=== PATIENT | female | born 1950 | race Caucasian/White ===

== ENCOUNTER 2017-09-01 17:23 | Inpatient (IN) | payer MEDICARE, MEDICAID ==
[~2017-09-01] VITALS: Ht 160 cm; Wt 50.0 kg
--- NOTE | 2017-09-01 17:31 | ERD ---
ER Documentation Chief Complaint Chief Complaint HPI Patient is a 66-year-old female with history of metastatic breast cancer who presents to the ER with sudden onset, constant, moderate shortness of breathin the setting of going to the restroom in her [facility] and calling for help to get up due to generalized weakness, and becoming angry at not having someone respond to her calls for help. She denies chest pain, fever, productive cough. She reports left flank pain that is chronic due to metastasis. She denies hemoptysis. She reports that she did not sleep well last night due to her roommate being loud, and that she is felt more fatigued today. She is currently taking chemotherapy. She is not on blood thinners. She has not had a history of DVT or PE.She was found to have a heart rate in the 120s-130s on scene and a oxygen saturation in the 80s on room air. ROS All systems reviewed and are negative except as per history of present illness. Medications Home Meds Reported Medications Zinc Sulfate* (Zinc Sulfate*) 220 Mg Tablet, 220 MG PO DAILY, TAB 09/01/17 Acetaminophen* (Tylenol*) 500 Mg Tab, 500 MG PO DAILY Y for WOUND HEALING, TAB 09/01/17 Acetaminophen* (Tylenol*) 325 Mg Tablet, 650 MG PO Q4H Y for MILD PAIN LEVEL 1-3 , TAB AND FOR FEVER TEMP>101 09/01/17 Sennosides* (Senna Lax*) 8.6 Mg Tablet, 2 TAB PO BID, TAB 09/01/17 Multivitamin with Minerals (Multivitamins with Minerals) 1 Each Tablet, 1 EACH PO DAILY, TAB 09/01/17 Magnesium Hydroxide* (Milk Of Magnesia*) 400 Mg/5 Ml Oral.susp, 30 ML PO QHS, ML 09/01/17 Methadone Hcl* (Methadone*) 10 Mg Tab, 10 MG PO Q8H, TAB 09/01/17 Levothyroxine Sodium* (Levothyroxine Sodium*) 100 Mcg Tablet, 100 MCG PO BEFORE BREAKFAST, #30 TAB 09/01/17 Letrozole* (Letrozole*) 2.5 Mg Tablet, 2.5 MG PO DAILY, TAB 09/01/17 Cyclobenzaprine Hcl* (Cyclobenzaprine Hcl*) 5 Mg Tablet, 5 MG PO NEEDED Y for MUSCLE SPASM, #60 TAB 09/01/17 Na Phos,M-B/Na Phos,Di-Ba (Fleet Enema Extra) 230 Ml Enema, 1 UNIT RC Q2D Y for NEEDED, ENEMA 09/01/17 Hydromorphone Hcl* (Dilaudid*) 4 Mg Tablet, 4 MG PO as needed Y for MODERATE PAIN LEVEL 4-6, TAB 09/01/17 Dexamethasone* (Dexamethasone*) 4 Mg Tablet, 4 MG PO DAILY, TAB 09/01/17 Docusate Sodium* (Colace*) 100 Mg Capsule, 100 MG PO BID, #60 CAP 09/01/17 Clonidine Hcl* (Clonidine Hcl*) 0.1 Mg Tab, 0.1 MG PO Q6 Y for NEEDED, TAB FOR SBP>160 09/01/17 Calcium Carbonate-Vitamin D3 (Calcium 500 + Vit D 200 Caplet) 1 Each Tablet, 1 TAB PO WITH MEALS, TAB TID 09/01/17 Amlodipine Besylate* (Amlodipine Besylate*) 10 Mg Tablet, 10 MG PO DAILY, #30 TAB HOLD FOR SBP<110HR<60 09/01/17 Alprazolam* (Alprazolam*) 0.25 Mg Tablet, 0.25 MG PO Q8, TAB 09/01/17 Discontinued Reported Medications Hydromorphone Hcl* (Dilaudid*) 4 Mg Tablet, 8 MG PO Q4H Y for SEVERE PAIN LEVEL 7-10, TAB 09/01/17 Allergies Allergies: Coded Allergies: No Known Allergy (Unverified , 09/01/17) PMhx/Soc Past medical history: Metastatic breast cancer Past surgical history: Thyroidectomy Social history: Denies current or former tobacco or alcohol. FmHx Noncontributory Physical Exam Vitals Vital Signs Date Time Temp Pulse Resp B/P Pulse Ox O2 Delivery O2 Flow Rate FiO2 09/01/17 23:30 94 16 107/79 91 09/01/17 21:30 111 20 99/52 86 09/01/17 19:30 93 21 111/64 93 09/01/17 17:50 118/79 09/01/17 17:50 107 21 93 Non Rebreather 10.0 09/01/17 17:50 99.4 114 17 119/76 86 09/01/17 17:45 Non Rebreather 10 Physical Exam Const: Alert, no acute distress Head: Atraumatic Eyes: Normal Conjunctiva, No pallor, no icterus ENT: Normal External Ears, Nose and Mouth. Mucous membranes moist Neck: Full range of motion. No JVD Resp: Clear to auscultation bilaterally, No wheezes, no rales Cardio: Tachycardia, regular rhythm, no murmurs Abd: Soft, non tender, non distended. Skin: No petechiae or rashes Back: No midline tenderness, left flank tenderness Ext: No cyanosis, or edema, No calf tenderness. Neur: Awake and alert, Cranial nerves II through XII intact bilaterally, strength and sensation grossly intact in 4 extremities. Psych: Normal Mood and Affect Result Diagram: 09/01/17180909/01/171809 Results 24 hrs Laboratory Tests Test 09/01/17 18:10 09/01/17 21:34 09/01/17 22:25 White Blood Count 1.710^3/ul Red Blood Count 3.4910^6/ul Hemoglobin 11.2g/dl Hematocrit 32.6% Mean Corpuscular Volume 93.4fl Mean Corpuscular Hemoglobin 32.1pg Mean Corpuscular Hemoglobin Concent 34.4g/dl Red Cell Distribution Width 21.5% Platelet Count 17589^3/UL Mean Platelet Volume 11.0fl Neutrophils % % Segmented Neutrophils % (Manual) 82% Band Neutrophils % (Manual) 5% Lymphocytes % (Manual) 10% Reactive Lymphocytes % (Manual) 2% Monocytes % (Manual) 1% Eosinophils % % Nucleated Red Blood Cells % 5% Neutrophils # 10^3/ul Neutrophils # (Manual) 1.410^3/ul Band Neutrophils # 0.010^3/ul Absolute Lymphocytes (Manual) 0.110^3/ul Reactive Lymphocytes # 0.010^3/ul Absolute Monocytes (Manual) 0.010^3/ul Eosinophils # 10^3/ul Giant Platelets 1% Platelet Morphology Comment @See below Polychromasia 3+ Poikilocytosis 2+ Anisocytosis 1+ Microcytosis 1+ Macrocytosis 1+ Spherocytes 1+ Target Cells 1+ Ovalocytes 1+ Echinocytes 1+ Elliptocytes 1+ Acanthocytes 1+ Schistocytes 1+ Prothrombin Time 15.4Sec Prothrombin Time Ratio 1.2 INR International Normalized Ratio 1.20 Sodium Level 132mmol/L Potassium Level 4.3mmol/L Chloride Level 100mmol/L Carbon Dioxide Level 26mmol/L Anion Gap 10 Blood Urea Nitrogen 18mg/dl Creatinine 0.67mg/dl Glucose Level 115mg/dl Lactic Acid Level 1.5mmol/L 1.3mmol/L Calcium Level 7.2mg/dl Total Bilirubin 0.4mg/dl Direct Bilirubin 0.00mg/dl Indirect Bilirubin 0.4mg/dl Aspartate Amino Transf (AST/SGOT) 52IU/L Alanine Aminotransferase (ALT/SGPT) 68IU/L Alkaline Phosphatase 364IU/L Troponin I 0.015ng/ml B-Type Natriuretic Peptide 283PG/ML Total Protein 5.7g/dl Albumin 2.9g/dl Globulin 2.80g/dl Albumin/Globulin Ratio 1.03 Urine Color YELLOW Urine Clarity CLEAR Urine pH 8.0 Urine Specific [place] 1.042 Urine Ketones NEGATIVEmg/dL Urine Nitrite NEGATIVEmg/dL Urine Bilirubin NEGATIVEmg/dL Urine Urobilinogen 2+mg/dL Urine Leukocyte Esterase TRACELeu/ul Urine Microscopic RBC 2/HPF Urine Microscopic WBC 5/HPF Urine Hemoglobin NEGATIVEmg/dL Urine Glucose NEGATIVEmg/dL Urine Total Protein NEGATIVEmg/dl Current Medications Medications (Trade) Dose Ordered Sig/Mo Route PRN Reason Start Time Stop Time Status Last Admin Dose Admin IV Flush 10 ml 10 ml STK-MED ONCE .ROUTE 09/01/17 19:02 09/01/17 19:03 DC 09/01/17 19:14 Sodium Chloride 100 ml @ ud STK-MED ONCE .ROUTE 09/01/17 19:02 09/01/17 19:03 DC 09/01/17 19:14 Iohexol 100 ml @ ud STK-MED ONCE .ROUTE 09/01/17 19:02 09/01/17 19:03 PR 09/01/17 19:14 Cefepime HCl 50 ml @ 100 mls/hr ONCE ONCE IVPB 09/01/17 20:30 09/01/17 20:59 DC 09/01/17 21:13 Vancomycin HCl/ Sodium Chloride (Vancocin/NS) 250 ml @ 125 mls/hr ONCE ONCE IVPB 09/01/17 20:30 09/01/17 22:29 DC 09/01/17 21:49 Enoxaparin Sodium (Lovenox) 50 mg ONCE ONCE SC 09/01/17 20:30 09/01/17 20:31 DC 09/01/17 21:14 Ondansetron HCl (Zofran Inj) 4 mg ER BRIDGE PRN IV NAUSEA AND/OR VOMITING 09/01/17 20:30 09/01/17 22:39 DC Acetaminophen (Tylenol Tab) 650 mg ER BRIDGE PRN PO MILD PAIN/FEVER 09/01/17 20:30 09/01/17 22:39 DC Methadone HCl 10 mg 10 mg ONCE ONCE PO 09/01/17 20:30 09/01/17 20:31 DC 09/01/17 21:50 Sodium Chloride (NS) 1,000 ml @ 75 mls/hr [id number] IV 09/01/17 21:41 09/02/17 22:00 IV Flush (NS 3 ml) 3 ml PER PROTOCOL IV 09/01/17 22:00 Ondansetron HCl (Zofran Inj) 4 mg Q6H PRN IV NAUSEA AND/OR VOMITING 09/01/17 22:00 Nitroglycerin (Nitroglycerin (Sl Tab) 0.4 Mg) 1 tab Q5M PRN SL CHEST PAIN 09/01/17 22:00 Acetaminophen (Tylenol Tab) 650 mg Q6H PRN PO PAIN LEVEL 1-3 OR FEVER 09/01/17 22:00 Morphine Sulfate (morphine) 2 mg Q4H PRN IV PAIN LEVEL 7-10 09/01/17 22:00 Magnesium Hydroxide (Milk Of Mag) 30 ml DAILY PRN PO CONSTIPATION 09/01/17 22:00 Pantoprazole (Protonix Tab) 40 mg DAILY@06 PO 09/02/17 06:00 Albuterol/ Ipratropium (Duoneb) 3 ml Q2H RESP THERAPY PRN HHN SHORTNESS OF BREATH 09/01/17 22:00 Alprazolam (Xanax) 0.25 mg Q8 PO 09/01/17 22:00 Amlodipine Besylate (Norvasc) 10 mg DAILY PO 09/02/17 09:00 Calcium/Vitamin D (Oyster Shell/ Vit-D (500/200)) 1 tab WITH MEALS PO 09/02/17 08:00 Cyclobenzaprine HCl (Flexeril) 5 mg BID PRN PO MUSCLE SPASM 09/01/17 22:00 Docusate Sodium (Colace) 100 mg BID PO 09/02/17 09:00 Hydromorphone HCl (Dilaudid) 4 mg Q4H PRN PO pain 09/01/17 22:00 Letrozole (Femara) 2.5 mg DAILY PO 09/02/17 09:00 Levothyroxine Sodium (Synthroid) 100 mcg BEFORE BREAKFAST PO 09/02/17 07:00 Magnesium Hydroxide (Milk Of Mag) 30 ml QHS PO 09/02/17 21:00 Methadone HCl (Methadone) 10 mg Q8H PO 09/02/17 06:00 Senna (Senokot) 2 tab BID PO 09/01/17 22:00 Zinc Sulfate (Zinc Sulfate) 220 mg DAILY PO 09/02/17 09:00 Apixaban 10 mg 10 mg BID PO 09/02/17 09:00 09/09/17 22:00 Cefepime HCl (Maxipime 1gm/50 ml (Pmx)) 50 ml @ 100 mls/hr Q24H IVPB 09/02/17 20:00 Vancomycin HCl VANCOMYCIN PER PHARMACY PER PROTOCOL XX 09/01/17 22:00 Vancomycin HCl (Vancocin) 100 ml @ 100 mls/hr Q12H IVPB 09/02/17 09:00 Procedures/MDM EKG read by me: Time 1726, rate 118 Rhythm: Sinus tachycardia [place]: Normal Intervals: Normal ST-T waves: T-wave flattening, no ST elevation or depression Ectopy: No Q-waves: No Q waves, poor R-wave progression Impression: Tachycardia without signs of ischemia MDM: Patient is a 66-year-old female with metastatic breast cancer presents to the ER with acute dyspnea. Given her high risk for pulmonary embolism a CTPA was performed and does demonstrate a pulmonary embolism, as well as showing evidence of possible pneumonia. The patient has leukopenia and is on chemotherapy, therefore she is at increased risk for pneumonia. She did not have fever. Blood and urine cultures were sent, as well as respiratory culture. The patient was administered IV fluids and broad-spectrum antibiotics. She was given Lovenox for anticoagulation, and will be admitted for further workup and treatment. There is no evidence of right heart strain clinically or based on serum biomarkers, and the patient did not have hypotension. Her hypoxemia improved with facemask oxygen. She did not have respiratory distress. Departure Diagnosis: Primary Impression: Pulmonary embolism Pulmonary embolism type: other Chronicity: acute Acute cor pulmonale presence: without acute cor pulmonale Qualified Code: I26.99 - Other acute pulmonary embolism without acute cor pulmonale Additional Impressions: Hypoxemia Pneumonia Pneumonia type: due to unspecified organism Laterality: unspecified laterality Lung location: unspecified part of lung Qualified Code: J18.9 - Pneumonia due to infectious organism, unspecified laterality, unspecified part of lung Metastatic breast cancer Condition: FRANK Frank MD Sep 01, 2017 17:31
[2017-09-01] MEDS ORDERED: ALPR0.254 PO (17:51)
[2017-09-01] MEDS ORDERED: AMLO-147 PO (17:52)
[2017-09-01] MEDS ORDERED: CALC-72 PO (17:54)
[2017-09-01] MEDS ORDERED: CLON-379 PO (17:55)
[2017-09-01] MEDS ORDERED: DOCU-144 PO (17:56)
[2017-09-01] MEDS ORDERED: DEXA4TAB PO (17:56)
[2017-09-01] MEDS ORDERED: HYDR4TAB51 PO ×2 (17:58)
[2017-09-01] MEDS ORDERED: NA P230E RC (18:02)
[2017-09-01] MEDS ORDERED: CYCL5TAB PO (18:03)
--- NOTE | 2017-09-01 18:03 | RADRPT ---
PROCEDURE: Chest x-ray CLINICAL INDICATION: Shortness of breath TECHNIQUE: Chest single view COMPARISON: None FINDINGS: There is mild cardiomegaly and atherosclerotic aortic calcification. Ectasia and tortuosity noted of the aorta. There is a nodular left upper lung infiltrate. This may be infectious or neoplastic in e tiology given the nodular appearance. There is questionable mild infiltrate in the right upper lung as well. Consider further evaluation with chest CT. Costophrenic angles sharp. Bones are osteopenic. There are multiple bilateral rib fractures. IMPRESSION: 1. Mild cardiomegaly and atherosclerotic aortic calcification. 2. Ectasia and tortuosity of the thoracic aorta. 3. Nodular are left upper lung infiltrate. This may be infectious or neoplastic in etiology. Recomm end chest CT for further evaluation 4. Osteopenia with multiple bilateral rib fractures. 5. Loss of height of several thoracic vertebral bodies. 6. Previous thyroid surgery RPTAT: .Cecil Rouse MD, MD Date Time Electronically viewed and signed by .Cecil Rouse MD, on 09/01/2017 18:03 .W/
[2017-09-01] MEDS ORDERED: LETR2.5T PO (18:04)
[2017-09-01] MEDS ORDERED: LEVO100T87 PO (18:05)
[2017-09-01] MEDS ORDERED: MAGN400O4 PO (18:06)
[2017-09-01] MEDS ORDERED: METH10TA2 PO (18:06)
[2017-09-01] MEDS ORDERED: MULT-105 PO (18:07)
[2017-09-01] MEDS ORDERED: SENN-53 PO (18:08)
[2017-09-01] MEDS ORDERED: ZINC220T PO (18:10)
[2017-09-01] MEDS ORDERED: TYL500 PO (18:10)
[2017-09-01] MEDS ORDERED: ACET325T33 PO (18:10)
[2017-09-01 18:24] LABS: ABNORMAL IP MESSAGE 1; HEMATOCRIT 32.6 % (37.0-47.0); HEMOGLOBIN 11.2 g/dl (12.0-16.0); MEAN CORPUSCULAR HEMOGLOBIN 32.1 pg (29.0-33.0); MEAN CORPUSCULAR HGB CONC 34.4 g/dl (32.0-37.0); MEAN CORPUSCULAR VOLUME 93.4 fl (82.0-101.0); NUCLEATED RED BLOOD CELLS% 3.5 /100WBC (0.0-0.0); PLATELET COUNT 100 10^3/UL (140-415); RED BLOOD COUNT 3.49 10^6/ul (4.20-5.40); RED CELL DISTRIBUTION WIDTH 21.5 % (11.5-14.5); WHITE BLOOD COUNT 1.7 10^3/ul (4.8-10.8)
[2017-09-01 18:30] LABS: POSITIVE DIFF @See below
[2017-09-01 18:38] LABS: INR 1.2; PROTIME 15.4 Sec (11.9-14.9); PT RATIO 1.2
[2017-09-01 18:44] LABS: ALBUMIN 2.9 g/dl (3.3-4.9); ALBUMIN/GLOBULIN RATIO 1.03; BILIRUBIN,INDIRECT 0.4 mg/dl (0-1.1); BILIRUBIN,TOTAL 0.4 mg/dl (0.2-1.3); CALCIUM 7.2 mg/dl (8.4-10.2); CREATININE 0.67 mg/dl (0.44-1.00); POTASSIUM 4.3 mmol/L (3.5-5.1); TOTAL PROTEIN 5.7 g/dl (6.1-8.1)
[2017-09-01 18:56] LABS: TROPONIN-I 0.015 ng/ml (0.00-0.12)
[2017-09-01] MEDS ORDERED: SOD CHLORIDE 0.9% 100 ML ONE (19:02)
[2017-09-01] MEDS ORDERED: IOHEXOL 100 ML ONE (19:02)
[2017-09-01 19:37] LABS: ACANTHOCYTES 1+ (0-0); ANISOCYTOSIS 1+ (0-0); ERYTHROBLAST% (NRBC) (M) 5 % (0-0); GIANT THROMBO% (M) 1 % (0-0); MICROCYTOSIS 1+ (0-0); MONOCYTES % (M) 1 % (0-11); OVALOCYTES 1+ (0-0); POIKILOCYTOSIS 2+ (0-0); POLYCHROMASIA 3+ (0-0); REACTIVE LYMPHOCYTES% (M) 2 % (0-0); SCHISTOCYTES 1+ (0-0); SPHEROCYTES 1+ (0-0); TARGET CELLS 1+ (0-0)
--- NOTE | 2017-09-01 19:50 | RADRPT ---
PROCEDURE: CT Chest Angiogram with contrast. CLINICAL INDICATION: Shortness of breath TECHNIQUE: CT scan of the chest with contrast was performed on a multidetector high-resolution CT scanner. The patient was scanned following the uncomplicated intravenous administration of 100 cc o f Isovue 300 contrast. Coronal and sagittal reformatted images were obtained from the axial source images. Additional 3D volumetric renderings were created. Images were reviewed on a [employer] PACS workstation. The total exam CTDI equals 49/10mGy and the total exam DLP equals 343mGy-cm. One or more of the following dose reduction techniques were used: Automated exposure control, Adjustmen t of the mA and/or kV according to patient size, and/or use of iterative reconstruction technique. D ICOM images are available. COMPARISON: Correlation chest x-ray today FINDINGS: Technically adequate exam for the evaluation of the pulmonary arteries to the segmental level. Intra luminal filling defects are seen most notably within segmental branches of the right lower lobe. Patchy bilateral upper lobe consolidations. There is also mass-like consolidation in the superior se gment right lower lobe. Cardiomegaly. Peripherally hypervascular right hepatic lesion measures up to 2.9cm. No significant pleural or pericardial effusion. Diffuse osseous metastatic lesions throughout the sternum, ribs and spine. Multiple pathologic rib t horacic vertebral compression fractures are seen. IMPRESSION: Right lower lobe segmental pulmonary emboli. Patchy bilateral upper lobe consolidations may be due to multifocal infection and/or edema. There is also mass-like consolidation in the superior segment right lower lobe. Recommend attention on close follow-up. Cardiomegaly. Peripherally hypervascular right hepatic lesion measures up to 2.9cm. Correlation to prior imaging w ould be helpful. Alternatively, follow up multiphase contrast enhanced abdominal CT or MRI can be ob tained. Diffuse osseous metastasis. Multiple pathologic rib and thoracic vertebral compression fractures are seen. A call report was made to Dr. Gonzales at 09/01/2017 7:50:15 PM. RPTAT: AA .Kwadwo James MD, Date Time Electronically viewed and signed by .Kwadwo James MD, on 09/01/2017 19:50 .T/
[2017-09-01] MEDS ORDERED: CEFEPIME 1GM/50 ML (PMX) 50 ML IVPB ONE (20:30)
[2017-09-01] MEDS ORDERED: VANCOMYCIN 0.75 GM in SOD CHLORIDE 0.9% 250 ML IVPB ONE (20:30)
[2017-09-01] MEDS ORDERED: ACETAMINOPHEN 325 MG TAB PO PRN ×2 (20:30→22:00)
[2017-09-01] MEDS ORDERED: ENOXAPARIN 60 MG/0.6 ML SYG SC ONE (20:30)
[2017-09-01] MEDS ORDERED: METHADONE 10 MG TAB PO ONE (20:30)
[2017-09-01] MEDS ORDERED: ONDANSETRON 4 MG INJ IV PRN ×2 (20:30→22:00)
[2017-09-01] MEDS: SOD CHLORIDE 0.9% 1,000 ML IV SCH (21:41)
[2017-09-01] MEDS ORDERED: VANCOMYCIN IV PER PHARMACY XX SCH (22:00)
[2017-09-01] MEDS ORDERED: MAGNESIUM HYDROXIDE 30ML CUP PO PRN (22:00)
[2017-09-01] MEDS ORDERED: HYDROmorphONE 4 MG TAB PO PRN (22:00)
[2017-09-01] MEDS ORDERED: NACL 0.9% 3 ML SYG IV SCH (22:00)
[2017-09-01] MEDS ORDERED: CYCLOBENZAPRINE 10 MG TAB PO PRN (22:00)
[2017-09-01] MEDS ORDERED: ALBUTEROL/IPRATROPIUM (NEB) 3 ML AMP HHN PRN (22:00)
[2017-09-01] MEDS ORDERED: NITROGLYCERIN (SL) 0.4 MG TAB SL PRN (22:00)
[2017-09-01] MEDS ORDERED: morphine 2 MG INJ IV PRN (22:00)
[2017-09-01 23:12] LABS: ADD UMIC YES; UR ASCORBIC ACID 20 mg/dL (NEGATIVE); UR BILIRUBIN (Dip) NEGATIVE (NEGATIVE); UR BLOOD (Dip) NEGATIVE (NEGATIVE); UR CLARITY CLEAR (CLEAR); UR COLOR YELLOW (YELLOW); UR GLUCOSE (Dip) NEGATIVE (NEGATIVE); UR KETONES (Dip) NEGATIVE (NEGATIVE); UR LEUKOCYTE ESTERASE (Dip) TRACE Leu/ul (NEGATIVE); UR NITRITE (Dip) NEGATIVE (NEGATIVE); UR RBC 2 /HPF (0-5); UR SPECIFIC GRAVITY (Dip) 1.042 (1.003-1.030); UR TOTAL PROTEIN (Dip) NEGATIVE (NEGATIVE); UR UROBILINOGEN (Dip) 2+ mg/dL (NEGATIVE)
[2017-09-02] VITALS (12 sets, daily range): BP systolic 93–170; BP diastolic 59–73; PULSE 81–103; RESP 18–20; Ht 160 cm; Wt 50.0 kg
[2017-09-02] MEDS: ALPRAZOLAM 0.25 MG TAB PO SCH ×5 (03:04→21:38)
[2017-09-02] MEDS: SENNA TAB PO SCH ×3 (03:04→20:31)
[2017-09-02 05:48] LABS: WHITE BLOOD COUNT 2.2 10^3/ul (4.8-10.8)
[2017-09-02 05:49] LABS: ABNORMAL IP MESSAGE 1; HEMATOCRIT 28.2 % (37.0-47.0); HEMOGLOBIN 9.7 g/dl (12.0-16.0); MEAN CORPUSCULAR HEMOGLOBIN 32.3 pg (29.0-33.0); MEAN CORPUSCULAR HGB CONC 34.4 g/dl (32.0-37.0); MEAN PLATELET VOLUME 11.3 fl (7.4-10.4); NUCLEATED RED BLOOD CELLS% 0.9 /100WBC (0.0-0.0); PLATELET COUNT 91 10^3/UL (140-415); RED CELL DISTRIBUTION WIDTH 21.4 % (11.5-14.5)
[2017-09-02 06:09] LABS: ALBUMIN 2.5 g/dl (3.3-4.9); ALBUMIN/GLOBULIN RATIO 0.96; BILIRUBIN,INDIRECT 0.2 mg/dl (0-1.1); BILIRUBIN,TOTAL 0.2 mg/dl (0.2-1.3); CALCIUM 6.7 mg/dl (8.4-10.2); CREATININE 0.59 mg/dl (0.44-1.00); POTASSIUM 3.9 mmol/L (3.5-5.1); TOTAL PROTEIN 5.1 g/dl (6.1-8.1)
[2017-09-02 06:16] LABS: POSITIVE DIFF @See below
[2017-09-02] MEDS: LEVOTHYROXINE 100 MCG TAB PO SCH (06:46)
[2017-09-02] MEDS: PANTOPRAZOLE (EC) 40 MG TAB PO SCH (06:46)
--- NOTE | 2017-09-02 08:49 | HP ---
Date/Time of Note Date/Time of Note DATE: 09/02/17 TIME: 08:41 Assessment/Plan VTE Prophylaxis VTE Prophylaxis Intervention: LMWH Lines/Catheters IV Catheter Type (from Nrs): Peripheral IV Assessment/Plan Assessment/Plan 1. Newly diagnosed PE -will started xeralto -obtain 2D-echo to eval for right heart strain -trend trop -pulmonary consult 2. Multifocal PNA -IV abx 3. Metastatic breast ca: on chemo -f/u with oncologist as outpt for chemo 4. Pancytopenia: 2/2 malignancy -Neutropenic precaution -consider Neupogen -consider in-patient oncology consult HPI/ROS Admit Date/Time Admit Date/Time Sep 01, 2017 at 20:22 Hx of Present Illness This is a 66-year-old female with history of metastatic breast cancer on chemo, back pain 2/2 met presents to ER from SNF for SOB and chest pain. Symptoms started while pt was using the rest room. Her call for help was not responded to right away. patient called 911 and was brought to ER. Her symptom was of sudden onset. In ER, she was hypoxic. Chest revealed PE, multifocal PNA, lung and liver met. She was given treatment dose Levonox for PE. No hypotension to consider tpa. PMH/Family/Social Social History Smoking Status: Never smoker Exam/Review of Systems Vital Signs Vitals Vital Signs Date Time Temp Pulse Resp B/P Pulse Ox O2 Delivery O2 Flow Rate FiO2 09/02/17 08:29 81 09/02/17 07:34 97.8 20 103/64 95 09/02/17 06:38 10.0 09/01/17 17:50 Non Rebreather Intake and Output 09/01/17 09/01/17 09/02/17 15:00 23:00 07:00 Intake Total 200 ml Balance 200 ml Exam Constitutional: distress Head: atraumatic, normocephalic Eyes: PERRL Respiratory: diminished breath sounds Cardiovascular: nl pulses, regular rate and rhythm Gastrointestinal: soft Extremities: normal pulses Labs Result Diagram: 09/02/1742209/02/17422 Medications Medications Current Medications Sodium Chloride (NS) 1,000 ml @ 75 mls/hr [id number] IV Last administered on 09/01t 21:41; Admin Dose 75 MLS/HR; Start 09/01/17 at 21:41; Stop 09/02/17 at 22: 00 Ondansetron HCl (Zofran Inj) 4 mg Q6H PRN IV NAUSEA AND/OR VOMITING; Start 09/01/17 at 22:00 Nitroglycerin (Nitroglycerin (Sl Tab) 0.4 Mg) 1 tab Q5M PRN SL CHEST PAIN; Start 09/01/17 at 22:00 Acetaminophen (Tylenol Tab) 650 mg Q6H PRN PO PAIN LEVEL 1-3 OR FEVER; Start 09/01/17 at 22:00 Morphine Sulfate (morphine) 2 mg Q4H PRN IV PAIN LEVEL 7-10; Start 09/01/17 at 22:00 Magnesium Hydroxide (Milk Of Mag) 30 ml DAILY PRN PO CONSTIPATION; Start at 22:00 Pantoprazole (Protonix Tab) 40 mg DAILY@06 PO Last administered on 09/02/17 06 :46; Admin Dose 40 MG; Start 09/02/17 at 06:00 Alprazolam (Xanax) 0.25 mg Q8 PO Last administered on 09/02/17 06:47; Admin Dose 0.25 MG; Start 09/01/17 at 22:00 Amlodipine Besylate (Norvasc) 10 mg DAILY PO ; Start 09/02/17 at 09:00 Cyclobenzaprine HCl (Flexeril) 5 mg BID PRN PO MUSCLE SPASM; Start 09/01/17 at 22:00 Docusate Sodium (Colace) 100 mg BID PO ; Start 09/02/17 at 09:00 Hydromorphone HCl (Dilaudid) 4 mg Q4H PRN PO pain; Start 09/01/17 at 22:00 Letrozole (Femara) 2.5 mg DAILY PO ; Start 09/02/17 at 09:00 Magnesium Hydroxide (Milk Of Mag) 30 ml QHS PO ; Start 09/02/17 at 21:00 Methadone HCl (Methadone) 10 mg Q8H PO ; Start 09/02/17 at 06:00 Senna (Senokot) 2 tab BID PO Last administered on 09/02/17 03:04; Admin Dose 2 TAB; Start 09/01/17 at 22:00 Zinc Sulfate (Zinc Sulfate) 220 mg DAILY PO ; Start 09/02/17 at 09:00 Apixaban 10 mg 10 mg BID PO ; Start 09/02/17 at 09:00; Stop 09/09/17 at 22:00 Cefepime HCl 50 ml @ 100 mls/hr Q24H IVPB ; Start 09/02/17 at 20:00 Vancomycin HCl (Vancocin) 100 ml @ 100 mls/hr Q12H IVPB ; Start 09/02/17 at 09: 00 GUSTAVO SEWELL MD Sep 02, 2017 08:49
[2017-09-02] MEDS: ZINC SULFATE 220 MG CAP PO SCH (08:57)
[2017-09-02] MEDS: METHADONE 10 MG TAB PO SCH ×3 (08:57→21:39)
[2017-09-02] MEDS: CALCIUM/VITAMIN D (500/200) TAB PO SCH ×3 (08:57→17:53)
[2017-09-02] MEDS: AMLODIPINE 10 MG TAB PO SCH (08:58)
[2017-09-02] MEDS: DOCUSATE SODIUM 100 MG CAP PO SCH ×2 (08:58→20:31)
[2017-09-02] MEDS: LETROZOLE 2.5 MG TAB PO SCH ×2 (08:58→12:22)
[2017-09-02] MEDS: VANCOMYCIN 500MG/NS (PMX) 100 ML IVPB SCH ×3 (09:00→20:30)
[2017-09-02] MEDS ORDERED: APIXABAN 5 MG TABLET PO SCH (09:00)
[2017-09-02 10:55] LABS: ANISOCYTOSIS 1+ (0-0); ERYTHROBLAST% (NRBC) (M) 1 % (0-0); MICROCYTOSIS 1+ (0-0); MONOCYTES % (M) 2 % (0-11); PLATELET ESTIMATE DECREASED; POIKILOCYTOSIS 2+ (0-0); POLYCHROMASIA 3+ (0-0)
[2017-09-02] MEDS: SOD CHLORIDE 0.9% 1,000 ML IV SCH ×2 (11:01→17:56)
--- NOTE | 2017-09-02 11:52 | RADRPT ---
Echocardiogram Report Patient Name: JANET CASTANEDA Gender: Female Date: 1950 Study Date: 02-Sep-2017 Business Process Associate: VICKY Location: E Ref. Physician: GUSTAVO SEWELL Quality: Technically Difficult Study Procedures: Transthoracic echocardiogram with 2D, M-Mode, and Doppler examination. Indications: Pulmonary embolism. 2D/M Mode Doppler Measurement Value Normal Ranges Measurement Value Normal Ranges AoR Diam MM 3.4 cm AV Peak [place] 1.0 m/sec ACS MM 2.0 cm AV Peak PG 4.3 mmHg LVIDd 2D 4.4 3.5 - 5.6 cm LVOT Peak [place] 0.7 m/sec LVIDs 2D 2.9 2.1 - 4.1 cm LVOT Peak PG 1.8 mmHg LVPWd 2D 1.2 0.6 - 1.1 cm MV E Peak Sidney 0.5 m/sec IVSd 2D 1.2 0.6 - 1.1 cm MV A Peak [place] 0.8 m/sec EDV 2D 87.1 cm3 MV E/A 0.6 ESV 2D 25.3 cm3 MV Decel Time 226 msec LA Dimen 2D 3.6 2.3 - 4.0 cm MV Decel [place] 2 MV E/A 0.6 TR Peak [place] 2.3 m/sec TR Peak PG 21.2 mmHg PV Peak [place] 0.8 m/sec PV Peak PG 3.0 mmHg RVSP 24.2 mmHg Findings Left Ventricle: Overall, normal left ventricular systolic function. Not all segments visualized difficult apicals. Normal left ventricular cavity size. Mild concentric left ventricular hypertrophy. Ejection fraction is visually estimated at 60 %. Tissue Doppler/Mitral Doppler indices are consistent with impaired relaxation (Stage I diastolic dysfunction). E/E`=7. These segments of the LV are hypokinetic inferior mid segment and inferoseptum mid segment. Right Ventricle: Normal right ventricular size. Normal right ventricular systolic function. Left Atrium: The left atrium is normal in size. Right Atrium: Not well visualized. Atrial Septum: Not well visualized. Mitral Valve: Mild mitral leaflet calcification. Mild mitral valve regurgitation. Aortic Valve: No hemodynamically significant aortic stenosis by doppler. Aortic sclerosis without significant stenosis. Trileaflet aortic valve. Mild aortic valve regurgitation. Tricuspid Valve: Normal appearance of the tricuspid valve. Estimated peak PA systolic pressure 24 mmHg. There is mild tricuspid regurgitation. Pulmonic Valve: Normal pulmonic valve appearance. There is trace pulmonic regurgitation. Pericardium: Normal pericardium with no significant pericardial effusion. Aorta: Normal aortic root. IVC: Normal size and normal respiratory collapse consistent with normal right atrial pressure. Pulmonary Artery: Not well visualized. Conclusions 1.Technically difficult study. 2.Overall, normal left ventricular systolic function. Estimated LVEF 60%. In the short-axis views there appears to be inferior and inferoseptal hypokinesis. 3.Mild concentric left ventricular hypertrophy with stage I diastolic dysfunction. 4.Mild mitral valve regurgitation. 5.Mild aortic valve regurgitation. 6.Normal estimated RVSP. Electronically Signed By: Marshall Rod 02-Sep-2017 11:51:49 -0800 Patient Name: JANET CASTANEDA Study Date: 02-Sep-2017 [id number]
--- NOTE | 2017-09-02 15:03 | PN ---
Date/Time of Note Date/Time of Note DATE: 09/02/17 TIME: 14:59 Assessment/Plan VTE Prophylaxis VTE Prophylaxis Intervention: SCD's Lines/Catheters IV Catheter Type (from Nrs): Peripheral IV Assessment/Plan Chief Complaint/Hosp Course Assessment and plan 1. Newly diagnosed embolism. Continue on Eliquis for now. Sheet Metal Insulator to follow. Of note troponin trend is negative. Hot End Operator to follow. 2. History of metastatic breast cancer. Patient is currently on chemotherapy. To be continued. Patient for outpatient follow-up with oncologist. 3. Pneumonia. Continue antibiotics. Sheet Metal Insulator follow. 4. Dyspnea secondary to #1 #3. Continue antibiotics. Sheet Metal Insulator follow. 5. Hypothyroidism. Continue Synthroid 6. Essential hypertension. Continue antihypertensives and adjust as needed. 7. Multiple pathologic rib and thoracic vertebral compression fractures. Likely pathologic. Continue with analgesics. 8. Masslike consolidation superior segment of right lower lung lobe. Follow- up with automatic packer operator or conditions. Disposition and plan: Continue with Eliquis. Continue on O2 supplement. Neurologist to follow. Continue in-house monitoring for now. Monitor for improvement. Discussed plan of care with Dr. Trevino Problems: Subjective 24 Hr Interval Summary Free Text/Dictation Still reports having some shortness of breath. Denies any chest pain. Reports breathing is better with Ventimask in place Exam/Review of Systems Vital Signs Vitals Vital Signs Date Time Temp Pulse Resp B/P Pulse Ox O2 Delivery O2 Flow Rate FiO2 09/02/17 12:20 91 09/02/17 11:38 98.1 18 109/59 96 09/02/17 06:38 10.0 09/01/17 17:50 Non Rebreather Intake and Output 09/01/17 09/01/17 09/02/17 15:00 23:00 07:00 Intake Total 200 ml Balance 200 ml Exam Constitutional: alert, oriented Head: normocephalic Neck: non-tender, supple Respiratory: other (No obvious wheezing or rhonchi) Cardiovascular: regular rate and rhythm Gastrointestinal: non-tender, soft Musculoskeletal: No swelling 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: 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-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 intact, nl mental status, nl speech Skin: nl turgor Results Result Diagram: 09/02/17 0423 09/02/173 Results 24 hrs Laboratory Tests Test 09/01/17 18:10 09/01/17 21:34 09/01/17 22:25 09/02/17 04:23 White Blood Count 1.7 L 2.2 #L Red Blood Count 3.49 L 3.00 L Hemoglobin 11.2 L 9.7 L Hematocrit 32.6 L 28.2 L Mean Corpuscular Volume 93.4 94.0 Mean Corpuscular Hemoglobin 32.1 32.3 Mean Corpuscular Hemoglobin Concent 34.4 34.4 Red Cell Distribution Width 21.5 H 21.4 H Platelet Count 100 L 91 L Mean Platelet Volume 11.0 H 11.3 H Neutrophils % Segmented Neutrophils % (Manual) 82 H 75 Band Neutrophils % (Manual) 5 H 14 H Lymphocytes % (Manual) 10 L 9 L Reactive Lymphocytes % (Manual) 2 H Monocytes % (Manual) 1 2 Eosinophils % Nucleated Red Blood Cells % 5 H 1 H Neutrophils # Neutrophils # (Manual) 1.4 L 1.7 Band Neutrophils # 0.0 0.3 Absolute Lymphocytes (Manual) 0.1 L 0.1 L Reactive Lymphocytes # 0.0 Absolute Monocytes (Manual) 0.0 L 0.0 L Eosinophils # Giant Platelets 1 H Platelet Morphology Comment @See below Polychromasia 3+ 3+ Poikilocytosis 2+ 2+ Anisocytosis 1+ 1+ Microcytosis 1+ 1+ Macrocytosis 1+ Spherocytes 1+ Target Cells 1+ Ovalocytes 1+ Echinocytes 1+ Elliptocytes 1+ Acanthocytes 1+ Schistocytes 1+ Prothrombin Time 15.4 H Prothrombin Time Ratio 1.2 INR International Normalized Ratio 1.20 Sodium Level 132 L 138 Potassium Level 4.3 3.9 Chloride Level 100 105 Carbon Dioxide Level 26 26 Anion Gap 10 11 Blood Urea Nitrogen 18 18 Creatinine 0.67 0.59 Glucose Level 115 186 Lactic Acid Level 1.5 1.3 Calcium Level 7.2 L 6.7 L Total Bilirubin 0.4 0.2 Direct Bilirubin 0.00 0.00 Indirect Bilirubin 0.4 0.2 Aspartate Amino Transf (AST/SGOT) 52 H 37 Alanine Aminotransferase (ALT/SGPT) 68 65 Alkaline Phosphatase 364 H 310 H Troponin I 0.015 < 0.012 < 0.012 B-Type Natriuretic Peptide 283 H Total Protein 5.7 L 5.1 L Albumin 2.9 L 2.5 L Globulin 2.80 2.60 Albumin/Globulin Ratio 1.03 0.96 Urine Color YELLOW Urine Clarity CLEAR Urine pH 8.0 Urine Specific [place] 1.042 H Urine Ketones NEGATIVE Urine Nitrite NEGATIVE Urine Bilirubin NEGATIVE Urine Urobilinogen 2+ H Urine Leukocyte Esterase TRACE A Urine Microscopic RBC 2 Urine Microscopic WBC 5 Urine Hemoglobin NEGATIVE Urine Glucose NEGATIVE Urine Total Protein NEGATIVE Lymphocytes % Monocytes % Basophils % Lymphocytes # Monocytes # Basophils # Nucleated Red Blood Cells # Platelet Estimate DECREASED Magnesium Level 2.0 Medications Medications Current Medications Sodium Chloride (NS) 1,000 ml @ 75 mls/hr [id number] IV Last administered on 09/01 21:41; Admin Dose 75 MLS/HR; Start 09/01/17 at 21:41; Stop 09/02/17 at 22: 00 Ondansetron HCl (Zofran Inj) 4 mg Q6H PRN IV NAUSEA AND/OR VOMITING; Start 09/01/17 at 22:00 Nitroglycerin (Nitroglycerin (Sl Tab) 0.4 Mg) 1 tab Q5M PRN SL CHEST PAIN; Start 09/01/17 at 22:00 Acetaminophen (Tylenol Tab) 650 mg Q6H PRN PO PAIN LEVEL 1-3 OR FEVER; Start 09/01/17 at 22:00 Morphine Sulfate (morphine) 2 mg Q4H PRN IV PAIN LEVEL 7-10; Start 09/01/17 at 22:00 Magnesium Hydroxide (Milk Of Mag) 30 ml DAILY PRN PO CONSTIPATION; Start at 22:00 Pantoprazole (Protonix Tab) 40 mg DAILY@06 PO Last administered on 09/02/17 06 :46; Admin Dose 40 MG; Start 09/02/17 at 06:00 Alprazolam (Xanax) 0.25 mg Q8 PO Last administered on 09/02/17 13:54; Admin Dose 0.25 MG; Start 09/01/17 at 22:00 Amlodipine Besylate (Norvasc) 10 mg DAILY PO Last administered on 09/02/17 08: 58; Admin Dose 10 MG; Start 09/02/17 at 09:00 Cyclobenzaprine HCl (Flexeril) 5 mg BID PRN PO MUSCLE SPASM; Start 09/01/17 at 22:00 Docusate Sodium (Colace) 100 mg BID PO ; Start 09/02/17 at 09:00 Hydromorphone HCl (Dilaudid) 4 mg Q4H PRN PO pain; Start 09/01/17 at 22:00 Letrozole (Femara) 2.5 mg DAILY PO Last administered on 09/02/17 12:22; Admin Dose 2.5 MG; Start 09/02/17 at 09:00 Magnesium Hydroxide (Milk Of Mag) 30 ml QHS PO ; Start 09/02/17 at 21:00 Methadone HCl (Methadone) 10 mg Q8H PO Last administered on 09/02/17 13:55; Admin Dose 10 MG; Start 09/02/17 at 06:00 Senna (Senokot) 2 tab BID PO Last administered on 09/02/17 08:58; Admin Dose 2 TAB; Start 09/01/17 at 22:00 Zinc Sulfate (Zinc Sulfate) 220 mg DAILY PO Last administered on 09/02/17 08: 57; Admin Dose 220 MG; Start 09/02/17 at 09:00 Apixaban 10 mg 10 mg BID PO Last administered on 09/02/17 08:58; Admin Dose 10 MG; Start 09/02/17 at 09:00; Stop 09/09/17 at 22:00 Cefepime HCl 50 ml @ 100 mls/hr Q24H IVPB ; Start 09/02/17 at 20:00 Vancomycin HCl (Vancocin) 100 ml @ 100 mls/hr Q12H IVPB Last administered on 09/02/17 10:30; Admin Dose 100 MLS/HR; Start 09/02/17 at 09:00 Miscellaneous Information (*Rx Drug Level Order Reminder*) VANCOMYCIN TROUGH ON @ .. ONCE ONCE XX ; Start 09/03/17 at 08:00; Stop 09/03/17 at 08:01 DONOVAN BOLAÑOS Sep 02, 2017 15:03
--- NOTE | 2017-09-02 15:43 | CONS ---
Date/Time of Note Date/Time of Note DATE: 09/02/17 TIME: 15:42 Assessment/Plan Assessment/Plan Chief Complaint/Hosp Course Metastatic Breast Ca ON TREATMENT CHEMO ON HOLD INCOMPLETE RECORD WILL OBTAIN AND REVIEW RECORD HYPERCOAGULABLE STATE WITH subsegmental PE Anticoagulation with lovenox 1 mg/kg BID Pancytopenia POST CHEMO SL IMPROVED MONITOR CLOSELY TRANSFUSE IF NEEDED Hypoxemic Respiratory Failure: due to a multifocal pneumonia, more consistent with viral. PER PULM- In view of the morphological appearance on thoracic CT, must also consider non-infectious etiologies such as an organizing pneumonia (BOOP) secondary to her chemo (need records to know what she has been on) and/or XRT. RECORD- P Problems: Consultation Date/Type/Reason Admit Date/Time Sep 01, 2017 at 20:22 Date of Consultation: Sep 02, 2017 Type of Consultation: HEMEONC Reason for Consultation PE Referring Provider: DONOVAN BOLAÑOS Hx of Present Illness this is a 66-year-old female with history of metastatic breast cancer on chemo , s/p XRT, back pain 2/2 mets, resident of a SNF, who presents with acute onset of dyspnea, found to have a RLL subsegment PE and multifocal airspace opacities on CT chest. I WAS ASKED TO PROVIDE HEMEONC CONSULT Constitutional: chills Eyes: no complaints ENT: no complaints Respiratory: shortness of breath Cardiovascular: no complaints Gastrointestinal: no complaints Genitourinary: no complaints Musculoskeletal: no complaints Skin: no complaints Neurologic: no complaints Endocrine: no complaints Lymphatic: no complaints Psychological: no complaints Immunologic: no complaints Past Medical History Medical History: cancer Past Surgical History Past Surgical Hx: no surgical history Family History Significant Family History: no pertinent family hx Social History Alcohol Use: none Smoking Status: Never smoker Drug Use: none Social History Smoking Status: Never smoker Exam/Review of Systems Vital Signs Vitals Vital Signs Date Time Temp Pulse Resp B/P Pulse Ox O2 Delivery O2 Flow Rate FiO2 09/02/17 12:20 91 09/02/17 11:38 98.1 18 109/59 96 09/02/17 06:38 10.0 09/01/17 17:50 Non Rebreather Intake and Output 09/01/17 09/01/17 09/02/17 15:00 23:00 07:00 Intake Total 200 ml Balance 200 ml Exam Constitutional: alert, frail, oriented Psych: nl mood/affect, no complaints Head: atraumatic, normocephalic Eyes: EOMI, nl conjunctiva, nl lids, nl sclera ENMT: mucosa pink and moist, nl external ears & nose, nl lips & teeth, nl nasal mucosa & septum Neck: jvd, non-tender, supple Respiratory: crackles/rales, labored breathing Cardiovascular: nl pulses, regular rate and rhythm Gastrointestinal: nl liver, spleen, non-tender, soft Musculoskeletal: nl extremities to inspection, nl gait and stance Extremities: normal pulses 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: 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 intact, nl mental status, nl speech, nl strength Results Result Diagram: 09/02/1742209/02/17422 Results 24 hrs Laboratory Tests Test 09/01/17 18:10 09/01/17 21:34 09/01/17 22:25 09/02/17 04:23 White Blood Count 1.7 L 2.2 #L Red Blood Count 3.49 L 3.00 L Hemoglobin 11.2 L 9.7 L Hematocrit 32.6 L 28.2 L Mean Corpuscular Volume 93.4 94.0 Mean Corpuscular Hemoglobin 32.1 32.3 Mean Corpuscular Hemoglobin Concent 34.4 34.4 Red Cell Distribution Width 21.5 H 21.4 H Platelet Count 100 L 91 L Mean Platelet Volume 11.0 H 11.3 H Neutrophils % Segmented Neutrophils % (Manual) 82 H 75 Band Neutrophils % (Manual) 5 H 14 H Lymphocytes % (Manual) 10 L 9 L Reactive Lymphocytes % (Manual) 2 H Monocytes % (Manual) 1 2 Eosinophils % Nucleated Red Blood Cells % 5 H 1 H Neutrophils # Neutrophils # (Manual) 1.4 L 1.7 Band Neutrophils # 0.0 0.3 Absolute Lymphocytes (Manual) 0.1 L 0.1 L Reactive Lymphocytes # 0.0 Absolute Monocytes (Manual) 0.0 L 0.0 L Eosinophils # Giant Platelets 1 H Platelet Morphology Comment @See below Polychromasia 3+ 3+ Poikilocytosis 2+ 2+ Anisocytosis 1+ 1+ Microcytosis 1+ 1+ Macrocytosis 1+ Spherocytes 1+ Target Cells 1+ Ovalocytes 1+ Echinocytes 1+ Elliptocytes 1+ Acanthocytes 1+ Schistocytes 1+ Prothrombin Time 15.4 H Prothrombin Time Ratio 1.2 INR International Normalized Ratio 1.20 Sodium Level 132 L 138 Potassium Level 4.3 3.9 Chloride Level 100 105 Carbon Dioxide Level 26 26 Anion Gap 10 11 Blood Urea Nitrogen 18 18 Creatinine 0.67 0.59 Glucose Level 115 186 Lactic Acid Level 1.5 1.3 Calcium Level 7.2 L 6.7 L Total Bilirubin 0.4 0.2 Direct Bilirubin 0.00 0.00 Indirect Bilirubin 0.4 0.2 Aspartate Amino Transf (AST/SGOT) 52 H 37 Alanine Aminotransferase (ALT/SGPT) 68 65 Alkaline Phosphatase 364 H 310 H Troponin I 0.015 < 0.012 < 0.012 B-Type Natriuretic Peptide 283 H Total Protein 5.7 L 5.1 L Albumin 2.9 L 2.5 L Globulin 2.80 2.60 Albumin/Globulin Ratio 1.03 0.96 Urine Color YELLOW Urine Clarity CLEAR Urine pH 8.0 Urine Specific [place] 1.042 H Urine Ketones NEGATIVE Urine Nitrite NEGATIVE Urine Bilirubin NEGATIVE Urine Urobilinogen 2+ H Urine Leukocyte Esterase TRACE A Urine Microscopic RBC 2 Urine Microscopic WBC 5 Urine Hemoglobin NEGATIVE Urine Glucose NEGATIVE Urine Total Protein NEGATIVE Lymphocytes % Monocytes % Basophils % Lymphocytes # Monocytes # Basophils # Nucleated Red Blood Cells # Platelet Estimate DECREASED Magnesium Level 2.0 Medications Medications Current Medications Sodium Chloride (NS) 1,000 ml @ 75 mls/hr [id number] IV Last administered on 09/01t 21:41; Admin Dose 75 MLS/HR; Start 09/01/17 at 21:41; Stop 09/02/17 at 22: 00 Ondansetron HCl (Zofran Inj) 4 mg Q6H PRN IV NAUSEA AND/OR VOMITING; Start 09/01/17 at 22:00 Nitroglycerin (Nitroglycerin (Sl Tab) 0.4 Mg) 1 tab Q5M PRN SL CHEST PAIN; Start 09/01/17 at 22:00 Acetaminophen (Tylenol Tab) 650 mg Q6H PRN PO PAIN LEVEL 1-3 OR FEVER; Start 09/01/17 at 22:00 Morphine Sulfate (morphine) 2 mg Q4H PRN IV PAIN LEVEL 7-10; Start 09/01/17 at 22:00 Magnesium Hydroxide (Milk Of Mag) 30 ml DAILY PRN PO CONSTIPATION; Start at 22:00 Pantoprazole (Protonix Tab) 40 mg DAILY@06 PO Last administered on 09/02/17 06 :46; Admin Dose 40 MG; Start 09/02/17 at 06:00 Alprazolam (Xanax) 0.25 mg Q8 PO Last administered on 09/02/17 13:54; Admin Dose 0.25 MG; Start 09/01/17 at 22:00 Amlodipine Besylate (Norvasc) 10 mg DAILY PO Last administered on 09/02/17 08: 58; Admin Dose 10 MG; Start 09/02/17 at 09:00 Cyclobenzaprine HCl (Flexeril) 5 mg BID PRN PO MUSCLE SPASM; Start 09/01/17 at 22:00 Docusate Sodium (Colace) 100 mg BID PO ; Start 09/02/17 at 09:00 Hydromorphone HCl (Dilaudid) 4 mg Q4H PRN PO pain; Start 09/01/17 at 22:00 Letrozole (Femara) 2.5 mg DAILY PO Last administered on 09/02/17 12:22; Admin Dose 2.5 MG; Start 09/02/17 at 09:00 Magnesium Hydroxide (Milk Of Mag) 30 ml QHS PO ; Start 09/02/17 at 21:00 Methadone HCl (Methadone) 10 mg Q8H PO Last administered on 09/02/17 13:55; Admin Dose 10 MG; Start 09/02/17 at 06:00 Senna (Senokot) 2 tab BID PO Last administered on 09/02/17 08:58; Admin Dose 2 TAB; Start 09/01/17 at 22:00 Zinc Sulfate (Zinc Sulfate) 220 mg DAILY PO Last administered on 09/02/17 08: 57; Admin Dose 220 MG; Start 09/02/17 at 09:00 Apixaban 10 mg 10 mg BID PO Last administered on 09/02/17 08:58; Admin Dose 10 MG; Start 09/02/17 at 09:00; Stop 09/09/17 at 22:00 Cefepime HCl 50 ml @ 100 mls/hr Q24H IVPB ; Start 09/02/17 at 20:00 Vancomycin HCl (Vancocin) 100 ml @ 100 mls/hr Q12H IVPB Last administered on 09/02/17 10:30; Admin Dose 100 MLS/HR; Start 09/02/17 at 09:00 Miscellaneous Information (*Rx Drug Level Order Reminder*) VANCOMYCIN TROUGH ON @ .. ONCE ONCE XX ; Start 09/03/17 at 08:00; Stop 09/03/17 at 08:01 Procedures Procedures [place] [address] Radiology Main Line: [phone] DIAGNOSTIC IMAGING REPORT Patient: JANET CASTANEDA : 1950 Age: 66 Sex: F [id number] DOS: 09/01/17 1728 Ordering MD: FRANK MIKE MD Location: E/R Room/Bed: PROCEDURE: CT Chest Angiogram with contrast. CLINICAL INDICATION: Shortness of breath TECHNIQUE: CT scan of the chest with contrast was performed on a multidetector high-resolution CT scanner. The patient was scanned following the uncomplicated intravenous administration of 100 cc of Isovue 300 contrast. Coronal and sagittal reformatted images were obtained from the axial source images. Additional 3D volumetric renderings were created. Images were reviewed on a high-resolution PACS workstation. The total exam CTDI equals 49/ 10mGy and the total exam DLP equals 343mGy-cm. One or more of the following dose reduction techniques were used: Automated exposure control, Adjustment of the mA and/or kV according to patient size, and/or use of iterative reconstruction technique. DICOM images are available. COMPARISON: Correlation chest x-ray today FINDINGS: Technically adequate exam for the evaluation of the pulmonary arteries to the segmental level. Intraluminal filling defects are seen most notably within segmental branches of the right lower lobe. Patchy bilateral upper lobe consolidations. There is also mass-like consolidation in the superior segment right lower lobe. Cardiomegaly. Peripherally hypervascular right hepatic lesion measures up to 2.9cm. No significant pleural or pericardial effusion. Diffuse osseous metastatic lesions throughout the sternum, ribs and spine. Multiple pathologic rib thoracic vertebral compression fractures are seen. IMPRESSION: Right lower lobe segmental pulmonary emboli. Patchy bilateral upper lobe consolidations may be due to multifocal infection and/or edema. There is also mass-like consolidation in the superior segment right lower lobe. Recommend attention on close follow-up. Cardiomegaly. Peripherally hypervascular right hepatic lesion measures up to 2.9cm. Correlation to prior imaging would be helpful. Alternatively, follow up multiphase contrast enhanced abdominal CT or MRI can be obtained. Diffuse osseous metastasis. Multiple pathologic rib and thoracic vertebral compression fractures are seen. A call report was made to Dr. Mike at 09/01/2017 7:50:15 PM. RPTAT: AA .Kwadwo James MD, MD Date Time Electronically viewed and signed by .Kwadwo James MD, MD on 09/01/2017 19:50 .T/ CC: FRANK MIKE MD, VERA M MD Sep 02, 2017 15:43
--- NOTE | 2017-09-02 20:06 | CONS ---
Date/Time of Note Date/Time of Note DATE: 09/02/17 TIME: 19:59 Assessment/Plan Assessment/Plan Additional Assessment/Plan IMP: 1. Hypoxemic Respiratory Insufficiency: due to a multifocal pneumonia. In view of the morphological appearance on thoracic CT, must also consider non- infectious etiologies such as an organizing pneumonia (BOOP) secondary to her chemo (need records to know what she has been on) and/or XRT. Clearly her subsegmental PE does not help, however, doubt that it is significantly contributing. 2. Metastatic Breast Ca 3. Pancytopenia RECS: 1. Agree with broad-spectrum abx for the time being 2. Anticoagulation with lovenox 1 mg/kg BID 3. Follow clinical response; if no improvement (or worsening) would consider empiric steroids (as she is high risk for bronc with biopsy) Consultation Date/Type/Reason Admit Date/Time Sep 01, 2017 at 20:22 Type of Consultation: Pulm Hx of Present Illness Briefly, this is a 66-year-old female with history of metastatic breast cancer on chemo, s/p XRT, back pain 2/2 mets, resident of a SNF, who presents with acute onset of dyspnea, found to have a RLL subsegment PE and multifocal airspace opacities on CT chest. Constitutional: chills Eyes: no complaints ENT: no complaints Respiratory: shortness of breath Cardiovascular: no complaints Gastrointestinal: no complaints Genitourinary: no complaints Musculoskeletal: no complaints Skin: no complaints Neurologic: no complaints Endocrine: no complaints Lymphatic: no complaints Psychological: no complaints Immunologic: no complaints Past Medical History Medical History: cancer Past Surgical History Past Surgical Hx: no surgical history Family History Significant Family History: no pertinent family hx Social History Alcohol Use: none Smoking Status: Never smoker Drug Use: none Exam/Review of Systems Vital Signs Vitals Vital Signs Date Time Temp Pulse Resp B/P Pulse Ox O2 Delivery O2 Flow Rate FiO2 09/02/17 16:16 96 09/02/17 15:43 98.2 20 170/73 94 09/02/17 15:29 Simple Mask 15.0 Intake and Output 09/01/17 09/01/17 09/02/17 15:00 23:00 07:00 Intake Total 200 ml Balance 200 ml Exam Constitutional: alert, frail, oriented Psych: nl mood/affect, no complaints Head: atraumatic, normocephalic Eyes: EOMI, nl conjunctiva, nl lids, nl sclera ENMT: mucosa pink and moist, nl external ears & nose, nl lips & teeth, nl nasal mucosa & septum Neck: jvd, non-tender, supple Respiratory: crackles/rales, labored breathing Cardiovascular: nl pulses, regular rate and rhythm Gastrointestinal: nl liver, spleen, non-tender, soft Musculoskeletal: nl extremities to inspection, nl gait and stance Extremities: normal pulses 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, nl mental status, nl speech, nl strength Results Result Diagram: 09/02/1742209/02/17422 Results 24 hrs Laboratory Tests Test 09/01/17 21:34 09/01/17 22:25 09/02/17 04:23 Lactic Acid Level 1.3 Troponin I < 0.012 < 0.012 Urine Color YELLOW Urine Clarity CLEAR Urine pH 8.0 Urine Specific [place] 1.042 H Urine Ketones NEGATIVE Urine Nitrite NEGATIVE Urine Bilirubin NEGATIVE Urine Urobilinogen 2+ H Urine Leukocyte Esterase TRACE A Urine Microscopic RBC 2 Urine Microscopic WBC 5 Urine Hemoglobin NEGATIVE Urine Glucose NEGATIVE Urine Total Protein NEGATIVE White Blood Count 2.2 #L Red Blood Count 3.00 L Hemoglobin 9.7 L Hematocrit 28.2 L Mean Corpuscular Volume 94.0 Mean Corpuscular Hemoglobin 32.3 Mean Corpuscular Hemoglobin Concent 34.4 Red Cell Distribution Width 21.4 H Platelet Count 91 L Mean Platelet Volume 11.3 H Neutrophils % Segmented Neutrophils % (Manual) 75 Band Neutrophils % (Manual) 14 H Lymphocytes % Lymphocytes % (Manual) 9 L Monocytes % Monocytes % (Manual) 2 Eosinophils % Basophils % Nucleated Red Blood Cells % 1 H Neutrophils # Neutrophils # (Manual) 1.7 Band Neutrophils # 0.3 Absolute Lymphocytes (Manual) 0.1 L Lymphocytes # Monocytes # Absolute Monocytes (Manual) 0.0 L Eosinophils # Basophils # Nucleated Red Blood Cells # Platelet Estimate DECREASED Polychromasia 3+ Poikilocytosis 2+ Anisocytosis 1+ Microcytosis 1+ Sodium Level 138 Potassium Level 3.9 Chloride Level 105 Carbon Dioxide Level 26 Anion Gap 11 Blood Urea Nitrogen 18 Creatinine 0.59 Glucose Level 186 Calcium Level 6.7 L Magnesium Level 2.0 Total Bilirubin 0.2 Direct Bilirubin 0.00 Indirect Bilirubin 0.2 Aspartate Amino Transf (AST/SGOT) 37 Alanine Aminotransferase (ALT/SGPT) 65 Alkaline Phosphatase 310 H Total Protein 5.1 L Albumin 2.5 L Globulin 2.60 Albumin/Globulin Ratio 0.96 Medications Medications Current Medications Sodium Chloride (NS) 1,000 ml @ 75 mls/hr [id number] IV Last administered on 09/02 17:56; Admin Dose 75 MLS/HR; Start 09/01/17 at 21:41; Stop 09/02/17 at 22: 00 Ondansetron HCl (Zofran Inj) 4 mg Q6H PRN IV NAUSEA AND/OR VOMITING; Start 09/01/17 at 22:00 Nitroglycerin (Nitroglycerin (Sl Tab) 0.4 Mg) 1 tab Q5M PRN SL CHEST PAIN; Start 09/01/17 at 22:00 Acetaminophen (Tylenol Tab) 650 mg Q6H PRN PO PAIN LEVEL 1-3 OR FEVER; Start 09/01/17 at 22:00 Morphine Sulfate (morphine) 2 mg Q4H PRN IV PAIN LEVEL 7-10; Start 09/01/17 at 22:00 Magnesium Hydroxide (Milk Of Mag) 30 ml DAILY PRN PO CONSTIPATION; Start at 22:00 Pantoprazole (Protonix Tab) 40 mg DAILY@06 PO Last administered on 09/02/17 06 :46; Admin Dose 40 MG; Start 09/02/17 at 06:00 Alprazolam (Xanax) 0.25 mg Q8 PO Last administered on 09/02/17 13:54; Admin Dose 0.25 MG; Start 09/01/17 at 22:00 Amlodipine Besylate (Norvasc) 10 mg DAILY PO Last administered on 09/02/17 08: 58; Admin Dose 10 MG; Start 09/02/17 at 09:00 Cyclobenzaprine HCl (Flexeril) 5 mg BID PRN PO MUSCLE SPASM; Start 09/01/17 at 22:00 Docusate Sodium (Colace) 100 mg BID PO ; Start 09/02/17 at 09:00 Hydromorphone HCl (Dilaudid) 4 mg Q4H PRN PO pain; Start 09/01/17 at 22:00 Letrozole (Femara) 2.5 mg DAILY PO Last administered on 09/02/17 12:22; Admin Dose 2.5 MG; Start 09/02/17 at 09:00 Magnesium Hydroxide (Milk Of Mag) 30 ml QHS PO ; Start 09/02/17 at 21:00 Methadone HCl (Methadone) 10 mg Q8H PO Last administered on 09/02/17 13:55; Admin Dose 10 MG; Start 09/02/17 at 06:00 Senna (Senokot) 2 tab BID PO Last administered on 09/02/17 08:58; Admin Dose 2 TAB; Start 09/01/17 at 22:00 Zinc Sulfate (Zinc Sulfate) 220 mg DAILY PO Last administered on 09/02/17 08: 57; Admin Dose 220 MG; Start 09/02/17 at 09:00 Apixaban 10 mg 10 mg BID PO Last administered on 09/02/17 08:58; Admin Dose 10 MG; Start 09/02/17 at 09:00; Stop 09/09/17 at 22:00 Cefepime HCl 50 ml @ 100 mls/hr Q24H IVPB ; Start 09/02/17 at 20:00 Vancomycin HCl (Vancocin) 100 ml @ 100 mls/hr Q12H IVPB Last administered on 09/02/17 10:30; Admin Dose 100 MLS/HR; Start 09/02/17 at 09:00 Miscellaneous Information (*Rx Drug Level Order Reminder*) VANCOMYCIN TROUGH ON @ .. ONCE ONCE XX ; Start 09/03/17 at 08:00; Stop 09/03/17 at 08:01 RODNEY GUILLORY MD Sep 02, 2017 20:06
[2017-09-02] MEDS: CEFEPIME 1GM/50 ML (PMX) 50 ML IVPB SCH (20:30)
[2017-09-02] MEDS: MAGNESIUM HYDROXIDE 30ML CUP PO SCH (20:31)
[2017-09-02] MEDS: ENOXAPARIN 100 MG/ML SYG SC SCH (20:55)
[2017-09-03] VITALS (18 sets, daily range): BP systolic 84–132; BP diastolic 60–74; PULSE 75–117; RESP 16–24
[2017-09-03] MEDS ORDERED: IPRATROPIUM (NEB) 0.5 MG/2.5 ML AMP HHN PRN (04:30)
[2017-09-03] MEDS ORDERED: LEVALBUTEROL (NEB) 1.25 MG/0.5 ML AMP HHN PRN (04:30)
--- NOTE | 2017-09-03 04:39 | RADRPT ---
PROCEDURE: Chest. CLINICAL INDICATION: Shortness of breath. TECHNIQUE: Single frontal view of the chest was obtained. COMPARISON: 09/01/2017. FINDINGS: The cardiac silhouette is enlarged. The aortic arch is unremarkable. There are hazy and patchy opa cities bilaterally. There is no pleural effusion. There is no pneumothorax. IMPRESSION: Bilateral hazy and patchy opacities could represent pulmonary edema and/or multifocal pneumonia, unc hanged. Cardiomegaly. .Ventura Trejo MD, MD Date Time Electronically viewed and signed by .Ventura Trejo MD, MD on 09/03/2017 04:39 .T/
[2017-09-03 05:20] LABS: AADO2 Arterial 619.7 mmHg (7.0-24.0); Allen Test ACCEPTAB; Arterial COHb 0 % (0.0-3.0); Arterial Fraction of Oxyhgb 94.4 % (93.0-99.0); Arterial HCO3 23.2 mmol/L (22.0-26.0); Arterial MetHb 0.2 % (0.0-1.5); Arterial Total Hemglobin 11.1 g/dl (12.0-18.0); MODE NON-REBREATHING MASK
[2017-09-03] MEDS: PANTOPRAZOLE (EC) 40 MG TAB PO SCH (05:57)
[2017-09-03] MEDS: LEVOTHYROXINE 100 MCG TAB PO SCH (05:58)
[2017-09-03] MEDS: METHADONE 10 MG TAB PO SCH ×3 (05:58→21:45)
[2017-09-03] MEDS: ZINC SULFATE 220 MG CAP PO SCH (08:56)
[2017-09-03] MEDS: SENNA TAB PO SCH ×2 (08:56→21:38)
[2017-09-03] MEDS: AMLODIPINE 10 MG TAB PO SCH (08:56)
[2017-09-03] MEDS: CALCIUM/VITAMIN D (500/200) TAB PO SCH ×3 (08:56→17:18)
[2017-09-03] MEDS: LETROZOLE 2.5 MG TAB PO SCH ×2 (08:57→13:23)
[2017-09-03] MEDS: DOCUSATE SODIUM 100 MG CAP PO SCH ×2 (08:57→21:38)
[2017-09-03] MEDS: ENOXAPARIN 100 MG/ML SYG SC SCH (09:18)
[2017-09-03] MEDS: VANCOMYCIN 500MG/NS (PMX) 100 ML IVPB SCH ×2 (09:19→17:19)
--- NOTE | 2017-09-03 12:05 | PN ---
Date/Time of Note Date/Time of Note DATE: 09/03/17 TIME: 11:58 Assessment/Plan VTE Prophylaxis VTE Prophylaxis Intervention: LMWH Lines/Catheters IV Catheter Type (from Nrs): Peripheral IV Assessment/Plan Chief Complaint/Hosp Course Assessment and plan 1. Newly diagnosed embolism. Continue on Eliquis for now. Photographic Spotter to follow. Of note troponin trend is negative. continue with hematology recs 2. History of metastatic breast cancer. Patient is currently on chemotherapy. To be continued. Patient for outpatient follow-up with oncologist. 3. Pneumonia. Continue antibiotics. 4. Dyspnea secondary to #1 #3. Continue antibiotics. place on breathing tx around the clock. start on steroids 5. Hypothyroidism. Continue Synthroid 6. Essential hypertension. Continue antihypertensives and adjust as needed. 7. Multiple pathologic rib and thoracic vertebral compression fractures. Likely pathologic. Continue with analgesics. 8. Masslike consolidation superior segment of right lower lung lobe. Follow- up with rn ambulatory recs Disposition and plan: Continue with Eliquis. Continue on O2 supplement. import/export clerk following. Started on breathing treatments around the clock as well as steroid treatment. Will follow up and monitor for improvement Discussed plan of care with Dr. Trevino Problems: Subjective 24 Hr Interval Summary Free Text/Dictation So shortness of breath. Not much improved. Exam/Review of Systems Vital Signs Vitals Vital Signs Date Time Temp Pulse Resp B/P Pulse Ox O2 Delivery O2 Flow Rate FiO2 09/03/17 11:29 Non Rebreather 15.0 09/03/17 08:27 97 09/03/17 08:16 97.0 20 110/62 92 Intake and Output 09/02/17 09/02/17 09/03/17 15:00 23:00 07:00 Intake Total 100 ml 1675 ml 600 ml Output Total 300 ml Balance 100 ml 1375 ml 600 ml Exam Constitutional: alert, oriented Head: normocephalic Neck: non-tender, supple Respiratory: other (No obvious wheezing or rhonchi) Cardiovascular: regular rate and rhythm Gastrointestinal: non-tender, soft Musculoskeletal: No swelling 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: MACHINE SHORTHAND TEACHER II-XII intact, nl mental status, nl speech Skin: nl turgor Results Result Diagram: 09/02/17 0423 09/02/17422 Results 24 hrs Laboratory Tests Test 09/03/17 04:06 09/03/17 07:57 Blood Gas Specimen Source Blood arterial Arterial Blood Date Drawn 09/03/2017 4:58:51 AM Arterial Blood pH (Temp corrected) 7.517 H Arterial Blood pCO2 (Temp correct) 29.3 L Arterial Blood pO2 (Temp corrected) 64.0 L Arterial Blood HCO3 23.2 Arterial Blood Base Excess 1.0 Arterial Blood Oxygen Saturation 94.6 L Dariel Test ACCEPTAB Arterial Blood Gas Puncture Site Right Radial Arterial Blood Carboxyhemoglobin 0 Arterial Blood Methemoglobin 0.2 Blood Gas A-a O2 Differential 619.7 H Oxyhemoglobin Percent 94.4 Total Hemoglobin 11.1 L Blood Gas Temperature 37.0 Blood Gas Modality NON-REBREATHING MASK FiO2 100.0 Blood Gas Notified Whom RTR Blood Gas Notified Time 09/03/2017 5:20:33 AM Vancomycin Level Trough 6.1 L Medications Medications Current Medications Ondansetron HCl (Zofran Inj) 4 mg Q6H PRN IV NAUSEA AND/OR VOMITING; Start 09/01/17 at 22:00 Nitroglycerin (Nitroglycerin (Sl Tab) 0.4 Mg) 1 tab Q5M PRN SL CHEST PAIN; Start 09/01/17 at 22:00 Acetaminophen (Tylenol Tab) 650 mg Q6H PRN PO PAIN LEVEL 1-3 OR FEVER; Start 09/01/17 at 22:00 Morphine Sulfate (morphine) 2 mg Q4H PRN IV PAIN LEVEL 7-10; Start 09/01/17 at 22:00 Magnesium Hydroxide (Milk Of Mag) 30 ml DAILY PRN PO CONSTIPATION; Start at 22:00 Pantoprazole (Protonix Tab) 40 mg DAILY@06 PO Last administered on 09/03/17 05:57; Admin Dose 40 MG; Start 09/02/17 at 06:00 Alprazolam (Xanax) 0.25 mg Q8 PO Last administered on 09/02/17 21:38; Admin Dose 0.25 MG; Start 09/01/17 at 22:00 Amlodipine Besylate (Norvasc) 10 mg DAILY PO Last administered on 09/03/17 08 :56; Admin Dose 10 MG; Start 09/02/17 at 09:00 Cyclobenzaprine HCl (Flexeril) 5 mg BID PRN PO MUSCLE SPASM; Start 09/01/17 at 22:00 Docusate Sodium (Colace) 100 mg BID PO Last administered on 09/02/17 20:31; Admin Dose 100 MG; Start 09/02/17 at 09:00 Hydromorphone HCl (Dilaudid) 4 mg Q4H PRN PO pain; Start 09/01/17 at 22:00 Letrozole (Femara) 2.5 mg DAILY PO Last administered on 09/02/17 12:22; Admin Dose 2.5 MG; Start 09/02/17 at 09:00 Magnesium Hydroxide (Milk Of Mag) 30 ml QHS PO Last administered on 09/02/17 20:31; Admin Dose 30 ML; Start 09/02/17 at 21:00 Methadone HCl (Methadone) 10 mg Q8H PO Last administered on 09/03/17 05:58; Admin Dose 10 MG; Start 09/02/17 at 06:00 Senna (Senokot) 2 tab BID PO Last administered on 09/03/17 08:56; Admin Dose 2 TAB; Start 09/01/17 at 22:00 Zinc Sulfate 220 mg 220 mg DAILY PO Last administered on 09/03/17 08:56; Admin Dose 220 MG; Start 09/02/17 at 09:00 Cefepime HCl (Maxipime 1gm/50 ml (Pmx)) 50 ml @ 100 mls/hr Q24H IVPB Last administered on 09/02/17 20:30; Admin Dose 100 MLS/HR; Start 09/02/17 at 20:00 Enoxaparin Sodium 50 mg 50 mg Q12 SC Last administered on 09/03/17 09:18; Admin Dose 50 MG; Start 09/02/17 at 21:00 Vancomycin HCl (Vancocin) 100 ml @ 100 mls/hr Q8H IVPB ; Start 09/03/17 at 17: 00 Methylprednisolone Sodium Succinate (Solu-Medrol) 60 mg Q8 IV ; Start 09/03/17 at 14:00 DONOVAN BOLAÑOS Sep 03, 2017 12:05
[2017-09-03 12:36] LABS: AADO2 Arterial 633.9 mmHg (7.0-24.0); Allen Test ACCEPTAB; Arterial Base Excess 1.1 mmol/L (-3.0-3); Arterial COHb 0.2 % (0.0-3.0); Arterial Fraction of Oxyhgb 87.8 % (93.0-99.0); Arterial HCO3 23.5 mmol/L (22.0-26.0); Arterial MetHb 0.1 % (0.0-1.5); Arterial Total Hemglobin 11.1 g/dl (12.0-18.0); MODE MASK - NRB
[2017-09-03] MEDS: ALPRAZOLAM 0.25 MG TAB PO SCH ×2 (13:16→21:45)
[2017-09-03] MEDS ORDERED: METHYLPREDNISOLONE 125 MG INJ IV SCH (14:00)
[2017-09-03] MEDS: ALBUTEROL/IPRATROPIUM (NEB) 3 ML AMP HHN SCH ×2 (14:06→20:27)
--- NOTE | 2017-09-03 17:55 | CONS ---
Date/Time of Note Date/Time of Note DATE: 09/03/17 TIME: 17:50 Consult Date/Type/Reason Admit Date/Time Sep 01, 2017 at 20:22 Initial Consult Date 09/02/17 Type of Consultation: Pulm Ordering Provider: DONOVAN BOLAÑOS Subjective Now on 100% NRM with SpO2 89-91%. She appears to be comfortable though but is a bit tired. Objective Vital Signs Date Time Temp Pulse Resp B/P Pulse Ox O2 Delivery O2 Flow Rate FiO2 09/03/17 16:38 97.7 09/03/17 15:36 106 20 102/60 92 09/03/17 14:07 Non Rebreather Mask 15.0 100 Intake and Output 09/02/17 09/02/17 09/03/17 14:59 22:59 06:59 Intake Total 100 ml 1675 ml 600 ml Output Total 300 ml Balance 100 ml 1375 ml 600 ml Exam HEENT: Neck supple; no JVD; no LAD CVS: RRR, S1 and S2 CHEST: Bilateral rales ABD: Soft, NT, + BS EXT: No c/c/e Results/Medications Result Diagram: 09/02/17 0423 09/02/17 0423 Results 24 hrs Laboratory Tests Test 09/03/17 04:06 09/03/17 07:00 09/03/17 07:57 Blood Gas Specimen Source Blood arterial Blood arterial Arterial Blood Date Drawn 09/03/2017 4:58:51 AM 09/03/2017 12:24:01 PM Arterial Blood pH (Temp corrected) 7.517 H 7.511 H Arterial Blood pCO2 (Temp correct) 29.3 L 30.0 L Arterial Blood pO2 (Temp corrected) 64.0 L 49.1 *L Arterial Blood HCO3 23.2 23.5 Arterial Blood Base Excess 1.0 1.1 Arterial Blood Oxygen Saturation 94.6 L 88.1 L Dariel Test ACCEPTAB ACCEPTAB Arterial Blood Gas Puncture Site Right Radial Right Radial Arterial Blood Carboxyhemoglobin 0 0.2 Arterial Blood Methemoglobin 0.2 0.1 Blood Gas A-a O2 Differential 619.7 H 633.9 H Oxyhemoglobin Percent 94.4 87.8 L Total Hemoglobin 11.1 L 11.1 L Blood Gas Temperature 37.0 37.0 Blood Gas Modality NON-REBREATHING MASK MASK - NRB FiO2 100.0 100.0 Blood Gas Notified Whom RTR Fawn Darlyn Blood Gas Notified Time 09/03/2017 5:20:33 AM 09/03/2017 12:33:26 PM Blood Gas Critical Value Read Back Jorge Curry r.n. Vancomycin Level Trough 6.1 L Medications Current Medications Ondansetron HCl (Zofran Inj) 4 mg Q6H PRN IV NAUSEA AND/OR VOMITING; Start 09/01/17 at 22:00 Nitroglycerin (Nitroglycerin (Sl Tab) 0.4 Mg) 1 tab Q5M PRN SL CHEST PAIN; Start 09/01/17 at 22:00 Acetaminophen (Tylenol Tab) 650 mg Q6H PRN PO PAIN LEVEL 1-3 OR FEVER Last administered on 09/03/17 16:00; Admin Dose 650 MG; Start 09/01/17 at 22:00 Morphine Sulfate (morphine) 2 mg Q4H PRN IV PAIN LEVEL 7-10; Start 09/01/17 at 22:00 Magnesium Hydroxide (Milk Of Mag) 30 ml DAILY PRN PO CONSTIPATION; Start at 22:00 Pantoprazole (Protonix Tab) 40 mg DAILY@06 PO Last administered on 09/03/17 05:57; Admin Dose 40 MG; Start 09/02/17 at 06:00 Alprazolam (Xanax) 0.25 mg Q8 PO Last administered on 09/03/17 13:16; Admin Dose 0.25 MG; Start 09/01/17 at 22:00 Amlodipine Besylate (Norvasc) 10 mg DAILY PO Last administered on 09/03/17 08 :56; Admin Dose 10 MG; Start 09/02/17 at 09:00 Cyclobenzaprine HCl (Flexeril) 5 mg BID PRN PO MUSCLE SPASM; Start 09/01/17 at 22:00 Docusate Sodium (Colace) 100 mg BID PO Last administered on 09/02/17 20:31; Admin Dose 100 MG; Start 09/02/17 at 09:00 Hydromorphone HCl (Dilaudid) 4 mg Q4H PRN PO pain; Start 09/01/17 at 22:00 Letrozole (Femara) 2.5 mg DAILY PO Last administered on 09/03/17 13:23; Admin Dose 2.5 MG; Start 09/02/17 at 09:00 Magnesium Hydroxide (Milk Of Mag) 30 ml QHS PO Last administered on 09/02/17 20:31; Admin Dose 30 ML; Start 09/02/17 at 21:00 Methadone HCl (Methadone) 10 mg Q8H PO Last administered on 09/03/17 13:16; Admin Dose 10 MG; Start 09/02/17 at 06:00 Senna (Senokot) 2 tab BID PO Last administered on 09/03/17 08:56; Admin Dose 2 TAB; Start 09/01/17 at 22:00 Zinc Sulfate 220 mg 220 mg DAILY PO Last administered on 09/03/17 08:56; Admin Dose 220 MG; Start 09/02/17 at 09:00 Cefepime HCl 50 ml @ 100 mls/hr Q24H IVPB Last administered on 09/02/17 20:30 ; Admin Dose 100 MLS/HR; Start 09/02/17 at 20:00 Vancomycin HCl (Vancocin) 100 ml @ 100 mls/hr Q8H IVPB Last administered on 17:19; Admin Dose 100 MLS/HR; Start 09/03/17 at 17:00 Methylprednisolone Sodium Succinate (Solu-Medrol) 60 mg Q8 IV Last administered on 09/03/17 13:16; Admin Dose 60 MG; Start 09/03/17 at 14:00 Enoxaparin Sodium (Lovenox) 50 mg Q12 SC ; Start 09/03/17 at 21:00 Miscellaneous Information (*Rx Drug Level Order Reminder*) VANCO TROUGH @ 1, 600 ON ... ONCE ONCE XX ; Start 09/04/17 at 16:00; Stop 09/04/17 at 16:01 Assessment/Plan Chief Complaint/Hosp Course Briefly, this is a 66-year-old female with history of metastatic breast cancer on chemo, s/p XRT, back pain 2/2 mets, resident of a SNF, who presents with acute onset of dyspnea, found to have a RLL subsegment PE and multifocal airspace opacities on CT chest. Problems: Additional Assessment/Plan IMP: 1. Hypoxemic Respiratory Failure: due to a multifocal pneumonia, more consistent with viral. In view of the morphological appearance on thoracic CT, must also consider non-infectious etiologies such as an organizing pneumonia ( BOOP) secondary to her chemo (need records to know what she has been on) and/or XRT. Clearly her subsegmental PE does not help, however, doubt that it is significantly contributing. 2. Metastatic Breast Ca 3. Pancytopenia RECS: 1. Broad-spectrum abx 2. Anticoagulation with lovenox 1 mg/kg BID 3. Start empiric CS for possible BOOP 4. Obtain Influenza JONO 5. Transfer to ICU now for closer monitoring and possible intubation, if needed 6. Case d/w patient and friend. She is willing to be intubated for a reversible process (ie. pneumonia) but would not want to be kept on the vent for a prolonged period. Case also d/w RN, ICU, and Hospitalist team 35 min cc time spent at bedside RODNEY GUILLORY MD Sep 03, 2017 17:55
[2017-09-03] MEDS: CEFEPIME 1GM/50 ML (PMX) 50 ML IVPB SCH (20:00)
[2017-09-03] MEDS: MAGNESIUM HYDROXIDE 30ML CUP PO SCH (21:38)
[2017-09-03] MEDS: ENOXAPARIN 60 MG/0.6 ML SYG SC SCH (21:40)
--- NOTE | 2017-09-03 21:51 | CONS ---
Date/Time of Note Date/Time of Note DATE: 09/03/17 TIME: 21:50 Assessment/Plan Assessment/Plan Chief Complaint/Hosp Course Metastatic Breast Ca ON TREATMENT CHEMO ON HOLD INCOMPLETE RECORD WILL OBTAIN AND REVIEW RECORD Pancytopenia POST CHEMO SL IMPROVED MONITOR CLOSELY TRANSFUSE IF NEEDED Hypoxemic Respiratory Failure: due to a multifocal pneumonia, more consistent with viral. PER PULM- In view of the morphological appearance on thoracic CT, must also consider non-infectious etiologies such as an organizing pneumonia (BOOP) secondary to her chemo (need records to know what she has been on) and/or XRT. RECORD- P HYPERCOAGULABLE STATE WITH subsegmental PE Anticoagulation with lovenox 1 mg/kg BID Problems: Consultation Date/Type/Reason Admit Date/Time Sep 01, 2017 at 20:22 Initial Consult Date 09/02/17 Type of Consultation: HEMEON Referring Provider: DONOVAN BOLAÑOS 24 HR Interval Summary Free Text/Dictation ALL NOTED IN ICU ON BIPAP Exam/Review of Systems Vital Signs Vitals Vital Signs Date Time Temp Pulse Resp B/P Pulse Ox O2 Delivery O2 Flow Rate FiO2 09/03/17 21:10 75 99 100 09/03/17 20:30 15 09/03/17 19:15 103/71 Non Rebreather 09/03/17 16:38 97.7 09/03/17 14:07 15.0 Intake and Output 09/02/17 09/02/17 09/03/17 15:00 23:00 07:00 Intake Total 100 ml 1675 ml 600 ml Output Total 300 ml Balance 100 ml 1375 ml 600 ml Exam Constitutional: alert, oriented Head: normocephalic Neck: non-tender, supple Respiratory: other (No obvious wheezing or rhonchi) Cardiovascular: regular rate and rhythm Gastrointestinal: non-tender, soft Musculoskeletal: No swelling 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: PRODUCT DEVELOPMENT [employer]UARY II-XII intact, nl mental status, nl speech Skin: nl turgor Results Result Diagram: 09/02/17 0423 09/02/17422 Results 24 hrs Laboratory Tests Test 09/03/17 04:06 09/03/17 07:00 09/03/17 07:57 Blood Gas Specimen Source Blood arterial Blood arterial Arterial Blood Date Drawn 09/03/2017 4:58:51 AM 09/03/2017 12:24:01 PM Arterial Blood pH (Temp corrected) 7.517 H 7.511 H Arterial Blood pCO2 (Temp correct) 29.3 L 30.0 L Arterial Blood pO2 (Temp corrected) 64.0 L 49.1 *L Arterial Blood HCO3 23.2 23.5 Arterial Blood Base Excess 1.0 1.1 Arterial Blood Oxygen Saturation 94.6 L 88.1 L Dariel Test ACCEPTAB ACCEPTAB Arterial Blood Gas Puncture Site Right Radial Right Radial Arterial Blood Carboxyhemoglobin 0 0.2 Arterial Blood Methemoglobin 0.2 0.1 Blood Gas A-a O2 Differential 619.7 H 633.9 H Oxyhemoglobin Percent 94.4 87.8 L Total Hemoglobin 11.1 L 11.1 L Blood Gas Temperature 37.0 37.0 Blood Gas Modality NON-REBREATHING MASK MASK - NRB FiO2 100.0 100.0 Blood Gas Notified Whom RTR A Darlyn Blood Gas Notified Time 09/03/2017 5:20:33 AM 09/03/2017 12:33:26 PM Blood Gas Critical Value Read Back Jorge Curry r.n. Vancomycin Level Trough 6.1 L Medications Medications Current Medications Ondansetron HCl (Zofran Inj) 4 mg Q6H PRN IV NAUSEA AND/OR VOMITING; Start 09/01/17 at 22:00 Nitroglycerin (Nitroglycerin (Sl Tab) 0.4 Mg) 1 tab Q5M PRN SL CHEST PAIN; Start 09/01/17 at 22:00 Acetaminophen (Tylenol Tab) 650 mg Q6H PRN PO PAIN LEVEL 1-3 OR FEVER Last administered on 09/03/17 16:00; Admin Dose 650 MG; Start 09/01/17 at 22:00 Morphine Sulfate (morphine) 2 mg Q4H PRN IV PAIN LEVEL 7-10; Start 09/01/17 at 22:00 Magnesium Hydroxide (Milk Of Mag) 30 ml DAILY PRN PO CONSTIPATION; Start at 22:00 Pantoprazole (Protonix Tab) 40 mg DAILY@06 PO Last administered on 09/03/17 05:57; Admin Dose 40 MG; Start 09/02/17 at 06:00 Alprazolam (Xanax) 0.25 mg Q8 PO Last administered on 09/03/17 13:16; Admin Dose 0.25 MG; Start 09/01/17 at 22:00 Amlodipine Besylate (Norvasc) 10 mg DAILY PO Last administered on 09/03/17 08 :56; Admin Dose 10 MG; Start 09/02/17 at 09:00 Cyclobenzaprine HCl (Flexeril) 5 mg BID PRN PO MUSCLE SPASM; Start 09/01/17 at 22:00 Docusate Sodium (Colace) 100 mg BID PO Last administered on 09/03/17 21:38; Admin Dose 100 MG; Start 09/02/17 at 09:00 Hydromorphone HCl (Dilaudid) 4 mg Q4H PRN PO pain; Start 09/01/17 at 22:00 Letrozole (Femara) 2.5 mg DAILY PO Last administered on 09/03/17 13:23; Admin Dose 2.5 MG; Start 09/02/17 at 09:00 Magnesium Hydroxide (Milk Of Mag) 30 ml QHS PO Last administered on 09/03/17 21:38; Admin Dose 30 ML; Start 09/02/17 at 21:00 Methadone HCl (Methadone) 10 mg Q8H PO Last administered on 09/03/17 13:16; Admin Dose 10 MG; Start 09/02/17 at 06:00 Senna (Senokot) 2 tab BID PO Last administered on 09/03/17 21:38; Admin Dose 2 TAB; Start 09/01/17 at 22:00 Zinc Sulfate 220 mg 220 mg DAILY PO Last administered on 09/03/17 08:56; Admin Dose 220 MG; Start 09/02/17 at 09:00 Cefepime HCl 50 ml @ 100 mls/hr Q24H IVPB Last administered on 09/03/17 20: 00; Admin Dose 100 MLS/HR; Start 09/02/17 at 20:00 Vancomycin HCl (Vancocin) 100 ml @ 100 mls/hr Q8H IVPB Last administered on 17:19; Admin Dose 100 MLS/HR; Start 09/03/17 at 17:00 Enoxaparin Sodium (Lovenox) 50 mg Q12 SC Last administered on 09/03/17 21:40 ; Admin Dose 50 MG; Start 09/03/17 at 21:00 Miscellaneous Information (*Rx Drug Level Order Reminder*) VANCO TROUGH @ 1, 600 ON ... ONCE ONCE XX ; Start 09/04/17 at 16:00; Stop 09/04/17 at 16:01 Methylprednisolone Sodium Succinate (Solu-Medrol) 60 mg DAILY IV ; Start at 09:00 JOSEPH EDOUARD MD Sep 03, 2017 21:51
[2017-09-03 22:54] LABS: AADO2 Arterial 584.1 mmHg (7.0-24.0); Allen Test ACCEPTAB; Arterial Base Excess -0.2 mmol/L (-3.0-3); Arterial COHb 0.3 % (0.0-3.0); Arterial Fraction of Oxyhgb 96.9 % (93.0-99.0); Arterial HCO3 23.2 mmol/L (22.0-26.0); Arterial MetHb 0.2 % (0.0-1.5); Arterial Total Hemglobin 11.3 g/dl (12.0-18.0); Blood Gas IEPAP 16/8; Blood Gas PS 8; MODE MASK - BIPAP
[2017-09-04] VITALS (34 sets, daily range): BP systolic 96–114; BP diastolic 67–85; PULSE 74–99; RESP 14–33
[2017-09-04] MEDS: VANCOMYCIN 500MG/NS (PMX) 100 ML IVPB SCH ×4 (01:00→20:49)
[2017-09-04] MEDS: ALBUTEROL/IPRATROPIUM (NEB) 3 ML AMP HHN SCH ×6 (01:03→20:50)
[2017-09-04 05:16] LABS: AADO2 Arterial 538.6 mmHg (7.0-24.0); Allen Test ACCEPTAB; Arterial Base Excess -0.4 mmol/L (-3.0-3); Arterial COHb 0.3 % (0.0-3.0); Arterial Fraction of Oxyhgb 98.3 % (93.0-99.0); Arterial MetHb 0.2 % (0.0-1.5); Arterial Total Hemglobin 9.3 g/dl (12.0-18.0); Blood Gas IEPAP 16/8; Blood Gas PS 8; MODE BIPAP - S/T
[2017-09-04] MEDS: METHADONE 10 MG TAB PO SCH ×3 (05:38→22:48)
[2017-09-04] MEDS: PANTOPRAZOLE (EC) 40 MG TAB PO SCH (05:39)
[2017-09-04] MEDS: ALPRAZOLAM 0.25 MG TAB PO SCH ×3 (05:39→22:48)
[2017-09-04 06:16] LABS: ABNORMAL IP MESSAGE 1; HEMATOCRIT 27.6 % (37.0-47.0); HEMOGLOBIN 9.6 g/dl (12.0-16.0); MEAN CORPUSCULAR HEMOGLOBIN 31.7 pg (29.0-33.0); MEAN CORPUSCULAR HGB CONC 34.8 g/dl (32.0-37.0); MEAN CORPUSCULAR VOLUME 91.1 fl (82.0-101.0); MEAN PLATELET VOLUME 11.2 fl (7.4-10.4); PLATELET COUNT 147 10^3/UL (140-415); RED BLOOD COUNT 3.03 10^6/ul (4.20-5.40); RED CELL DISTRIBUTION WIDTH 20.2 % (11.5-14.5); WHITE BLOOD COUNT 2.9 10^3/ul (4.8-10.8)
[2017-09-04 06:24] LABS: POSITIVE DIFF @See below
[2017-09-04] MEDS: LEVOTHYROXINE 100 MCG TAB PO SCH (06:28)
[2017-09-04 06:38] LABS: CALCIUM 6.4 mg/dl (8.4-10.2); CREATININE 0.54 mg/dl (0.44-1.00); POTASSIUM 3.7 mmol/L (3.5-5.1)
--- NOTE | 2017-09-04 07:44 | RADRPT ---
PROCEDURE: XR Chest. CLINICAL INDICATION: Pneumonia. TECHNIQUE: Single frontal view of the chest was obtained. COMPARISON: 09/03/2017 and 09/01/2017. FINDINGS: The cardiomediastinal silhouette is normal in size. There are aortic calcifications. Redemonstration of bilateral upper lobe predominant airspace opacities, mildly improved in the upper lobes. No pleural effusion is seen. No definite pneumothorax. Diffuse osseous demineralization with rib fractures. Surgical clips about the neck. IMPRESSION: 1. Redemonstration of bilateral upper lobe predominant airspace opacities, mildly improved in the up per lobes. RPTAT: AAEE Tiago Lama Physician Date Time Electronically viewed and signed by Tiago Lama Physician on 09/04/2017 07:44 PH/
[2017-09-04 09:24] LABS: ANISOCYTOSIS 1+ (0-0); GIANT THROMBO% (M) 1 % (0-0); MONOCYTES % (M) 2 % (0-11); PLATELET ESTIMATE NORMAL; POIKILOCYTOSIS 2+ (0-0); POLYCHROMASIA 3+ (0-0); REACTIVE LYMPHOCYTES% (M) 1 % (0-0)
[2017-09-04] MEDS: METHYLPREDNISOLONE 125 MG INJ IV SCH (09:55)
[2017-09-04] MEDS: CALCIUM/VITAMIN D (500/200) TAB PO SCH ×3 (09:55→17:29)
[2017-09-04] MEDS: DOCUSATE SODIUM 100 MG CAP PO SCH ×2 (09:55→20:49)
[2017-09-04] MEDS: ZINC SULFATE 220 MG CAP PO SCH (09:56)
[2017-09-04] MEDS: SENNA TAB PO SCH ×2 (09:56→20:49)
[2017-09-04] MEDS: AMLODIPINE 10 MG TAB PO SCH (09:56)
[2017-09-04] MEDS: ENOXAPARIN 60 MG/0.6 ML SYG SC SCH ×2 (09:57→20:50)
--- NOTE | 2017-09-04 10:23 | CONS ---
Date/Time of Note Date/Time of Note DATE: 09/04/17 TIME: 10:20 Assessment/Plan Assessment/Plan Additional Assessment/Plan Chest x-ray was reviewed which is again showing patchy upper lobe infiltrates. Patient is currently on BiPAP at 16/6, 90% FiO2. Assessment and recommendations; 1. Patient admitted with bilateral pneumonia with with possibility of chemotherapy-induced BOOP as well as pulmonary embolism currently on appropriate broad-spectrum antibiotic coverage with full dose Lovenox. 2. Metastatic breast cancer. 3. Mild pancytopenia. Continue current supportive care. Consultation Date/Type/Reason Admit Date/Time Sep 01, 2017 at 20:22 Initial Consult Date 09/02/17 Type of Consultation: Pulmonary/critical care Referring Provider: DONOVAN BOLAÑOS 24 HR Interval Summary Free Text/Dictation Patient's condition is stable clinically. Patient denies any significant shortness of breath. Any chest pain, wheezing, hemoptysis. General exam; elderly woman, awake and alert. Currently in no distress. On BiPAP. Exam/Review of Systems Vital Signs Vitals Vital Signs Date Time Temp Pulse Resp B/P Pulse Ox O2 Delivery O2 Flow Rate FiO2 09/04/17 09:08 88 99 90 09/04/17 05:00 20 98/71 BIPAP 09/04/17 04:00 96.2 09/03/17 14:07 15.0 Intake and Output 09/03/17 09/03/17 09/04/17 14:59 22:59 06:59 Intake Total 100 ml 620 ml 390 ml Output Total 785 ml 330 ml Balance 100 ml -165 ml 60 ml Exam HEENT exam; soft C-spine collar in place. Suppleness of the neck could not be evaluated. Patient has multiple carious teeth. No neck masses. No thyromegaly. Chest exam; diminished breath sounds bilaterally. S1-S2 audible, no murmurs. Regular rhythm. Abdomen exam; soft, scaphoid. Nontender. No organomegaly. Bowel sounds audible. Next Extremity exam; no edema. No clubbing. OUTPATIENT PHYSICAL THERAPIST exam; no focal deficit. Results Result Diagram: 09/04/17 0547 09/04/17 0547 Results 24 hrs Laboratory Tests Test 09/03/17 20:20 09/04/17 05:00 09/04/17 05:47 Blood Gas Specimen Source Blood arterial Blood arterial Arterial Blood Date Drawn 09/03/2017 10:40:50 PM 09/04/2017 4:29:08 AM Arterial Blood pH (Temp corrected) 7.458 H 7.511 H Arterial Blood pCO2 (Temp correct) 33.5 L 28.1 L Arterial Blood pO2 (Temp corrected) 95.4 146.3 H Arterial Blood HCO3 23.2 22.0 Arterial Blood Base Excess -0.2 -0.4 Arterial Blood Oxygen Saturation 97.4 98.8 H Dariel Test ACCEPTAB ACCEPTAB Arterial Blood Gas Puncture Site Right Radial Right Radial Arterial Blood Carboxyhemoglobin 0.3 0.3 Arterial Blood Methemoglobin 0.2 0.2 Blood Gas A-a O2 Differential 584.1 H 538.6 H Oxyhemoglobin Percent 96.9 98.3 Total Hemoglobin 11.3 L 9.3 L Blood Gas Temperature 37.0 37.0 Blood Gas Respiration Rate 20.0 20.0 Blood Gas Actual Respiration Rate 21 24 Blood Gas Modality MASK - BIPAP BIPAP - S/T FiO2 100.0 100.0 Blood Gas Pressure Support 8 8 Blood Gas IPAP/EPAP Ratio 10/05 16 Blood Gas Notified Whom KM RTR Blood Gas Notified Time 09/03/2017 10:54:06 PM 09/04/2017 5:16:17 AM White Blood Count 2.9 #L Red Blood Count 3.03 L Hemoglobin 9.6 L Hematocrit 27.6 L Mean Corpuscular Volume 91.1 Mean Corpuscular Hemoglobin 31.7 Mean Corpuscular Hemoglobin Concent 34.8 Red Cell Distribution Width 20.2 H Platelet Count 147 # Mean Platelet Volume 11.2 H Neutrophils % Segmented Neutrophils % (Manual) 73 Band Neutrophils % (Manual) 17 H Lymphocytes % Lymphocytes % (Manual) 7 L Reactive Lymphocytes % (Manual) 1 H Monocytes % Monocytes % (Manual) 2 Eosinophils % Basophils % Nucleated Red Blood Cells % 0.0 Neutrophils # Neutrophils # (Manual) 2.1 Band Neutrophils # 0.4 Absolute Lymphocytes (Manual) 0.2 L Lymphocytes # Reactive Lymphocytes # 0.0 Monocytes # Absolute Monocytes (Manual) 0.0 L Eosinophils # Basophils # Nucleated Red Blood Cells # Platelet Estimate NORMAL Giant Platelets 1 H Polychromasia 3+ Poikilocytosis 2+ Anisocytosis 1+ Sodium Level 135 Potassium Level 3.7 Chloride Level 104 Carbon Dioxide Level 25 Anion Gap 10 Blood Urea Nitrogen 21 H Creatinine 0.54 Glucose Level 174 Lactic Acid Level 1.4 Calcium Level 6.4 L Medications Medications Current Medications Ondansetron HCl (Zofran Inj) 4 mg Q6H PRN IV NAUSEA AND/OR VOMITING; Start 09/01/17 at 22:00 Nitroglycerin (Nitroglycerin (Sl Tab) 0.4 Mg) 1 tab Q5M PRN SL CHEST PAIN; Start 09/01/17 at 22:00 Acetaminophen (Tylenol Tab) 650 mg Q6H PRN PO PAIN LEVEL 1-3 OR FEVER Last administered on 09/03/17 16:00; Admin Dose 650 MG; Start 09/01/17 at 22:00 Morphine Sulfate (morphine) 2 mg Q4H PRN IV PAIN LEVEL 7-10; Start 09/01/17 at 22:00 Magnesium Hydroxide (Milk Of Mag) 30 ml DAILY PRN PO CONSTIPATION; Start at 22:00 Pantoprazole (Protonix Tab) 40 mg DAILY@06 PO Last administered on 09/04/17 05:39; Admin Dose 40 MG; Start 09/02/17 at 06:00 Alprazolam (Xanax) 0.25 mg Q8 PO Last administered on 09/04/17 05:39; Admin Dose 0.25 MG; Start 09/01/17 at 22:00 Amlodipine Besylate (Norvasc) 10 mg DAILY PO Last administered on 09/04/17 09 :56; Admin Dose 10 MG; Start 09/02/17 at 09:00 Cyclobenzaprine HCl (Flexeril) 5 mg BID PRN PO MUSCLE SPASM; Start 09/01/17 at 22:00 Docusate Sodium (Colace) 100 mg BID PO Last administered on 09/04/17 09:55; Admin Dose 100 MG; Start 09/02/17 at 09:00 Hydromorphone HCl (Dilaudid) 4 mg Q4H PRN PO pain; Start 09/01/17 at 22:00 Letrozole (Femara) 2.5 mg DAILY PO Last administered on 09/03/17 13:23; Admin Dose 2.5 MG; Start 09/02/17 at 09:00 Magnesium Hydroxide (Milk Of Mag) 30 ml QHS PO Last administered on 09/03/17 21:38; Admin Dose 30 ML; Start 09/02/17 at 21:00 Methadone HCl (Methadone) 10 mg Q8H PO Last administered on 09/04/17 05:38; Admin Dose 10 MG; Start 09/02/17 at 06:00 Senna (Senokot) 2 tab BID PO Last administered on 09/04/17 09:56; Admin Dose 2 TAB; Start 09/01/17 at 22:00 Zinc Sulfate 220 mg 220 mg DAILY PO Last administered on 09/04/17 09:56; Admin Dose 220 MG; Start 09/02/17 at 09:00 Cefepime HCl 50 ml @ 100 mls/hr Q24H IVPB Last administered on 09/03/17 20: 00; Admin Dose 100 MLS/HR; Start 09/02/17 at 20:00 Vancomycin HCl (Vancocin) 100 ml @ 100 mls/hr Q8H IVPB Last administered on 09:58; Admin Dose 100 MLS/HR; Start 09/03/17 at 17:00 Enoxaparin Sodium (Lovenox) 50 mg Q12 SC Last administered on 09/04/17 09:57 ; Admin Dose 50 MG; Start 09/03/17 at 21:00 Miscellaneous Information (*Rx Drug Level Order Reminder*) VANCO TROUGH @ 1, 600 ON ... ONCE ONCE XX ; Start 09/04/17 at 16:00; Stop 09/04/17 at 16:01 Methylprednisolone Sodium Succinate (Solu-Medrol) 60 mg DAILY IV Last administered on 09/04/17 09:55; Admin Dose 60 MG; Start 09/04/17 at 09:00 MAGGI NEVES Sep 04, 2017 10:22
[2017-09-04] MEDS ORDERED: GLUCAGON 1 MG INJ IM PRN (11:00)
[2017-09-04] MEDS ORDERED: GLUCOSE GEL 15 GRAM TUBE BUCCAL PRN (11:00)
[2017-09-04] MEDS ORDERED: GLUCOSE GEL 15 GRAM TUBE PO PRN ×2 (11:00)
[2017-09-04] MEDS ORDERED: DEXTROSE 50% 50 ML SYRINGE IV PRN ×2 (11:00)
[2017-09-04] MEDS: LETROZOLE 2.5 MG TAB PO SCH (11:08)
[2017-09-04] MEDS: INSULIN ASPART [NOVOLOG] 3 ML PEN SC SCH ×3 (12:31→20:56)
--- NOTE | 2017-09-04 13:34 | PN ---
Date/Time of Note Date/Time of Note DATE: 09/04/17 TIME: 13:31 Assessment/Plan VTE Prophylaxis VTE Prophylaxis Intervention: LMWH Lines/Catheters IV Catheter Type (from Nrs): Peripheral IV Urinary Cath still in place: Yes Reason Cath still needed: other (indicate) (monitor I&O) Assessment/Plan Chief Complaint/Hosp Course Assessment and plan 1. Newly diagnosed embolism. Continue on therapeutic lovenox for now. [employer] Compliance Manager to follow. Of note troponin trend is negative. continue with hematology recs 2. History of metastatic breast cancer. Patient is currently on chemotherapy. To be continued. Patient for outpatient follow-up with oncologist. 3. Pneumonia. Continue antibiotics. 4. Dyspnea secondary to #1 #3. Continue antibiotics. place on breathing tx around the clock. start on steroids 5. Hypothyroidism. Continue Synthroid 6. Essential hypertension. Continue antihypertensives and adjust as needed. 7. Multiple pathologic rib and thoracic vertebral compression fractures. Likely pathologic. Continue with analgesics. 8. Masslike consolidation superior segment of right lower lung lobe. Follow- up with plasticator recs Disposition and plan: continue with lovenox. with worse breathing. continue breathing tx and steroid. bipap prn. continue icu monitoring Discussed plan of care with Dr. Silva CRITICAL CARE TIME: 30 minutes Problems: Subjective 24 Hr Interval Summary Free Text/Dictation seen with bipap. reports still having dyspnea Exam/Review of Systems Vital Signs Vitals Vital Signs Date Time Temp Pulse Resp B/P Pulse Ox O2 Delivery O2 Flow Rate FiO2 09/04/17 13:14 88 99 90 09/04/17 12:22 24 09/04/17 11:00 114/82 BIPAP 09/04/17 08:00 97.4 09/03/17 14:07 15.0 Intake and Output 09/03/17 09/03/17 09/04/17 15:00 23:00 07:00 Intake Total 100 ml 620 ml 390 ml Output Total 820 ml 325 ml Balance 100 ml -200 ml 65 ml Exam Constitutional: alert, oriented, little anxious Head: normocephalic Neck: non-tender, supple Respiratory: other (No obvious wheezing or rhonchi) minimally diminished Cardiovascular: regular rate and rhythm Gastrointestinal: non-tender, soft Musculoskeletal: No swelling 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: CORPORATE PLANNING MANAGER II-XII intact, nl mental status, nl speech Skin: nl turgor Results Result Diagram: 09/04/17 0547 09/04/17 0547 Results 24 hrs Laboratory Tests Test 09/03/17 20:20 09/04/17 05:00 09/04/17 05:47 09/04/17 12:14 Blood Gas Specimen Source Blood arterial Blood arterial Arterial Blood Date Drawn 09/03/2017 10:40:50 PM 09/04/2017 4:29:08 AM Arterial Blood pH (Temp corrected) 7.458 H 7.511 H Arterial Blood pCO2 (Temp correct) 33.5 L 28.1 L Arterial Blood pO2 (Temp corrected) 95.4 146.3 H Arterial Blood HCO3 23.2 22.0 Arterial Blood Base Excess -0.2 -0.4 Arterial Blood Oxygen Saturation 97.4 98.8 H Dariel Test ACCEPTAB ACCEPTAB Arterial Blood Gas Puncture Site Right Radial Right Radial Arterial Blood Carboxyhemoglobin 0.3 0.3 Arterial Blood Methemoglobin 0.2 0.2 Blood Gas A-a O2 Differential 584.1 H 538.6 H Oxyhemoglobin Percent 96.9 98.3 Total Hemoglobin 11.3 L 9.3 L Blood Gas Temperature 37.0 37.0 Blood Gas Respiration Rate 20.0 20.0 Blood Gas Actual Respiration Rate 21 24 Blood Gas Modality MASK - BIPAP BIPAP - S/T FiO2 100.0 100.0 Blood Gas Pressure Support 8 8 Blood Gas IPAP/EPAP Ratio 10/05 10/05 Blood Gas Notified Whom KM RTR Blood Gas Notified Time 09/03/2017 10:54:06 PM 09/04/2017 5:16:17 AM White Blood Count 2.9 #L Red Blood Count 3.03 L Hemoglobin 9.6 L Hematocrit 27.6 L Mean Corpuscular Volume 91.1 Mean Corpuscular Hemoglobin 31.7 Mean Corpuscular Hemoglobin Concent 34.8 Red Cell Distribution Width 20.2 H Platelet Count 147 # Mean Platelet Volume 11.2 H Neutrophils % Segmented Neutrophils % (Manual) 73 Band Neutrophils % (Manual) 17 H Lymphocytes % Lymphocytes % (Manual) 7 L Reactive Lymphocytes % (Manual) 1 H Monocytes % Monocytes % (Manual) 2 Eosinophils % Basophils % Nucleated Red Blood Cells % 0.0 Neutrophils # Neutrophils # (Manual) 2.1 Band Neutrophils # 0.4 Absolute Lymphocytes (Manual) 0.2 L Lymphocytes # Reactive Lymphocytes # 0.0 Monocytes # Absolute Monocytes (Manual) 0.0 L Eosinophils # Basophils # Nucleated Red Blood Cells # Platelet Estimate NORMAL Giant Platelets 1 H Polychromasia 3+ Poikilocytosis 2+ Anisocytosis 1+ Sodium Level 135 Potassium Level 3.7 Chloride Level 104 Carbon Dioxide Level 25 Anion Gap 10 Blood Urea Nitrogen 21 H Creatinine 0.54 Glucose Level 174 Hemoglobin A1c 6.2 H Lactic Acid Level 1.4 Calcium Level 6.4 L Bedside Glucose 153 Medications Medications Current Medications Ondansetron HCl (Zofran Inj) 4 mg Q6H PRN IV NAUSEA AND/OR VOMITING; Start 09/01/17 at 22:00 Nitroglycerin (Nitroglycerin (Sl Tab) 0.4 Mg) 1 tab Q5M PRN SL CHEST PAIN; Start 09/01/17 at 22:00 Acetaminophen (Tylenol Tab) 650 mg Q6H PRN PO PAIN LEVEL 1-3 OR FEVER Last administered on 09/03/17 16:00; Admin Dose 650 MG; Start 09/01/17 at 22:00 Morphine Sulfate (morphine) 2 mg Q4H PRN IV PAIN LEVEL 7-10; Start 09/01/17 at 22:00 Magnesium Hydroxide (Milk Of Mag) 30 ml DAILY PRN PO CONSTIPATION; Start at 22:00 Pantoprazole (Protonix Tab) 40 mg DAILY@06 PO Last administered on 09/04/17 05:39; Admin Dose 40 MG; Start 09/02/17 at 06:00 Alprazolam (Xanax) 0.25 mg Q8 PO Last administered on 09/04/17 05:39; Admin Dose 0.25 MG; Start 09/01/17 at 22:00 Amlodipine Besylate (Norvasc) 10 mg DAILY PO Last administered on 09/04/17 09 :56; Admin Dose 10 MG; Start 09/02/17 at 09:00 Cyclobenzaprine HCl (Flexeril) 5 mg BID PRN PO MUSCLE SPASM; Start 09/01/17 at 22:00 Docusate Sodium (Colace) 100 mg BID PO Last administered on 09/04/17 09:55; Admin Dose 100 MG; Start 09/02/17 at 09:00 Hydromorphone HCl (Dilaudid) 4 mg Q4H PRN PO pain; Start 09/01/17 at 22:00 Letrozole (Femara) 2.5 mg DAILY PO Last administered on 09/04/17 11:08; Admin Dose 2.5 MG; Start 09/02/17 at 09:00 Magnesium Hydroxide (Milk Of Mag) 30 ml QHS PO Last administered on 09/03/17 21:38; Admin Dose 30 ML; Start 09/02/17 at 21:00 Methadone HCl (Methadone) 10 mg Q8H PO Last administered on 09/04/17 05:38; Admin Dose 10 MG; Start 09/02/17 at 06:00 Senna (Senokot) 2 tab BID PO Last administered on 09/04/17 09:56; Admin Dose 2 TAB; Start 09/01/17 at 22:00 Zinc Sulfate 220 mg 220 mg DAILY PO Last administered on 09/04/17 09:56; Admin Dose 220 MG; Start 09/02/17 at 09:00 Cefepime HCl 50 ml @ 100 mls/hr Q24H IVPB Last administered on 09/03/17 20: 00; Admin Dose 100 MLS/HR; Start 09/02/17 at 20:00 Vancomycin HCl (Vancocin) 100 ml @ 100 mls/hr Q8H IVPB Last administered on 09:58; Admin Dose 100 MLS/HR; Start 09/03/17 at 17:00 Enoxaparin Sodium (Lovenox) 50 mg Q12 SC Last administered on 09/04/17 09:57 ; Admin Dose 50 MG; Start 09/03/17 at 21:00 Miscellaneous Information (*Rx Drug Level Order Reminder*) VANCO TROUGH @ 1, 600 ON ... ONCE ONCE XX ; Start 09/04/17 at 16:00; Stop 09/04/17 at 16:01 Methylprednisolone Sodium Succinate (Solu-Medrol) 60 mg DAILY IV Last administered on 09/04/17 09:55; Admin Dose 60 MG; Start 09/04/17 at 09:00 Diagnostic Test (Pha) (Accu-Chek) 1 ea 02 XX ; Start 09/05/17 at 02:00 Miscellaneous Information 1 ea NOTE XX ; Start 09/04/17 at 11:00 Glucose (Glutose) 15 gm Q15M PRN PO DECREASED GLUCOSE; Start 09/04/17 at 11:00 Glucose (Glutose) 22.5 gm Q15M PRN PO DECREASED GLUCOSE; Start 09/04/17 at 11: 00 Dextrose (D50w Syringe) 25 ml Q15M PRN IV DECREASED GLUCOSE; Start 09/04/17 at 11:00 Dextrose (D50w Syringe) 50 ml Q15M PRN IV DECREASED GLUCOSE; Start 09/04/17 at 11:00 Glucagon (Glucagen) 1 mg Q15M PRN IM DECREASED GLUCOSE; Start 09/04/17 at 11: 00 Glucose (Glutose) 15 gm Q15M PRN BUCCAL DECREASED GLUCOSE; Start 09/04/17 at 11:00 DONOVAN BOLAÑOS Sep 04, 2017 13:34
--- NOTE | 2017-09-04 13:45 | CONS ---
Date/Time of Note Date/Time of Note DATE: 09/04/17 TIME: 13:45 Assessment/Plan Assessment/Plan Chief Complaint/Hosp Course Metastatic Breast Ca ON TREATMENT CHEMO ON HOLD INCOMPLETE RECORD WILL OBTAIN AND REVIEW RECORD Pancytopenia POST CHEMO SL IMPROVED MONITOR CLOSELY TRANSFUSE IF NEEDED Hypoxemic Respiratory Failure: due to a multifocal pneumonia, more consistent with viral. PER PULM- In view of the morphological appearance on thoracic CT, must also consider non-infectious etiologies such as an organizing pneumonia (BOOP) secondary to her chemo (need records to know what she has been on) and/or XRT. RECORD- P HYPERCOAGULABLE STATE WITH subsegmental PE Anticoagulation with lovenox 1 mg/kg BID Problems: Consultation Date/Type/Reason Admit Date/Time Sep 01, 2017 at 20:22 Initial Consult Date 09/02/17 [facility]ation[facility] Referring Provider: DONOVAN BOLAÑOS 24 HR Interval Summary Free Text/Dictation all noted Exam/Review of Systems Vital Signs Vitals Vital Signs Date Time Temp Pulse Resp B/P Pulse Ox O2 Delivery O2 Flow Rate FiO2 09/04/17 13:14 88 99 90 09/04/17 13:00 33 104/69 High Flow 09/04/17 12:00 97.4 09/03/17 14:07 15.0 Intake and Output 09/03/17 09/03/17 09/04/17 14:59 22:59 06:59 Intake Total 100 ml 620 ml 390 ml Output Total 785 ml 330 ml Balance 100 ml -165 ml 60 ml Exam GENERAL: elderly lady comfortable on vent VITAL SIGNS: per chart NECK: Supple. No JVD or lymphadenopathy. CARDIAC EXAM: S1, S2. No added sounds or murmurs. CHEST: Diminished air entry bilaterally R> L ABDOMEN: Soft, nontender. No guarding or rebound. EXTREMITIES: No cyanosis, clubbing or edema. NEUROLOGIC: Generalized weakness. No focal deficits. Results Result Diagram: 09/04/17 0547 09/04/17 0547 Results 24 hrs Laboratory Tests Test 09/03/17 20:20 09/04/17 05:00 09/04/17 05:47 09/04/17 12:14 Blood Gas Specimen Source Blood arterial Blood arterial Arterial Blood Date Drawn 09/03/2017 10:40:50 PM 09/04/2017 4:29:08 AM Arterial Blood pH (Temp corrected) 7.458 H 7.511 H Arterial Blood pCO2 (Temp correct) 33.5 L 28.1 L Arterial Blood pO2 (Temp corrected) 95.4 146.3 H Arterial Blood HCO3 23.2 22.0 Arterial Blood Base Excess -0.2 -0.4 Arterial Blood Oxygen Saturation 97.4 98.8 H Dariel Test ACCEPTAB ACCEPTAB Arterial Blood Gas Puncture Site Right Radial Right Radial Arterial Blood Carboxyhemoglobin 0.3 0.3 Arterial Blood Methemoglobin 0.2 0.2 Blood Gas A-a O2 Differential 584.1 H 538.6 H Oxyhemoglobin Percent 96.9 98.3 Total Hemoglobin 11.3 L 9.3 L Blood Gas Temperature 37.0 37.0 Blood Gas Respiration Rate 20.0 20.0 Blood Gas Actual Respiration Rate 21 24 Blood Gas Modality MASK - BIPAP BIPAP - S/T FiO2 100.0 100.0 Blood Gas Pressure Support 8 8 Blood Gas IPAP/EPAP Ratio 1610/05 Blood Gas Notified Whom KM RTR Blood Gas Notified Time 09/03/2017 10:54:06 PM 09/04/2017 5:16:17 AM White Blood Count 2.9 #L Red Blood Count 3.03 L Hemoglobin 9.6 L Hematocrit 27.6 L Mean Corpuscular Volume 91.1 Mean Corpuscular Hemoglobin 31.7 Mean Corpuscular Hemoglobin Concent 34.8 Red Cell Distribution Width 20.2 H Platelet Count 147 # Mean Platelet Volume 11.2 H Neutrophils % Segmented Neutrophils % (Manual) 73 Band Neutrophils % (Manual) 17 H Lymphocytes % Lymphocytes % (Manual) 7 L Reactive Lymphocytes % (Manual) 1 H Monocytes % Monocytes % (Manual) 2 Eosinophils % Basophils % Nucleated Red Blood Cells % 0.0 Neutrophils # Neutrophils # (Manual) 2.1 Band Neutrophils # 0.4 Absolute Lymphocytes (Manual) 0.2 L Lymphocytes # Reactive Lymphocytes # 0.0 Monocytes # Absolute Monocytes (Manual) 0.0 L Eosinophils # Basophils # Nucleated Red Blood Cells # Platelet Estimate NORMAL Giant Platelets 1 H Polychromasia 3+ Poikilocytosis 2+ Anisocytosis 1+ Sodium Level 135 Potassium Level 3.7 Chloride Level 104 Carbon Dioxide Level 25 Anion Gap 10 Blood Urea Nitrogen 21 H Creatinine 0.54 Glucose Level 174 Hemoglobin A1c 6.2 H Lactic Acid Level 1.4 Calcium Level 6.4 L Bedside Glucose 153 Medications Medications Current Medications Ondansetron HCl (Zofran Inj) 4 mg Q6H PRN IV NAUSEA AND/OR VOMITING; Start 09/01/17 at 22:00 Nitroglycerin (Nitroglycerin (Sl Tab) 0.4 Mg) 1 tab Q5M PRN SL CHEST PAIN; Start 09/01/17 at 22:00 Acetaminophen (Tylenol Tab) 650 mg Q6H PRN PO PAIN LEVEL 1-3 OR FEVER Last administered on 09/03/17 16:00; Admin Dose 650 MG; Start 09/01/17 at 22:00 Morphine Sulfate (morphine) 2 mg Q4H PRN IV PAIN LEVEL 7-10; Start 09/01/17 at 22:00 Magnesium Hydroxide (Milk Of Mag) 30 ml DAILY PRN PO CONSTIPATION; Start at 22:00 Pantoprazole (Protonix Tab) 40 mg DAILY@06 PO Last administered on 09/04/17 05:39; Admin Dose 40 MG; Start 09/02/17 at 06:00 Alprazolam (Xanax) 0.25 mg Q8 PO Last administered on 09/04/17 05:39; Admin Dose 0.25 MG; Start 09/01/17 at 22:00 Amlodipine Besylate (Norvasc) 10 mg DAILY PO Last administered on 09/04/17 09 :56; Admin Dose 10 MG; Start 09/02/17 at 09:00 Cyclobenzaprine HCl (Flexeril) 5 mg BID PRN PO MUSCLE SPASM; Start 09/01/17 at 22:00 Docusate Sodium (Colace) 100 mg BID PO Last administered on 09/04/17 09:55; Admin Dose 100 MG; Start 09/02/17 at 09:00 Hydromorphone HCl (Dilaudid) 4 mg Q4H PRN PO pain; Start 09/01/17 at 22:00 Letrozole (Femara) 2.5 mg DAILY PO Last administered on 09/04/17 11:08; Admin Dose 2.5 MG; Start 09/02/17 at 09:00 Magnesium Hydroxide (Milk Of Mag) 30 ml QHS PO Last administered on 09/03/17 21:38; Admin Dose 30 ML; Start 09/02/17 at 21:00 Methadone HCl (Methadone) 10 mg Q8H PO Last administered on 09/04/17 05:38; Admin Dose 10 MG; Start 09/02/17 at 06:00 Senna (Senokot) 2 tab BID PO Last administered on 09/04/17 09:56; Admin Dose 2 TAB; Start 09/01/17 at 22:00 Zinc Sulfate 220 mg 220 mg DAILY PO Last administered on 09/04/17 09:56; Admin Dose 220 MG; Start 09/02/17 at 09:00 Cefepime HCl 50 ml @ 100 mls/hr Q24H IVPB Last administered on 09/03/17 20: 00; Admin Dose 100 MLS/HR; Start 09/02/17 at 20:00 Vancomycin HCl (Vancocin) 100 ml @ 100 mls/hr Q8H IVPB Last administered on 09:58; Admin Dose 100 MLS/HR; Start 09/03/17 at 17:00 Enoxaparin Sodium (Lovenox) 50 mg Q12 SC Last administered on 09/04/17 09:57 ; Admin Dose 50 MG; Start 09/03/17 at 21:00 Miscellaneous Information (*Rx Drug Level Order Reminder*) VANCO TROUGH @ 1, 600 ON ... ONCE ONCE XX ; Start 09/04/17 at 16:00; Stop 09/04/17 at 16:01 Methylprednisolone Sodium Succinate (Solu-Medrol) 60 mg DAILY IV Last administered on 09/04/17 09:55; Admin Dose 60 MG; Start 09/04/17 at 09:00 Diagnostic Test (Pha) (Accu-Chek) 1 ea 02 XX ; Start 09/05/17 at 02:00 Miscellaneous Information 1 ea NOTE XX ; Start 09/04/17 at 11:00 Glucose (Glutose) 15 gm Q15M PRN PO DECREASED GLUCOSE; Start 09/04/17 at 11:00 Glucose (Glutose) 22.5 gm Q15M PRN PO DECREASED GLUCOSE; Start 09/04/17 at 11: 00 Dextrose (D50w Syringe) 25 ml Q15M PRN IV DECREASED GLUCOSE; Start 09/04/17 at 11:00 Dextrose (D50w Syringe) 50 ml Q15M PRN IV DECREASED GLUCOSE; Start 09/04/17 at 11:00 Glucagon (Glucagen) 1 mg Q15M PRN IM DECREASED GLUCOSE; Start 09/04/17 at 11: 00 Glucose (Glutose) 15 gm Q15M PRN BUCCAL DECREASED GLUCOSE; Start 09/04/17 at 11:00 JOSEPH EDOUARD MD Sep 04, 2017 13:45
[2017-09-04] MEDS: MAGNESIUM HYDROXIDE 30ML CUP PO SCH (20:48)
[2017-09-04] MEDS: CEFEPIME 1GM/50 ML (PMX) 50 ML IVPB SCH (20:52)
[2017-09-05] VITALS (31 sets, daily range): BP systolic 97–115; BP diastolic 64–81; PULSE 75–102; RESP 15–26
[2017-09-05] MEDS: ALBUTEROL/IPRATROPIUM (NEB) 3 ML AMP HHN SCH ×6 (00:55→21:40)
[2017-09-05] MEDS: ACCU-CHEK XX SCH (02:00)
[2017-09-05] MEDS: PANTOPRAZOLE (EC) 40 MG TAB PO SCH (05:33)
[2017-09-05] MEDS: ALPRAZOLAM 0.25 MG TAB PO SCH ×3 (05:34→21:59)
[2017-09-05] MEDS: METHADONE 10 MG TAB PO SCH ×3 (05:35→21:59)
[2017-09-05 06:38] LABS: ABNORMAL IP MESSAGE 1; HEMATOCRIT 26.6 % (37.0-47.0); HEMOGLOBIN 9.2 g/dl (12.0-16.0); MEAN CORPUSCULAR HEMOGLOBIN 31.7 pg (29.0-33.0); MEAN CORPUSCULAR HGB CONC 34.6 g/dl (32.0-37.0); MEAN CORPUSCULAR VOLUME 91.7 fl (82.0-101.0); PLATELET COUNT 191 10^3/UL (140-415); RED CELL DISTRIBUTION WIDTH 20.7 % (11.5-14.5); WHITE BLOOD COUNT 4.5 10^3/ul (4.8-10.8)
[2017-09-05 06:51] LABS: CALCIUM 6.5 mg/dl (8.4-10.2); CREATININE 0.48 mg/dl (0.44-1.00); POTASSIUM 3.8 mmol/L (3.5-5.1)
[2017-09-05 06:53] LABS: POSITIVE DIFF @See below
[2017-09-05] MEDS: LEVOTHYROXINE 100 MCG TAB PO SCH (07:29)
[2017-09-05 08:45] LABS: ANISOCYTOSIS 1+ (0-0); EOSINOPHILS % (M) 1 % (0-7); HYPOCHROMASIA 1+ (0-0); MONOCYTES % (M) 6 % (0-11); PLATELET ESTIMATE NORMAL
[2017-09-05] MEDS: CALCIUM/VITAMIN D (500/200) TAB PO SCH ×3 (09:10→17:41)
[2017-09-05] MEDS: VANCOMYCIN 500MG/NS (PMX) 100 ML IVPB SCH ×2 (09:11→17:41)
[2017-09-05] MEDS: ZINC SULFATE 220 MG CAP PO SCH (09:11)
[2017-09-05] MEDS: INSULIN ASPART [NOVOLOG] 3 ML PEN SC SCH ×4 (09:11→21:23)
[2017-09-05] MEDS: METHYLPREDNISOLONE 125 MG INJ IV SCH (09:11)
[2017-09-05] MEDS: DOCUSATE SODIUM 100 MG CAP PO SCH ×2 (09:11→21:18)
[2017-09-05] MEDS: AMLODIPINE 10 MG TAB PO SCH (09:12)
[2017-09-05] MEDS: LETROZOLE 2.5 MG TAB PO SCH (09:12)
[2017-09-05] MEDS: SENNA TAB PO SCH ×2 (09:12→21:16)
[2017-09-05] MEDS: ENOXAPARIN 60 MG/0.6 ML SYG SC SCH ×2 (09:13→21:17)
[2017-09-05] MEDS ORDERED: BISACODYL (EC) 5 MG TAB PO PRN (09:30)
--- NOTE | 2017-09-05 09:44 | PN ---
Date/Time of Note Date/Time of Note DATE: 09/05/17 TIME: 09:42 Assessment/Plan VTE Prophylaxis VTE Prophylaxis Intervention: LMWH VTE Confirmed-Overlap Tx Rcvd Pt Rcvd Overlap Therapy: Yes Lines/Catheters IV Catheter Type (from Nrsg): Peripheral IV Urinary Cath still in place: Yes Reason Cath still needed: other (indicate) Assessment/Plan Chief Complaint/Hosp Course 1. Right lower lobe segmental pulmonary embolism. -Continue therapeutic anticoagulation. 2. Acute hypoxic respiratory failure. -Etiology could be related to underlying pulmonary embolism and bilateral pneumonia. -Supplemental oxygen. -NIPPV as indicated. -Inhaled bronchodilators. -Tapering dose of steroids. 3. Bilateral pneumonia. -Continue antibiotics. 4. Metastatic breast cancer. -On chemotherapy. -Oncology following. 5. Pancytopenia. -Secondary to underlying malignancy and chemotherapy. -Improving. 6. Urinary tract infection. -Continue antimicrobials. 7. Essential hypertension. -Continue antihypertensives. 8. Hypothyroidism. -Continue Synthroid. 9. Multiple pathologic rib and thoracic vertebral compression fractures. -From metastatic cancer. -Continue pain control. 10. Prediabetes. -Hemoglobin A1c 6.2. -Monitor random blood sugars. 11. Hypocalcemia. -Most probably secondary to underlying hypoalbuminemia. -Monitor for any signs of tetany. 12. Protein calorie malnutrition. -Mild to moderate. -High protein diet. 13. Fluids, electrolytes, and nutrition. -Regular diet. 14. Gastrointestinal prophylaxis (patient on steroids). -PPI. 15. Plan. -Wean off oxygen as indicated. -Continue therapeutic anticoagulation. -Continue antimicrobials. Patient was seen in collaboration with Dr. Silva. Critical CARE time: 35 minutes. Problems: Subjective 24 Hr Interval Summary Free Text/Dictation Feeling "so-so." Exam/Review of Systems Vital Signs Vitals Vital Signs Date Time Temp Pulse Resp B/P Pulse Ox O2 Delivery O2 Flow Rate FiO2 09/05/17 08:00 84 09/05/17 06:00 21 111/78 100 BIPAP 09/05/17 05:15 90 09/05/17 00:00 97.0 09/03/17 14:07 15.0 Intake and Output 09/04/17 09/04/17 09/05/17 15:00 23:00 07:00 Intake Total 420 ml 390 ml 120 ml Output Total 240 ml 280 ml 170 ml Balance 180 ml 110 ml -50 ml Exam General: Adequately build 66 year-old female lying in bed in mild to moderate respiratory distress. HEENT: Normocephalic, atraumatic. Eyes: Anicteric sclerae, conjunctivae clear. ENT: Nasal septum midline, oral mucosa moist. Neck supple. Respiratory: Bilaterally diminished breath sounds. Use of accessory muscles of respiration. On noninvasive positive pressure ventilation. Cardiovascular: S1, S2 heard. Regular rate and rhythm. Abdomen: Soft, nontender, and nondistended. Bowel sounds positive in all 4 quadrants. Genitourinary: Deferred. Extremities: No cyanosis, no clubbing, no edema. Peripheral pulses palpable. Neurologic: Cranial nerves II through XII grossly intact. The patient is awake, alert, and oriented. Skin: Normal skin turgor. No skin rashes. Results Result Diagram: 09/05/17 0612 09/05/17 0612 Results 24 hrs Laboratory Tests Test 09/04/17 12:14 09/04/17 16:01 09/04/17 17:28 09/04/17 20:53 Bedside Glucose 153 157 190 Vancomycin Level Trough 13.2 Test 09/05/17 06:12 09/05/17 09:09 White Blood Count 4.5 #L Red Blood Count 2.90 L Hemoglobin 9.2 L Hematocrit 26.6 L Mean Corpuscular Volume 91.7 Mean Corpuscular Hemoglobin 31.7 Mean Corpuscular Hemoglobin Concent 34.6 Red Cell Distribution Width 20.7 H Platelet Count 191 # Mean Platelet Volume 11.0 H Neutrophils % Segmented Neutrophils % (Manual) 68 Band Neutrophils % (Manual) 8 H Lymphocytes % Lymphocytes % (Manual) 18 Monocytes % Monocytes % (Manual) 6 Eosinophils % Eosinophils % (Manual) 1 Basophils % Nucleated Red Blood Cells % 0.0 Neutrophils # Neutrophils # (Manual) 3.1 Band Neutrophils # 0.3 Absolute Lymphocytes (Manual) 0.8 Lymphocytes # Monocytes # Absolute Monocytes (Manual) 0.2 L Eosinophils # Basophils # Nucleated Red Blood Cells # Platelet Estimate NORMAL Hypochromasia 1+ Anisocytosis 1+ Sodium Level 136 Potassium Level 3.8 Chloride Level 103 Carbon Dioxide Level 27 Anion Gap 10 Blood Urea Nitrogen 21 H Creatinine 0.48 Glucose Level 159 Calcium Level 6.5 L Bedside Glucose 161 Medications Medications Current Medications Ondansetron HCl (Zofran Inj) 4 mg Q6H PRN IV NAUSEA AND/OR VOMITING; Start 09/01/17 at 22:00 Nitroglycerin (Nitroglycerin (Sl Tab) 0.4 Mg) 1 tab Q5M PRN SL CHEST PAIN; Start 09/01/17 at 22:00 Acetaminophen (Tylenol Tab) 650 mg Q6H PRN PO PAIN LEVEL 1-3 OR FEVER Last administered on 09/03/17 16:00; Admin Dose 650 MG; Start 09/01/17 at 22:00 Morphine Sulfate (morphine) 2 mg Q4H PRN IV PAIN LEVEL 7-10; Start 09/01/17 at 22:00 Magnesium Hydroxide (Milk Of Mag) 30 ml DAILY PRN PO CONSTIPATION; Start at 22:00 Pantoprazole (Protonix Tab) 40 mg DAILY@06 PO Last administered on 09/05/17 05:33; Admin Dose 40 MG; Start 09/02/17 at 06:00 Alprazolam (Xanax) 0.25 mg Q8 PO Last administered on 09/05/17 05:34; Admin Dose 0.25 MG; Start 09/01/17 at 22:00 Amlodipine Besylate (Norvasc) 10 mg DAILY PO Last administered on 09/05/17 09 :12; Admin Dose 10 MG; Start 09/02/17 at 09:00 Cyclobenzaprine HCl (Flexeril) 5 mg BID PRN PO MUSCLE SPASM; Start 09/01/17 at 22:00 Docusate Sodium (Colace) 100 mg BID PO Last administered on 09/05/17 09:11; Admin Dose 100 MG; Start 09/02/17 at 09:00 Hydromorphone HCl (Dilaudid) 4 mg Q4H PRN PO pain; Start 09/01/17 at 22:00 Letrozole (Femara) 2.5 mg DAILY PO Last administered on 09/05/17 09:12; Admin Dose 2.5 MG; Start 09/02/17 at 09:00 Magnesium Hydroxide (Milk Of Mag) 30 ml QHS PO Last administered on 09/04/17 20:48; Admin Dose 30 ML; Start 09/02/17 at 21:00 Methadone HCl (Methadone) 10 mg Q8H PO Last administered on 09/05/17 05:35; Admin Dose 10 MG; Start 09/02/17 at 06:00 Senna (Senokot) 2 tab BID PO Last administered on 09/05/17 09:12; Admin Dose 2 TAB; Start 09/01/17 at 22:00 Zinc Sulfate 220 mg 220 mg DAILY PO Last administered on 09/05/17 09:11; Admin Dose 220 MG; Start 09/02/17 at 09:00 Cefepime HCl 50 ml @ 100 mls/hr Q24H IVPB Last administered on 09/04/17 20: 52; Admin Dose 100 MLS/HR; Start 09/02/17 at 20:00 Vancomycin HCl (Vancocin) 100 ml @ 100 mls/hr Q8H IVPB Last administered on 09:11; Admin Dose 100 MLS/HR; Start 09/03/17 at 17:00 Enoxaparin Sodium (Lovenox) 50 mg Q12 SC Last administered on 09/05/17 09:13 ; Admin Dose 50 MG; Start 09/03/17 at 21:00 Methylprednisolone Sodium Succinate (Solu-Medrol) 60 mg DAILY IV Last administered on 09/05/17 09:11; Admin Dose 60 MG; Start 09/04/17 at 09:00 Diagnostic Test (Pha) (Accu-Chek) 1 ea 02 XX ; Start 09/05/17 at 02:00 Miscellaneous Information 1 ea NOTE XX ; Start 09/04/17 at 11:00 Glucose (Glutose) 15 gm Q15M PRN PO DECREASED GLUCOSE; Start 09/04/17 at 11:00 Glucose (Glutose) 22.5 gm Q15M PRN PO DECREASED GLUCOSE; Start 09/04/17 at 11: 00 Dextrose (D50w Syringe) 25 ml Q15M PRN IV DECREASED GLUCOSE; Start 09/04/17 at 11:00 Dextrose (D50w Syringe) 50 ml Q15M PRN IV DECREASED GLUCOSE; Start 09/04/17 at 11:00 Glucagon (Glucagen) 1 mg Q15M PRN IM DECREASED GLUCOSE; Start 09/04/17 at 11: 00 Glucose (Glutose) 15 gm Q15M PRN BUCCAL DECREASED GLUCOSE; Start 09/04/17 at 11:00 Polyethylene Glycol (Miralax) 17 gm BID PO ; Start 09/05/17 at 09:30; Status UNV Bisacodyl (Dulcolax) 10 mg DAILY PRN PO CONSTIPATION; Start 09/05/17 at 09:30 ; Status UNV ROSAMARIA SOMERS NP Sep 05, 2017 09:44
[2017-09-05] MEDS: POLYETHYLENE GLYCOL 17 GM PACKET PO SCH ×2 (10:27→21:18)
--- NOTE | 2017-09-05 11:05 | CONS ---
Date/Time of Note Date/Time of Note DATE: 09/05/17 TIME: 11:02 Assessment/Plan Assessment/Plan Additional Assessment/Plan Assessment and recommendations; 1. Patient admitted with pneumonia as well as bilateral pulmonary emboli. Currently on appropriate antibiotic regimen as well as full dose Lovenox. 2. Mild anemia and thrombocytopenia. 3. 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 4. History of breast cancer. 5. Chronic pain. 6. Hypothyroidism. Continue current treatment. Consultation Date/Type/Reason Admit Date/Time Sep 01, 2017 at 20:22 Initial Consult Date 09/02/17 Type of Consultation: Pulmonary/critical care Referring Provider: DONOVAN BOLAÑOS 24 HR Interval Summary Free Text/Dictation Patient's condition is improving. According to her shortness of breath is significantly better compared to yesterday. Patient also has been weaned over to high flow nasal cannula from BiPAP. Patient denies any coughing, chest pain , hemoptysis. General exam; elderly woman, awake alert, currently in no distress. Exam/Review of Systems Vital Signs Vitals Vital Signs Date Time Temp Pulse Resp B/P Pulse Ox O2 Delivery O2 Flow Rate FiO2 09/05/17 10:00 16 115/74 High Flow 09/05/17 09:00 84 09/05/17 08:00 98 09/05/17 05:15 90 09/05/17 00:00 97.0 09/03/17 14:07 15.0 Intake and Output 09/04/17 09/04/17 09/05/17 15:00 23:00 07:00 Intake Total 420 ml 390 ml 120 ml Output Total 240 ml 280 ml 170 ml Balance 180 ml 110 ml -50 ml Exam HEENT exam; supple neck, no JVD. No lymphadenopathy. Midline trachea. No thyromegaly. Pharynx is clear. Patient has fair dentition. Pupils are small bilaterally. Chest exam; diminished but clear breath sounds. S1-S2 audible, no murmurs. Regular rhythm. Abdomen exam; soft, nontender. No organomegaly. Bowel sounds audible. Extremity exam; no edema. Patient does have ecchymosis involving all 4 extremities. PHYSICS TECHNICAL OFFICER exam; no focal deficit. Results Result Diagram: 09/05/17 0612 09/05/17 0612 Results 24 hrs Laboratory Tests Test 09/04/17 12:14 09/04/17 16:01 09/04/17 17:28 09/04/17 20:53 Bedside Glucose 153 157 190 Vancomycin Level Trough 13.2 Test 09/05/17 06:12 09/05/17 09:09 White Blood Count 4.5 #L Red Blood Count 2.90 L Hemoglobin 9.2 L Hematocrit 26.6 L Mean Corpuscular Volume 91.7 Mean Corpuscular Hemoglobin 31.7 Mean Corpuscular Hemoglobin Concent 34.6 Red Cell Distribution Width 20.7 H Platelet Count 191 # Mean Platelet Volume 11.0 H Neutrophils % Segmented Neutrophils % (Manual) 68 Band Neutrophils % (Manual) 8 H Lymphocytes % Lymphocytes % (Manual) 18 Monocytes % Monocytes % (Manual) 6 Eosinophils % Eosinophils % (Manual) 1 Basophils % Nucleated Red Blood Cells % 0.0 Neutrophils # Neutrophils # (Manual) 3.1 Band Neutrophils # 0.3 Absolute Lymphocytes (Manual) 0.8 Lymphocytes # Monocytes # Absolute Monocytes (Manual) 0.2 L Eosinophils # Basophils # Nucleated Red Blood Cells # Platelet Estimate NORMAL Hypochromasia 1+ Anisocytosis 1+ Sodium Level 136 Potassium Level 3.8 Chloride Level 103 Carbon Dioxide Level 27 Anion Gap 10 Blood Urea Nitrogen 21 H Creatinine 0.48 Glucose Level 159 Calcium Level 6.5 L Bedside Glucose 161 Medications Medications Current Medications Ondansetron HCl (Zofran Inj) 4 mg Q6H PRN IV NAUSEA AND/OR VOMITING; Start 09/01/17 at 22:00 Nitroglycerin (Nitroglycerin (Sl Tab) 0.4 Mg) 1 tab Q5M PRN SL CHEST PAIN; Start 09/01/17 at 22:00 Acetaminophen (Tylenol Tab) 650 mg Q6H PRN PO PAIN LEVEL 1-3 OR FEVER Last administered on 09/03/17 16:00; Admin Dose 650 MG; Start 09/01/17 at 22:00 Morphine Sulfate (morphine) 2 mg Q4H PRN IV PAIN LEVEL 7-10; Start 09/01/17 at 22:00 Magnesium Hydroxide (Milk Of Mag) 30 ml DAILY PRN PO CONSTIPATION; Start at 22:00 Pantoprazole (Protonix Tab) 40 mg DAILY@06 PO Last administered on 09/05/17 05:33; Admin Dose 40 MG; Start 09/02/17 at 06:00 Alprazolam (Xanax) 0.25 mg Q8 PO Last administered on 09/05/17 05:34; Admin Dose 0.25 MG; Start 09/01/17 at 22:00 Amlodipine Besylate (Norvasc) 10 mg DAILY PO Last administered on 09/05/17 09 :12; Admin Dose 10 MG; Start 09/02/17 at 09:00 Cyclobenzaprine HCl (Flexeril) 5 mg BID PRN PO MUSCLE SPASM; Start 09/01/17 at 22:00 Docusate Sodium (Colace) 100 mg BID PO Last administered on 09/05/17 09:11; Admin Dose 100 MG; Start 09/02/17 at 09:00 Hydromorphone HCl (Dilaudid) 4 mg Q4H PRN PO pain; Start 09/01/17 at 22:00 Letrozole (Femara) 2.5 mg DAILY PO Last administered on 09/05/17 09:12; Admin Dose 2.5 MG; Start 09/02/17 at 09:00 Magnesium Hydroxide (Milk Of Mag) 30 ml QHS PO Last administered on 09/04/17 20:48; Admin Dose 30 ML; Start 09/02/17 at 21:00 Methadone HCl (Methadone) 10 mg Q8H PO Last administered on 09/05/17 05:35; Admin Dose 10 MG; Start 09/02/17 at 06:00 Senna (Senokot) 2 tab BID PO Last administered on 09/05/17 09:12; Admin Dose 2 TAB; Start 09/01/17 at 22:00 Zinc Sulfate 220 mg 220 mg DAILY PO Last administered on 09/05/17 09:11; Admin Dose 220 MG; Start 09/02/17 at 09:00 Cefepime HCl 50 ml @ 100 mls/hr Q24H IVPB Last administered on 09/04/17 20: 52; Admin Dose 100 MLS/HR; Start 09/02/17 at 20:00 Vancomycin HCl (Vancocin) 100 ml @ 100 mls/hr Q8H IVPB Last administered on 09:11; Admin Dose 100 MLS/HR; Start 09/03/17 at 17:00 Enoxaparin Sodium (Lovenox) 50 mg Q12 SC Last administered on 09/05/17 09:13 ; Admin Dose 50 MG; Start 09/03/17 at 21:00 Methylprednisolone Sodium Succinate (Solu-Medrol) 60 mg DAILY IV Last administered on 09/05/17 09:11; Admin Dose 60 MG; Start 09/04/17 at 09:00 Diagnostic Test (Pha) (Accu-Chek) 1 ea 02 XX ; Start 09/05/17 at 02:00 Miscellaneous Information 1 ea NOTE XX ; Start 09/04/17 at 11:00 Glucose (Glutose) 15 gm Q15M PRN PO DECREASED GLUCOSE; Start 09/04/17 at 11:00 Glucose (Glutose) 22.5 gm Q15M PRN PO DECREASED GLUCOSE; Start 09/04/17 at 11: 00 Dextrose (D50w Syringe) 25 ml Q15M PRN IV DECREASED GLUCOSE; Start 09/04/17 at 11:00 Dextrose (D50w Syringe) 50 ml Q15M PRN IV DECREASED GLUCOSE; Start 09/04/17 at 11:00 Glucagon (Glucagen) 1 mg Q15M PRN IM DECREASED GLUCOSE; Start 09/04/17 at 11: 00 Glucose (Glutose) 15 gm Q15M PRN BUCCAL DECREASED GLUCOSE; Start 09/04/17 at 11:00 Polyethylene Glycol (Miralax) 17 gm BID PO Last administered on 09/05/17t 10: 27; Admin Dose 17 GM; Start 09/05/17 at 09:30 Bisacodyl (Dulcolax) 10 mg DAILY PRN PO CONSTIPATION; Start 09/05/17 at 09:30 MAGGI NEVES Sep 05, 2017 11:05
--- NOTE | 2017-09-05 17:37 | CONS ---
Date/Time of Note Date/Time of Note DATE: 09/05/17 TIME: 17:37 Assessment/Plan Assessment/Plan Chief Complaint/Hosp Course Metastatic Breast Ca ON TREATMENT CHEMO ON HOLD INCOMPLETE RECORD WILL OBTAIN AND REVIEW RECORD Pancytopenia POST CHEMO SL IMPROVED MONITOR CLOSELY TRANSFUSE IF NEEDED Hypoxemic Respiratory Failure: due to a multifocal pneumonia, more consistent with viral. PER PULM- In view of the morphological appearance on thoracic CT, must also consider non-infectious etiologies such as an organizing pneumonia (BOOP) secondary to her chemo (need records to know what she has been on) and/or XRT. RECORD- P HYPERCOAGULABLE STATE WITH subsegmental PE Anticoagulation with lovenox 1 mg/kg BID Problems: Consultation Date/Type/Reason Admit Date/Time Sep 01, 2017 at 20:22 Initial Consult Date 09/02/17 Type of Consultation: hemeon Reason for Consultation [facility] Referring Provider: DONOVAN BOLAÑOS 24 HR Interval Summary Free Text/Dictation all noted ON NC Exam/Review of Systems Vital Signs Vitals Vital Signs Date Time Temp Pulse Resp B/P Pulse Ox O2 Delivery O2 Flow Rate FiO2 09/05/17 17:27 87 14 97 95 09/05/17 16:00 97.4 97/67 High Flow 09/03/17 14:07 15.0 Intake and Output 09/04/17 09/04/17 09/05/17 14:59 22:59 06:59 Intake Total 300 ml 510 ml 120 ml Output Total 240 ml 280 ml 200 ml Balance 60 ml 230 ml -80 ml Exam GENERAL: elderly lady comfortable at rest on high flow 02 VITAL SIGNS: per chart NECK: Supple. No JVD or lymphadenopathy. CARDIAC EXAM: S1, S2. No added sounds or murmurs. CHEST: Diminished air entry bilaterally R> L ABDOMEN: Soft, nontender. No guarding or rebound. EXTREMITIES: No cyanosis, clubbing or edema. NEUROLOGIC: Generalized weakness. No focal deficits. Results Result Diagram: 09/05/17 0612 09/05/17 0612 Results 24 hrs Laboratory Tests Test 09/04/17 20:53 09/05/17 06:12 09/05/17 09:09 09/05/17 12:43 Bedside Glucose 190 161 141 White Blood Count 4.5 #L Red Blood Count 2.90 L Hemoglobin 9.2 L Hematocrit 26.6 L Mean Corpuscular Volume 91.7 Mean Corpuscular Hemoglobin 31.7 Mean Corpuscular Hemoglobin Concent 34.6 Red Cell Distribution Width 20.7 H Platelet Count 191 # Mean Platelet Volume 11.0 H Neutrophils % Segmented Neutrophils % (Manual) 68 Band Neutrophils % (Manual) 8 H Lymphocytes % Lymphocytes % (Manual) 18 Monocytes % Monocytes % (Manual) 6 Eosinophils % Eosinophils % (Manual) 1 Basophils % Nucleated Red Blood Cells % 0.0 Neutrophils # Neutrophils # (Manual) 3.1 Band Neutrophils # 0.3 Absolute Lymphocytes (Manual) 0.8 Lymphocytes # Monocytes # Absolute Monocytes (Manual) 0.2 L Eosinophils # Basophils # Nucleated Red Blood Cells # Platelet Estimate NORMAL Hypochromasia 1+ Anisocytosis 1+ Sodium Level 136 Potassium Level 3.8 Chloride Level 103 Carbon Dioxide Level 27 Anion Gap 10 Blood Urea Nitrogen 21 H Creatinine 0.48 Glucose Level 159 Calcium Level 6.5 L Medications Medications Current Medications Ondansetron HCl (Zofran Inj) 4 mg Q6H PRN IV NAUSEA AND/OR VOMITING; Start 09/01/17 at 22:00 Nitroglycerin (Nitroglycerin (Sl Tab) 0.4 Mg) 1 tab Q5M PRN SL CHEST PAIN; Start 09/01/17 at 22:00 Acetaminophen (Tylenol Tab) 650 mg Q6H PRN PO PAIN LEVEL 1-3 OR FEVER Last administered on 09/03/17 16:00; Admin Dose 650 MG; Start 09/01/17 at 22:00 Morphine Sulfate (morphine) 2 mg Q4H PRN IV PAIN LEVEL 7-10; Start 09/01/17 at 22:00 Magnesium Hydroxide (Milk Of Mag) 30 ml DAILY PRN PO CONSTIPATION; Start at 22:00 Pantoprazole (Protonix Tab) 40 mg DAILY@06 PO Last administered on 09/05/17 05:33; Admin Dose 40 MG; Start 09/02/17 at 06:00 Alprazolam (Xanax) 0.25 mg Q8 PO Last administered on 09/05/17 13:47; Admin Dose 0.25 MG; Start 09/01/17 at 22:00 Amlodipine Besylate (Norvasc) 10 mg DAILY PO Last administered on 09/05/17 09 :12; Admin Dose 10 MG; Start 09/02/17 at 09:00 Cyclobenzaprine HCl (Flexeril) 5 mg BID PRN PO MUSCLE SPASM; Start 09/01/17 at 22:00 Docusate Sodium (Colace) 100 mg BID PO Last administered on 09/05/17 09:11; Admin Dose 100 MG; Start 09/02/17 at 09:00 Hydromorphone HCl (Dilaudid) 4 mg Q4H PRN PO pain; Start 09/01/17 at 22:00 Letrozole (Femara) 2.5 mg DAILY PO Last administered on 09/05/17 09:12; Admin Dose 2.5 MG; Start 09/02/17 at 09:00 Magnesium Hydroxide (Milk Of Mag) 30 ml QHS PO Last administered on 09/04/17 20:48; Admin Dose 30 ML; Start 09/02/17 at 21:00 Methadone HCl (Methadone) 10 mg Q8H PO Last administered on 09/05/17 13:47; Admin Dose 10 MG; Start 09/02/17 at 06:00 Senna (Senokot) 2 tab BID PO Last administered on 09/05/17 09:12; Admin Dose 2 TAB; Start 09/01/17 at 22:00 Zinc Sulfate 220 mg 220 mg DAILY PO Last administered on 09/05/17 09:11; Admin Dose 220 MG; Start 09/02/17 at 09:00 Cefepime HCl 50 ml @ 100 mls/hr Q24H IVPB Last administered on 09/04/17 20: 52; Admin Dose 100 MLS/HR; Start 09/02/17 at 20:00 Vancomycin HCl (Vancocin) 100 ml @ 100 mls/hr Q8H IVPB Last administered on 09:11; Admin Dose 100 MLS/HR; Start 09/03/17 at 17:00 Enoxaparin Sodium (Lovenox) 50 mg Q12 SC Last administered on 09/05/17 09:13 ; Admin Dose 50 MG; Start 09/03/17 at 21:00 Methylprednisolone Sodium Succinate (Solu-Medrol) 60 mg DAILY IV Last administered on 09/05/17 09:11; Admin Dose 60 MG; Start 09/04/17 at 09:00 Diagnostic Test (Pha) (Accu-Chek) 1 ea 02 XX ; Start 09/05/17 at 02:00 Miscellaneous Information 1 ea NOTE XX ; Start 09/04/17 at 11:00 Glucose (Glutose) 15 gm Q15M PRN PO DECREASED GLUCOSE; Start 09/04/17 at 11:00 Glucose (Glutose) 22.5 gm Q15M PRN PO DECREASED GLUCOSE; Start 09/04/17 at 11: 00 Dextrose (D50w Syringe) 25 ml Q15M PRN IV DECREASED GLUCOSE; Start 09/04/17 at 11:00 Dextrose (D50w Syringe) 50 ml Q15M PRN IV DECREASED GLUCOSE; Start 09/04/17 at 11:00 Glucagon (Glucagen) 1 mg Q15M PRN IM DECREASED GLUCOSE; Start 09/04/17 at 11: 00 Glucose (Glutose) 15 gm Q15M PRN BUCCAL DECREASED GLUCOSE; Start 09/04/17 at 11:00 Polyethylene Glycol (Miralax) 17 gm BID PO Last administered on 09/05/17t 10: 27; Admin Dose 17 GM; Start 09/05/17 at 09:30 Bisacodyl (Dulcolax) 10 mg DAILY PRN PO CONSTIPATION; Start 09/05/17 at 09:30 JOSEPH EDOUARD MD Sep 05, 2017 17:37
[2017-09-05] MEDS: MAGNESIUM HYDROXIDE 30ML CUP PO SCH (21:16)
[2017-09-05] MEDS: CEFEPIME 1GM/50 ML (PMX) 50 ML IVPB SCH (21:16)
[2017-09-06] VITALS (17 sets, daily range): BP systolic 92–110; BP diastolic 58–75; PULSE 71–95; RESP 11–22
[2017-09-06] MEDS: VANCOMYCIN 500MG/NS (PMX) 100 ML IVPB SCH ×3 (01:00→22:06)
[2017-09-06] MEDS: ALBUTEROL/IPRATROPIUM (NEB) 3 ML AMP HHN SCH ×6 (01:13→22:09)
[2017-09-06] MEDS: ACCU-CHEK XX SCH (02:00)
[2017-09-06 05:31] LABS: ABNORMAL IP MESSAGE 1; HEMATOCRIT 25.2 % (37.0-47.0); HEMOGLOBIN 8.7 g/dl (12.0-16.0); LYMPHOCYTES # 0.4 10^3/ul (0.8-2.9); LYMPHOCYTES % 6.8 % (15.0-51.0); MEAN CORPUSCULAR HGB CONC 34.5 g/dl (32.0-37.0); MEAN CORPUSCULAR VOLUME 92.6 fl (82.0-101.0); MEAN PLATELET VOLUME 11.6 fl (7.4-10.4); MONOCYTE # 0.2 10^3/ul (0.3-0.9); MONOCYTES % 4.2 % (0.0-11.0); NEUTROPHILS % 87.3 % (39.0-77.0); NUCLEATED RED BLOOD CELLS% 0.5 /100WBC (0.0-0.0); PLATELET COUNT 212 10^3/UL (140-415); RED BLOOD COUNT 2.72 10^6/ul (4.20-5.40); RED CELL DISTRIBUTION WIDTH 21.2 % (11.5-14.5); WHITE BLOOD COUNT 5.7 10^3/ul (4.8-10.8)
[2017-09-06 05:54] LABS: CALCIUM 6.6 mg/dl (8.4-10.2); CREATININE 0.51 mg/dl (0.44-1.00); POTASSIUM 4.6 mmol/L (3.5-5.1)
[2017-09-06 05:58] LABS: POSITIVE DIFF @See below
[2017-09-06] MEDS: METHADONE 10 MG TAB PO SCH ×3 (06:35→21:23)
[2017-09-06] MEDS: LEVOTHYROXINE 100 MCG TAB PO SCH (06:35)
[2017-09-06] MEDS: PANTOPRAZOLE (EC) 40 MG TAB PO SCH (06:35)
[2017-09-06] MEDS: ALPRAZOLAM 0.25 MG TAB PO SCH ×3 (06:36→21:23)
[2017-09-06 07:01] LABS: MAGNESIUM 2.7 mg/dl (1.7-2.5); PHOSPHORUS 1.6 mg/dl (2.5-4.9)
[2017-09-06] MEDS: INSULIN ASPART [NOVOLOG] 3 ML PEN SC SCH ×5 (07:35→21:37)
[2017-09-06] MEDS: CALCIUM/VITAMIN D (500/200) TAB PO SCH ×3 (08:34→18:09)
[2017-09-06] MEDS: METHYLPREDNISOLONE 125 MG INJ IV SCH (08:35)
[2017-09-06] MEDS: ZINC SULFATE 220 MG CAP PO SCH (08:37)
[2017-09-06] MEDS: DOCUSATE SODIUM 100 MG CAP PO SCH ×2 (08:41→21:00)
[2017-09-06] MEDS: SENNA TAB PO SCH ×2 (08:41→21:22)
[2017-09-06] MEDS: AMLODIPINE 10 MG TAB PO SCH (08:42)
[2017-09-06] MEDS: ENOXAPARIN 60 MG/0.6 ML SYG SC SCH ×2 (08:49→21:43)
[2017-09-06] MEDS: LETROZOLE 2.5 MG TAB PO SCH (09:00)
[2017-09-06] MEDS: POLYETHYLENE GLYCOL 17 GM PACKET PO SCH ×2 (09:00→21:22)
--- NOTE | 2017-09-06 09:11 | PN ---
Date/Time of Note Date/Time of Note DATE: 09/06/17 TIME: 09:08 Assessment/Plan VTE Prophylaxis VTE Prophylaxis Intervention: LMWH Lines/Catheters IV Catheter Type (from Nrs): Peripheral IV Urinary Cath still in place: Yes Reason Cath still needed: other (indicate) Assessment/Plan Chief Complaint/Hosp Course 1. Right lower lobe segmental pulmonary embolism. -Continue therapeutic anticoagulation. 2. Acute hypoxic respiratory failure. -Etiology could be related to underlying pulmonary embolism and bilateral pneumonia. -Supplemental oxygen. -NIPPV as indicated. -Inhaled bronchodilators. -Tapering dose of steroids. 3. Bilateral pneumonia. -Continue antibiotics. 4. Metastatic breast cancer. -On chemotherapy. -Oncology following. 5. Pancytopenia. -Secondary to underlying malignancy and chemotherapy. -Improving. 6. Urinary tract infection. -Continue antimicrobials. 7. Essential hypertension. -Continue antihypertensives. 8. Hypothyroidism. -Continue Synthroid. 9. Multiple pathologic rib and thoracic vertebral compression fractures. -From metastatic cancer. -Continue pain control. 10. Prediabetes. -Hemoglobin A1c 6.2. -Monitor random blood sugars. 11. Hypocalcemia. -Most probably secondary to underlying hypoalbuminemia. -Monitor for any signs of tetany. 12. Protein calorie malnutrition. -Mild to moderate. -High protein diet. -S/P RD evaluation. 13. MRSA colonization of the nares. -Start Bactroban. 14. Fluids, electrolytes, and nutrition. -Regular diet. 15. Gastrointestinal prophylaxis (patient on steroids). -PPI. 16. Plan. -Wean off oxygen as indicated. -Continue therapeutic anticoagulation. -Continue antimicrobials. -Start Bactroban. Patient was seen in collaboration with Dr. Silva. Critical CARE time: 35 minutes. Problems: Subjective 24 Hr Interval Summary Free Text/Dictation Felling "so-so." Off NIPPV. On high flow O2. Exam/Review of Systems Vital Signs Vitals Vital Signs Date Time Temp Pulse Resp B/P Pulse Ox O2 Delivery O2 Flow Rate FiO2 09/06/17 08:22 77 14 99 90 09/06/17 06:00 92/62 High Flow 09/06/17 04:00 97.8 09/03/17 14:07 15.0 Intake and Output 09/05/17 09/05/17 09/06/17 14:59 22:59 06:59 Intake Total 700 ml 410 ml 420 ml Output Total 260 ml 310 ml 310 ml Balance 440 ml 100 ml 110 ml Exam General: Adequately build 66 year-old female lying in bed in mild to moderate respiratory distress. HEENT: Normocephalic, atraumatic. Eyes: Anicteric sclerae, conjunctivae clear. ENT: Nasal septum midline, oral mucosa moist. Neck supple. Respiratory: Bilaterally diminished breath sounds. Use of accessory muscles of respiration. On noninvasive positive pressure ventilation. Cardiovascular: S1, S2 heard. Regular rate and rhythm. Abdomen: Soft, nontender, and nondistended. Bowel sounds positive in all 4 quadrants. Genitourinary: Deferred. Extremities: No cyanosis, no clubbing, no edema. Peripheral pulses palpable. Neurologic: Cranial nerves II through XII grossly intact. The patient is awake, alert, and oriented. Skin: Normal skin turgor. No skin rashes. Results Result Diagram: 09/06/17 0515 09/06/17 0515 Results 24 hrs Laboratory Tests Test 09/05/17 09:09 09/05/17 12:43 09/05/17 17:42 09/05/17 21:21 Bedside Glucose 161 141 159 189 Test 09/06/17 02:04 09/06/17 05:15 09/06/17 08:33 Bedside Glucose 192 116 White Blood Count 5.7 # Red Blood Count 2.72 L Hemoglobin 8.7 L Hematocrit 25.2 L Mean Corpuscular Volume 92.6 Mean Corpuscular Hemoglobin 32.0 Mean Corpuscular Hemoglobin Concent 34.5 Red Cell Distribution Width 21.2 H Platelet Count 212 Mean Platelet Volume 11.6 H Neutrophils % 87.3 H Lymphocytes % 6.8 L Monocytes % 4.2 Eosinophils % 0.0 Basophils % 0.0 Nucleated Red Blood Cells % 0.5 H Neutrophils # 5.0 Lymphocytes # 0.4 L Monocytes # 0.2 L Eosinophils # 0.0 Basophils # 0.0 Nucleated Red Blood Cells # 0.0 Sodium Level 137 Potassium Level 4.6 Chloride Level 104 Carbon Dioxide Level 28 Anion Gap 10 Blood Urea Nitrogen 20 Creatinine 0.51 Glucose Level 137 Calcium Level 6.6 L Phosphorus Level 1.6 L Magnesium Level 2.7 H Medications Medications Current Medications Ondansetron HCl (Zofran Inj) 4 mg Q6H PRN IV NAUSEA AND/OR VOMITING; Start 09/01/17 at 22:00 Nitroglycerin (Nitroglycerin (Sl Tab) 0.4 Mg) 1 tab Q5M PRN SL CHEST PAIN; Start 09/01/17 at 22:00 Acetaminophen (Tylenol Tab) 650 mg Q6H PRN PO PAIN LEVEL 1-3 OR FEVER Last administered on 09/03/17 16:00; Admin Dose 650 MG; Start 09/01/17 at 22:00 Morphine Sulfate (morphine) 2 mg Q4H PRN IV PAIN LEVEL 7-10; Start 09/01/17 at 22:00 Magnesium Hydroxide (Milk Of Mag) 30 ml DAILY PRN PO CONSTIPATION; Start at 22:00 Pantoprazole (Protonix Tab) 40 mg DAILY@06 PO Last administered on 09/06/17 06:35; Admin Dose 40 MG; Start 09/02/17 at 06:00 Alprazolam (Xanax) 0.25 mg Q8 PO Last administered on 09/06/17 06:36; Admin Dose 0.25 MG; Start 09/01/17 at 22:00 Amlodipine Besylate (Norvasc) 10 mg DAILY PO Last administered on 09/05/17 09 :12; Admin Dose 10 MG; Start 09/02/17 at 09:00 Cyclobenzaprine HCl (Flexeril) 5 mg BID PRN PO MUSCLE SPASM; Start 09/01/17 at 22:00 Docusate Sodium (Colace) 100 mg BID PO Last administered on 09/05/17 21:18; Admin Dose 100 MG; Start 09/02/17 at 09:00 Hydromorphone HCl (Dilaudid) 4 mg Q4H PRN PO pain; Start 09/01/17 at 22:00 Letrozole (Femara) 2.5 mg DAILY PO Last administered on 09/05/17 09:12; Admin Dose 2.5 MG; Start 09/02/17 at 09:00 Magnesium Hydroxide (Milk Of Mag) 30 ml QHS PO Last administered on 09/05/17 21:16; Admin Dose 30 ML; Start 09/02/17 at 21:00 Methadone HCl (Methadone) 10 mg Q8H PO Last administered on 09/06/17 06:35; Admin Dose 10 MG; Start 09/02/17 at 06:00 Senna (Senokot) 2 tab BID PO Last administered on 09/06/17 08:41; Admin Dose 2 TAB; Start 09/01/17 at 22:00 Zinc Sulfate 220 mg 220 mg DAILY PO Last administered on 09/06/17 08:37; Admin Dose 220 MG; Start 09/02/17 at 09:00 Cefepime HCl 50 ml @ 100 mls/hr Q24H IVPB Last administered on 09/05/17 21: 16; Admin Dose 100 MLS/HR; Start 09/02/17 at 20:00 Vancomycin HCl (Vancocin) 100 ml @ 100 mls/hr Q8H IVPB Last administered on 01:00; Admin Dose 100 MLS/HR; Start 09/03/17 at 17:00 Enoxaparin Sodium (Lovenox) 50 mg Q12 SC Last administered on 09/06/17 08:49 ; Admin Dose 50 MG; Start 09/03/17 at 21:00 Methylprednisolone Sodium Succinate (Solu-Medrol) 60 mg DAILY IV Last administered on 09/06/17 08:35; Admin Dose 60 MG; Start 09/04/17 at 09:00 Diagnostic Test (Pha) (Accu-Chek) 1 ea 02 XX Last administered on 09/06/17 02 :00; Admin Dose 1 EA; Start 09/05/17 at 02:00 Miscellaneous Information 1 ea NOTE XX ; Start 09/04/17 at 11:00 Glucose (Glutose) 15 gm Q15M PRN PO DECREASED GLUCOSE; Start 09/04/17 at 11:00 Glucose (Glutose) 22.5 gm Q15M PRN PO DECREASED GLUCOSE; Start 09/04/17 at 11: 00 Dextrose (D50w Syringe) 25 ml Q15M PRN IV DECREASED GLUCOSE; Start 09/04/17 at 11:00 Dextrose (D50w Syringe) 50 ml Q15M PRN IV DECREASED GLUCOSE; Start 09/04/17 at 11:00 Glucagon (Glucagen) 1 mg Q15M PRN IM DECREASED GLUCOSE; Start 09/04/17 at 11: 00 Glucose (Glutose) 15 gm Q15M PRN BUCCAL DECREASED GLUCOSE; Start 09/04/17 at 11:00 Polyethylene Glycol (Miralax) 17 gm BID PO Last administered on 12/12/17at 21: 18; Admin Dose 17 GM; Start 09/05/17 at 09:30 Bisacodyl (Dulcolax) 10 mg DAILY PRN PO CONSTIPATION; Start 09/05/17 at 09:30 ROSAMARIA SOMERS NP Sep 06, 2017 09:11
[2017-09-06] MEDS ORDERED: MAGNESIUM SULFATE 2 GM/50 ML 50 ML IVPB ONE (09:30)
[2017-09-06] MEDS: ASCORBIC ACID 500 MG TAB PO SCH ×2 (09:54→21:22)
--- NOTE | 2017-09-06 10:48 | CONS ---
Date/Time of Note Date/Time of Note DATE: 09/06/17 TIME: 10:45 Assessment/Plan Assessment/Plan Additional Assessment/Plan Assessment and recommendations; 1. Patient admitted with shortness of breath due to bilateral pneumonia as well as bilateral pulmonary emboli with possibility of BOOP, likely chemotherapy -induced. 2. Hypoxemia secondary to #1 above. Clinically improving. 3. Mild anemia and thrombocytopenia. 4. History of hypothyroidism. 5. History of chronic pain. 6. History of breast cancer. Continue current treatment. Obtain follow-up chest x-ray. Consultation Date/Type/Reason Admit Date/Time Sep 01, 2017 at 20:22 Initial Consult Date 09/02/17 Type of Consultation: Pulmonary/critical care Referring Provider: DONOVAN BOLAÑOS 24 HR Interval Summary Free Text/Dictation Patient's condition is stable. She has been weaned off BiPAP and is doing fairly well on high flow nasal cannula. General exam; elderly woman, awake alert, currently in no distress. Exam/Review of Systems Vital Signs Vitals Vital Signs Date Time Temp Pulse Resp B/P Pulse Ox O2 Delivery O2 Flow Rate FiO2 09/06/17 09:00 91 15 101/75 95 High Flow 09/06/17 08:22 90 09/06/17 08:00 6.0 09/06/17 07:00 97.5 Intake and Output 09/05/17 09/05/17 09/06/17 14:59 22:59 06:59 Intake Total 700 ml 410 ml 420 ml Output Total 260 ml 310 ml 310 ml Balance 440 ml 100 ml 110 ml Exam HEENT exam; supple neck, no JVD. No lymphadenopathy. Midline trachea. No thyromegaly. Patient has fair dentition. Chest exam; diminished but clear breath sounds. S1-S2 audible, no murmurs. Regular rhythm. Abdomen exam; soft, nontender. No organomegaly. Bowel sounds audible. Extremity exam; no edema. LITHOGRAPHIC ETCHER exam; no focal deficit. Results Result Diagram: 09/06/17 0515 09/06/17 0515 Results 24 hrs Laboratory Tests Test 09/05/17 12:43 09/05/17 17:42 09/05/17 21:21 09/06/17 02:04 Bedside Glucose 141 159 189 192 Test 09/06/17 05:15 09/06/17 08:33 White Blood Count 5.7 # Red Blood Count 2.72 L Hemoglobin 8.7 L Hematocrit 25.2 L Mean Corpuscular Volume 92.6 Mean Corpuscular Hemoglobin 32.0 Mean Corpuscular Hemoglobin Concent 34.5 Red Cell Distribution Width 21.2 H Platelet Count 212 Mean Platelet Volume 11.6 H Neutrophils % 87.3 H Lymphocytes % 6.8 L Monocytes % 4.2 Eosinophils % 0.0 Basophils % 0.0 Nucleated Red Blood Cells % 0.5 H Neutrophils # 5.0 Lymphocytes # 0.4 L Monocytes # 0.2 L Eosinophils # 0.0 Basophils # 0.0 Nucleated Red Blood Cells # 0.0 Sodium Level 137 Potassium Level 4.6 Chloride Level 104 Carbon Dioxide Level 28 Anion Gap 10 Blood Urea Nitrogen 20 Creatinine 0.51 Glucose Level 137 Calcium Level 6.6 L Phosphorus Level 1.6 L Magnesium Level 2.7 H Bedside Glucose 116 Medications Medications Current Medications Ondansetron HCl (Zofran Inj) 4 mg Q6H PRN IV NAUSEA AND/OR VOMITING; Start 09/01/17 at 22:00 Nitroglycerin (Nitroglycerin (Sl Tab) 0.4 Mg) 1 tab Q5M PRN SL CHEST PAIN; Start 09/01/17 at 22:00 Acetaminophen (Tylenol Tab) 650 mg Q6H PRN PO PAIN LEVEL 1-3 OR FEVER Last administered on 09/03/17 16:00; Admin Dose 650 MG; Start 09/01/17 at 22:00 Morphine Sulfate (morphine) 2 mg Q4H PRN IV PAIN LEVEL 7-10; Start 09/01/17 at 22:00 Magnesium Hydroxide (Milk Of Mag) 30 ml DAILY PRN PO CONSTIPATION; Start at 22:00 Pantoprazole (Protonix Tab) 40 mg DAILY@06 PO Last administered on 09/06/17 06:35; Admin Dose 40 MG; Start 09/02/17 at 06:00 Alprazolam (Xanax) 0.25 mg Q8 PO Last administered on 09/06/17 06:36; Admin Dose 0.25 MG; Start 09/01/17 at 22:00 Amlodipine Besylate (Norvasc) 10 mg DAILY PO Last administered on 09/05/17 09 :12; Admin Dose 10 MG; Start 09/02/17 at 09:00 Cyclobenzaprine HCl (Flexeril) 5 mg BID PRN PO MUSCLE SPASM; Start 09/01/17 at 22:00 Docusate Sodium (Colace) 100 mg BID PO Last administered on 09/05/17 21:18; Admin Dose 100 MG; Start 09/02/17 at 09:00 Hydromorphone HCl (Dilaudid) 4 mg Q4H PRN PO pain; Start 09/01/17 at 22:00 Letrozole (Femara) 2.5 mg DAILY PO Last administered on 09/05/17 09:12; Admin Dose 2.5 MG; Start 09/02/17 at 09:00 Magnesium Hydroxide (Milk Of Mag) 30 ml QHS PO Last administered on 09/05/17 21:16; Admin Dose 30 ML; Start 09/02/17 at 21:00 Methadone HCl (Methadone) 10 mg Q8H PO Last administered on 09/06/17 06:35; Admin Dose 10 MG; Start 09/02/17 at 06:00 Senna (Senokot) 2 tab BID PO Last administered on 09/06/17 08:41; Admin Dose 2 TAB; Start 09/01/17 at 22:00 Zinc Sulfate 220 mg 220 mg DAILY PO Last administered on 09/06/17 08:37; Admin Dose 220 MG; Start 09/02/17 at 09:00 Cefepime HCl 50 ml @ 100 mls/hr Q24H IVPB Last administered on 09/05/17 21: 16; Admin Dose 100 MLS/HR; Start 09/02/17 at 20:00 Vancomycin HCl (Vancocin) 100 ml @ 100 mls/hr Q8H IVPB Last administered on 09:46; Admin Dose 100 MLS/HR; Start 09/03/17 at 17:00 Enoxaparin Sodium (Lovenox) 50 mg Q12 SC Last administered on 09/06/17 08:49 ; Admin Dose 50 MG; Start 09/03/17 at 21:00 Methylprednisolone Sodium Succinate (Solu-Medrol) 60 mg DAILY IV Last administered on 09/06/17 08:35; Admin Dose 60 MG; Start 09/04/17 at 09:00 Diagnostic Test (Pha) (Accu-Chek) 1 ea 02 XX Last administered on 09/06/17 02 :00; Admin Dose 1 EA; Start 09/05/17 at 02:00 Miscellaneous Information 1 ea NOTE XX ; Start 09/04/17 at 11:00 Glucose (Glutose) 15 gm Q15M PRN PO DECREASED GLUCOSE; Start 09/04/17 at 11:00 Glucose (Glutose) 22.5 gm Q15M PRN PO DECREASED GLUCOSE; Start 09/04/17 at 11: 00 Dextrose (D50w Syringe) 25 ml Q15M PRN IV DECREASED GLUCOSE; Start 09/04/17 at 11:00 Dextrose (D50w Syringe) 50 ml Q15M PRN IV DECREASED GLUCOSE; Start 09/04/17 at 11:00 Glucagon (Glucagen) 1 mg Q15M PRN IM DECREASED GLUCOSE; Start 09/04/17 at 11: 00 Glucose (Glutose) 15 gm Q15M PRN BUCCAL DECREASED GLUCOSE; Start 09/04/17 at 11:00 Polyethylene Glycol (Miralax) 17 gm BID PO Last administered on 09/05/17 21: 18; Admin Dose 17 GM; Start 09/05/17 at 09:30 Bisacodyl (Dulcolax) 10 mg DAILY PRN PO CONSTIPATION; Start 09/05/17 at 09:30 Mupirocin (Bactroban) 1 applic BID TOP ; Start 09/06/17 at 10:00 Ascorbic Acid (Vitamin C) 500 mg BID PO Last administered on 09/06/17 09:54; Admin Dose 500 MG; Start 09/06/17 at 09:30 MAGGI NEVES Sep 06, 2017 10:48
[2017-09-06] MEDS ORDERED: PENDING SANTYL ORDER FOR WOUND CARE XX PRN (11:30)
[2017-09-06] MEDS: MUPIROCIN 2% 22 GM OINT TOP SCH ×2 (12:02→21:23)
--- NOTE | 2017-09-06 13:59 | CONS ---
Date/Time of Note Date/Time of Note DATE: 09/06/17 TIME: 13:59 Assessment/Plan Assessment/Plan Chief Complaint/Hosp Course Metastatic Breast Ca ON TREATMENT CHEMO ON HOLD INCOMPLETE RECORD WILL OBTAIN AND REVIEW RECORD Pancytopenia POST CHEMO SL IMPROVED MONITOR CLOSELY TRANSFUSE IF NEEDED Hypoxemic Respiratory Failure: due to a multifocal pneumonia, more consistent with viral. PER PULM- In view of the morphological appearance on thoracic CT, must also consider non-infectious etiologies such as an organizing pneumonia (BOOP) secondary to her chemo (need records to know what she has been on) and/or XRT. RECORD- P HYPERCOAGULABLE STATE WITH subsegmental PE Anticoagulation with lovenox 1 mg/kg BID Problems: Consultation Date/Type/Reason Admit Date/Time Sep 01, 2017 at 20:22 Initial Consult Date 09/02/17 [facility] Referring Provider: DONOVAN BOLAÑOS 24 HR Interval Summary Free Text/Dictation ALL NOTED NAD Exam/Review of Systems Vital Signs Vitals Vital Signs Date Time Temp Pulse Resp B/P Pulse Ox O2 Delivery O2 Flow Rate FiO2 09/06/17 13:28 88 16 94 90 09/06/17 12:00 107/66 09/06/17 11:00 97.6 High Flow 09/06/17 08:00 6.0 Intake and Output 09/05/17 09/05/17 09/06/17 14:59 22:59 06:59 Intake Total 700 ml 410 ml 420 ml Output Total 260 ml 310 ml 310 ml Balance 440 ml 100 ml 110 ml Exam GENERAL: elderly lady comfortable at rest on high flow 02 VITAL SIGNS: per chart NECK: Supple. No JVD or lymphadenopathy. CARDIAC EXAM: S1, S2. No added sounds or murmurs. CHEST: Diminished air entry bilaterally R> L ABDOMEN: Soft, nontender. No guarding or rebound. EXTREMITIES: No cyanosis, clubbing or edema. NEUROLOGIC: Generalized weakness. No focal deficits. Results Result Diagram: 09/06/17 0515 09/06/17 0515 Results 24 hrs Laboratory Tests Test 09/05/17 17:42 09/05/17 21:21 09/06/17 02:04 09/06/17 05:15 Bedside Glucose 159 189 192 White Blood Count 5.7 # Red Blood Count 2.72 L Hemoglobin 8.7 L Hematocrit 25.2 L Mean Corpuscular Volume 92.6 Mean Corpuscular Hemoglobin 32.0 Mean Corpuscular Hemoglobin Concent 34.5 Red Cell Distribution Width 21.2 H Platelet Count 212 Mean Platelet Volume 11.6 H Neutrophils % 87.3 H Lymphocytes % 6.8 L Monocytes % 4.2 Eosinophils % 0.0 Basophils % 0.0 Nucleated Red Blood Cells % 0.5 H Neutrophils # 5.0 Lymphocytes # 0.4 L Monocytes # 0.2 L Eosinophils # 0.0 Basophils # 0.0 Nucleated Red Blood Cells # 0.0 Sodium Level 137 Potassium Level 4.6 Chloride Level 104 Carbon Dioxide Level 28 Anion Gap 10 Blood Urea Nitrogen 20 Creatinine 0.51 Glucose Level 137 Calcium Level 6.6 L Phosphorus Level 1.6 L Magnesium Level 2.7 H Test 09/06/17 08:33 09/06/17 11:51 Bedside Glucose 116 155 Medications Medications Current Medications Ondansetron HCl (Zofran Inj) 4 mg Q6H PRN IV NAUSEA AND/OR VOMITING; Start 09/01/17 at 22:00 Nitroglycerin (Nitroglycerin (Sl Tab) 0.4 Mg) 1 tab Q5M PRN SL CHEST PAIN; Start 09/01/17 at 22:00 Acetaminophen (Tylenol Tab) 650 mg Q6H PRN PO PAIN LEVEL 1-3 OR FEVER Last administered on 09/03/17 16:00; Admin Dose 650 MG; Start 09/01/17 at 22:00 Morphine Sulfate (morphine) 2 mg Q4H PRN IV PAIN LEVEL 7-10; Start 09/01/17 at 22:00 Magnesium Hydroxide (Milk Of Mag) 30 ml DAILY PRN PO CONSTIPATION; Start at 22:00 Pantoprazole (Protonix Tab) 40 mg DAILY@06 PO Last administered on 09/06/17 06:35; Admin Dose 40 MG; Start 09/02/17 at 06:00 Alprazolam (Xanax) 0.25 mg Q8 PO Last administered on 09/06/17 06:36; Admin Dose 0.25 MG; Start 09/01/17 at 22:00 Amlodipine Besylate (Norvasc) 10 mg DAILY PO Last administered on 09/05/17 09 :12; Admin Dose 10 MG; Start 09/02/17 at 09:00 Cyclobenzaprine HCl (Flexeril) 5 mg BID PRN PO MUSCLE SPASM; Start 09/01/17 at 22:00 Docusate Sodium (Colace) 100 mg BID PO Last administered on 09/05/17 21:18; Admin Dose 100 MG; Start 09/02/17 at 09:00 Hydromorphone HCl (Dilaudid) 4 mg Q4H PRN PO pain; Start 09/01/17 at 22:00 Letrozole (Femara) 2.5 mg DAILY PO Last administered on 09/05/17 09:12; Admin Dose 2.5 MG; Start 09/02/17 at 09:00 Magnesium Hydroxide (Milk Of Mag) 30 ml QHS PO Last administered on 09/05/17 21:16; Admin Dose 30 ML; Start 09/02/17 at 21:00 Methadone HCl (Methadone) 10 mg Q8H PO Last administered on 09/06/17 06:35; Admin Dose 10 MG; Start 09/02/17 at 06:00 Senna (Senokot) 2 tab BID PO Last administered on 09/06/17 08:41; Admin Dose 2 TAB; Start 09/01/17 at 22:00 Zinc Sulfate 220 mg 220 mg DAILY PO Last administered on 09/06/17 08:37; Admin Dose 220 MG; Start 09/02/17 at 09:00 Cefepime HCl 50 ml @ 100 mls/hr Q24H IVPB Last administered on 09/05/17 21: 16; Admin Dose 100 MLS/HR; Start 09/02/17 at 20:00 Vancomycin HCl (Vancocin) 100 ml @ 100 mls/hr Q8H IVPB Last administered on 09:46; Admin Dose 100 MLS/HR; Start 09/03/17 at 17:00 Enoxaparin Sodium (Lovenox) 50 mg Q12 SC Last administered on 09/06/17 08:49 ; Admin Dose 50 MG; Start 09/03/17 at 21:00 Methylprednisolone Sodium Succinate (Solu-Medrol) 60 mg DAILY IV Last administered on 09/06/17 08:35; Admin Dose 60 MG; Start 09/04/17 at 09:00 Diagnostic Test (Pha) (Accu-Chek) 1 ea 02 XX Last administered on 12/13/17at 02 :00; Admin Dose 1 EA; Start 09/05/17 at 02:00 Miscellaneous Information 1 ea NOTE XX ; Start 09/04/17 at 11:00 Glucose (Glutose) 15 gm Q15M PRN PO DECREASED GLUCOSE; Start 09/04/17 at 11:00 Glucose (Glutose) 22.5 gm Q15M PRN PO DECREASED GLUCOSE; Start 09/04/17 at 11: 00 Dextrose (D50w Syringe) 25 ml Q15M PRN IV DECREASED GLUCOSE; Start 09/04/17 at 11:00 Dextrose (D50w Syringe) 50 ml Q15M PRN IV DECREASED GLUCOSE; Start 09/04/17 at 11:00 Glucagon (Glucagen) 1 mg Q15M PRN IM DECREASED GLUCOSE; Start 09/04/17 at 11: 00 Glucose (Glutose) 15 gm Q15M PRN BUCCAL DECREASED GLUCOSE; Start 09/04/17 at 11:00 Polyethylene Glycol (Miralax) 17 gm BID PO Last administered on 09/05/17 21: 18; Admin Dose 17 GM; Start 09/05/17 at 09:30 Bisacodyl (Dulcolax) 10 mg DAILY PRN PO CONSTIPATION; Start 09/05/17 at 09:30 Mupirocin (Bactroban) 1 applic BID TOP Last administered on 09/06/17 12:02; Admin Dose 1 APPLIC; Start 09/06/17 at 10:00 Ascorbic Acid (Vitamin C) 500 mg BID PO Last administered on 09/06/17 09:54; Admin Dose 500 MG; Start 09/06/17 at 09:30 Miscellaneous Information (Pending [facility] Order For Wound Care) This patient reece... PRN PRN XX WOUND CARE; Start 09/06/17 at 11:30 JOSEPH EDOUARD MD Sep 06, 2017 13:59
[2017-09-06] MEDS ORDERED: MUPIROCIN 2% 22 GM OINT TOP SCH (21:00)
[2017-09-06] MEDS: CEFEPIME 1GM/50 ML (PMX) 50 ML IVPB SCH (21:15)
[2017-09-06] MEDS: MAGNESIUM HYDROXIDE 30ML CUP PO SCH (21:24)
[2017-09-06] MEDS ORDERED: VANCOMYCIN 1 GM (PMX) 0 ML ONE (21:52)
[2017-09-07] VITALS (10 sets, daily range): BP systolic 98–121; BP diastolic 59–74; PULSE 85–109; RESP 15–17
[2017-09-07] MEDS: LETROZOLE 2.5 MG TAB PO SCH ×2 (00:48→19:36)
[2017-09-07] MEDS: IBRANCE PO SCH ×2 (00:53→19:37)
[2017-09-07] MEDS: ALBUTEROL/IPRATROPIUM (NEB) 3 ML AMP HHN SCH ×6 (01:18→21:06)
[2017-09-07] MEDS: VANCOMYCIN 500MG/NS (PMX) 100 ML IVPB SCH ×3 (01:24→17:00)
[2017-09-07] MEDS: ACCU-CHEK XX SCH (02:00)
[2017-09-07] MEDS: PANTOPRAZOLE (EC) 40 MG TAB PO SCH (06:36)
[2017-09-07] MEDS: METHADONE 10 MG TAB PO SCH ×3 (06:37→21:54)
[2017-09-07] MEDS: LEVOTHYROXINE 100 MCG TAB PO SCH (06:37)
[2017-09-07] MEDS: ALPRAZOLAM 0.25 MG TAB PO SCH ×3 (06:37→21:53)
[2017-09-07 06:48] LABS: ABNORMAL IP MESSAGE 1; BASOPHILS % 0.2 % (0.0-2.0); HEMATOCRIT 26.2 % (37.0-47.0); HEMOGLOBIN 8.8 g/dl (12.0-16.0); LYMPHOCYTES # 0.6 10^3/ul (0.8-2.9); LYMPHOCYTES % 8.5 % (15.0-51.0); MEAN CORPUSCULAR HEMOGLOBIN 31.5 pg (29.0-33.0); MEAN CORPUSCULAR HGB CONC 33.6 g/dl (32.0-37.0); MEAN CORPUSCULAR VOLUME 93.9 fl (82.0-101.0); MEAN PLATELET VOLUME 11.3 fl (7.4-10.4); MONOCYTE # 0.3 10^3/ul (0.3-0.9); MONOCYTES % 4.3 % (0.0-11.0); NEUTROPHIL # 5.6 10^3/ul (1.6-7.5); NEUTROPHILS % 84.9 % (39.0-77.0); NUCLEATED RED BLOOD CELLS # 0.1 10^3/ul (0.0-0.0); NUCLEATED RED BLOOD CELLS% 1.1 /100WBC (0.0-0.0); PLATELET COUNT 227 10^3/UL (140-415); RED BLOOD COUNT 2.79 10^6/ul (4.20-5.40); RED CELL DISTRIBUTION WIDTH 21.6 % (11.5-14.5); WHITE BLOOD COUNT 6.6 10^3/ul (4.8-10.8)
[2017-09-07 06:54] LABS: POSITIVE DIFF @See below
[2017-09-07 08:03] LABS: MAGNESIUM 2.6 mg/dl (1.7-2.5); PHOSPHORUS 1.3 mg/dl (2.5-4.9)
[2017-09-07] MEDS: CALCIUM/VITAMIN D (500/200) TAB PO SCH ×3 (08:04→17:55)
[2017-09-07 08:17] LABS: CALCIUM 6.8 mg/dl (8.4-10.2); CREATININE 0.48 mg/dl (0.44-1.00); POTASSIUM 4.3 mmol/L (3.5-5.1)
[2017-09-07] MEDS: INSULIN ASPART [NOVOLOG] 3 ML PEN SC SCH ×4 (09:01→21:00)
[2017-09-07] MEDS: ASCORBIC ACID 500 MG TAB PO SCH ×2 (09:37→21:54)
[2017-09-07] MEDS: ZINC SULFATE 220 MG CAP PO SCH (09:37)
[2017-09-07] MEDS: METHYLPREDNISOLONE 125 MG INJ IV SCH (09:37)
[2017-09-07] MEDS: AMLODIPINE 10 MG TAB PO SCH (09:37)
[2017-09-07] MEDS: SENNA TAB PO SCH ×2 (09:37→21:54)
[2017-09-07] MEDS: POLYETHYLENE GLYCOL 17 GM PACKET PO SCH ×2 (09:37→21:53)
[2017-09-07] MEDS: DOCUSATE SODIUM 100 MG CAP PO SCH ×3 (09:38→21:53)
[2017-09-07] MEDS: MUPIROCIN 2% 22 GM OINT TOP SCH ×2 (09:38→22:05)
[2017-09-07] MEDS: ENOXAPARIN 60 MG/0.6 ML SYG SC SCH ×2 (10:13→21:57)
--- NOTE | 2017-09-07 10:33 | PN ---
Date/Time of Note Date/Time of Note DATE: 09/07/17 TIME: 10:32 Assessment/Plan VTE Prophylaxis VTE Prophylaxis Intervention: LMWH Lines/Catheters IV [facility] Urinary Cath still in place: Yes Reason Cath still needed: other (indicate) Assessment/Plan Chief Complaint/Hosp Course 1. Right lower lobe segmental pulmonary embolism. -Continue therapeutic anticoagulation. 2. Acute hypoxic respiratory failure. -Etiology could be related to underlying pulmonary embolism and bilateral pneumonia. -Supplemental oxygen. -NIPPV as indicated. -Inhaled bronchodilators. -Tapering dose of steroids. 3. Bilateral pneumonia. -Continue antibiotics. 4. Metastatic breast cancer. -On chemotherapy. -Oncology following. 5. Pancytopenia. -Secondary to underlying malignancy and chemotherapy. -Improving. 6. Urinary tract infection. -Continue antimicrobials. 7. Essential hypertension. -Continue antihypertensives. 8. Hypothyroidism. -Continue Synthroid. 9. Multiple pathologic rib and thoracic vertebral compression fractures. -From metastatic cancer. -Continue pain control. 10. Prediabetes. -Hemoglobin A1c 6.2. -Monitor random blood sugars. 11. Hypocalcemia. -Most probably secondary to underlying hypoalbuminemia. -Monitor for any signs of tetany. 12. Protein calorie malnutrition. -Mild to moderate. -High protein diet. -S/P RD evaluation. 13. MRSA colonization of the nares. -Continue Bactroban. 14. Fluids, electrolytes, and nutrition. -Regular diet. 15. Gastrointestinal prophylaxis (patient on steroids). -PPI. 16. Plan. -Wean off oxygen as indicated. -Continue therapeutic anticoagulation. -Continue antimicrobials. -Replete phosphorous. -PT evaluation. The patient was seen in collaboration with Dr. Silva. Problems: Subjective 24 Hr Interval Summary Free Text/Dictation Off NIPPV. Denies any chest pain. Exam/Review of Systems Vital Signs Vitals Vital Signs Date Time Temp Pulse Resp B/P Pulse Ox O2 Delivery O2 Flow Rate FiO2 09/07/17 08:19 93 80 09/07/17 08:19 90 20 09/07/17 08:11 Nasal Cannula 09/07/17 04:00 98.2 116/74 09/06/17 08:00 6.0 Intake and Output 09/06/17 09/06/17 09/07/17 15:00 23:00 07:00 Intake Total 350 ml 250 ml 200 ml Output Total 250 ml 100 ml Balance 100 ml 150 ml 200 ml Exam General: Adequately build 66 year-old female lying in bed in mild to moderate respiratory distress. HEENT: Normocephalic, atraumatic. Eyes: Anicteric sclerae, conjunctivae clear. ENT: Nasal septum midline, oral mucosa moist. Neck supple. Respiratory: Bilaterally diminished breath sounds. Use of accessory muscles of respiration. On noninvasive positive pressure ventilation. Cardiovascular: S1, S2 heard. Regular rate and rhythm. Abdomen: Soft, nontender, and nondistended. Bowel sounds positive in all 4 quadrants. Genitourinary: Deferred. Extremities: No cyanosis, no clubbing, no edema. Peripheral pulses palpable. Neurologic: Cranial nerves II through XII grossly intact. The patient is awake, alert, and oriented. Skin: Normal skin turgor. No skin rashes. Results Result Diagram: 09/07/1762109/07/17621 Results 24 hrs Laboratory Tests Test 09/06/17 11:51 09/06/17 17:52 09/06/17 21:26 09/07/17 02:41 Bedside Glucose 155 190 199 189 Test 09/07/17 06:22 09/07/17 08:07 White Blood Count 6.6 Red Blood Count 2.79 L Hemoglobin 8.8 L Hematocrit 26.2 L Mean Corpuscular Volume 93.9 Mean Corpuscular Hemoglobin 31.5 Mean Corpuscular Hemoglobin Concent 33.6 Red Cell Distribution Width 21.6 H Platelet Count 227 Mean Platelet Volume 11.3 H Neutrophils % 84.9 H Lymphocytes % 8.5 L Monocytes % 4.3 Eosinophils % 0.0 Basophils % 0.2 Nucleated Red Blood Cells % 1.1 H Neutrophils # 5.6 Lymphocytes # 0.6 L Monocytes # 0.3 Eosinophils # 0.0 Basophils # 0.0 Nucleated Red Blood Cells # 0.1 H Sodium Level 137 Potassium Level 4.3 Chloride Level 103 Carbon Dioxide Level 28 Anion Gap 10 Blood Urea Nitrogen 17 Creatinine 0.48 Glucose Level 154 Calcium Level 6.8 L Phosphorus Level 1.3 L Magnesium Level 2.6 H Bedside Glucose 144 Medications Medications Current Medications Ondansetron HCl (Zofran Inj) 4 mg Q6H PRN IV NAUSEA AND/OR VOMITING; Start 09/01/17 at 22:00 Nitroglycerin (Nitroglycerin (Sl Tab) 0.4 Mg) 1 tab Q5M PRN SL CHEST PAIN; Start 09/01/17 at 22:00 Acetaminophen (Tylenol Tab) 650 mg Q6H PRN PO PAIN LEVEL 1-3 OR FEVER Last administered on 09/03/17 16:00; Admin Dose 650 MG; Start 09/01/17 at 22:00 Morphine Sulfate (morphine) 2 mg Q4H PRN IV PAIN LEVEL 7-10; Start 09/01/17 at 22:00 Magnesium Hydroxide (Milk Of Mag) 30 ml DAILY PRN PO CONSTIPATION; Start at 22:00 Pantoprazole (Protonix Tab) 40 mg DAILY@06 PO Last administered on 09/07/17 06:36; Admin Dose 40 MG; Start 09/02/17 at 06:00 Alprazolam (Xanax) 0.25 mg Q8 PO Last administered on 09/07/17 06:37; Admin Dose 0.25 MG; Start 09/01/17 at 22:00 Amlodipine Besylate (Norvasc) 10 mg DAILY PO Last administered on 09/07/17 09 :37; Admin Dose 10 MG; Start 09/02/17 at 09:00 Cyclobenzaprine HCl (Flexeril) 5 mg BID PRN PO MUSCLE SPASM; Start 09/01/17 at 22:00 Docusate Sodium (Colace) 100 mg BID PO Last administered on 09/07/17 09:38; Admin Dose 100 MG; Start 09/02/17 at 09:00 Hydromorphone HCl (Dilaudid) 4 mg Q4H PRN PO pain; Start 09/01/17 at 22:00 Magnesium Hydroxide (Milk Of Mag) 30 ml QHS PO Last administered on 09/06/17 21:24; Admin Dose 30 ML; Start 09/02/17 at 21:00 Methadone HCl (Methadone) 10 mg Q8H PO Last administered on 09/07/17 06:37; Admin Dose 10 MG; Start 09/02/17 at 06:00 Senna (Senokot) 2 tab BID PO Last administered on 09/07/17 09:37; Admin Dose 2 TAB; Start 09/01/17 at 22:00 Zinc Sulfate 220 mg 220 mg DAILY PO Last administered on 09/07/17 09:37; Admin Dose 220 MG; Start 09/02/17 at 09:00 Cefepime HCl 50 ml @ 100 mls/hr Q24H IVPB Last administered on 09/06/17 21: 15; Admin Dose 100 MLS/HR; Start 09/02/17 at 20:00 Vancomycin HCl (Vancocin) 100 ml @ 100 mls/hr Q8H IVPB Last administered on 10:16; Admin Dose 100 MLS/HR; Start 09/03/17 at 17:00 Enoxaparin Sodium (Lovenox) 50 mg Q12 SC Last administered on 09/07/17 10:13 ; Admin Dose 50 MG; Start 09/03/17 at 21:00 Methylprednisolone Sodium Succinate (Solu-Medrol) 60 mg DAILY IV Last administered on 09/07/17 09:37; Admin Dose 60 MG; Start 09/04/17 at 09:00 Diagnostic Test (Pha) (Accu-Chek) 1 ea 02 XX Last administered on 09/07/17 02 :00; Admin Dose 1 EA; Start 09/05/17 at 02:00 Miscellaneous Information 1 ea NOTE XX ; Start 09/04/17 at 11:00 Glucose (Glutose) 15 gm Q15M PRN PO DECREASED GLUCOSE; Start 09/04/17 at 11:00 Glucose (Glutose) 22.5 gm Q15M PRN PO DECREASED GLUCOSE; Start 09/04/17 at 11: 00 Dextrose (D50w Syringe) 25 ml Q15M PRN IV DECREASED GLUCOSE; Start 09/04/17 at 11:00 Dextrose (D50w Syringe) 50 ml Q15M PRN IV DECREASED GLUCOSE; Start 09/04/17 at 11:00 Glucagon (Glucagen) 1 mg Q15M PRN IM DECREASED GLUCOSE; Start 09/04/17 at 11: 00 Glucose (Glutose) 15 gm Q15M PRN BUCCAL DECREASED GLUCOSE; Start 09/04/17 at 11:00 Polyethylene Glycol (Miralax) 17 gm BID PO Last administered on 09/07/17 09: 37; Admin Dose 17 GM; Start 09/05/17 at 09:30 Bisacodyl (Dulcolax) 10 mg DAILY PRN PO CONSTIPATION; Start 09/05/17 at 09:30 Mupirocin (Bactroban) 1 applic BID TOP Last administered on 09/07/17 09:38; Admin Dose 1 APPLIC; Start 09/06/17 at 10:00 Ascorbic Acid (Vitamin C) 500 mg BID PO Last administered on 09/07/17 09:37; Admin Dose 500 MG; Start 09/06/17 at 09:30 Miscellaneous Information (Pending Santyl Order For Wound Care) This patient reece... PRN PRN XX WOUND CARE; Start 09/06/17 at 11:30 Non-Formulary Medication 1 dose 14 PO Last administered on 09/07/17 00:53; Admin Dose 1 DOSE; Start 09/06/17 at 22:30; Stop 09/26/17 at 14:01 Letrozole (Femara) 2.5 mg 14 PO Last administered on 09/07/17 00:48; Admin Dose 2.5 MG; Start 09/07/17 at 14:00 ROSAMARIA SOMERS NP Sep 07, 2017 10:33
[2017-09-07] MEDS ORDERED: POTASSIUM PHOSPHATE 15 MM in SOD CHLORIDE 0.9% 250 ML IVPB ONE (12:15)
--- NOTE | 2017-09-07 12:36 | CONS ---
Date/Time of Note Date/Time of Note DATE: 09/07/17 TIME: 12:34 Consult Date/Type/Reason Admit Date/Time Sep 01, 2017 at 20:22 Initial Consult Date 09/02/17 Type of Consultation: PULM Ordering Provider: DONOVAN BOLAÑOS Subjective Continues NC o2. Objective Vital Signs Date Time Temp Pulse Resp B/P Pulse Ox O2 Delivery O2 Flow Rate FiO2 09/07/17 12:22 91 80 09/07/17 12:22 89 18 09/07/17 12:00 98/59 09/07/17 08:11 Nasal Cannula 09/07/17 04:00 98.2 09/06/17 08:00 6.0 Intake and Output 09/06/17 09/06/17 09/07/17 15:00 23:00 07:00 Intake Total 350 ml 250 ml 200 ml Output Total 250 ml 100 ml Balance 100 ml 150 ml 200 ml Exam GENERAL: elderly lady VITAL SIGNS: per chart NECK: Supple. No JVD or lymphadenopathy. CARDIAC EXAM: S1, S2. No added sounds or murmurs. CHEST: Diminished air entry bilaterally R> L ABDOMEN: Soft, nontender. No guarding or rebound. EXTREMITIES: No cyanosis, clubbing or edema. NEUROLOGIC: Generalized weakness. No focal deficits. Results/Medications Result Diagram: 09/07/17 0622 09/07/17 0622 Results 24 hrs Laboratory Tests Test 09/06/17 17:52 09/06/17 21:26 09/07/17 02:41 09/07/17 06:22 Bedside Glucose 190 199 189 White Blood Count 6.6 Red Blood Count 2.79 L Hemoglobin 8.8 L Hematocrit 26.2 L Mean Corpuscular Volume 93.9 Mean Corpuscular Hemoglobin 31.5 Mean Corpuscular Hemoglobin Concent 33.6 Red Cell Distribution Width 21.6 H Platelet Count 227 Mean Platelet Volume 11.3 H Neutrophils % 84.9 H Lymphocytes % 8.5 L Monocytes % 4.3 Eosinophils % 0.0 Basophils % 0.2 Nucleated Red Blood Cells % 1.1 H Neutrophils # 5.6 Lymphocytes # 0.6 L Monocytes # 0.3 Eosinophils # 0.0 Basophils # 0.0 Nucleated Red Blood Cells # 0.1 H Sodium Level 137 Potassium Level 4.3 Chloride Level 103 Carbon Dioxide Level 28 Anion Gap 10 Blood Urea Nitrogen 17 Creatinine 0.48 Glucose Level 154 Calcium Level 6.8 L Phosphorus Level 1.3 L Magnesium Level 2.6 H Test 09/07/17 08:07 Bedside Glucose 144 Medications Current Medications Ondansetron HCl (Zofran Inj) 4 mg Q6H PRN IV NAUSEA AND/OR VOMITING; Start 09/01/17 at 22:00 Nitroglycerin (Nitroglycerin (Sl Tab) 0.4 Mg) 1 tab Q5M PRN SL CHEST PAIN; Start 09/01/17 at 22:00 Acetaminophen (Tylenol Tab) 650 mg Q6H PRN PO PAIN LEVEL 1-3 OR FEVER Last administered on 09/03/17 16:00; Admin Dose 650 MG; Start 09/01/17 at 22:00 Morphine Sulfate (morphine) 2 mg Q4H PRN IV PAIN LEVEL 7-10; Start 09/01/17 at 22:00 Magnesium Hydroxide (Milk Of Mag) 30 ml DAILY PRN PO CONSTIPATION; Start at 22:00 Pantoprazole (Protonix Tab) 40 mg DAILY@06 PO Last administered on 09/07/17 06:36; Admin Dose 40 MG; Start 09/02/17 at 06:00 Alprazolam (Xanax) 0.25 mg Q8 PO Last administered on 09/07/17 06:37; Admin Dose 0.25 MG; Start 09/01/17 at 22:00 Amlodipine Besylate (Norvasc) 10 mg DAILY PO Last administered on 09/07/17 09 :37; Admin Dose 10 MG; Start 09/02/17 at 09:00 Cyclobenzaprine HCl (Flexeril) 5 mg BID PRN PO MUSCLE SPASM; Start 09/01/17 at 22:00 Docusate Sodium (Colace) 100 mg BID PO Last administered on 09/07/17 09:38; Admin Dose 100 MG; Start 09/02/17 at 09:00 Hydromorphone HCl (Dilaudid) 4 mg Q4H PRN PO pain; Start 09/01/17 at 22:00 Magnesium Hydroxide (Milk Of Mag) 30 ml QHS PO Last administered on 09/06/17 21:24; Admin Dose 30 ML; Start 09/02/17 at 21:00 Methadone HCl (Methadone) 10 mg Q8H PO Last administered on 09/07/17 06:37; Admin Dose 10 MG; Start 09/02/17 at 06:00 Senna (Senokot) 2 tab BID PO Last administered on 09/07/17 09:37; Admin Dose 2 TAB; Start 09/01/17 at 22:00 Zinc Sulfate 220 mg 220 mg DAILY PO Last administered on 09/07/17 09:37; Admin Dose 220 MG; Start 09/02/17 at 09:00 Cefepime HCl 50 ml @ 100 mls/hr Q24H IVPB Last administered on 09/06/17 21: 15; Admin Dose 100 MLS/HR; Start 09/02/17 at 20:00 Vancomycin HCl (Vancocin) 100 ml @ 100 mls/hr Q8H IVPB Last administered on 10:16; Admin Dose 100 MLS/HR; Start 09/03/17 at 17:00 Enoxaparin Sodium (Lovenox) 50 mg Q12 SC Last administered on 09/07/17 10:13 ; Admin Dose 50 MG; Start 09/03/17 at 21:00 Diagnostic Test (Pha) (Accu-Chek) 1 ea 02 XX Last administered on 09/07/17 02 :00; Admin Dose 1 EA; Start 09/05/17 at 02:00 Miscellaneous Information 1 ea NOTE XX ; Start 09/04/17 at 11:00 Glucose (Glutose) 15 gm Q15M PRN PO DECREASED GLUCOSE; Start 09/04/17 at 11:00 Glucose (Glutose) 22.5 gm Q15M PRN PO DECREASED GLUCOSE; Start 09/04/17 at 11: 00 Dextrose (D50w Syringe) 25 ml Q15M PRN IV DECREASED GLUCOSE; Start 09/04/17 at 11:00 Dextrose (D50w Syringe) 50 ml Q15M PRN IV DECREASED GLUCOSE; Start 09/04/17 at 11:00 Glucagon (Glucagen) 1 mg Q15M PRN IM DECREASED GLUCOSE; Start 09/04/17 at 11: 00 Glucose (Glutose) 15 gm Q15M PRN BUCCAL DECREASED GLUCOSE; Start 09/04/17 at 11:00 Polyethylene Glycol (Miralax) 17 gm BID PO Last administered on 09/07/17 09: 37; Admin Dose 17 GM; Start 09/05/17 at 09:30 Bisacodyl (Dulcolax) 10 mg DAILY PRN PO CONSTIPATION; Start 09/05/17 at 09:30 Mupirocin (Bactroban) 1 applic BID TOP Last administered on 09/07/17 09:38; Admin Dose 1 APPLIC; Start 09/06/17 at 10:00 Ascorbic Acid (Vitamin C) 500 mg BID PO Last administered on 09/07/17 09:37; Admin Dose 500 MG; Start 09/06/17 at 09:30 Miscellaneous Information [facility] This patient reece... PRN PRN XX WOUND CARE; Start 09/06/17 at 11:30 Non-Formulary Medication 1 dose 14 PO Last administered on 09/07/17 00:53; Admin Dose 1 DOSE; Start 09/06/17 at 22:30; Stop 09/26/17 at 14:01 Letrozole 2.5 mg 2.5 mg 14 PO Last administered on 09/07/17 00:48; Admin Dose 2.5 MG; Start 09/07/17 at 14:00 Potassium Phosphate/Sodium Chloride (K Phos (Mm)/NS) 255 ml @ 63.75 mls/ hr ONCE ONCE IVPB ; Start 09/07/17 at 12:15; Stop 09/07/17 at 16:14 Methylprednisolone Sodium Succinate (Solu-Medrol) 40 mg Q8 IV ; Start 09/07/17 at 14:00 Assessment/Plan Chief Complaint/Hosp Course Assessment. 1. hypoxemic resp failure. possible BOOP, PNA. Confirmed PE 2. Metastatic breast cancer. Plan. 1. Continue abx, steroids 2. Decrease 02 as tolerated. Problems: MOSES CUNNINGHAM MD, [facility] Sep 07, 2017 12:36
[2017-09-07] MEDS: METHYLPREDNISOLONE 40 MG INJ IV SCH ×2 (14:35→21:52)
--- NOTE | 2017-09-07 16:51 | RADRPT ---
PROCEDURE: XR Chest. CLINICAL INDICATION: Pneumonia. TECHNIQUE: Single frontal view of the chest was obtained. COMPARISON: 09/04/2017. FINDINGS: The cardiomediastinal silhouette demonstrates enlargement of the cardiac silhouette. Interval mild increase in bilateral upper lobe predominant air space disease. No pleural effusion is seen. No definite pneumothorax. Redemonstration of lytic appearance of the bones. Surgical clips in the region of the neck. IMPRESSION: Interval mild increase in bilateral upper lobe predominant air space disease, left greater than righ t. RPTAT: AAEE Tiago Lama Physician Date Time Electronically viewed and signed by Tiago Lama Physician on 09/07/2017 10:01 PH/
--- NOTE | 2017-09-07 18:16 | CONS ---
Date/Time of Note Date/Time of Note DATE: 09/07/17 TIME: 18:16 Assessment/Plan Assessment/Plan Chief Complaint/Hosp Course Metastatic Breast Ca ON TREATMENT CHEMO ON HOLD INCOMPLETE RECORD WILL OBTAIN AND REVIEW RECORD Pancytopenia POST CHEMO SL IMPROVED MONITOR CLOSELY TRANSFUSE IF NEEDED Hypoxemic Respiratory Failure: due to a multifocal pneumonia, more consistent with viral. PER PULM- In view of the morphological appearance on thoracic CT, must also consider non-infectious etiologies such as an organizing pneumonia (BOOP) secondary to her chemo (need records to know what she has been on) and/or XRT. RECORD- P HYPERCOAGULABLE STATE WITH subsegmental PE Anticoagulation with lovenox 1 mg/kg BID Problems: Consultation Date/Type/Reason Admit Date/Time Sep 01, 2017 at 20:22 Initial Consult Date 09/02/17 Type of Consultation: [facility]EON Referring Provider: DONOVAN BOLAÑOS 24 HR Interval Summary Free Text/Dictation STABLE ON O2 BY NC Exam/Review of Systems Vital Signs Vitals Vital Signs Date Time Temp Pulse Resp B/P Pulse Ox O2 Delivery O2 Flow Rate FiO2 09/07/17 18:08 94 80 09/07/17 16:19 92 20 09/07/17 15:55 98.4 121/71 09/07/17 08:11 Nasal Cannula 09/06/17 08:00 6.0 Intake and Output 09/06/17 09/06/17 09/07/17 15:00 23:00 07:00 Intake Total 350 ml 250 ml 200 ml Output Total 250 ml 100 ml Balance 100 ml 150 ml 200 ml Exam GENERAL: elderly lady comfortable at rest on high flow 02 VITAL SIGNS: per chart NECK: Supple. No JVD or lymphadenopathy. CARDIAC EXAM: S1, S2. No added sounds or murmurs. CHEST: Diminished air entry bilaterally R> L ABDOMEN: Soft, nontender. No guarding or rebound. EXTREMITIES: No cyanosis, clubbing or edema. NEUROLOGIC: Generalized weakness. No focal deficits. Results Result Diagram: 09/07/1722 09/07/1722 Results 24 hrs Laboratory Tests Test 09/06/17 21:26 09/07/17 02:41 09/07/17 06:22 09/07/17 08:07 Bedside Glucose 199 189 144 White Blood Count 6.6 Red Blood Count 2.79 L Hemoglobin 8.8 L Hematocrit 26.2 L Mean Corpuscular Volume 93.9 Mean Corpuscular Hemoglobin 31.5 Mean Corpuscular Hemoglobin Concent 33.6 Red Cell Distribution Width 21.6 H Platelet Count 227 Mean Platelet Volume 11.3 H Neutrophils % 84.9 H Lymphocytes % 8.5 L Monocytes % 4.3 Eosinophils % 0.0 Basophils % 0.2 Nucleated Red Blood Cells % 1.1 H Neutrophils # 5.6 Lymphocytes # 0.6 L Monocytes # 0.3 Eosinophils # 0.0 Basophils # 0.0 Nucleated Red Blood Cells # 0.1 H Sodium Level 137 Potassium Level 4.3 Chloride Level 103 Carbon Dioxide Level 28 Anion Gap 10 Blood Urea Nitrogen 17 Creatinine 0.48 Glucose Level 154 Calcium Level 6.8 L Phosphorus Level 1.3 L Magnesium Level 2.6 H Test 09/07/17 12:49 09/07/17 17:54 Bedside Glucose 94 126 Medications Medications Current Medications Ondansetron HCl (Zofran Inj) 4 mg Q6H PRN IV NAUSEA AND/OR VOMITING; Start 09/01/17 at 22:00 Nitroglycerin (Nitroglycerin (Sl Tab) 0.4 Mg) 1 tab Q5M PRN SL CHEST PAIN; Start 09/01/17 at 22:00 Acetaminophen (Tylenol Tab) 650 mg Q6H PRN PO PAIN LEVEL 1-3 OR FEVER Last administered on 09/03/17 16:00; Admin Dose 650 MG; Start 09/01/17 at 22:00 Morphine Sulfate (morphine) 2 mg Q4H PRN IV PAIN LEVEL 7-10; Start 09/01/17 at 22:00 Magnesium Hydroxide (Milk Of Mag) 30 ml DAILY PRN PO CONSTIPATION; Start at 22:00 Pantoprazole (Protonix Tab) 40 mg DAILY@06 PO Last administered on 09/07/17 06:36; Admin Dose 40 MG; Start 09/02/17 at 06:00 Alprazolam (Xanax) 0.25 mg Q8 PO Last administered on 09/07/17 14:35; Admin Dose 0.25 MG; Start 09/01/17 at 22:00 Amlodipine Besylate (Norvasc) 10 mg DAILY PO Last administered on 09/07/17 09 :37; Admin Dose 10 MG; Start 09/02/17 at 09:00 Cyclobenzaprine HCl (Flexeril) 5 mg BID PRN PO MUSCLE SPASM; Start 09/01/17 at 22:00 Docusate Sodium (Colace) 100 mg BID PO Last administered on 09/07/17 09:38; Admin Dose 100 MG; Start 09/02/17 at 09:00 Hydromorphone HCl (Dilaudid) 4 mg Q4H PRN PO pain; Start 09/01/17 at 22:00 Magnesium Hydroxide (Milk Of Mag) 30 ml QHS PO Last administered on 09/06/17 21:24; Admin Dose 30 ML; Start 09/02/17 at 21:00 Methadone HCl (Methadone) 10 mg Q8H PO Last administered on 09/07/17 14:35; Admin Dose 10 MG; Start 09/02/17 at 06:00 Senna (Senokot) 2 tab BID PO Last administered on 09/07/17 09:37; Admin Dose 2 TAB; Start 09/01/17 at 22:00 Zinc Sulfate 220 mg 220 mg DAILY PO Last administered on 09/07/17 09:37; Admin Dose 220 MG; Start 09/02/17 at 09:00 Cefepime HCl 50 ml @ 100 mls/hr Q24H IVPB Last administered on 09/06/17 21: 15; Admin Dose 100 MLS/HR; Start 09/02/17 at 20:00 Vancomycin HCl (Vancocin) 100 ml @ 100 mls/hr Q8H IVPB Last administered on 10:16; Admin Dose 100 MLS/HR; Start 09/03/17 at 17:00 Enoxaparin Sodium (Lovenox) 50 mg Q12 SC Last administered on 09/07/17 10:13 ; Admin Dose 50 MG; Start 09/03/17 at 21:00 Diagnostic Test (Pha) (Accu-Chek) 1 ea 02 XX Last administered on 09/07/17 02 :00; Admin Dose 1 EA; Start 09/05/17 at 02:00 Miscellaneous Information 1 ea NOTE XX ; Start 09/04/17 at 11:00 Glucose (Glutose) 15 gm Q15M PRN PO DECREASED GLUCOSE; Start 09/04/17 at 11:00 Glucose (Glutose) 22.5 gm Q15M PRN PO DECREASED GLUCOSE; Start 09/04/17 at 11: 00 Dextrose (D50w Syringe) 25 ml Q15M PRN IV DECREASED GLUCOSE; Start 09/04/17 at 11:00 Dextrose (D50w Syringe) 50 ml Q15M PRN IV DECREASED GLUCOSE; Start 09/04/17 at 11:00 Glucagon (Glucagen) 1 mg Q15M PRN IM DECREASED GLUCOSE; Start 09/04/17 at 11: 00 Glucose (Glutose) 15 gm Q15M PRN BUCCAL DECREASED GLUCOSE; Start 09/04/17 at 11:00 Polyethylene Glycol (Miralax) 17 gm BID PO Last administered on 09/07/17 09: 37; Admin Dose 17 GM; Start 09/05/17 at 09:30 Bisacodyl (Dulcolax) 10 mg DAILY PRN PO CONSTIPATION; Start 09/05/17 at 09:30 Mupirocin (Bactroban) 1 applic BID TOP Last administered on 09/07/17 09:38; Admin Dose 1 APPLIC; Start 09/06/17 at 10:00 Ascorbic Acid (Vitamin C) 500 mg BID PO Last administered on 09/07/17 09:37; Admin Dose 500 MG; Start 09/06/17 at 09:30 Miscellaneous Information (Pending [facility] Order For Wound Care) This patient reece... PRN PRN XX WOUND CARE; Start 09/06/17 at 11:30 Non-Formulary Medication 1 dose 14 PO Last administered on 09/07/17 00:53; Admin Dose 1 DOSE; Start 09/06/17 at 22:30; Stop 09/26/17 at 14:01 Letrozole (Femara) 2.5 mg 14 PO Last administered on 09/07/17 00:48; Admin Dose 2.5 MG; Start 09/07/17 at 14:00 Methylprednisolone Sodium Succinate (Solu-Medrol) 40 mg Q8 IV Last administered on 09/07/17 14:35; Admin Dose 40 MG; Start 09/07/17 at 14:00 Miscellaneous Information (*Rx Drug Level Order Reminder*) VANCO TR LEVEL PRIOR... ONCE ONCE XX ; Start 09/08/17 at 08:00; Stop 09/08/17 at 08:01 JOSEPH EDOUARD MD Sep 07, 2017 18:16
[2017-09-07] MEDS: CEFEPIME 1GM/50 ML (PMX) 50 ML IVPB SCH (21:52)
[2017-09-07] MEDS: MAGNESIUM HYDROXIDE 30ML CUP PO SCH (21:52)
[2017-09-08] VITALS (11 sets, daily range): BP systolic 103–113; BP diastolic 60–66; PULSE 75–104; RESP 16–21
[2017-09-08] MEDS: ALBUTEROL/IPRATROPIUM (NEB) 3 ML AMP HHN SCH ×6 (01:30→21:55)
[2017-09-08] MEDS: VANCOMYCIN 500MG/NS (PMX) 100 ML IVPB SCH ×3 (01:52→17:41)
[2017-09-08] MEDS: ACCU-CHEK XX SCH (02:00)
[2017-09-08] MEDS: PANTOPRAZOLE (EC) 40 MG TAB PO SCH (06:19)
[2017-09-08] MEDS: LEVOTHYROXINE 100 MCG TAB PO SCH (06:19)
[2017-09-08] MEDS: METHYLPREDNISOLONE 40 MG INJ IV SCH ×3 (06:19→22:04)
[2017-09-08] MEDS: METHADONE 10 MG TAB PO SCH ×3 (06:20→22:04)
[2017-09-08] MEDS: ALPRAZOLAM 0.25 MG TAB PO SCH ×3 (06:20→22:04)
[2017-09-08] MEDS: CALCIUM/VITAMIN D (500/200) TAB PO SCH ×3 (08:12→17:55)
[2017-09-08 08:21] LABS: ABNORMAL IP MESSAGE 1; BASOPHILS % 0.2 % (0.0-2.0); HEMATOCRIT 26.3 % (37.0-47.0); HEMOGLOBIN 8.7 g/dl (12.0-16.0); LYMPHOCYTES # 0.3 10^3/ul (0.8-2.9); LYMPHOCYTES % 5.6 % (15.0-51.0); MEAN CORPUSCULAR HEMOGLOBIN 31.3 pg (29.0-33.0); MEAN CORPUSCULAR HGB CONC 33.1 g/dl (32.0-37.0); MEAN CORPUSCULAR VOLUME 94.6 fl (82.0-101.0); MEAN PLATELET VOLUME 10.9 fl (7.4-10.4); MONOCYTE # 0.1 10^3/ul (0.3-0.9); MONOCYTES % 2.1 % (0.0-11.0); NEUTROPHIL # 4.7 10^3/ul (1.6-7.5); NEUTROPHILS % 87.2 % (39.0-77.0); NUCLEATED RED BLOOD CELLS # 0.1 10^3/ul (0.0-0.0); NUCLEATED RED BLOOD CELLS% 1.3 /100WBC (0.0-0.0); PLATELET COUNT 221 10^3/UL (140-415); RED BLOOD COUNT 2.78 10^6/ul (4.20-5.40); RED CELL DISTRIBUTION WIDTH 21.9 % (11.5-14.5); WHITE BLOOD COUNT 5.4 10^3/ul (4.8-10.8)
[2017-09-08 08:22] LABS: POSITIVE DIFF @See below
[2017-09-08 09:01] LABS: CALCIUM 6.3 mg/dl (8.4-10.2); CREATININE 0.45 mg/dl (0.44-1.00); POTASSIUM 4.6 mmol/L (3.5-5.1)
[2017-09-08] MEDS: INSULIN ASPART [NOVOLOG] 3 ML PEN SC SCH ×4 (09:12→20:55)
[2017-09-08 10:15] LABS: MAGNESIUM 2.3 mg/dl (1.7-2.5); PHOSPHORUS 2.8 mg/dl (2.5-4.9)
--- NOTE | 2017-09-08 10:52 | CONS ---
Date/Time of Note Date/Time of Note DATE: 09/08/17 TIME: 10:51 Assessment/Plan Assessment/Plan Chief Complaint/Hosp Course Metastatic Breast Ca ON TREATMENT CHEMO ON HOLD INCOMPLETE RECORD RECORD- p Pancytopenia POST CHEMO SL IMPROVED MONITOR CLOSELY TRANSFUSE IF NEEDED Hypoxemic Respiratory Failure: due to a multifocal pneumonia, more consistent with viral. PER PULM- In view of the morphological appearance on thoracic CT, must also consider non-infectious etiologies such as an organizing pneumonia (BOOP) secondary to her chemo (need records to know what she has been on) and/or XRT. RECORD- P HYPERCOAGULABLE STATE WITH subsegmental PE Anticoagulation with lovenox 1 mg/kg BID can be dc on LOVENOX- BETTER FOR PTS WITH ONCOLOGICAL PROBLEMS Problems: Consultation Date/Type/Reason Admit Date/Time Sep 01, 2017 at 20:22 Initial Consult Date 09/02/17 [facility] Referring Provider: DONOVAN BOLAÑOS 24 HR Interval Summary Free Text/Dictation NAD Exam/Review of Systems Vital Signs Vitals Vital Signs Date Time Temp Pulse Resp B/P Pulse Ox O2 Delivery O2 Flow Rate FiO2 09/08/17 09:22 75 18 94 80 09/08/17 07:31 97.6 112/65 09/07/17 08:11 Nasal Cannula 09/06/17 08:00 6.0 Intake and Output 09/07/17 09/07/17 09/08/17 15:00 23:00 07:00 Intake Total 850 ml 300 ml Output Total 600 ml 1000 ml Balance 250 ml -700 ml Exam GENERAL: elderly lady comfortable at rest on high flow 02 VITAL SIGNS: per chart NECK: Supple. No JVD or lymphadenopathy. CARDIAC EXAM: S1, S2. No added sounds or murmurs. CHEST: Diminished air entry bilaterally R> L ABDOMEN: Soft, nontender. No guarding or rebound. EXTREMITIES: No cyanosis, clubbing or edema. NEUROLOGIC: Generalized weakness. No focal deficits. Results Result Diagram: 09/08/17 0752 09/08/17 0752 Results 24 hrs Laboratory Tests Test 09/07/17 12:49 09/07/17 17:54 09/07/17 22:03 09/08/17 07:52 Bedside Glucose 94 126 173 White Blood Count 5.4 Red Blood Count 2.78 L Hemoglobin 8.7 L Hematocrit 26.3 L Mean Corpuscular Volume 94.6 Mean Corpuscular Hemoglobin 31.3 Mean Corpuscular Hemoglobin Concent 33.1 Red Cell Distribution Width 21.9 H Platelet Count 221 Mean Platelet Volume 10.9 H Neutrophils % 87.2 H Lymphocytes % 5.6 L Monocytes % 2.1 Eosinophils % 0.0 Basophils % 0.2 Nucleated Red Blood Cells % 1.3 H Neutrophils # 4.7 Lymphocytes # 0.3 L Monocytes # 0.1 L Eosinophils # 0.0 Basophils # 0.0 Nucleated Red Blood Cells # 0.1 H Sodium Level 135 Potassium Level 4.6 Chloride Level 100 Carbon Dioxide Level 30 Anion Gap 10 Blood Urea Nitrogen 16 Creatinine 0.45 Glucose Level 139 Calcium Level 6.3 L Phosphorus Level 2.8 Magnesium Level 2.3 Vancomycin Level Trough 11.3 Test 09/08/17 08:10 Bedside Glucose 148 Medications Medications Current Medications Ondansetron HCl (Zofran Inj) 4 mg Q6H PRN IV NAUSEA AND/OR VOMITING; Start 09/01/17 at 22:00 Nitroglycerin (Nitroglycerin (Sl Tab) 0.4 Mg) 1 tab Q5M PRN SL CHEST PAIN; Start 09/01/17 at 22:00 Acetaminophen (Tylenol Tab) 650 mg Q6H PRN PO PAIN LEVEL 1-3 OR FEVER Last administered on 09/03/17 16:00; Admin Dose 650 MG; Start 09/01/17 at 22:00 Morphine Sulfate (morphine) 2 mg Q4H PRN IV PAIN LEVEL 7-10; Start 09/01/17 at 22:00 Magnesium Hydroxide (Milk Of Mag) 30 ml DAILY PRN PO CONSTIPATION; Start at 22:00 Pantoprazole (Protonix Tab) 40 mg DAILY@06 PO Last administered on 09/08/17 06:19; Admin Dose 40 MG; Start 09/02/17 at 06:00 Alprazolam (Xanax) 0.25 mg Q8 PO Last administered on 09/08/17 06:20; Admin Dose 0.25 MG; Start 09/01/17 at 22:00 Amlodipine Besylate (Norvasc) 10 mg DAILY PO Last administered on 09/07/17 09 :37; Admin Dose 10 MG; Start 09/02/17 at 09:00 Cyclobenzaprine HCl (Flexeril) 5 mg BID PRN PO MUSCLE SPASM; Start 09/01/17 at 22:00 Docusate Sodium (Colace) 100 mg BID PO Last administered on 09/07/17 09:38; Admin Dose 100 MG; Start 09/02/17 at 09:00 Hydromorphone HCl (Dilaudid) 4 mg Q4H PRN PO pain; Start 09/01/17 at 22:00 Magnesium Hydroxide (Milk Of Mag) 30 ml QHS PO Last administered on 09/07/17 21:52; Admin Dose 30 ML; Start 09/02/17 at 21:00 Methadone HCl (Methadone) 10 mg Q8H PO Last administered on 09/08/17 06:20; Admin Dose 10 MG; Start 09/02/17 at 06:00 Senna (Senokot) 2 tab BID PO Last administered on 09/07/17 21:54; Admin Dose 2 TAB; Start 09/01/17 at 22:00 Zinc Sulfate 220 mg 220 mg DAILY PO Last administered on 09/07/17 09:37; Admin Dose 220 MG; Start 09/02/17 at 09:00 Cefepime HCl 50 ml @ 100 mls/hr Q24H IVPB Last administered on 09/07/17 21: 52; Admin Dose 100 MLS/HR; Start 09/02/17 at 20:00 Vancomycin HCl (Vancocin) 100 ml @ 100 mls/hr Q8H IVPB Last administered on 01:52; Admin Dose 100 MLS/HR; Start 09/03/17 at 17:00 Enoxaparin Sodium (Lovenox) 50 mg Q12 SC Last administered on 09/07/17 21:57 ; Admin Dose 50 MG; Start 09/03/17 at 21:00 Diagnostic Test (Pha) (Accu-Chek) 1 ea 02 XX Last administered on 09/07/17 02 :00; Admin Dose 1 EA; Start 09/05/17 at 02:00 Miscellaneous Information 1 ea NOTE XX ; Start 09/04/17 at 11:00 Glucose (Glutose) 15 gm Q15M PRN PO DECREASED GLUCOSE; Start 09/04/17 at 11:00 Glucose (Glutose) 22.5 gm Q15M PRN PO DECREASED GLUCOSE; Start 09/04/17 at 11: 00 Dextrose (D50w Syringe) 25 ml Q15M PRN IV DECREASED GLUCOSE; Start 09/04/17 at 11:00 Dextrose (D50w Syringe) 50 ml Q15M PRN IV DECREASED GLUCOSE; Start 09/04/17 at 11:00 Glucagon (Glucagen) 1 mg Q15M PRN IM DECREASED GLUCOSE; Start 09/04/17 at 11: 00 Glucose (Glutose) 15 gm Q15M PRN BUCCAL DECREASED GLUCOSE; Start 09/04/17 at 11:00 Polyethylene Glycol (Miralax) 17 gm BID PO Last administered on 09/07/17 21: 53; Admin Dose 17 GM; Start 09/05/17 at 09:30 Bisacodyl (Dulcolax) 10 mg DAILY PRN PO CONSTIPATION; Start 09/05/17 at 09:30 Mupirocin (Bactroban) 1 applic BID TOP Last administered on 09/07/17 22:05; Admin Dose 1 APPLIC; Start 09/06/17 at 10:00 Ascorbic Acid (Vitamin C) 500 mg BID PO Last administered on 09/07/17 21:54; Admin Dose 500 MG; Start 09/06/17 at 09:30 Miscellaneous Information (Pending [facility] Order For Wound Care) This patient reece... PRN PRN XX WOUND CARE; Start 09/06/17 at 11:30 Non-Formulary Medication 1 dose 14 PO Last administered on 09/07/17 19:37; Admin Dose 1 DOSE; Start 09/06/17 at 22:30; Stop 09/26/17 at 14:01 Letrozole (Femara) 2.5 mg 14 PO Last administered on 09/07/17 19:36; Admin Dose 2.5 MG; Start 09/07/17 at 14:00 Methylprednisolone Sodium Succinate (Solu-Medrol) 40 mg Q8 IV Last administered on 09/08/17 06:19; Admin Dose 40 MG; Start 09/07/17 at 14:00 JOSEPH EDOUARD MD Sep 08, 2017 10:52
[2017-09-08] MEDS: AMLODIPINE 10 MG TAB PO SCH (11:37)
[2017-09-08] MEDS: ASCORBIC ACID 500 MG TAB PO SCH ×2 (11:37→20:53)
[2017-09-08] MEDS: SENNA TAB PO SCH ×2 (11:37→20:54)
[2017-09-08] MEDS: POLYETHYLENE GLYCOL 17 GM PACKET PO SCH ×2 (11:38→20:54)
[2017-09-08] MEDS: DOCUSATE SODIUM 100 MG CAP PO SCH ×2 (11:38→20:54)
[2017-09-08] MEDS: MUPIROCIN 2% 22 GM OINT TOP SCH ×2 (11:38→20:58)
[2017-09-08] MEDS: ZINC SULFATE 220 MG CAP PO SCH (11:38)
[2017-09-08] MEDS: ENOXAPARIN 60 MG/0.6 ML SYG SC SCH ×2 (12:18→20:57)
--- NOTE | 2017-09-08 14:16 | PN ---
Date/Time of Note Date/Time of Note DATE: 09/08/17 TIME: 14:07 Assessment/Plan VTE Prophylaxis VTE Prophylaxis Intervention: LMWH Lines/Catheters IV Catheter Type (from Nrsg): Peripheral IV Urinary Cath still in place: Yes Reason Cath still needed: other (indicate) Assessment/Plan Assessment/Plan 1. Hypoxic respiratory failure, on O2 2. Right lower lobe segmental pulmonary embolism, on lovenox. 3. Bilateral pneumonia, on antibiotics 4. Metastatic breast cancer, On chemotherapy, follow up with oncology 5. Pancytopenia. Secondary to underlying malignancy and chemotherapy. 6. Urinary tract infection. Continue antimicrobials. 7. Essential hypertension, controlled 8. Hypothyroidism. Continue Synthroid. 9. Multiple pathologic rib and thoracic vertebral compression fractures, from metastatic cancer, Continue pain control. 10. Prediabetes. Hemoglobin A1c 6.2 on ISS 11. Hypocalcemia. -Most probably secondary to underlying hypoalbuminemia. -Monitor for any signs of tetany. 12. Protein calorie malnutrition. -Mild to moderate. -High protein diet. -S/P RD evaluation. 13. MRSA colonization of the nares. -Continue Bactroban. Subjective 24 Hr Interval Summary Free Text/Dictation less shortness of breath. no pain Exam/Review of Systems Vital Signs Vitals Vital Signs Date Time Temp Pulse Resp B/P Pulse Ox O2 Delivery O2 Flow Rate FiO2 09/08/17 12:47 96 80 09/08/17 12:47 77 18 09/08/17 11:34 98.7 113/63 09/07/17 08:11 Nasal Cannula 09/06/17 08:00 6.0 Intake and Output 09/07/17 09/07/17 09/08/17 15:00 23:00 07:00 Intake Total 850 ml 300 ml Output Total 600 ml 1000 ml Balance 250 ml -700 ml Exam Constitutional: alert, frail, oriented Head: atraumatic, normocephalic Eyes: EOMI, PERRL, nl conjunctiva, nl lids ENMT: nl external ears & nose, nl lips & teeth, nl nasal mucosa & septum Neck: non-tender, supple Respiratory: clear to auscultation, normal air movement Cardiovascular: nl pulses, regular rate and rhythm, No S3, No S4, No bruits, No diastolic murmur, No edema, No gallop, No irregular rhythm, No jugular venous distention (JVD), No murmurs/extra sounds, No other, No rub, No systolic murmur Gastrointestinal: nl liver, spleen, non-tender, soft Musculoskeletal: nl extremities to inspection Extremities: normal pulses, No calf tenderness, No clubbing, No cyanosis, No edema, No other, No palpable cord, No pitting pedal edema, No tenderness 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: DEVELOPMENT COACH II-XII intact, nl mental status, nl speech Skin: nl turgor Lymph: nl lymph nodes Results Result Diagram: 09/08/17 0752 09/08/17 0752 Results 24 hrs Laboratory Tests Test 09/07/17 17:54 09/07/17 22:03 09/08/17 07:52 09/08/17 08:10 Bedside Glucose 126 173 148 White Blood Count 5.4 Red Blood Count 2.78 L Hemoglobin 8.7 L Hematocrit 26.3 L Mean Corpuscular Volume 94.6 Mean Corpuscular Hemoglobin 31.3 Mean Corpuscular Hemoglobin Concent 33.1 Red Cell Distribution Width 21.9 H Platelet Count 221 Mean Platelet Volume 10.9 H Neutrophils % 87.2 H Lymphocytes % 5.6 L Monocytes % 2.1 Eosinophils % 0.0 Basophils % 0.2 Nucleated Red Blood Cells % 1.3 H Neutrophils # 4.7 Lymphocytes # 0.3 L Monocytes # 0.1 L Eosinophils # 0.0 Basophils # 0.0 Nucleated Red Blood Cells # 0.1 H Sodium Level 135 Potassium Level 4.6 Chloride Level 100 Carbon Dioxide Level 30 Anion Gap 10 Blood Urea Nitrogen 16 Creatinine 0.45 Glucose Level 139 Calcium Level 6.3 L Phosphorus Level 2.8 Magnesium Level 2.3 Vancomycin Level Trough 11.3 Medications Medications Current Medications Ondansetron HCl (Zofran Inj) 4 mg Q6H PRN IV NAUSEA AND/OR VOMITING; Start 09/01/17 at 22:00 Nitroglycerin (Nitroglycerin (Sl Tab) 0.4 Mg) 1 tab Q5M PRN SL CHEST PAIN; Start 09/01/17 at 22:00 Acetaminophen (Tylenol Tab) 650 mg Q6H PRN PO PAIN LEVEL 1-3 OR FEVER Last administered on 09/03/17t 16:00; Admin Dose 650 MG; Start 09/01/17 at 22:00 Morphine Sulfate (morphine) 2 mg Q4H PRN IV PAIN LEVEL 7-10; Start 09/01/17 at 22:00 Magnesium Hydroxide (Milk Of Mag) 30 ml DAILY PRN PO CONSTIPATION; Start at 22:00 Pantoprazole (Protonix Tab) 40 mg DAILY@06 PO Last administered on 09/08/17 06:19; Admin Dose 40 MG; Start 09/02/17 at 06:00 Alprazolam (Xanax) 0.25 mg Q8 PO Last administered on 09/08/17 06:20; Admin Dose 0.25 MG; Start 09/01/17 at 22:00 Amlodipine Besylate (Norvasc) 10 mg DAILY PO Last administered on 09/08/17 11 :37; Admin Dose 10 MG; Start 09/02/17 at 09:00 Cyclobenzaprine HCl (Flexeril) 5 mg BID PRN PO MUSCLE SPASM; Start 09/01/17 at 22:00 Docusate Sodium (Colace) 100 mg BID PO Last administered on 09/08/17 11:38; Admin Dose 100 MG; Start 09/02/17 at 09:00 Hydromorphone HCl (Dilaudid) 4 mg Q4H PRN PO pain; Start 09/01/17 at 22:00 Magnesium Hydroxide (Milk Of Mag) 30 ml QHS PO Last administered on 09/07/17 21:52; Admin Dose 30 ML; Start 09/02/17 at 21:00 Methadone HCl (Methadone) 10 mg Q8H PO Last administered on 09/08/17 06:20; Admin Dose 10 MG; Start 09/02/17 at 06:00 Senna (Senokot) 2 tab BID PO Last administered on 09/08/17 11:37; Admin Dose 2 TAB; Start 09/01/17 at 22:00 Zinc Sulfate 220 mg 220 mg DAILY PO Last administered on 09/08/17 11:38; Admin Dose 220 MG; Start 09/02/17 at 09:00 Cefepime HCl 50 ml @ 100 mls/hr Q24H IVPB Last administered on 09/07/17 21: 52; Admin Dose 100 MLS/HR; Start 09/02/17 at 20:00 Vancomycin HCl (Vancocin) 100 ml @ 100 mls/hr Q8H IVPB Last administered on 11:39; Admin Dose 100 MLS/HR; Start 09/03/17 at 17:00 Enoxaparin Sodium (Lovenox) 50 mg Q12 SC Last administered on 09/08/17 12:18 ; Admin Dose 50 MG; Start 09/03/17 at 21:00 Diagnostic Test (Pha) (Accu-Chek) 1 ea 02 XX Last administered on 09/07/17 02 :00; Admin Dose 1 EA; Start 09/05/17 at 02:00 Miscellaneous Information 1 ea NOTE XX ; Start 09/04/17 at 11:00 Glucose (Glutose) 15 gm Q15M PRN PO DECREASED GLUCOSE; Start 09/04/17 at 11:00 Glucose (Glutose) 22.5 gm Q15M PRN PO DECREASED GLUCOSE; Start 09/04/17 at 11: 00 Dextrose (D50w Syringe) 25 ml Q15M PRN IV DECREASED GLUCOSE; Start 09/04/17 at 11:00 Dextrose (D50w Syringe) 50 ml Q15M PRN IV DECREASED GLUCOSE; Start 09/04/17 at 11:00 Glucagon (Glucagen) 1 mg Q15M PRN IM DECREASED GLUCOSE; Start 09/04/17 at 11: 00 Glucose (Glutose) 15 gm Q15M PRN BUCCAL DECREASED GLUCOSE; Start 09/04/17 at 11:00 Polyethylene Glycol (Miralax) 17 gm BID PO Last administered on 09/08/17 11: 38; Admin Dose 17 GM; Start 09/05/17 at 09:30 Bisacodyl (Dulcolax) 10 mg DAILY PRN PO CONSTIPATION; Start 09/05/17 at 09:30 Mupirocin (Bactroban) 1 applic BID TOP Last administered on 09/08/17 11:38; Admin Dose 1 APPLIC; Start 09/06/17 at 10:00 Ascorbic Acid (Vitamin C) 500 mg BID PO Last administered on 09/08/17 11:37; Admin Dose 500 MG; Start 09/06/17 at 09:30 Miscellaneous Information (Pending [facility] Order For Wound Care) This patient reece... PRN PRN XX WOUND CARE; Start 09/06/17 at 11:30 Non-Formulary Medication 1 dose 14 PO Last administered on 09/07/17 19:37; Admin Dose 1 DOSE; Start 09/06/17 at 22:30; Stop 09/26/17 at 14:01 Letrozole (Femara) 2.5 mg 14 PO Last administered on 09/07/17 19:36; Admin Dose 2.5 MG; Start 09/07/17 at 14:00 Methylprednisolone Sodium Succinate (Solu-Medrol) 40 mg Q8 IV Last administered on 09/08/17 06:19; Admin Dose 40 MG; Start 09/07/17 at 14:00 CECELIA GASCA MD Sep 08, 2017 14:16
[2017-09-08] MEDS: LETROZOLE 2.5 MG TAB PO SCH (15:46)
--- NOTE | 2017-09-08 15:46 | CONS ---
Date/Time of Note Date/Time of Note DATE: 09/08/17 TIME: 15:37 Consult Date/Type/Reason Admit Date/Time Sep 01, 2017 at 20:22 Initial Consult Date 09/02/17 Type of Consultation: Pulmonary Ordering Provider: DONOVAN BOLAÑOS Subjective Patient remains stable no new events. Continues high flow O2. Objective Vital Signs Date Time Temp Pulse Resp B/P Pulse Ox O2 Delivery O2 Flow Rate FiO2 09/08/17 12:47 96 80 09/08/17 12:47 77 18 09/08/17 11:34 98.7 113/63 09/07/17 08:11 Nasal Cannula 09/06/17 08:00 6.0 Intake and Output 09/07/17 09/07/17 09/08/17 15:00 23:00 07:00 Intake Total 850 ml 300 ml Output Total 600 ml 1000 ml Balance 250 ml -700 ml Exam GENERAL: elderly lady comfortable at rest on high flow 02 VITAL SIGNS: per chart NECK: Supple. No JVD or lymphadenopathy. CARDIAC EXAM: S1, S2. No added sounds or murmurs. CHEST: Diminished air entry bilaterally R> L ABDOMEN: Soft, nontender. No guarding or rebound. EXTREMITIES: No cyanosis, clubbing or edema. NEUROLOGIC: Generalized weakness. No focal deficits. Results/Medications Result Diagram: 09/08/17 0752 09/08/17 0752 Results 24 hrs Laboratory Tests Test 09/07/17 17:54 09/07/17 22:03 09/08/17 07:52 09/08/17 08:10 Bedside Glucose 126 173 148 White Blood Count 5.4 Red Blood Count 2.78 L Hemoglobin 8.7 L Hematocrit 26.3 L Mean Corpuscular Volume 94.6 Mean Corpuscular Hemoglobin 31.3 Mean Corpuscular Hemoglobin Concent 33.1 Red Cell Distribution Width 21.9 H Platelet Count 221 Mean Platelet Volume 10.9 H Neutrophils % 87.2 H Lymphocytes % 5.6 L Monocytes % 2.1 Eosinophils % 0.0 Basophils % 0.2 Nucleated Red Blood Cells % 1.3 H Neutrophils # 4.7 Lymphocytes # 0.3 L Monocytes # 0.1 L Eosinophils # 0.0 Basophils # 0.0 Nucleated Red Blood Cells # 0.1 H Sodium Level 135 Potassium Level 4.6 Chloride Level 100 Carbon Dioxide Level 30 Anion Gap 10 Blood Urea Nitrogen 16 Creatinine 0.45 Glucose Level 139 Calcium Level 6.3 L Phosphorus Level 2.8 Magnesium Level 2.3 Vancomycin Level Trough 11.3 Test 09/08/17 14:27 Bedside Glucose 165 Medications Current Medications Ondansetron HCl (Zofran Inj) 4 mg Q6H PRN IV NAUSEA AND/OR VOMITING; Start 09/01/17 at 22:00 Nitroglycerin (Nitroglycerin (Sl Tab) 0.4 Mg) 1 tab Q5M PRN SL CHEST PAIN; Start 09/01/17 at 22:00 Acetaminophen (Tylenol Tab) 650 mg Q6H PRN PO PAIN LEVEL 1-3 OR FEVER Last administered on 09/03/17 16:00; Admin Dose 650 MG; Start 09/01/17 at 22:00 Morphine Sulfate (morphine) 2 mg Q4H PRN IV PAIN LEVEL 7-10; Start 09/01/17 at 22:00 Magnesium Hydroxide (Milk Of Mag) 30 ml DAILY PRN PO CONSTIPATION; Start at 22:00 Pantoprazole (Protonix Tab) 40 mg DAILY@06 PO Last administered on 09/08/17 06:19; Admin Dose 40 MG; Start 09/02/17 at 06:00 Alprazolam (Xanax) 0.25 mg Q8 PO Last administered on 09/08/17 14:30; Admin Dose 0.25 MG; Start 09/01/17 at 22:00 Amlodipine Besylate (Norvasc) 10 mg DAILY PO Last administered on 09/08/17 11 :37; Admin Dose 10 MG; Start 09/02/17 at 09:00 Cyclobenzaprine HCl (Flexeril) 5 mg BID PRN PO MUSCLE SPASM; Start 09/01/17 at 22:00 Docusate Sodium (Colace) 100 mg BID PO Last administered on 09/08/17 11:38; Admin Dose 100 MG; Start 09/02/17 at 09:00 Hydromorphone HCl (Dilaudid) 4 mg Q4H PRN PO pain; Start 09/01/17 at 22:00 Magnesium Hydroxide (Milk Of Mag) 30 ml QHS PO Last administered on 09/07/17 21:52; Admin Dose 30 ML; Start 09/02/17 at 21:00 Methadone HCl (Methadone) 10 mg Q8H PO Last administered on 09/08/17 14:30; Admin Dose 10 MG; Start 09/02/17 at 06:00 Senna (Senokot) 2 tab BID PO Last administered on 09/08/17 11:37; Admin Dose 2 TAB; Start 09/01/17 at 22:00 Zinc Sulfate 220 mg 220 mg DAILY PO Last administered on 09/08/17 11:38; Admin Dose 220 MG; Start 09/02/17 at 09:00 Cefepime HCl 50 ml @ 100 mls/hr Q24H IVPB Last administered on 09/07/17 21: 52; Admin Dose 100 MLS/HR; Start 09/02/17 at 20:00 Vancomycin HCl (Vancocin) 100 ml @ 100 mls/hr Q8H IVPB Last administered on 11:39; Admin Dose 100 MLS/HR; Start 09/03/17 at 17:00 Enoxaparin Sodium (Lovenox) 50 mg Q12 SC Last administered on 09/08/17 12:18 ; Admin Dose 50 MG; Start 09/03/17 at 21:00 Diagnostic Test (Pha) (Accu-Chek) 1 ea 02 XX Last administered on 09/07/17 02 :00; Admin Dose 1 EA; Start 09/05/17 at 02:00 Miscellaneous Information 1 ea NOTE XX ; Start 09/04/17 at 11:00 Glucose (Glutose) 15 gm Q15M PRN PO DECREASED GLUCOSE; Start 09/04/17 at 11:00 Glucose (Glutose) 22.5 gm Q15M PRN PO DECREASED GLUCOSE; Start 09/04/17 at 11: 00 Dextrose (D50w Syringe) 25 ml Q15M PRN IV DECREASED GLUCOSE; Start 09/04/17 at 11:00 Dextrose (D50w Syringe) 50 ml Q15M PRN IV DECREASED GLUCOSE; Start 09/04/17 at 11:00 Glucagon (Glucagen) 1 mg Q15M PRN IM DECREASED GLUCOSE; Start 09/04/17 at 11: 00 Glucose (Glutose) 15 gm Q15M PRN BUCCAL DECREASED GLUCOSE; Start 09/04/17 at 11:00 Polyethylene Glycol (Miralax) 17 gm BID PO Last administered on 09/08/17 11: 38; Admin Dose 17 GM; Start 09/05/17 at 09:30 Bisacodyl (Dulcolax) 10 mg DAILY PRN PO CONSTIPATION; Start 09/05/17 at 09:30 Mupirocin (Bactroban) 1 applic BID TOP Last administered on 09/08/17 11:38; Admin Dose 1 APPLIC; Start 09/06/17 at 10:00 Ascorbic Acid (Vitamin C) 500 mg BID PO Last administered on 09/08/17 11:37; Admin Dose 500 MG; Start 09/06/17 at 09:30 [facility] This patient reece... PRN PRN XX WOUND CARE; Start 09/06/17 at 11:30 Non-Formulary Medication 1 dose 14 PO Last administered on 09/07/17 19:37; Admin Dose 1 DOSE; Start 09/06/17 at 22:30; Stop 09/26/17 at 14:01 Letrozole (Femara) 2.5 mg 14 PO Last administered on 09/07/17 19:36; Admin Dose 2.5 MG; Start 09/07/17 at 14:00 Methylprednisolone Sodium Succinate (Solu-Medrol) 40 mg Q8 IV Last administered on 09/08/17 14:29; Admin Dose 40 MG; Start 09/07/17 at 14:00 Assessment/Plan Chief Complaint/Hosp Course Assessment. 1. hypoxemic resp failure. possible BOOP, PNA. Confirmed PE continues high flow O2 2. Metastatic breast cancer. Plan. 1. Continue abx, steroids 2. Decrease 02 as tolerated. 3. Repeat chest x-ray in a.m. 4. trial of lasix. Problems: MOSES CUNNINGHAM MD, [facility] Sep 08, 2017 15:46
[2017-09-08] MEDS: IBRANCE PO SCH (15:47)
[2017-09-08] MEDS: FUROSEMIDE 20 MG INJ IV SCH (18:53)
[2017-09-08] MEDS: MAGNESIUM HYDROXIDE 30ML CUP PO SCH (20:53)
[2017-09-08] MEDS: CEFEPIME 1GM/50 ML (PMX) 50 ML IVPB SCH (20:54)
[2017-09-09] VITALS (13 sets, daily range): BP systolic 100–111; BP diastolic 56–78; PULSE 72–94; RESP 16–20
[2017-09-09] MEDS: ALBUTEROL/IPRATROPIUM (NEB) 3 ML AMP HHN SCH ×6 (00:39→20:59)
[2017-09-09] MEDS: VANCOMYCIN 500MG/NS (PMX) 100 ML IVPB SCH ×3 (00:50→17:32)
[2017-09-09] MEDS: ACCU-CHEK XX SCH (02:00)
[2017-09-09] MEDS: ALPRAZOLAM 0.25 MG TAB PO SCH ×3 (05:22→21:36)
[2017-09-09] MEDS: METHYLPREDNISOLONE 40 MG INJ IV SCH ×3 (05:22→21:35)
[2017-09-09] MEDS: FUROSEMIDE 20 MG INJ IV SCH ×2 (05:22→17:31)
[2017-09-09] MEDS: PANTOPRAZOLE (EC) 40 MG TAB PO SCH (05:23)
[2017-09-09] MEDS: METHADONE 10 MG TAB PO SCH ×3 (05:23→21:36)
[2017-09-09] MEDS: LEVOTHYROXINE 100 MCG TAB PO SCH (06:39)
[2017-09-09 06:42] LABS: ABNORMAL IP MESSAGE 1; HEMATOCRIT 26.1 % (37.0-47.0); HEMOGLOBIN 8.7 g/dl (12.0-16.0); LYMPHOCYTES # 0.4 10^3/ul (0.8-2.9); LYMPHOCYTES % 5.6 % (15.0-51.0); MEAN CORPUSCULAR HEMOGLOBIN 31.2 pg (29.0-33.0); MEAN CORPUSCULAR HGB CONC 33.3 g/dl (32.0-37.0); MEAN CORPUSCULAR VOLUME 93.5 fl (82.0-101.0); MEAN PLATELET VOLUME 11.1 fl (7.4-10.4); MONOCYTE # 0.4 10^3/ul (0.3-0.9); MONOCYTES % 4.8 % (0.0-11.0); NEUTROPHIL # 6.7 10^3/ul (1.6-7.5); NEUTROPHILS % 84.9 % (39.0-77.0); NUCLEATED RED BLOOD CELLS% 0.4 /100WBC (0.0-0.0); PLATELET COUNT 245 10^3/UL (140-415); RED BLOOD COUNT 2.79 10^6/ul (4.20-5.40); RED CELL DISTRIBUTION WIDTH 21.1 % (11.5-14.5); WHITE BLOOD COUNT 7.9 10^3/ul (4.8-10.8)
[2017-09-09 07:05] LABS: POSITIVE DIFF @See below
[2017-09-09 07:17] LABS: CALCIUM 6.4 mg/dl (8.4-10.2); CREATININE 0.49 mg/dl (0.44-1.00); POTASSIUM 4.6 mmol/L (3.5-5.1)
[2017-09-09] MEDS: ZINC SULFATE 220 MG CAP PO SCH (08:44)
[2017-09-09] MEDS: CALCIUM/VITAMIN D (500/200) TAB PO SCH ×3 (08:44→17:31)
[2017-09-09] MEDS: POLYETHYLENE GLYCOL 17 GM PACKET PO SCH ×2 (08:44→21:27)
[2017-09-09] MEDS: AMLODIPINE 10 MG TAB PO SCH (08:44)
[2017-09-09] MEDS: ASCORBIC ACID 500 MG TAB PO SCH ×2 (08:44→21:26)
[2017-09-09] MEDS: SENNA TAB PO SCH ×2 (08:44→21:26)
[2017-09-09] MEDS: DOCUSATE SODIUM 100 MG CAP PO SCH ×2 (09:00→21:26)
[2017-09-09] MEDS: ENOXAPARIN 60 MG/0.6 ML SYG SC SCH ×2 (09:01→21:32)
[2017-09-09] MEDS: INSULIN ASPART [NOVOLOG] 3 ML PEN SC SCH ×4 (09:01→21:33)
[2017-09-09] MEDS: MUPIROCIN 2% 22 GM OINT TOP SCH ×2 (09:52→21:35)
--- NOTE | 2017-09-09 12:24 | PN ---
Date/Time of Note Date/Time of Note DATE: 09/09/17 TIME: 12:22 Assessment/Plan VTE Prophylaxis VTE Prophylaxis Intervention: LMWH Lines/Catheters IV Catheter Type (from Nrs): Peripheral IV Urinary Cath still in place: Yes Reason Cath still needed: other (indicate) Assessment/Plan Chief Complaint/Hosp Course 1. Right lower lobe segmental pulmonary embolism. -Continue therapeutic anticoagulation. 2. Acute hypoxic respiratory failure. -Etiology could be related to underlying pulmonary embolism and bilateral pneumonia. -Supplemental oxygen. -NIPPV as indicated. -Inhaled bronchodilators. -Tapering dose of steroids. 3. Bilateral pneumonia. -Continue antibiotics. 4. Metastatic breast cancer. -On chemotherapy. -Oncology following. 5. Pancytopenia. -Secondary to underlying malignancy and chemotherapy. -Improving. 6. Urinary tract infection. -Continue antimicrobials. 7. Essential hypertension. -Continue antihypertensives. 8. Hypothyroidism. -Continue Synthroid. 9. Multiple pathologic rib and thoracic vertebral compression fractures. -From metastatic cancer. -Continue pain control. 10. Prediabetes. -Hemoglobin A1c 6.2. -Monitor random blood sugars. 11. Hypocalcemia. -Most probably secondary to underlying hypoalbuminemia. -Monitor for any signs of tetany. 12. Protein calorie malnutrition. -Mild to moderate. -High protein diet. -S/P RD evaluation. 13. MRSA colonization of the nares. -Continue Bactroban. 14. Fluids, electrolytes, and nutrition. -Regular diet. 15. Gastrointestinal prophylaxis (patient on steroids). -PPI. 16. Plan. -Wean off oxygen as indicated. -Continue therapeutic anticoagulation. -Continue antimicrobials. -PT evaluation. -Needs SNF upon discharge. The patient was seen in collaboration with Dr. Silva. Problems: Subjective 24 Hr Interval Summary Free Text/Dictation Denies any pain. Remains on high flow O2. Exam/Review of Systems Vital Signs Vitals Vital Signs Date Time Temp Pulse Resp B/P Pulse Ox O2 Delivery O2 Flow Rate FiO2 09/09/17 11:41 97.5 82 18 109/61 98 09/09/17 09:30 Nasal Cannula 09/09/17 08:49 90 09/06/17 08:00 6.0 Intake and Output 09/08/17 09/08/17 09/09/17 15:00 23:00 07:00 Intake Total 600 ml 450 ml Output Total 850 ml 1500 ml Balance -250 ml -1050 ml Exam General: Adequately build 66 year-old female lying in bed in mild to moderate respiratory distress. HEENT: Normocephalic, atraumatic. Eyes: Anicteric sclerae, conjunctivae clear. ENT: Nasal septum midline, oral mucosa moist. Neck supple. Respiratory: Bilaterally diminished breath sounds. Use of accessory muscles of respiration. On noninvasive positive pressure ventilation. Cardiovascular: S1, S2 heard. Regular rate and rhythm. Abdomen: Soft, nontender, and nondistended. Bowel sounds positive in all 4 quadrants. Genitourinary: Deferred. Extremities: No cyanosis, no clubbing, no edema. Peripheral pulses palpable. Neurologic: Cranial nerves II through XII grossly intact. The patient is awake, alert, and oriented. Skin: Normal skin turgor. No skin rashes. Results Result Diagram: 09/09/17 0610 09/09/17 0610 Results 24 hrs Laboratory Tests Test 09/08/17 14:27 09/08/17 17:45 09/08/17 20:18 09/09/17 06:10 Bedside Glucose 165 206 175 White Blood Count 7.9 # Red Blood Count 2.79 L Hemoglobin 8.7 L Hematocrit 26.1 L Mean Corpuscular Volume 93.5 Mean Corpuscular Hemoglobin 31.2 Mean Corpuscular Hemoglobin Concent 33.3 Red Cell Distribution Width 21.1 H Platelet Count 245 Mean Platelet Volume 11.1 H Neutrophils % 84.9 H Lymphocytes % 5.6 L Monocytes % 4.8 Eosinophils % 0.0 Basophils % 0.0 Nucleated Red Blood Cells % 0.4 H Neutrophils # 6.7 Lymphocytes # 0.4 L Monocytes # 0.4 Eosinophils # 0.0 Basophils # 0.0 Nucleated Red Blood Cells # 0.0 Sodium Level 134 L Potassium Level 4.6 Chloride Level 97 Carbon Dioxide Level 31 Anion Gap 11 Blood Urea Nitrogen 18 Creatinine 0.49 Glucose Level 178 Calcium Level 6.4 L Test 09/09/17 06:33 09/09/17 08:00 09/09/17 12:06 Lab Scanned Report REFERENCE LAB Bedside Glucose 184 199 Medications Medications Current Medications Ondansetron HCl (Zofran Inj) 4 mg Q6H PRN IV NAUSEA AND/OR VOMITING; Start 09/01/17 at 22:00 Nitroglycerin (Nitroglycerin (Sl Tab) 0.4 Mg) 1 tab Q5M PRN SL CHEST PAIN; Start 09/01/17 at 22:00 Acetaminophen (Tylenol Tab) 650 mg Q6H PRN PO PAIN LEVEL 1-3 OR FEVER Last administered on 09/03/17 16:00; Admin Dose 650 MG; Start 09/01/17 at 22:00 Morphine Sulfate (morphine) 2 mg Q4H PRN IV PAIN LEVEL 7-10; Start 09/01/17 at 22:00 Magnesium Hydroxide (Milk Of Mag) 30 ml DAILY PRN PO CONSTIPATION; Start at 22:00 Pantoprazole (Protonix Tab) 40 mg DAILY@06 PO Last administered on 09/09/17 05:23; Admin Dose 40 MG; Start 09/02/17 at 06:00 Alprazolam (Xanax) 0.25 mg Q8 PO Last administered on 09/09/17 05:22; Admin Dose 0.25 MG; Start 09/01/17 at 22:00 Amlodipine Besylate (Norvasc) 10 mg DAILY PO Last administered on 09/09/17 08 :44; Admin Dose 10 MG; Start 09/02/17 at 09:00 Cyclobenzaprine HCl (Flexeril) 5 mg BID PRN PO MUSCLE SPASM; Start 09/01/17 at 22:00 Docusate Sodium (Colace) 100 mg BID PO Last administered on 09/08/17 20:54; Admin Dose 100 MG; Start 09/02/17 at 09:00 Hydromorphone HCl (Dilaudid) 4 mg Q4H PRN PO pain; Start 09/01/17 at 22:00 Magnesium Hydroxide (Milk Of Mag) 30 ml QHS PO Last administered on 09/08/17 20:53; Admin Dose 30 ML; Start 09/02/17 at 21:00 Methadone HCl (Methadone) 10 mg Q8H PO Last administered on 09/09/17 05:23; Admin Dose 10 MG; Start 09/02/17 at 06:00 Senna (Senokot) 2 tab BID PO Last administered on 09/09/17 08:44; Admin Dose 2 TAB; Start 09/01/17 at 22:00 Zinc Sulfate 220 mg 220 mg DAILY PO Last administered on 09/09/17 08:44; Admin Dose 220 MG; Start 09/02/17 at 09:00 Cefepime HCl 50 ml @ 100 mls/hr Q24H IVPB Last administered on 09/08/17 20: 54; Admin Dose 100 MLS/HR; Start 09/02/17 at 20:00 Vancomycin HCl (Vancocin) 100 ml @ 100 mls/hr Q8H IVPB Last administered on 10:25; Admin Dose 100 MLS/HR; Start 09/03/17 at 17:00 Enoxaparin Sodium (Lovenox) 50 mg Q12 SC Last administered on 09/09/17 09:01 ; Admin Dose 50 MG; Start 09/03/17 at 21:00 Diagnostic Test (Pha) (Accu-Chek) 1 ea 02 XX Last administered on 09/07/17 02 :00; Admin Dose 1 EA; Start 09/05/17 at 02:00 Miscellaneous Information 1 ea NOTE XX ; Start 09/04/17 at 11:00 Glucose (Glutose) 15 gm Q15M PRN PO DECREASED GLUCOSE; Start 09/04/17 at 11:00 Glucose (Glutose) 22.5 gm Q15M PRN PO DECREASED GLUCOSE; Start 09/04/17 at 11: 00 Dextrose (D50w Syringe) 25 ml Q15M PRN IV DECREASED GLUCOSE; Start 09/04/17 at 11:00 Dextrose (D50w Syringe) 50 ml Q15M PRN IV DECREASED GLUCOSE; Start 09/04/17 at 11:00 Glucagon (Glucagen) 1 mg Q15M PRN IM DECREASED GLUCOSE; Start 09/04/17 at 11: 00 Glucose (Glutose) 15 gm Q15M PRN BUCCAL DECREASED GLUCOSE; Start 09/04/17 at 11:00 Polyethylene Glycol (Miralax) 17 gm BID PO Last administered on 09/09/17 08: 44; Admin Dose 17 GM; Start 09/05/17 at 09:30 Bisacodyl (Dulcolax) 10 mg DAILY PRN PO CONSTIPATION; Start 09/05/17 at 09:30 Mupirocin (Bactroban) 1 applic BID TOP Last administered on 09/09/17 09:52; Admin Dose 1 APPLIC; Start 09/06/17 at 10:00 Ascorbic Acid (Vitamin C) 500 mg BID PO Last administered on 09/09/17 08:44; Admin Dose 500 MG; Start 09/06/17 at 09:30 Misc[facility] Information [facility] This patient reece... PRN PRN XX WOUND CARE; Start 09/06/17 at 11:30 Non-Formulary Medication 1 dose 14 PO Last administered on 09/08/17 15:47; Admin Dose 1 DOSE; Start 09/06/17 at 22:30; Stop 09/26/17 at 14:01 Letrozole (Femara) 2.5 mg 14 PO Last administered on 09/08/17 15:46; Admin Dose 2.5 MG; Start 09/07/17 at 14:00 Methylprednisolone Sodium Succinate (Solu-Medrol) 40 mg Q8 IV Last administered on 09/09/17 05:22; Admin Dose 40 MG; Start 09/07/17 at 14:00 ROSAMARIA SOMERS NP Sep 09, 2017 12:24
--- NOTE | 2017-09-09 12:38 | CONS ---
Date/Time of Note Date/Time of Note DATE: 09/09/17 TIME: 12:37 Consult Date/Type/Reason Admit Date/Time Sep 01, 2017 at 20:22 Initial Consult Date 09/02/17 Type of Consultation: Pulmonary Ordering Provider: DONOVAN BOLAÑOS Subjective Remains comfortable on high flow O2. FiO2 decreased to 70%. Objective Vital Signs Date Time Temp Pulse Resp B/P Pulse Ox O2 Delivery O2 Flow Rate FiO2 09/09/17 11:41 97.5 82 18 109/61 98 09/09/17 09:30 Nasal Cannula 09/09/17 08:49 90 09/06/17 08:00 6.0 Intake and Output 09/08/17 09/08/17 09/09/17 15:00 23:00 07:00 Intake Total 600 ml 450 ml Output Total 850 ml 1500 ml Balance -250 ml -1050 ml Exam GENERAL: elderly lady comfortable at rest on high flow 02 VITAL SIGNS: per chart NECK: Supple. No JVD or lymphadenopathy. CARDIAC EXAM: S1, S2. No added sounds or murmurs. CHEST: Diminished air entry bilaterally R> L ABDOMEN: Soft, nontender. No guarding or rebound. EXTREMITIES: No cyanosis, clubbing or edema. NEUROLOGIC: Generalized weakness. No focal deficits. Results/Medications Result Diagram: 09/09/17 0610 09/09/17 0610 Results 24 hrs Laboratory Tests Test 09/08/17 14:27 09/08/17 17:45 09/08/17 20:18 09/09/17 06:10 Bedside Glucose 165 206 175 White Blood Count 7.9 # Red Blood Count 2.79 L Hemoglobin 8.7 L Hematocrit 26.1 L Mean Corpuscular Volume 93.5 Mean Corpuscular Hemoglobin 31.2 Mean Corpuscular Hemoglobin Concent 33.3 Red Cell Distribution Width 21.1 H Platelet Count 245 Mean Platelet Volume 11.1 H Neutrophils % 84.9 H Lymphocytes % 5.6 L Monocytes % 4.8 Eosinophils % 0.0 Basophils % 0.0 Nucleated Red Blood Cells % 0.4 H Neutrophils # 6.7 Lymphocytes # 0.4 L Monocytes # 0.4 Eosinophils # 0.0 Basophils # 0.0 Nucleated Red Blood Cells # 0.0 Sodium Level 134 L Potassium Level 4.6 Chloride Level 97 Carbon Dioxide Level 31 Anion Gap 11 Blood Urea Nitrogen 18 Creatinine 0.49 Glucose Level 178 Calcium Level 6.4 L Test 09/09/17 06:33 09/09/17 08:00 09/09/17 12:06 Lab Scanned Report REFERENCE LAB Bedside Glucose 184 199 Medications Current Medications Ondansetron HCl (Zofran Inj) 4 mg Q6H PRN IV NAUSEA AND/OR VOMITING; Start 09/01/17 at 22:00 Nitroglycerin (Nitroglycerin (Sl Tab) 0.4 Mg) 1 tab Q5M PRN SL CHEST PAIN; Start 09/01/17 at 22:00 Acetaminophen (Tylenol Tab) 650 mg Q6H PRN PO PAIN LEVEL 1-3 OR FEVER Last administered on 09/03/17 16:00; Admin Dose 650 MG; Start 09/01/17 at 22:00 Morphine Sulfate (morphine) 2 mg Q4H PRN IV PAIN LEVEL 7-10; Start 09/01/17 at 22:00 Magnesium Hydroxide (Milk Of Mag) 30 ml DAILY PRN PO CONSTIPATION; Start at 22:00 Pantoprazole (Protonix Tab) 40 mg DAILY@06 PO Last administered on 09/09/17 05:23; Admin Dose 40 MG; Start 09/02/17 at 06:00 Alprazolam (Xanax) 0.25 mg Q8 PO Last administered on 09/09/17 05:22; Admin Dose 0.25 MG; Start 09/01/17 at 22:00 Amlodipine Besylate (Norvasc) 10 mg DAILY PO Last administered on 09/09/17 08 :44; Admin Dose 10 MG; Start 09/02/17 at 09:00 Cyclobenzaprine HCl (Flexeril) 5 mg BID PRN PO MUSCLE SPASM; Start 09/01/17 at 22:00 Docusate Sodium (Colace) 100 mg BID PO Last administered on 09/08/17 20:54; Admin Dose 100 MG; Start 09/02/17 at 09:00 Hydromorphone HCl (Dilaudid) 4 mg Q4H PRN PO pain; Start 09/01/17 at 22:00 Magnesium Hydroxide (Milk Of Mag) 30 ml QHS PO Last administered on 09/08/17 20:53; Admin Dose 30 ML; Start 09/02/17 at 21:00 Methadone HCl (Methadone) 10 mg Q8H PO Last administered on 09/09/17 05:23; Admin Dose 10 MG; Start 09/02/17 at 06:00 Senna (Senokot) 2 tab BID PO Last administered on 09/09/17 08:44; Admin Dose 2 TAB; Start 09/01/17 at 22:00 Zinc Sulfate 220 mg 220 mg DAILY PO Last administered on 09/09/17 08:44; Admin Dose 220 MG; Start 09/02/17 at 09:00 Cefepime HCl 50 ml @ 100 mls/hr Q24H IVPB Last administered on 09/08/17 20: 54; Admin Dose 100 MLS/HR; Start 09/02/17 at 20:00 Vancomycin HCl (Vancocin) 100 ml @ 100 mls/hr Q8H IVPB Last administered on 10:25; Admin Dose 100 MLS/HR; Start 09/03/17 at 17:00 Enoxaparin Sodium (Lovenox) 50 mg Q12 SC Last administered on 09/09/17 09:01 ; Admin Dose 50 MG; Start 09/03/17 at 21:00 Diagnostic Test (Pha) (Accu-Chek) 1 ea 02 XX Last administered on 09/07/17 02 :00; Admin Dose 1 EA; Start 09/05/17 at 02:00 Miscellaneous Information 1 ea NOTE XX ; Start 09/04/17 at 11:00 Glucose (Glutose) 15 gm Q15M PRN PO DECREASED GLUCOSE; Start 09/04/17 at 11:00 Glucose (Glutose) 22.5 gm Q15M PRN PO DECREASED GLUCOSE; Start 09/04/17 at 11: 00 Dextrose (D50w Syringe) 25 ml Q15M PRN IV DECREASED GLUCOSE; Start 09/04/17 at 11:00 Dextrose (D50w Syringe) 50 ml Q15M PRN IV DECREASED GLUCOSE; Start 09/04/17 at 11:00 Glucagon (Glucagen) 1 mg Q15M PRN IM DECREASED GLUCOSE; Start 09/04/17 at 11: 00 Glucose (Glutose) 15 gm Q15M PRN BUCCAL DECREASED GLUCOSE; Start 09/04/17 at 11:00 Polyethylene Glycol (Miralax) 17 gm BID PO Last administered on 09/09/17 08: 44; Admin Dose 17 GM; Start 09/05/17 at 09:30 Bisacodyl (Dulcolax) 10 mg DAILY PRN PO CONSTIPATION; Start 09/05/17 at 09:30 Mupirocin (Bactroban) 1 applic BID TOP Last administered on 09/09/17 09:52; Admin Dose 1 APPLIC; Start 09/06/17 at 10:00 Ascorbic Acid (Vitamin C) 500 mg BID PO Last administered on 09/09/17 08:44; Admin Dose 500 MG; Start 09/06/17 at 09:30 Miscellaneous Information [facility] This patient reece... PRN PRN XX WOUND CARE; Start 09/06/17 at 11:30 Non-Formulary Medication 1 dose 14 PO Last administered on 09/08/17 15:47; Admin Dose 1 DOSE; Start 09/06/17 at 22:30; Stop 09/26/17 at 14:01 Letrozole (Femara) 2.5 mg 14 PO Last administered on 09/08/17 15:46; Admin Dose 2.5 MG; Start 09/07/17 at 14:00 Methylprednisolone Sodium Succinate (Solu-Medrol) 40 mg Q8 IV Last administered on 09/09/17 05:22; Admin Dose 40 MG; Start 09/07/17 at 14:00 Assessment/Plan Chief Complaint/Hosp Course Assessment. 1. hypoxemic resp failure. possible BOOP, PNA. Confirmed PE continues high flow O2 2. Metastatic breast cancer. Plan. 1. Continue abx, steroids 2. Decrease 02 as tolerated. 3. Repeat chest x-ray pending 4. trial of lasix. José kaye. Problems: MOSES CUNNINGHAM MD, [facility] Sep 09, 2017 12:38
[2017-09-09] MEDS: LETROZOLE 2.5 MG TAB PO SCH (14:00)
[2017-09-09] MEDS: IBRANCE PO SCH (14:00)
--- NOTE | 2017-09-09 15:45 | RADRPT ---
PROCEDURE: XR Chest. CLINICAL INDICATION: Pneumonia. TECHNIQUE: Single frontal view of the chest was obtained COMPARISON: Chest radiograph dated September 07, 2017. FINDINGS: Evaluation of the right lung apex is limited by overlying maxillofacial structures. The heart is stable in size. There are left upper lobe consolidations, similar in appearance compared to prior study. Scattered a reas of subsegmental atelectasis are also noted in the lungs. No definite evidence of pneumothorax. Degenerative changes of the spine and shoulder joints are present. There are chronic appearing defor mities of the right ribs. IMPRESSION: 1. Left upper lobe consolidations consistent with pneumonia in the correct clinical context, not si gnificantly changed in appearance. 2. Scattered areas of subsegmental atelectasis. RPTAT:AAJJ Physician Shanique Date Time Electronically viewed and signed by Physician Shanique on 09/09/2017 15:45 QL/
[2017-09-09] MEDS: COLLAGENASE 30 GM TUBE TOP SCH (17:32)
--- NOTE | 2017-09-09 17:38 | CONS ---
Date/Time of Note Date/Time of Note DATE: 09/09/17 TIME: 17:37 Assessment/Plan Assessment/Plan Chief Complaint/Hosp Course Metastatic Breast Ca ON TREATMENT CHEMO ON HOLD INCOMPLETE RECORD RECORD- p Pancytopenia POST CHEMO SL IMPROVED MONITOR CLOSELY TRANSFUSE IF NEEDED Hypoxemic Respiratory Failure: due to a multifocal pneumonia, more consistent with viral. PER PULM- In view of the morphological appearance on thoracic CT, must also consider non-infectious etiologies such as an organizing pneumonia (BOOP) secondary to her chemo (need records to know what she has been on) and/or XRT. RECORD- P HYPERCOAGULABLE STATE WITH subsegmental PE Anticoagulation with lovenox 1 mg/kg BID can be dc on LOVENOX- BETTER FOR PTS WITH ONCOLOGICAL PROBLEMS Problems: Consultation Date/Type/Reason Admit Date/Time Sep 01, 2017 at 20:22 Initial Consult Date 09/02/17 [facility] Consultation: [facility] Referring Provider: DONOVAN BOLAÑOS 24 HR Interval Summary Free Text/Dictation NAD Exam/Review of Systems Vital Signs Vitals Vital Signs Date Time Temp Pulse Resp B/P Pulse Ox O2 Delivery O2 Flow Rate FiO2 09/09/17 16:04 90 09/09/17 15:40 98.0 16 108/65 94 09/09/17 09:30 Nasal Cannula 09/09/17 08:49 90 09/06/17 08:00 6.0 Intake and Output 09/08/17 09/08/17 09/09/17 15:00 23:00 07:00 Intake Total 600 ml 450 ml Output Total 850 ml 1500 ml Balance -250 ml -1050 ml Exam GENERAL: elderly lady comfortable at rest on high flow 02 VITAL SIGNS: per chart NECK: Supple. No JVD or lymphadenopathy. CARDIAC EXAM: S1, S2. No added sounds or murmurs. CHEST: Diminished air entry bilaterally R> L ABDOMEN: Soft, nontender. No guarding or rebound. EXTREMITIES: No cyanosis, clubbing or edema. NEUROLOGIC: Generalized weakness. No focal deficits. Results Result Diagram: 09/09/17 0610 09/09/17 0610 Results 24 hrs Laboratory Tests Test 09/08/17 17:45 09/08/17 20:18 09/09/17 06:10 09/09/17 06:33 Bedside Glucose 206 175 White Blood Count 7.9 # Red Blood Count 2.79 L Hemoglobin 8.7 L Hematocrit 26.1 L Mean Corpuscular Volume 93.5 Mean Corpuscular Hemoglobin 31.2 Mean Corpuscular Hemoglobin Concent 33.3 Red Cell Distribution Width 21.1 H Platelet Count 245 Mean Platelet Volume 11.1 H Neutrophils % 84.9 H Lymphocytes % 5.6 L Monocytes % 4.8 Eosinophils % 0.0 Basophils % 0.0 Nucleated Red Blood Cells % 0.4 H Neutrophils # 6.7 Lymphocytes # 0.4 L Monocytes # 0.4 Eosinophils # 0.0 Basophils # 0.0 Nucleated Red Blood Cells # 0.0 Sodium Level 134 L Potassium Level 4.6 Chloride Level 97 Carbon Dioxide Level 31 Anion Gap 11 Blood Urea Nitrogen 18 Creatinine 0.49 Glucose Level 178 Calcium Level 6.4 L Lab Scanned Report REFERENCE LAB Test 09/09/17 08:00 09/09/17 12:06 09/09/17 17:25 Bedside Glucose 184 199 223 H Medications Medications Current Medications Ondansetron HCl (Zofran Inj) 4 mg Q6H PRN IV NAUSEA AND/OR VOMITING; Start 09/01/17 at 22:00 Nitroglycerin (Nitroglycerin (Sl Tab) 0.4 Mg) 1 tab Q5M PRN SL CHEST PAIN; Start 09/01/17 at 22:00 Acetaminophen (Tylenol Tab) 650 mg Q6H PRN PO PAIN LEVEL 1-3 OR FEVER Last administered on 09/03/17 16:00; Admin Dose 650 MG; Start 09/01/17 at 22:00 Morphine Sulfate (morphine) 2 mg Q4H PRN IV PAIN LEVEL 7-10; Start 09/01/17 at 22:00 Magnesium Hydroxide (Milk Of Mag) 30 ml DAILY PRN PO CONSTIPATION; Start at 22:00 Pantoprazole (Protonix Tab) 40 mg DAILY@06 PO Last administered on 09/09/17 05:23; Admin Dose 40 MG; Start 09/02/17 at 06:00 Alprazolam (Xanax) 0.25 mg Q8 PO Last administered on 09/09/17 13:54; Admin Dose 0.25 MG; Start 09/01/17 at 22:00 Amlodipine Besylate (Norvasc) 10 mg DAILY PO Last administered on 09/09/17 08 :44; Admin Dose 10 MG; Start 09/02/17 at 09:00 Cyclobenzaprine HCl (Flexeril) 5 mg BID PRN PO MUSCLE SPASM; Start 09/01/17 at 22:00 Docusate Sodium (Colace) 100 mg BID PO Last administered on 09/08/17 20:54; Admin Dose 100 MG; Start 09/02/17 at 09:00 Hydromorphone HCl (Dilaudid) 4 mg Q4H PRN PO pain; Start 09/01/17 at 22:00 Magnesium Hydroxide (Milk Of Mag) 30 ml QHS PO Last administered on 09/08/17 20:53; Admin Dose 30 ML; Start 09/02/17 at 21:00 Methadone HCl (Methadone) 10 mg Q8H PO Last administered on 09/09/17 13:54; Admin Dose 10 MG; Start 09/02/17 at 06:00 Senna (Senokot) 2 tab BID PO Last administered on 09/09/17 08:44; Admin Dose 2 TAB; Start 09/01/17 at 22:00 Zinc Sulfate 220 mg 220 mg DAILY PO Last administered on 09/09/17 08:44; Admin Dose 220 MG; Start 09/02/17 at 09:00 Cefepime HCl 50 ml @ 100 mls/hr Q24H IVPB Last administered on 09/08/17 20: 54; Admin Dose 100 MLS/HR; Start 09/02/17 at 20:00 Vancomycin HCl (Vancocin) 100 ml @ 100 mls/hr Q8H IVPB Last administered on 10:25; Admin Dose 100 MLS/HR; Start 09/03/17 at 17:00 Enoxaparin Sodium (Lovenox) 50 mg Q12 SC Last administered on 09/09/17 09:01 ; Admin Dose 50 MG; Start 09/03/17 at 21:00 Diagnostic Test (Pha) (Accu-Chek) 1 ea 02 XX Last administered on 09/07/17 02 :00; Admin Dose 1 EA; Start 09/05/17 at 02:00 Miscellaneous Information 1 ea NOTE XX ; Start 09/04/17 at 11:00 Glucose (Glutose) 15 gm Q15M PRN PO DECREASED GLUCOSE; Start 09/04/17 at 11:00 Glucose (Glutose) 22.5 gm Q15M PRN PO DECREASED GLUCOSE; Start 09/04/17 at 11: 00 Dextrose (D50w Syringe) 25 ml Q15M PRN IV DECREASED GLUCOSE; Start 09/04/17 at 11:00 Dextrose (D50w Syringe) 50 ml Q15M PRN IV DECREASED GLUCOSE; Start 09/04/17 at 11:00 Glucagon (Glucagen) 1 mg Q15M PRN IM DECREASED GLUCOSE; Start 09/04/17 at 11: 00 Glucose (Glutose) 15 gm Q15M PRN BUCCAL DECREASED GLUCOSE; Start 09/04/17 at 11:00 Polyethylene Glycol (Miralax) 17 gm BID PO Last administered on 09/09/17 08: 44; Admin Dose 17 GM; Start 09/05/17 at 09:30 Bisacodyl (Dulcolax) 10 mg DAILY PRN PO CONSTIPATION; Start 09/05/17 at 09:30 Mupirocin (Bactroban) 1 applic BID TOP Last administered on 09/09/17 09:52; Admin Dose 1 APPLIC; Start 09/06/17 at 10:00 Ascorbic Acid (Vitamin C) 500 mg BID PO Last administered on 09/09/17 08:44; Admin Dose 500 MG; Start 09/06/17 at 09:30 Miscellaneous Information (Pending Santyl Order For Wound Care) This patient reece... PRN PRN XX WOUND CARE; Start 09/06/17 at 11:30 Non-Formulary Medication 1 dose 14 PO Last administered on 09/09/17 14:00; Admin Dose 1 DOSE; Start 09/06/17 at 22:30; Stop 09/26/17 at 14:01 Letrozole (Femara) 2.5 mg 14 PO Last administered on 09/09/17 14:00; Admin Dose 2.5 MG; Start 09/07/17 at 14:00 Methylprednisolone Sodium Succinate (Solu-Medrol) 40 mg Q8 IV Last administered on 09/09/17 13:54; Admin Dose 40 MG; Start 09/07/17 at 14:00 Collagenase (Santyl) 1 applic DAILY TOP ; Start 09/09/17 at 14:30 JOSEPH EDOUARD MD Sep 09, 2017 17:37
[2017-09-09] MEDS: CEFEPIME 1GM/50 ML (PMX) 50 ML IVPB SCH (21:26)
[2017-09-09] MEDS: MAGNESIUM HYDROXIDE 30ML CUP PO SCH (21:26)
[2017-09-10] VITALS (11 sets, daily range): BP systolic 101–116; BP diastolic 59–71; PULSE 70–104; RESP 18–21
[2017-09-10] MEDS: VANCOMYCIN 500MG/NS (PMX) 100 ML IVPB SCH ×3 (01:08→17:06)
[2017-09-10] MEDS: ACCU-CHEK XX SCH (01:08)
[2017-09-10] MEDS: ALBUTEROL/IPRATROPIUM (NEB) 3 ML AMP HHN SCH ×6 (01:29→20:34)
[2017-09-10] MEDS: METHYLPREDNISOLONE 40 MG INJ IV SCH ×2 (05:14→21:00)
[2017-09-10] MEDS: METHADONE 10 MG TAB PO SCH ×3 (05:15→21:02)
[2017-09-10] MEDS: ALPRAZOLAM 0.25 MG TAB PO SCH ×3 (05:15→21:02)
[2017-09-10] MEDS: PANTOPRAZOLE (EC) 40 MG TAB PO SCH (05:15)
[2017-09-10] MEDS: FUROSEMIDE 20 MG INJ IV SCH ×2 (05:16→17:56)
[2017-09-10 07:38] LABS: ABNORMAL IP MESSAGE 1; BASOPHILS % 0.1 % (0.0-2.0); HEMATOCRIT 28.4 % (37.0-47.0); HEMOGLOBIN 9.6 g/dl (12.0-16.0); LYMPHOCYTES # 0.4 10^3/ul (0.8-2.9); LYMPHOCYTES % 4.1 % (15.0-51.0); MEAN CORPUSCULAR HEMOGLOBIN 31.5 pg (29.0-33.0); MEAN CORPUSCULAR HGB CONC 33.8 g/dl (32.0-37.0); MEAN CORPUSCULAR VOLUME 93.1 fl (82.0-101.0); MEAN PLATELET VOLUME 10.6 fl (7.4-10.4); MONOCYTE # 0.4 10^3/ul (0.3-0.9); MONOCYTES % 4.5 % (0.0-11.0); NEUTROPHIL # 7.9 10^3/ul (1.6-7.5); NEUTROPHILS % 89.4 % (39.0-77.0); NUCLEATED RED BLOOD CELLS% 0.3 /100WBC (0.0-0.0); PLATELET COUNT 284 10^3/UL (140-415); RED BLOOD COUNT 3.05 10^6/ul (4.20-5.40); RED CELL DISTRIBUTION WIDTH 21.2 % (11.5-14.5); WHITE BLOOD COUNT 8.8 10^3/ul (4.8-10.8)
[2017-09-10 07:43] LABS: POSITIVE DIFF @See below
[2017-09-10] MEDS: CALCIUM/VITAMIN D (500/200) TAB PO SCH ×3 (07:54→17:56)
[2017-09-10] MEDS: LEVOTHYROXINE 100 MCG TAB PO SCH (07:54)
[2017-09-10 07:55] LABS: CALCIUM 6.1 mg/dl (8.4-10.2); CREATININE 0.47 mg/dl (0.44-1.00); POTASSIUM 3.9 mmol/L (3.5-5.1)
[2017-09-10] MEDS: INSULIN ASPART [NOVOLOG] 3 ML PEN SC SCH ×4 (08:03→21:00)
[2017-09-10 08:14] LABS: MAGNESIUM 1.9 mg/dl (1.7-2.5); PHOSPHORUS 2.8 mg/dl (2.5-4.9)
[2017-09-10] MEDS: SENNA TAB PO SCH ×2 (09:00→21:02)
[2017-09-10] MEDS: POLYETHYLENE GLYCOL 17 GM PACKET PO SCH ×2 (09:00→21:00)
[2017-09-10] MEDS: DOCUSATE SODIUM 100 MG CAP PO SCH ×2 (09:00→21:00)
[2017-09-10] MEDS: ASCORBIC ACID 500 MG TAB PO SCH ×2 (09:19→21:02)
[2017-09-10] MEDS: ZINC SULFATE 220 MG CAP PO SCH (09:19)
[2017-09-10] MEDS: AMLODIPINE 10 MG TAB PO SCH (09:20)
[2017-09-10] MEDS: MUPIROCIN 2% 22 GM OINT TOP SCH ×2 (09:21→21:39)
[2017-09-10] MEDS: ENOXAPARIN 60 MG/0.6 ML SYG SC SCH ×2 (09:33→21:06)
[2017-09-10] MEDS: COLLAGENASE 30 GM TUBE TOP SCH (09:35)
--- NOTE | 2017-09-10 10:00 | PN ---
Date/Time of Note Date/Time of Note DATE: 09/10/17 TIME: 09:59 Assessment/Plan VTE Prophylaxis VTE Prophylaxis Intervention: LMWH Lines/Catheters IV Catheter Type (from Nrs): Peripheral IV Urinary Cath still in place: Yes Reason Cath still needed: other (indicate) Assessment/Plan Chief Complaint/Hosp Course 1. Right lower lobe segmental pulmonary embolism. -Continue therapeutic anticoagulation. 2. Acute hypoxic respiratory failure. -Etiology could be related to underlying pulmonary embolism and bilateral pneumonia. -Supplemental oxygen. -NIPPV as indicated. -Inhaled bronchodilators. -Tapering dose of steroids. 3. Bilateral pneumonia. -Continue antibiotics. 4. Metastatic breast cancer. -On chemotherapy. -Oncology following. 5. Pancytopenia. -Secondary to underlying malignancy and chemotherapy. -Improving. 6. Urinary tract infection. -Continue antimicrobials. 7. Essential hypertension. -Continue antihypertensives. 8. Hypothyroidism. -Continue Synthroid. 9. Multiple pathologic rib and thoracic vertebral compression fractures. -From metastatic cancer. -Continue pain control. 10. Prediabetes. -Hemoglobin A1c 6.2. -Monitor random blood sugars. 11. Hypocalcemia. -Most probably secondary to underlying hypoalbuminemia. -Monitor for any signs of tetany. 12. Protein calorie malnutrition. -Mild to moderate. -High protein diet. -S/P RD evaluation. 13. MRSA colonization of the nares. -Continue Bactroban. 14. Fluids, electrolytes, and nutrition. -Regular diet. 15. Gastrointestinal prophylaxis (patient on steroids). -PPI. 16. Plan. -Wean off oxygen as indicated. -Continue therapeutic anticoagulation. -Continue antimicrobials. -PT. -Needs SNF upon discharge. The patient was seen in collaboration with Dr. Silva. Problems: Subjective 24 Hr Interval Summary Free Text/Dictation Remains on high flow O2. Exam/Review of Systems Vital Signs Vitals Vital Signs Date Time Temp Pulse Resp B/P Pulse Ox O2 Delivery O2 Flow Rate FiO2 09/10/17 09:54 79 16 93 Nasal Cannula 80 09/10/17 07:18 97.6 101/63 09/06/17 08:00 6.0 Intake and Output 09/09/17 09/09/17 09/10/17 15:00 23:00 07:00 Intake Total 100 ml 880 ml 630 ml Output Total 650 ml 600 ml Balance 100 ml 230 ml 30 ml Exam General: Adequately build 66 year-old female lying in bed in mild to moderate respiratory distress. HEENT: Normocephalic, atraumatic. Eyes: Anicteric sclerae, conjunctivae clear. ENT: Nasal septum midline, oral mucosa moist. Neck supple. Respiratory: Bilaterally diminished breath sounds. Use of accessory muscles of respiration. On noninvasive positive pressure ventilation. Cardiovascular: S1, S2 heard. Regular rate and rhythm. Abdomen: Soft, nontender, and nondistended. Bowel sounds positive in all 4 quadrants. Genitourinary: Deferred. Extremities: No cyanosis, no clubbing, no edema. Peripheral pulses palpable. Neurologic: Cranial nerves II through XII grossly intact. The patient is awake, alert, and oriented. Skin: Normal skin turgor. No skin rashes. Results Result Diagram: 09/10/17 0700 09/10/17 0701 Results 24 hrs Laboratory Tests Test 09/09/17 12:06 09/09/17 17:25 09/09/17 21:06 09/10/17 01:07 Bedside Glucose 199 223 H 201 171 Test 09/10/17 07:00 09/10/17 07:01 09/10/17 07:55 White Blood Count 8.8 Red Blood Count 3.05 L Hemoglobin 9.6 L Hematocrit 28.4 L Mean Corpuscular Volume 93.1 Mean Corpuscular Hemoglobin 31.5 Mean Corpuscular Hemoglobin Concent 33.8 Red Cell Distribution Width 21.2 H Platelet Count 284 Mean Platelet Volume 10.6 H Neutrophils % 89.4 H Lymphocytes % 4.1 L Monocytes % 4.5 Eosinophils % 0.0 Basophils % 0.1 Nucleated Red Blood Cells % 0.3 H Neutrophils # 7.9 H Lymphocytes # 0.4 L Monocytes # 0.4 Eosinophils # 0.0 Basophils # 0.0 Nucleated Red Blood Cells # 0.0 Phosphorus Level 2.8 Magnesium Level 1.9 Sodium Level 134 L Potassium Level 3.9 Chloride Level 96 L Carbon Dioxide Level 32 H Anion Gap 10 Blood Urea Nitrogen 17 Creatinine 0.47 Glucose Level 142 Calcium Level 6.1 L Bedside Glucose 148 Medications Medications Current Medications Ondansetron HCl (Zofran Inj) 4 mg Q6H PRN IV NAUSEA AND/OR VOMITING; Start 09/01/17 at 22:00 Nitroglycerin (Nitroglycerin (Sl Tab) 0.4 Mg) 1 tab Q5M PRN SL CHEST PAIN; Start 09/01/17 at 22:00 Acetaminophen (Tylenol Tab) 650 mg Q6H PRN PO PAIN LEVEL 1-3 OR FEVER Last administered on 09/03/17 16:00; Admin Dose 650 MG; Start 09/01/17 at 22:00 Morphine Sulfate (morphine) 2 mg Q4H PRN IV PAIN LEVEL 7-10; Start 09/01/17 at 22:00 Magnesium Hydroxide (Milk Of Mag) 30 ml DAILY PRN PO CONSTIPATION; Start at 22:00 Pantoprazole (Protonix Tab) 40 mg DAILY@06 PO Last administered on 09/10/17 05:15; Admin Dose 40 MG; Start 09/02/17 at 06:00 Alprazolam (Xanax) 0.25 mg Q8 PO Last administered on 09/10/17 05:15; Admin Dose 0.25 MG; Start 09/01/17 at 22:00 Amlodipine Besylate (Norvasc) 10 mg DAILY PO Last administered on 09/10/17 09 :20; Admin Dose 10 MG; Start 09/02/17 at 09:00 Cyclobenzaprine HCl (Flexeril) 5 mg BID PRN PO MUSCLE SPASM; Start 09/01/17 at 22:00 Docusate Sodium (Colace) 100 mg BID PO Last administered on 09/09/17 21:26; Admin Dose 100 MG; Start 09/02/17 at 09:00 Hydromorphone HCl (Dilaudid) 4 mg Q4H PRN PO pain; Start 09/01/17 at 22:00 Magnesium Hydroxide (Milk Of Mag) 30 ml QHS PO Last administered on 09/09/17 21:26; Admin Dose 30 ML; Start 09/02/17 at 21:00 Methadone HCl (Methadone) 10 mg Q8H PO Last administered on 09/10/17 05:15; Admin Dose 10 MG; Start 09/02/17 at 06:00 Senna (Senokot) 2 tab BID PO Last administered on 09/09/17 21:26; Admin Dose 2 TAB; Start 09/01/17 at 22:00 Zinc Sulfate 220 mg 220 mg DAILY PO Last administered on 09/10/17 09:19; Admin Dose 220 MG; Start 09/02/17 at 09:00 Cefepime HCl 50 ml @ 100 mls/hr Q24H IVPB Last administered on 09/09/17 21: 26; Admin Dose 100 MLS/HR; Start 09/02/17 at 20:00 Vancomycin HCl (Vancocin) 100 ml @ 100 mls/hr Q8H IVPB Last administered on 09:19; Admin Dose 100 MLS/HR; Start 09/03/17 at 17:00 Enoxaparin Sodium (Lovenox) 50 mg Q12 SC Last administered on 09/10/17 09:33 ; Admin Dose 50 MG; Start 09/03/17 at 21:00 Diagnostic Test (Pha) (Accu-Chek) 1 ea 02 XX Last administered on 09/10/17 01 :08; Admin Dose 1 EA; Start 09/05/17 at 02:00 Miscellaneous Information 1 ea NOTE XX ; Start 09/04/17 at 11:00 Glucose (Glutose) 15 gm Q15M PRN PO DECREASED GLUCOSE; Start 09/04/17 at 11:00 Glucose (Glutose) 22.5 gm Q15M PRN PO DECREASED GLUCOSE; Start 09/04/17 at 11: 00 Dextrose (D50w Syringe) 25 ml Q15M PRN IV DECREASED GLUCOSE; Start 09/04/17 at 11:00 Dextrose (D50w Syringe) 50 ml Q15M PRN IV DECREASED GLUCOSE; Start 09/04/17 at 11:00 Glucagon (Glucagen) 1 mg Q15M PRN IM DECREASED GLUCOSE; Start 09/04/17 at 11: 00 Glucose (Glutose) 15 gm Q15M PRN BUCCAL DECREASED GLUCOSE; Start 09/04/17 at 11:00 Polyethylene Glycol (Miralax) 17 gm BID PO Last administered on 09/09/17 21: 27; Admin Dose 17 GM; Start 09/05/17 at 09:30 Bisacodyl (Dulcolax) 10 mg DAILY PRN PO CONSTIPATION; Start 09/05/17 at 09:30 Mupirocin (Bactroban) 1 applic BID TOP Last administered on 09/10/17 09:21; Admin Dose 1 APPLIC; Start 09/06/17 at 10:00 Ascorbic Acid (Vitamin C) 500 mg BID PO Last administered on 09/10/17 09:19; Admin Dose 500 MG; Start 09/06/17 at 09:30 Miscellaneous Information (Pending Santyl Order For Wound Care) This patient reece... PRN PRN XX WOUND CARE; Start 09/06/17 at 11:30 Non-Formulary Medication 1 dose 14 PO Last administered on 09/09/17 14:00; Admin Dose 1 DOSE; Start 09/06/17 at 22:30; Stop 09/26/17 at 14:01 Letrozole (Femara) 2.5 mg 14 PO Last administered on 09/09/17 14:00; Admin Dose 2.5 MG; Start 09/07/17 at 14:00 Methylprednisolone Sodium Succinate (Solu-Medrol) 40 mg Q8 IV Last administered on 09/10/17 05:14; Admin Dose 40 MG; Start 09/07/17 at 14:00 Collagenase (Santyl) 1 applic DAILY TOP Last administered on 09/10/17 09:35; Admin Dose 1 APPLIC; Start 09/09/17 at 14:30 ROSAMARIA SOMERS NP Sep 10, 2017 10:00
--- NOTE | 2017-09-10 10:56 | CONS ---
Date/Time of Note Date/Time of Note DATE: 09/10/17 TIME: 10:55 Consult Date/Type/Reason Admit Date/Time Sep 01, 2017 at 20:22 Initial Consult Date 09/02/17 Type of Consultation: Pulmonary Ordering Provider: DONOVAN BOLAÑOS Subjective Continues high flow O2. Objective Vital Signs Date Time Temp Pulse Resp B/P Pulse Ox O2 Delivery O2 Flow Rate FiO2 09/10/17 09:54 79 16 93 Nasal Cannula 80 09/10/17 07:18 97.6 101/63 09/06/17 08:00 6.0 Intake and Output 09/09/17 09/09/17 09/10/17 15:00 23:00 07:00 Intake Total 100 ml 880 ml 630 ml Output Total 650 ml 600 ml Balance 100 ml 230 ml 30 ml Exam GENERAL: elderly lady comfortable at rest on high flow 02 VITAL SIGNS: per chart NECK: Supple. No JVD or lymphadenopathy. CARDIAC EXAM: S1, S2. No added sounds or murmurs. CHEST: Diminished air entry bilaterally R> L ABDOMEN: Soft, nontender. No guarding or rebound. EXTREMITIES: No cyanosis, clubbing or edema. NEUROLOGIC: Generalized weakness. No focal deficits. Results/Medications Result Diagram: 09/10/17 0700 09/10/17 0701 Results 24 hrs Laboratory Tests Test 09/09/17 12:06 09/09/17 17:25 09/09/17 21:06 09/10/17 01:07 Bedside Glucose 199 223 H 201 171 Test 09/10/17 07:00 09/10/17 07:01 09/10/17 07:55 White Blood Count 8.8 Red Blood Count 3.05 L Hemoglobin 9.6 L Hematocrit 28.4 L Mean Corpuscular Volume 93.1 Mean Corpuscular Hemoglobin 31.5 Mean Corpuscular Hemoglobin Concent 33.8 Red Cell Distribution Width 21.2 H Platelet Count 284 Mean Platelet Volume 10.6 H Neutrophils % 89.4 H Lymphocytes % 4.1 L Monocytes % 4.5 Eosinophils % 0.0 Basophils % 0.1 Nucleated Red Blood Cells % 0.3 H Neutrophils # 7.9 H Lymphocytes # 0.4 L Monocytes # 0.4 Eosinophils # 0.0 Basophils # 0.0 Nucleated Red Blood Cells # 0.0 Phosphorus Level 2.8 Magnesium Level 1.9 Sodium Level 134 L Potassium Level 3.9 Chloride Level 96 L Carbon Dioxide Level 32 H Anion Gap 10 Blood Urea Nitrogen 17 Creatinine 0.47 Glucose Level 142 Calcium Level 6.1 L Bedside Glucose 148 Medications Current Medications Ondansetron HCl (Zofran Inj) 4 mg Q6H PRN IV NAUSEA AND/OR VOMITING; Start 09/01/17 at 22:00 Nitroglycerin (Nitroglycerin (Sl Tab) 0.4 Mg) 1 tab Q5M PRN SL CHEST PAIN; Start 09/01/17 at 22:00 Acetaminophen (Tylenol Tab) 650 mg Q6H PRN PO PAIN LEVEL 1-3 OR FEVER Last administered on 09/03/17 16:00; Admin Dose 650 MG; Start 09/01/17 at 22:00 Morphine Sulfate (morphine) 2 mg Q4H PRN IV PAIN LEVEL 7-10; Start 09/01/17 at 22:00 Magnesium Hydroxide (Milk Of Mag) 30 ml DAILY PRN PO CONSTIPATION; Start at 22:00 Pantoprazole (Protonix Tab) 40 mg DAILY@06 PO Last administered on 09/10/17 05:15; Admin Dose 40 MG; Start 09/02/17 at 06:00 Alprazolam (Xanax) 0.25 mg Q8 PO Last administered on 09/10/17 05:15; Admin Dose 0.25 MG; Start 09/01/17 at 22:00 Amlodipine Besylate (Norvasc) 10 mg DAILY PO Last administered on 09/10/17 09 :20; Admin Dose 10 MG; Start 09/02/17 at 09:00 Cyclobenzaprine HCl (Flexeril) 5 mg BID PRN PO MUSCLE SPASM; Start 09/01/17 at 22:00 Docusate Sodium (Colace) 100 mg BID PO Last administered on 09/09/17 21:26; Admin Dose 100 MG; Start 09/02/17 at 09:00 Hydromorphone HCl (Dilaudid) 4 mg Q4H PRN PO pain; Start 09/01/17 at 22:00 Magnesium Hydroxide (Milk Of Mag) 30 ml QHS PO Last administered on 09/09/17 21:26; Admin Dose 30 ML; Start 09/02/17 at 21:00 Methadone HCl (Methadone) 10 mg Q8H PO Last administered on 09/10/17 05:15; Admin Dose 10 MG; Start 09/02/17 at 06:00 Senna (Senokot) 2 tab BID PO Last administered on 09/09/17 21:26; Admin Dose 2 TAB; Start 09/01/17 at 22:00 Zinc Sulfate 220 mg 220 mg DAILY PO Last administered on 09/10/17 09:19; Admin Dose 220 MG; Start 09/02/17 at 09:00 Cefepime HCl 50 ml @ 100 mls/hr Q24H IVPB Last administered on 09/09/17 21: 26; Admin Dose 100 MLS/HR; Start 09/02/17 at 20:00 Vancomycin HCl (Vancocin) 100 ml @ 100 mls/hr Q8H IVPB Last administered on 09:19; Admin Dose 100 MLS/HR; Start 09/03/17 at 17:00 Enoxaparin Sodium (Lovenox) 50 mg Q12 SC Last administered on 09/10/17 09:33 ; Admin Dose 50 MG; Start 09/03/17 at 21:00 Diagnostic Test (Pha) (Accu-Chek) 1 ea 02 XX Last administered on 09/10/17 01 :08; Admin Dose 1 EA; Start 09/05/17 at 02:00 Miscellaneous Information 1 ea NOTE XX ; Start 09/04/17 at 11:00 Glucose (Glutose) 15 gm Q15M PRN PO DECREASED GLUCOSE; Start 09/04/17 at 11:00 Glucose (Glutose) 22.5 gm Q15M PRN PO DECREASED GLUCOSE; Start 09/04/17 at 11: 00 Dextrose (D50w Syringe) 25 ml Q15M PRN IV DECREASED GLUCOSE; Start 09/04/17 at 11:00 Dextrose (D50w Syringe) 50 ml Q15M PRN IV DECREASED GLUCOSE; Start 09/04/17 at 11:00 Glucagon (Glucagen) 1 mg Q15M PRN IM DECREASED GLUCOSE; Start 09/04/17 at 11: 00 Glucose (Glutose) 15 gm Q15M PRN BUCCAL DECREASED GLUCOSE; Start 09/04/17 at 11:00 Polyethylene Glycol (Miralax) 17 gm BID PO Last administered on 09/09/17 21: 27; Admin Dose 17 GM; Start 09/05/17 at 09:30 Bisacodyl (Dulcolax) 10 mg DAILY PRN PO CONSTIPATION; Start 09/05/17 at 09:30 Mupirocin (Bactroban) 1 applic BID TOP Last administered on 09/10/17 09:21; Admin Dose 1 APPLIC; Start 09/06/17 at 10:00 Ascorbic Acid (Vitamin C) 500 mg BID PO Last administered on 09/10/17 09:19; Admin Dose 500 MG; Start 09/06/17 at 09:30 Miscellaneous Information (Pending Santyl Order For Wound Care) This patient reece... PRN PRN XX WOUND CARE; Start 09/06/17 at 11:30 Non-Formulary Medication 1 dose 14 PO Last administered on 09/09/17 14:00; Admin Dose 1 DOSE; Start 09/06/17 at 22:30; Stop 09/26/17 at 14:01 Letrozole (Femara) 2.5 mg 14 PO Last administered on 09/09/17 14:00; Admin Dose 2.5 MG; Start 09/07/17 at 14:00 Methylprednisolone Sodium Succinate (Solu-Medrol) 40 mg Q8 IV Last administered on 09/10/17 05:14; Admin Dose 40 MG; Start 09/07/17 at 14:00 Collagenase (Santyl) 1 applic DAILY TOP Last administered on 09/10/17 09:35; Admin Dose 1 APPLIC; Start 09/09/17 at 14:30 Assessment/Plan Chief Complaint/Hosp Course Assessment. 1. hypoxemic resp failure. possible BOOP, PNA. Confirmed PE continues high flow O2 2. Metastatic breast cancer. Plan. 1. Continue abx, steroids 2. Decrease 02 as tolerated. 3. Repeat chest x-ray pending 4. trial of lasix. Kumar eval. Discussed with respiratory therapy today. Increased flow with decreased FiO2. Problems: MOSES CUNNINGHAM MD, [facility] Sep 10, 2017 10:56
--- NOTE | 2017-09-10 10:56 | CONS ---
Date/Time of Note Date/Time of Note DATE: 09/10/17 TIME: 10:56 Assessment/Plan Assessment/Plan Chief Complaint/Hosp Course Metastatic Breast Ca ON TREATMENT CHEMO ON HOLD INCOMPLETE RECORD RECORD- p Pancytopenia POST CHEMO SL IMPROVED MONITOR CLOSELY TRANSFUSE IF NEEDED Hypoxemic Respiratory Failure: due to a multifocal pneumonia, more consistent with viral. PER PULM- In view of the morphological appearance on thoracic CT, must also consider non-infectious etiologies such as an organizing pneumonia (BOOP) secondary to her chemo (need records to know what she has been on) and/or XRT. RECORD- P HYPERCOAGULABLE STATE WITH subsegmental PE Anticoagulation with lovenox 1 mg/kg BID can be dc on LOVENOX- BETTER FOR PTS WITH ONCOLOGICAL PROBLEMS Problems: Consultation Date/Type/Reason Admit Date/Time Sep 01, 2017 at 20:22 Initial Consult Date 09/02/17 Type of Consultation: [facility] Referring Provider: DONOVAN BOLAÑOS 24 HR Interval Summary Free Text/Dictation NO NEW EVENTS Exam/Review of Systems Vital Signs Vitals Vital Signs Date Time Temp Pulse Resp B/P Pulse Ox O2 Delivery O2 Flow Rate FiO2 09/10/17 09:54 79 16 93 Nasal Cannula 80 09/10/17 07:18 97.6 101/63 09/06/17 08:00 6.0 Intake and Output 09/09/17 09/09/17 09/10/17 15:00 23:00 07:00 Intake Total 100 ml 880 ml 630 ml Output Total 650 ml 600 ml Balance 100 ml 230 ml 30 ml Exam GENERAL: elderly lady comfortable at rest on high flow 02 VITAL SIGNS: per chart NECK: Supple. No JVD or lymphadenopathy. CARDIAC EXAM: S1, S2. No added sounds or murmurs. CHEST: Diminished air entry bilaterally R> L ABDOMEN: Soft, nontender. No guarding or rebound. EXTREMITIES: No cyanosis, clubbing or edema. NEUROLOGIC: Generalized weakness. No focal deficits. Results Result Diagram: 09/10/17 0700 09/10/17 0701 Results 24 hrs Laboratory Tests Test 09/09/17 12:06 09/09/17 17:25 09/09/17 21:06 09/10/17 01:07 Bedside Glucose 199 223 H 201 171 Test 09/10/17 07:00 09/10/17 07:09/10/17 07:55 White Blood Count 8.8 Red Blood Count 3.05 L Hemoglobin 9.6 L Hematocrit 28.4 L Mean Corpuscular Volume 93.1 Mean Corpuscular Hemoglobin 31.5 Mean Corpuscular Hemoglobin Concent 33.8 Red Cell Distribution Width 21.2 H Platelet Count 284 Mean Platelet Volume 10.6 H Neutrophils % 89.4 H Lymphocytes % 4.1 L Monocytes % 4.5 Eosinophils % 0.0 Basophils % 0.1 Nucleated Red Blood Cells % 0.3 H Neutrophils # 7.9 H Lymphocytes # 0.4 L Monocytes # 0.4 Eosinophils # 0.0 Basophils # 0.0 Nucleated Red Blood Cells # 0.0 Phosphorus Level 2.8 Magnesium Level 1.9 Sodium Level 134 L Potassium Level 3.9 Chloride Level 96 L Carbon Dioxide Level 32 H Anion Gap 10 Blood Urea Nitrogen 17 Creatinine 0.47 Glucose Level 142 Calcium Level 6.1 L Bedside Glucose 148 Medications Medications Current Medications Ondansetron HCl (Zofran Inj) 4 mg Q6H PRN IV NAUSEA AND/OR VOMITING; Start 09/01/17 at 22:00 Nitroglycerin (Nitroglycerin (Sl Tab) 0.4 Mg) 1 tab Q5M PRN SL CHEST PAIN; Start 09/01/17 at 22:00 Acetaminophen (Tylenol Tab) 650 mg Q6H PRN PO PAIN LEVEL 1-3 OR FEVER Last administered on 09/03/17 16:00; Admin Dose 650 MG; Start 09/01/17 at 22:00 Morphine Sulfate (morphine) 2 mg Q4H PRN IV PAIN LEVEL 7-10; Start 09/01/17 at 22:00 Magnesium Hydroxide (Milk Of Mag) 30 ml DAILY PRN PO CONSTIPATION; Start at 22:00 Pantoprazole (Protonix Tab) 40 mg DAILY@06 PO Last administered on 09/10/17 05:15; Admin Dose 40 MG; Start 09/02/17 at 06:00 Alprazolam (Xanax) 0.25 mg Q8 PO Last administered on 09/10/17 05:15; Admin Dose 0.25 MG; Start 09/01/17 at 22:00 Amlodipine Besylate (Norvasc) 10 mg DAILY PO Last administered on 09/10/17 09 :20; Admin Dose 10 MG; Start 09/02/17 at 09:00 Cyclobenzaprine HCl (Flexeril) 5 mg BID PRN PO MUSCLE SPASM; Start 09/01/17 at 22:00 Docusate Sodium (Colace) 100 mg BID PO Last administered on 09/09/17 21:26; Admin Dose 100 MG; Start 09/02/17 at 09:00 Hydromorphone HCl (Dilaudid) 4 mg Q4H PRN PO pain; Start 09/01/17 at 22:00 Magnesium Hydroxide (Milk Of Mag) 30 ml QHS PO Last administered on 09/09/17 21:26; Admin Dose 30 ML; Start 09/02/17 at 21:00 Methadone HCl (Methadone) 10 mg Q8H PO Last administered on 09/10/17 05:15; Admin Dose 10 MG; Start 09/02/17 at 06:00 Senna (Senokot) 2 tab BID PO Last administered on 09/09/17 21:26; Admin Dose 2 TAB; Start 09/01/17 at 22:00 Zinc Sulfate 220 mg 220 mg DAILY PO Last administered on 09/10/17 09:19; Admin Dose 220 MG; Start 09/02/17 at 09:00 Cefepime HCl 50 ml @ 100 mls/hr Q24H IVPB Last administered on 09/09/17 21: 26; Admin Dose 100 MLS/HR; Start 09/02/17 at 20:00 Vancomycin HCl (Vancocin) 100 ml @ 100 mls/hr Q8H IVPB Last administered on 09:19; Admin Dose 100 MLS/HR; Start 09/03/17 at 17:00 Enoxaparin Sodium (Lovenox) 50 mg Q12 SC Last administered on 09/10/17 09:33 ; Admin Dose 50 MG; Start 09/03/17 at 21:00 Diagnostic Test (Pha) (Accu-Chek) 1 ea 02 XX Last administered on 09/10/17 01 :08; Admin Dose 1 EA; Start 09/05/17 at 02:00 Miscellaneous Information 1 ea NOTE XX ; Start 09/04/17 at 11:00 Glucose (Glutose) 15 gm Q15M PRN PO DECREASED GLUCOSE; Start 09/04/17 at 11:00 Glucose (Glutose) 22.5 gm Q15M PRN PO DECREASED GLUCOSE; Start 09/04/17 at 11: 00 Dextrose (D50w Syringe) 25 ml Q15M PRN IV DECREASED GLUCOSE; Start 09/04/17 at 11:00 Dextrose (D50w Syringe) 50 ml Q15M PRN IV DECREASED GLUCOSE; Start 09/04/17 at 11:00 Glucagon (Glucagen) 1 mg Q15M PRN IM DECREASED GLUCOSE; Start 09/04/17 at 11: 00 Glucose (Glutose) 15 gm Q15M PRN BUCCAL DECREASED GLUCOSE; Start 09/04/17 at 11:00 Polyethylene Glycol (Miralax) 17 gm BID PO Last administered on 09/09/17 21: 27; Admin Dose 17 GM; Start 09/05/17 at 09:30 Bisacodyl (Dulcolax) 10 mg DAILY PRN PO CONSTIPATION; Start 09/05/17 at 09:30 Mupirocin (Bactroban) 1 applic BID TOP Last administered on 09/10/17 09:21; Admin Dose 1 APPLIC; Start 09/06/17 at 10:00 Ascorbic Acid (Vitamin C) 500 mg BID PO Last administered on 09/10/17 09:19; Admin Dose 500 MG; Start 09/06/17 at 09:30 Miscellaneous Information (Pending Santyl Order For Wound Care) This patient reece... PRN PRN XX WOUND CARE; Start 09/06/17 at 11:30 Non-Formulary Medication 1 dose 14 PO Last administered on 09/09/17 14:00; Admin Dose 1 DOSE; Start 09/06/17 at 22:30; Stop 09/26/17 at 14:01 Letrozole (Femara) 2.5 mg 14 PO Last administered on 09/09/17 14:00; Admin Dose 2.5 MG; Start 09/07/17 at 14:00 Methylprednisolone Sodium Succinate (Solu-Medrol) 40 mg Q8 IV Last administered on 09/10/17 05:14; Admin Dose 40 MG; Start 09/07/17 at 14:00 Collagenase (Santyl) 1 applic DAILY TOP Last administered on 09/10/17 09:35; Admin Dose 1 APPLIC; Start 09/09/17 at 14:30 JOSEPH EDOUARD MD Sep 10, 2017 10:56
[2017-09-10] MEDS: IBRANCE PO SCH (14:04)
[2017-09-10] MEDS: LETROZOLE 2.5 MG TAB PO SCH (14:04)
[2017-09-10] MEDS: CEFEPIME 1GM/50 ML (PMX) 50 ML IVPB SCH (21:00)
[2017-09-10] MEDS: MAGNESIUM HYDROXIDE 30ML CUP PO SCH (21:00)
[2017-09-11] VITALS (13 sets, daily range): BP systolic 97–116; BP diastolic 57–67; PULSE 79–120; RESP 18–20
[2017-09-11] MEDS: ACCU-CHEK XX SCH (01:03)
[2017-09-11] MEDS: VANCOMYCIN 500MG/NS (PMX) 100 ML IVPB SCH ×3 (01:03→17:15)
[2017-09-11] MEDS: ALBUTEROL/IPRATROPIUM (NEB) 3 ML AMP HHN SCH ×6 (01:06→20:14)
[2017-09-11] MEDS: PANTOPRAZOLE (EC) 40 MG TAB PO SCH (05:52)
[2017-09-11] MEDS: LEVOTHYROXINE 100 MCG TAB PO SCH (05:52)
[2017-09-11] MEDS: METHADONE 10 MG TAB PO SCH ×3 (05:52→20:50)
[2017-09-11] MEDS: ALPRAZOLAM 0.25 MG TAB PO SCH ×3 (05:52→20:50)
[2017-09-11] MEDS: FUROSEMIDE 20 MG INJ IV SCH ×2 (05:53→17:15)
[2017-09-11 06:51] LABS: ABNORMAL IP MESSAGE 1; BASOPHILS % 0.1 % (0.0-2.0); HEMATOCRIT 26.2 % (37.0-47.0); HEMOGLOBIN 8.9 g/dl (12.0-16.0); LYMPHOCYTES # 0.3 10^3/ul (0.8-2.9); LYMPHOCYTES % 3.4 % (15.0-51.0); MEAN CORPUSCULAR HEMOGLOBIN 31.6 pg (29.0-33.0); MEAN CORPUSCULAR VOLUME 92.9 fl (82.0-101.0); MEAN PLATELET VOLUME 11.1 fl (7.4-10.4); MONOCYTE # 0.2 10^3/ul (0.3-0.9); MONOCYTES % 2.6 % (0.0-11.0); NEUTROPHIL # 7.7 10^3/ul (1.6-7.5); NUCLEATED RED BLOOD CELLS% 0.5 /100WBC (0.0-0.0); PLATELET COUNT 273 10^3/UL (140-415); RED BLOOD COUNT 2.82 10^6/ul (4.20-5.40); WHITE BLOOD COUNT 8.4 10^3/ul (4.8-10.8)
[2017-09-11 07:02] LABS: POSITIVE DIFF @See below
[2017-09-11 07:16] LABS: CREATININE 0.46 mg/dl (0.44-1.00); MAGNESIUM 1.9 mg/dl (1.7-2.5); PHOSPHORUS 2.8 mg/dl (2.5-4.9); POTASSIUM 3.8 mmol/L (3.5-5.1)
[2017-09-11 07:21] LABS: CALCIUM 5.9 mg/dl (8.4-10.2)
[2017-09-11] MEDS: ZINC SULFATE 220 MG CAP PO SCH (08:31)
[2017-09-11] MEDS: POLYETHYLENE GLYCOL 17 GM PACKET PO SCH ×3 (08:31→20:47)
[2017-09-11] MEDS: ASCORBIC ACID 500 MG TAB PO SCH ×2 (08:31→20:47)
[2017-09-11] MEDS: SENNA TAB PO SCH ×2 (08:31→20:47)
[2017-09-11] MEDS: DOCUSATE SODIUM 100 MG CAP PO SCH ×3 (08:31→20:47)
[2017-09-11] MEDS: CALCIUM/VITAMIN D (500/200) TAB PO SCH ×3 (08:31→17:15)
[2017-09-11] MEDS: COLLAGENASE 30 GM TUBE TOP SCH (08:32)
[2017-09-11] MEDS: AMLODIPINE 10 MG TAB PO SCH (08:32)
[2017-09-11] MEDS: MUPIROCIN 2% 22 GM OINT TOP SCH ×2 (08:32→20:49)
[2017-09-11] MEDS: METHYLPREDNISOLONE 40 MG INJ IV SCH ×2 (08:33→20:46)
[2017-09-11] MEDS: INSULIN ASPART [NOVOLOG] 3 ML PEN SC SCH ×4 (08:36→20:00)
[2017-09-11] MEDS: ENOXAPARIN 60 MG/0.6 ML SYG SC SCH ×2 (08:36→20:53)
[2017-09-11] MEDS ORDERED: CALCIUM CARBONATE 1.25 GM TAB PO ONE (10:30)
[2017-09-11 11:52] LABS: ALBUMIN 2.4 g/dl (3.3-4.9); MAGNESIUM 1.9 mg/dl (1.7-2.5)
--- NOTE | 2017-09-11 12:41 | CONS ---
Date/Time of Note Date/Time of Note DATE: 09/11/17 TIME: 12:40 Consult Date/Type/Reason Admit Date/Time Sep 01, 2017 at 20:22 Initial Consult Date 09/02/17 Type of Consultation: Pulmonary Ordering Provider: DONOVAN BOLAÑOS Subjective Patient continues high flow O2 35 L/min at 60%. Objective Vital Signs Date Time Temp Pulse Resp B/P Pulse Ox O2 Delivery O2 Flow Rate FiO2 09/11/17 12:37 97.5 90 20 111/62 98 09/11/17 12:17 High Flow 09/11/17 11:10 60 Intake and Output 09/10/17 09/10/17 09/11/17 15:00 23:00 07:00 Intake Total 100 ml 740 ml 630 ml Output Total 1200 ml 1100 ml Balance 100 ml -460 ml -470 ml Exam GENERAL: elderly lady comfortable at rest on high flow 02 VITAL SIGNS: per chart NECK: Supple. No JVD or lymphadenopathy. CARDIAC EXAM: S1, S2. No added sounds or murmurs. CHEST: Diminished air entry bilaterally R> L ABDOMEN: Soft, nontender. No guarding or rebound. EXTREMITIES: No cyanosis, clubbing or edema. NEUROLOGIC: Generalized weakness. No focal deficits. Results/Medications Result Diagram: 09/11/17 0547 09/11/17 0547 Results 24 hrs Laboratory Tests Test 09/10/17 17:54 09/10/17 20:33 09/11/17 05:47 09/11/17 08:30 Bedside Glucose 164 161 173 White Blood Count 8.4 Red Blood Count 2.82 L Hemoglobin 8.9 L Hematocrit 26.2 L Mean Corpuscular Volume 92.9 Mean Corpuscular Hemoglobin 31.6 Mean Corpuscular Hemoglobin Concent 34.0 Red Cell Distribution Width 21.0 H Platelet Count 273 Mean Platelet Volume 11.1 H Neutrophils % 92.0 H Lymphocytes % 3.4 L Monocytes % 2.6 Eosinophils % 0.0 Basophils % 0.1 Nucleated Red Blood Cells % 0.5 H Neutrophils # 7.7 H Lymphocytes # 0.3 L Monocytes # 0.2 L Eosinophils # 0.0 Basophils # 0.0 Nucleated Red Blood Cells # 0.0 Sodium Level 135 Potassium Level 3.8 Chloride Level 96 L Carbon Dioxide Level 33 H Anion Gap 10 Blood Urea Nitrogen 22 H Creatinine 0.46 Glucose Level 163 Calcium Level 5.9 *L Phosphorus Level 2.8 Magnesium Level 1.9 Test 09/11/17 10:45 09/11/17 11:58 Magnesium Level 1.9 Albumin 2.4 L Bedside Glucose 164 Medications Current Medications Ondansetron HCl (Zofran Inj) 4 mg Q6H PRN IV NAUSEA AND/OR VOMITING; Start 09/01/17 at 22:00 Nitroglycerin (Nitroglycerin (Sl Tab) 0.4 Mg) 1 tab Q5M PRN SL CHEST PAIN; Start 09/01/17 at 22:00 Acetaminophen (Tylenol Tab) 650 mg Q6H PRN PO PAIN LEVEL 1-3 OR FEVER Last administered on 09/03/17 16:00; Admin Dose 650 MG; Start 09/01/17 at 22:00 Morphine Sulfate (morphine) 2 mg Q4H PRN IV PAIN LEVEL 7-10; Start 09/01/17 at 22:00 Magnesium Hydroxide (Milk Of Mag) 30 ml DAILY PRN PO CONSTIPATION; Start at 22:00 Pantoprazole (Protonix Tab) 40 mg DAILY@06 PO Last administered on 09/11/17 05:52; Admin Dose 40 MG; Start 09/02/17 at 06:00 Alprazolam (Xanax) 0.25 mg Q8 PO Last administered on 09/11/17 05:52; Admin Dose 0.25 MG; Start 09/01/17 at 22:00 Amlodipine Besylate (Norvasc) 10 mg DAILY PO Last administered on 09/10/17 09 :20; Admin Dose 10 MG; Start 09/02/17 at 09:00 Cyclobenzaprine HCl (Flexeril) 5 mg BID PRN PO MUSCLE SPASM; Start 09/01/17 at 22:00 Docusate Sodium (Colace) 100 mg BID PO Last administered on 09/09/17 21:26; Admin Dose 100 MG; Start 09/02/17 at 09:00 Hydromorphone HCl (Dilaudid) 4 mg Q4H PRN PO pain; Start 09/01/17 at 22:00 Magnesium Hydroxide (Milk Of Mag) 30 ml QHS PO Last administered on 09/09/17 21:26; Admin Dose 30 ML; Start 09/02/17 at 21:00 Methadone HCl (Methadone) 10 mg Q8H PO Last administered on 09/11/17 05:52; Admin Dose 10 MG; Start 09/02/17 at 06:00 Senna (Senokot) 2 tab BID PO Last administered on 09/11/17 08:31; Admin Dose 2 TAB; Start 09/01/17 at 22:00 Zinc Sulfate 220 mg 220 mg DAILY PO Last administered on 09/11/17 08:31; Admin Dose 220 MG; Start 09/02/17 at 09:00 Cefepime HCl 50 ml @ 100 mls/hr Q24H IVPB Last administered on 09/10/17 21: 00; Admin Dose 100 MLS/HR; Start 09/02/17 at 20:00 Vancomycin HCl (Vancocin) 100 ml @ 100 mls/hr Q8H IVPB Last administered on 08:32; Admin Dose 100 MLS/HR; Start 09/03/17 at 17:00 Enoxaparin Sodium (Lovenox) 50 mg Q12 SC Last administered on 09/11/17 08:36 ; Admin Dose 50 MG; Start 09/03/17 at 21:00 Diagnostic Test (Pha) (Accu-Chek) 1 ea 02 XX Last administered on 09/10/17 01 :08; Admin Dose 1 EA; Start 09/05/17 at 02:00 Miscellaneous Information 1 ea NOTE XX ; Start 09/04/17 at 11:00 Glucose (Glutose) 15 gm Q15M PRN PO DECREASED GLUCOSE; Start 09/04/17 at 11:00 Glucose (Glutose) 22.5 gm Q15M PRN PO DECREASED GLUCOSE; Start 09/04/17 at 11: 00 Dextrose (D50w Syringe) 25 ml Q15M PRN IV DECREASED GLUCOSE; Start 09/04/17 at 11:00 Dextrose (D50w Syringe) 50 ml Q15M PRN IV DECREASED GLUCOSE; Start 09/04/17 at 11:00 Glucagon (Glucagen) 1 mg Q15M PRN IM DECREASED GLUCOSE; Start 09/04/17 at 11: 00 Glucose (Glutose) 15 gm Q15M PRN BUCCAL DECREASED GLUCOSE; Start 09/04/17 at 11:00 Polyethylene Glycol (Miralax) 17 gm BID PO Last administered on 09/09/17 21: 27; Admin Dose 17 GM; Start 09/05/17 at 09:30 Bisacodyl (Dulcolax) 10 mg DAILY PRN PO CONSTIPATION; Start 09/05/17 at 09:30 Mupirocin (Bactroban) 1 applic BID TOP Last administered on 09/11/17 08:32; Admin Dose 1 APPLIC; Start 09/06/17 at 10:00 Ascorbic Acid (Vitamin C) 500 mg BID PO Last administered on 09/11/17 08:31; Admin Dose 500 MG; Start 09/06/17 at 09:30 Miscellaneous Information (Pending Santyl Order For Wound Care) This patient reece... PRN PRN XX WOUND CARE; Start 09/06/17 at 11:30 Non-Formulary Medication 1 dose 14 PO Last administered on 09/10/17 14:04; Admin Dose 1 DOSE; Start 09/06/17 at 22:30; Stop 09/26/17 at 14:01 Letrozole (Femara) 2.5 mg 14 PO Last administered on 09/10/17 14:04; Admin Dose 2.5 MG; Start 09/07/17 at 14:00 Collagenase (Santyl) 1 applic DAILY TOP Last administered on 09/10/17 09:35; Admin Dose 1 APPLIC; Start 09/09/17 at 14:30 Methylprednisolone Sodium Succinate (Solu-Medrol) 40 mg Q12 IV Last administered on 09/11/17 08:33; Admin Dose 40 MG; Start 09/10/17 at 21:00 Assessment/Plan Chief Complaint/Hosp Course Assessment. 1. hypoxemic resp failure. possible BOOP, PNA. Confirmed PE continues high flow O2 2. Metastatic breast cancer. Plan. 1. Continue abx, steroids 2. Decrease 02 as tolerated. 3. Repeat chest x-ray pending 4. trial of lasix. Kumar eval. Overall prognosis guarded. Problems: MOSES CUNNINGHAM MD, [facility] Sep 11, 2017 12:41
--- NOTE | 2017-09-11 15:07 | PN ---
Date/Time of Note Date/Time of Note DATE: 09/11/17 TIME: 15:07 Assessment/Plan Lines/Catheters IV Catheter Type (from [facility]): [facility] Urinary Cath still in place: Yes Assessment/Plan Chief Complaint/Hosp Course Assessment and plan 1. Right lower lobe segmental pulmonary embolism. On therapeutic anticoagulation. 2. Acute hypoxic respiratory failure. Suspect secondary to #1. [employer] Commissioner following. Continue bronchodilators. Still noted to be hypoxic. Titrate off high flow O2. Continue with organ assembler recommendations. 3. Bilateral pneumonia. On antibiotics. 4. Metastatic breast cancer. Continuing to therapy. Oncologist following. 5. Pancytopenia secondary to #4. Monitor H&H. 6. UTI. Continue on antibiotic. 7. Hypothyroidism. Continue on Synthroid 8. Multiple pathologic rib fractures. Likely secondary to metastatic cancer. Continue with analgesics. 9. Diabetes. Continue insulin regimen. 10. Hypocalcemia. Resolved. Protein calorie malnutrition. Continue on high protein diet. 11. MRSA of the nares. Continue Bactroban Disposition plan: Continue with O2 supplement. Titrate down as tolerated. Plan for Kumar evaluation pending . physical therapy following. Check AM lab Discussed plan of care with Dr. Alonso Problems: Exam/Review of Systems Vital Signs Vitals Vital Signs Date Time Temp Pulse Resp B/P Pulse Ox O2 Delivery O2 Flow Rate FiO2 09/11/17 14:23 93 60 09/11/17 14:22 74 20 09/11/17 12:37 97.5 111/62 09/11/17 12:17 High Flow Intake and Output 09/10/17 09/10/17 09/11/17 14:59 22:59 06:59 Intake Total 100 ml 740 ml 630 ml Output Total 1200 ml 1100 ml Balance 100 ml -460 ml -470 ml Results Result Diagram: 09/11/17 0547 09/11/17 0547 Results 24 hrs Laboratory Tests Test 09/10/17 17:54 09/10/17 20:33 09/11/17 05:47 09/11/17 08:30 Bedside Glucose 164 161 173 White Blood Count 8.4 Red Blood Count 2.82 L Hemoglobin 8.9 L Hematocrit 26.2 L Mean Corpuscular Volume 92.9 Mean Corpuscular Hemoglobin 31.6 Mean Corpuscular Hemoglobin Concent 34.0 Red Cell Distribution Width 21.0 H Platelet Count 273 Mean Platelet Volume 11.1 H Neutrophils % 92.0 H Lymphocytes % 3.4 L Monocytes % 2.6 Eosinophils % 0.0 Basophils % 0.1 Nucleated Red Blood Cells % 0.5 H Neutrophils # 7.7 H Lymphocytes # 0.3 L Monocytes # 0.2 L Eosinophils # 0.0 Basophils # 0.0 Nucleated Red Blood Cells # 0.0 Sodium Level 135 Potassium Level 3.8 Chloride Level 96 L Carbon Dioxide Level 33 H Anion Gap 10 Blood Urea Nitrogen 22 H Creatinine 0.46 Glucose Level 163 Calcium Level 5.9 *L Phosphorus Level 2.8 Magnesium Level 1.9 Test 09/11/17 10:45 09/11/17 11:58 Magnesium Level 1.9 Albumin 2.4 L Bedside Glucose 164 Medications Medications Current Medications Ondansetron HCl (Zofran Inj) 4 mg Q6H PRN IV NAUSEA AND/OR VOMITING; Start 09/01/17 at 22:00 Nitroglycerin (Nitroglycerin (Sl Tab) 0.4 Mg) 1 tab Q5M PRN SL CHEST PAIN; Start 09/01/17 at 22:00 Acetaminophen (Tylenol Tab) 650 mg Q6H PRN PO PAIN LEVEL 1-3 OR FEVER Last administered on 09/03/17 16:00; Admin Dose 650 MG; Start 09/01/17 at 22:00 Morphine Sulfate (morphine) 2 mg Q4H PRN IV PAIN LEVEL 7-10; Start 09/01/17 at 22:00 Magnesium Hydroxide (Milk Of Mag) 30 ml DAILY PRN PO CONSTIPATION; Start at 22:00 Pantoprazole (Protonix Tab) 40 mg DAILY@06 PO Last administered on 09/11/17 05:52; Admin Dose 40 MG; Start 09/02/17 at 06:00 Alprazolam (Xanax) 0.25 mg Q8 PO Last administered on 09/11/17 14:48; Admin Dose 0.25 MG; Start 09/01/17 at 22:00 Amlodipine Besylate (Norvasc) 10 mg DAILY PO Last administered on 09/10/17 09 :20; Admin Dose 10 MG; Start 09/02/17 at 09:00 Cyclobenzaprine HCl (Flexeril) 5 mg BID PRN PO MUSCLE SPASM; Start 09/01/17 at 22:00 Docusate Sodium (Colace) 100 mg BID PO Last administered on 09/09/17 21:26; Admin Dose 100 MG; Start 09/02/17 at 09:00 Hydromorphone HCl (Dilaudid) 4 mg Q4H PRN PO pain; Start 09/01/17 at 22:00 Magnesium Hydroxide (Milk Of Mag) 30 ml QHS PO Last administered on 09/09/17 21:26; Admin Dose 30 ML; Start 09/02/17 at 21:00 Methadone HCl (Methadone) 10 mg Q8H PO Last administered on 09/11/17 14:48; Admin Dose 10 MG; Start 09/02/17 at 06:00 Senna (Senokot) 2 tab BID PO Last administered on 09/11/17 08:31; Admin Dose 2 TAB; Start 09/01/17 at 22:00 Zinc Sulfate 220 mg 220 mg DAILY PO Last administered on 09/11/17 08:31; Admin Dose 220 MG; Start 09/02/17 at 09:00 Cefepime HCl 50 ml @ 100 mls/hr Q24H IVPB Last administered on 09/10/17 21: 00; Admin Dose 100 MLS/HR; Start 09/02/17 at 20:00 Vancomycin HCl (Vancocin) 100 ml @ 100 mls/hr Q8H IVPB Last administered on 08:32; Admin Dose 100 MLS/HR; Start 09/03/17 at 17:00 Enoxaparin Sodium (Lovenox) 50 mg Q12 SC Last administered on 09/11/17 08:36 ; Admin Dose 50 MG; Start 09/03/17 at 21:00 Diagnostic Test (Pha) (Accu-Chek) 1 ea 02 XX Last administered on 09/10/17 01 :08; Admin Dose 1 EA; Start 09/05/17 at 02:00 Miscellaneous Information 1 ea NOTE XX ; Start 09/04/17 at 11:00 Glucose (Glutose) 15 gm Q15M PRN PO DECREASED GLUCOSE; Start 09/04/17 at 11:00 Glucose (Glutose) 22.5 gm Q15M PRN PO DECREASED GLUCOSE; Start 09/04/17 at 11: 00 Dextrose (D50w Syringe) 25 ml Q15M PRN IV DECREASED GLUCOSE; Start 09/04/17 at 11:00 Dextrose (D50w Syringe) 50 ml Q15M PRN IV DECREASED GLUCOSE; Start 09/04/17 at 11:00 Glucagon (Glucagen) 1 mg Q15M PRN IM DECREASED GLUCOSE; Start 09/04/17 at 11: 00 Glucose (Glutose) 15 gm Q15M PRN BUCCAL DECREASED GLUCOSE; Start 09/04/17 at 11:00 Polyethylene Glycol (Miralax) 17 gm BID PO Last administered on 09/09/17 21: 27; Admin Dose 17 GM; Start 09/05/17 at 09:30 Bisacodyl (Dulcolax) 10 mg DAILY PRN PO CONSTIPATION; Start 09/05/17 at 09:30 Mupirocin (Bactroban) 1 applic BID TOP Last administered on 09/11/17 08:32; Admin Dose 1 APPLIC; Start 09/06/17 at 10:00 Ascorbic Acid (Vitamin C) 500 mg BID PO Last administered on 09/11/17 08:31; Admin Dose 500 MG; Start 09/06/17 at 09:30 Miscellaneous Information (Pending Santyl Order For Wound Care) This patient reece... PRN PRN XX WOUND CARE; Start 09/06/17 at 11:30 Non-Formulary Medication 1 dose 14 PO Last administered on 09/10/17 14:04; Admin Dose 1 DOSE; Start 09/06/17 at 22:30; Stop 09/26/17 at 14:01 Letrozole (Femara) 2.5 mg 14 PO Last administered on 09/10/17 14:04; Admin Dose 2.5 MG; Start 09/07/17 at 14:00 Collagenase (Santyl) 1 applic DAILY TOP Last administered on 09/10/17 09:35; Admin Dose 1 APPLIC; Start 09/09/17 at 14:30 Methylprednisolone Sodium Succinate (Solu-Medrol) 40 mg Q12 IV Last administered on 09/11/17 08:33; Admin Dose 40 MG; Start 09/10/17 at 21:00 DONOVAN BOLAÑOS Sep 11, 2017 15:07 Methylprednisolone Sodium Succinate (Solu-Medrol) 40 mg Q12 IV Last administered on 09/11/17 08:33; Admin Dose 40 MG; Start 09/10/17 at 21:00 DONOVAN BOLAÑOS Sep 11, 2017 15:07
[2017-09-11] MEDS: LETROZOLE 2.5 MG TAB PO SCH (15:14)
[2017-09-11] MEDS: IBRANCE PO SCH (15:14)
[2017-09-11] MEDS: CEFEPIME 1GM/50 ML (PMX) 50 ML IVPB SCH (20:03)
[2017-09-11] MEDS: MAGNESIUM HYDROXIDE 30ML CUP PO SCH ×2 (20:48→21:52)
--- NOTE | 2017-09-11 22:56 | CONS ---
Date/Time of Note Date/Time of Note DATE: 09/11/17 TIME: 22:56 Assessment/Plan Assessment/Plan Chief Complaint/Hosp Course Metastatic Breast Ca ON TREATMENT CHEMO ON HOLD INCOMPLETE RECORD RECORD- p Pancytopenia POST CHEMO SL IMPROVED MONITOR CLOSELY TRANSFUSE IF NEEDED Hypoxemic Respiratory Failure: due to a multifocal pneumonia, more consistent with viral. PER PULM- In view of the morphological appearance on thoracic CT, must also consider non-infectious etiologies such as an organizing pneumonia (BOOP) secondary to her chemo (need records to know what she has been on) and/or XRT. RECORD- P HYPERCOAGULABLE STATE WITH subsegmental PE Anticoagulation with lovenox 1 mg/kg BID can be dc on LOVENOX- BETTER FOR PTS WITH ONCOLOGICAL PROBLEMS Problems: Consultation Date/Type/Reason Admit Date/Time Sep 01, 2017 at 20:22 Initial Consult Date 09/02/17 [facility] Referring Provider: DONOVAN BOLAÑOS 24 HR Interval Summary Free Text/Dictation ON HIGH FLOW O2 Exam/Review of Systems Vital Signs Vitals Vital Signs Date Time Temp Pulse Resp B/P Pulse Ox O2 Delivery O2 Flow Rate FiO2 09/11/17 21:31 120 09/11/17 20:30 Vapotherm 09/11/17 20:14 24 98 60 09/11/17 19:42 97.8 116/67 Intake and Output 09/10/17 09/10/17 09/11/17 15:00 23:00 07:00 Intake Total 100 ml 740 ml 630 ml Output Total 1200 ml 1100 ml Balance 100 ml -460 ml -470 ml Exam GENERAL: elderly lady comfortable at rest on high flow 02 VITAL SIGNS: per chart NECK: Supple. No JVD or lymphadenopathy. CARDIAC EXAM: S1, S2. No added sounds or murmurs. CHEST: Diminished air entry bilaterally R> L ABDOMEN: Soft, nontender. No guarding or rebound. EXTREMITIES: No cyanosis, clubbing or edema. NEUROLOGIC: Generalized weakness. No focal deficits. Results Result Diagram: 09/11/17 0547 09/11/17 0547 Results 24 hrs Laboratory Tests Test 09/11/17 05:47 09/11/17 08:30 09/11/17 10:45 09/11/17 11:58 White Blood Count 8.4 Red Blood Count 2.82 L Hemoglobin 8.9 L Hematocrit 26.2 L Mean Corpuscular Volume 92.9 Mean Corpuscular Hemoglobin 31.6 Mean Corpuscular Hemoglobin Concent 34.0 Red Cell Distribution Width 21.0 H Platelet Count 273 Mean Platelet Volume 11.1 H Neutrophils % 92.0 H Lymphocytes % 3.4 L Monocytes % 2.6 Eosinophils % 0.0 Basophils % 0.1 Nucleated Red Blood Cells % 0.5 H Neutrophils # 7.7 H Lymphocytes # 0.3 L Monocytes # 0.2 L Eosinophils # 0.0 Basophils # 0.0 Nucleated Red Blood Cells # 0.0 Sodium Level 135 Potassium Level 3.8 Chloride Level 96 L Carbon Dioxide Level 33 H Anion Gap 10 Blood Urea Nitrogen 22 H Creatinine 0.46 Glucose Level 163 Calcium Level 5.9 *L Phosphorus Level 2.8 Magnesium Level 1.9 1.9 Bedside Glucose 173 164 Albumin 2.4 L Test 09/11/17 17:13 09/11/17 19:56 Bedside Glucose 181 133 Medications Medications Current Medications Ondansetron HCl (Zofran Inj) 4 mg Q6H PRN IV NAUSEA AND/OR VOMITING; Start 09/01/17 at 22:00 Nitroglycerin (Nitroglycerin (Sl Tab) 0.4 Mg) 1 tab Q5M PRN SL CHEST PAIN; Start 09/01/17 at 22:00 Acetaminophen (Tylenol Tab) 650 mg Q6H PRN PO PAIN LEVEL 1-3 OR FEVER Last administered on 09/03/17 16:00; Admin Dose 650 MG; Start 09/01/17 at 22:00 Morphine Sulfate (morphine) 2 mg Q4H PRN IV PAIN LEVEL 7-10; Start 09/01/17 at 22:00 Magnesium Hydroxide (Milk Of Mag) 30 ml DAILY PRN PO CONSTIPATION; Start at 22:00 Pantoprazole (Protonix Tab) 40 mg DAILY@06 PO Last administered on 09/11/17 05:52; Admin Dose 40 MG; Start 09/02/17 at 06:00 Alprazolam (Xanax) 0.25 mg Q8 PO Last administered on 09/11/17 20:50; Admin Dose 0.25 MG; Start 09/01/17 at 22:00 Amlodipine Besylate (Norvasc) 10 mg DAILY PO Last administered on 09/10/17 09 :20; Admin Dose 10 MG; Start 09/02/17 at 09:00 Cyclobenzaprine HCl (Flexeril) 5 mg BID PRN PO MUSCLE SPASM; Start 09/01/17 at 22:00 Docusate Sodium (Colace) 100 mg BID PO Last administered on 09/11/17 20:47; Admin Dose 100 MG; Start 09/02/17 at 09:00 Hydromorphone HCl (Dilaudid) 4 mg Q4H PRN PO pain; Start 09/01/17 at 22:00 Magnesium Hydroxide (Milk Of Mag) 30 ml QHS PO Last administered on 09/11/17 21:52; Admin Dose 30 ML; Start 09/02/17 at 21:00 Methadone HCl (Methadone) 10 mg Q8H PO Last administered on 09/11/17 20:50; Admin Dose 10 MG; Start 09/02/17 at 06:00 Senna (Senokot) 2 tab BID PO Last administered on 09/11/17 20:47; Admin Dose 2 TAB; Start 09/01/17 at 22:00 Zinc Sulfate 220 mg 220 mg DAILY PO Last administered on 09/11/17 08:31; Admin Dose 220 MG; Start 09/02/17 at 09:00 Cefepime HCl 50 ml @ 100 mls/hr Q24H IVPB Last administered on 09/11/17 20: 03; Admin Dose 100 MLS/HR; Start 09/02/17 at 20:00 Vancomycin HCl (Vancocin) 100 ml @ 100 mls/hr Q8H IVPB Last administered on 17:15; Admin Dose 100 MLS/HR; Start 09/03/17 at 17:00 Enoxaparin Sodium (Lovenox) 50 mg Q12 SC Last administered on 09/11/17 20:53 ; Admin Dose 50 MG; Start 09/03/17 at 21:00 Diagnostic Test (Pha) (Accu-Chek) 1 ea 02 XX Last administered on 09/10/17 01 :08; Admin Dose 1 EA; Start 09/05/17 at 02:00 Miscellaneous Information 1 ea NOTE XX ; Start 09/04/17 at 11:00 Glucose (Glutose) 15 gm Q15M PRN PO DECREASED GLUCOSE; Start 09/04/17 at 11:00 Glucose (Glutose) 22.5 gm Q15M PRN PO DECREASED GLUCOSE; Start 09/04/17 at 11: 00 Dextrose (D50w Syringe) 25 ml Q15M PRN IV DECREASED GLUCOSE; Start 09/04/17 at 11:00 Dextrose (D50w Syringe) 50 ml Q15M PRN IV DECREASED GLUCOSE; Start 09/04/17 at 11:00 Glucagon (Glucagen) 1 mg Q15M PRN IM DECREASED GLUCOSE; Start 09/04/17 at 11: 00 Glucose (Glutose) 15 gm Q15M PRN BUCCAL DECREASED GLUCOSE; Start 09/04/17 at 11:00 Polyethylene Glycol (Miralax) 17 gm BID PO Last administered on 09/09/17 21: 27; Admin Dose 17 GM; Start 09/05/17 at 09:30 Bisacodyl (Dulcolax) 10 mg DAILY PRN PO CONSTIPATION; Start 09/05/17 at 09:30 Mupirocin (Bactroban) 1 applic BID TOP Last administered on 09/11/17 20:49; Admin Dose 1 APPLIC; Start 09/06/17 at 10:00 Ascorbic Acid (Vitamin C) 500 mg BID PO Last administered on 09/11/17 20:47; Admin Dose 500 MG; Start 09/06/17 at 09:30 Miscellaneous Information (Pending Santyl Order For Wound Care) This patient reece... PRN PRN XX WOUND CARE; Start 09/06/17 at 11:30 Non-Formulary Medication 1 dose 14 PO Last administered on 09/11/17 15:14; Admin Dose 1 DOSE; Start 09/06/17 at 22:30; Stop 09/26/17 at 14:01 Letrozole (Femara) 2.5 mg 14 PO Last administered on 09/11/17 15:14; Admin Dose 2.5 MG; Start 09/07/17 at 14:00 Collagenase (Santyl) 1 applic DAILY TOP Last administered on 09/10/17 09:35; Admin Dose 1 APPLIC; Start 09/09/17 at 14:30 Methylprednisolone Sodium Succinate (Solu-Medrol) 40 mg Q12 IV Last administered on 09/11/17 20:46; Admin Dose 40 MG; Start 09/10/17 at 21:00 JOSEPH EDOUARD MD Sep 11, 2017 22:56
[2017-09-12] VITALS (12 sets, daily range): BP systolic 92–120; BP diastolic 61–74; PULSE 72–80; RESP 18–19
[2017-09-12] MEDS: ALBUTEROL/IPRATROPIUM (NEB) 3 ML AMP HHN SCH ×6 (00:04→21:00)
[2017-09-12] MEDS: VANCOMYCIN 500MG/NS (PMX) 100 ML IVPB SCH ×3 (01:25→17:02)
[2017-09-12] MEDS: ACCU-CHEK XX SCH (01:25)
[2017-09-12] MEDS: PANTOPRAZOLE (EC) 40 MG TAB PO SCH (06:25)
[2017-09-12] MEDS: FUROSEMIDE 20 MG INJ IV SCH ×2 (06:25→17:02)
[2017-09-12] MEDS: LEVOTHYROXINE 100 MCG TAB PO SCH (06:26)
[2017-09-12] MEDS: ALPRAZOLAM 0.25 MG TAB PO SCH ×3 (06:26→21:46)
[2017-09-12] MEDS: METHADONE 10 MG TAB PO SCH ×3 (06:26→21:46)
[2017-09-12] MEDS: INSULIN ASPART [NOVOLOG] 3 ML PEN SC SCH ×4 (07:55→20:31)
[2017-09-12 08:56] LABS: ABNORMAL IP MESSAGE 1; BASOPHILS % 0.1 % (0.0-2.0); HEMATOCRIT 32.7 % (37.0-47.0); HEMOGLOBIN 11.2 g/dl (12.0-16.0); LYMPHOCYTES # 0.3 10^3/ul (0.8-2.9); MEAN CORPUSCULAR HEMOGLOBIN 31.9 pg (29.0-33.0); MEAN CORPUSCULAR HGB CONC 34.3 g/dl (32.0-37.0); MEAN CORPUSCULAR VOLUME 93.2 fl (82.0-101.0); MEAN PLATELET VOLUME 10.9 fl (7.4-10.4); MONOCYTE # 0.3 10^3/ul (0.3-0.9); NEUTROPHIL # 7.7 10^3/ul (1.6-7.5); NEUTROPHILS % 91.1 % (39.0-77.0); NUCLEATED RED BLOOD CELLS% 0.4 /100WBC (0.0-0.0); PLATELET COUNT 309 10^3/UL (140-415); RED BLOOD COUNT 3.51 10^6/ul (4.20-5.40); RED CELL DISTRIBUTION WIDTH 21.1 % (11.5-14.5); WHITE BLOOD COUNT 8.5 10^3/ul (4.8-10.8)
[2017-09-12] MEDS: MUPIROCIN 2% 22 GM OINT TOP SCH ×2 (08:59→21:46)
[2017-09-12] MEDS: POLYETHYLENE GLYCOL 17 GM PACKET PO SCH ×2 (08:59→20:49)
[2017-09-12] MEDS: COLLAGENASE 30 GM TUBE TOP SCH (08:59)
[2017-09-12] MEDS: DOCUSATE SODIUM 100 MG CAP PO SCH ×2 (08:59→20:27)
[2017-09-12 09:01] LABS: POSITIVE DIFF @See below
[2017-09-12] MEDS: ZINC SULFATE 220 MG CAP PO SCH (09:15)
[2017-09-12] MEDS: CALCIUM/VITAMIN D (500/200) TAB PO SCH ×3 (09:15→17:02)
[2017-09-12] MEDS: ASCORBIC ACID 500 MG TAB PO SCH ×2 (09:15→20:27)
[2017-09-12] MEDS: AMLODIPINE 10 MG TAB PO SCH (09:15)
[2017-09-12] MEDS: SENNA TAB PO SCH ×2 (09:15→20:28)
[2017-09-12] MEDS: ENOXAPARIN 60 MG/0.6 ML SYG SC SCH ×2 (09:20→20:32)
[2017-09-12] MEDS: METHYLPREDNISOLONE 40 MG INJ IV SCH ×2 (09:21→20:27)
[2017-09-12 09:22] LABS: CALCIUM 6.2 mg/dl (8.4-10.2); CREATININE 0.53 mg/dl (0.44-1.00); POTASSIUM 3.3 mmol/L (3.5-5.1)
--- NOTE | 2017-09-12 11:22 | CONS ---
Date/Time of Note Date/Time of Note DATE: 09/12/17 TIME: 11:21 Consult Date/Type/Reason Admit Date/Time Sep 01, 2017 at 20:22 Initial Consult Date 09/02/17 Type of Consultation: Pulmonary Ordering Provider: DONOVAN BOLAÑOS Subjective Patient remains stable no new events. Continues high flow O2 at 35 L/min. Objective Vital Signs Date Time Temp Pulse Resp B/P Pulse Ox O2 Delivery O2 Flow Rate FiO2 09/12/17 11:17 97.7 88 18 92/68 95 09/12/17 08:22 High Flow 09/12/17 04:05 50 Intake and Output 09/11/17 09/11/17 09/12/17 15:00 23:00 07:00 Intake Total 572 ml 220 ml Output Total 1000 ml 400 ml Balance -428 ml -180 ml Exam GENERAL: elderly lady comfortable at rest on high flow 02 VITAL SIGNS: per chart NECK: Supple. No JVD or lymphadenopathy. CARDIAC EXAM: S1, S2. No added sounds or murmurs. CHEST: Diminished air entry bilaterally R> L ABDOMEN: Soft, nontender. No guarding or rebound. EXTREMITIES: No cyanosis, clubbing or edema. NEUROLOGIC: Generalized weakness. No focal deficits. Results/Medications Result Diagram: 09/12/17 0816 09/12/17 0816 Results 24 hrs Laboratory Tests Test 09/11/17 11:58 09/11/17 17:13 09/11/17 19:56 09/12/17 07:59 Bedside Glucose 164 181 133 134 Test 09/12/17 08:16 White Blood Count 8.5 Red Blood Count 3.51 #L Hemoglobin 11.2 #L Hematocrit 32.7 #L Mean Corpuscular Volume 93.2 Mean Corpuscular Hemoglobin 31.9 Mean Corpuscular Hemoglobin Concent 34.3 Red Cell Distribution Width 21.1 H Platelet Count 309 Mean Platelet Volume 10.9 H Neutrophils % 91.1 H Lymphocytes % 4.0 L Monocytes % 3.0 Eosinophils % 0.0 Basophils % 0.1 Nucleated Red Blood Cells % 0.4 H Neutrophils # 7.7 H Lymphocytes # 0.3 L Monocytes # 0.3 Eosinophils # 0.0 Basophils # 0.0 Nucleated Red Blood Cells # 0.0 Sodium Level 136 Potassium Level 3.3 L Chloride Level 92 L Carbon Dioxide Level 39 H Anion Gap 8 Blood Urea Nitrogen 27 H Creatinine 0.53 Glucose Level 145 Calcium Level 6.2 L Medications Current Medications Ondansetron HCl (Zofran Inj) 4 mg Q6H PRN IV NAUSEA AND/OR VOMITING; Start 09/01/17 at 22:00 Nitroglycerin (Nitroglycerin (Sl Tab) 0.4 Mg) 1 tab Q5M PRN SL CHEST PAIN; Start 09/01/17 at 22:00 Acetaminophen (Tylenol Tab) 650 mg Q6H PRN PO PAIN LEVEL 1-3 OR FEVER Last administered on 09/03/17 16:00; Admin Dose 650 MG; Start 09/01/17 at 22:00 Morphine Sulfate (morphine) 2 mg Q4H PRN IV PAIN LEVEL 7-10; Start 09/01/17 at 22:00 Magnesium Hydroxide (Milk Of Mag) 30 ml DAILY PRN PO CONSTIPATION; Start at 22:00 Pantoprazole (Protonix Tab) 40 mg DAILY@06 PO Last administered on 09/12/17 06:25; Admin Dose 40 MG; Start 09/02/17 at 06:00 Alprazolam (Xanax) 0.25 mg Q8 PO Last administered on 09/12/17 06:26; Admin Dose 0.25 MG; Start 09/01/17 at 22:00 Amlodipine Besylate (Norvasc) 10 mg DAILY PO Last administered on 09/12/17 09 :15; Admin Dose 10 MG; Start 09/02/17 at 09:00 Cyclobenzaprine HCl (Flexeril) 5 mg BID PRN PO MUSCLE SPASM; Start 09/01/17 at 22:00 Docusate Sodium (Colace) 100 mg BID PO Last administered on 09/11/17 20:47; Admin Dose 100 MG; Start 09/02/17 at 09:00 Hydromorphone HCl (Dilaudid) 4 mg Q4H PRN PO pain; Start 09/01/17 at 22:00 Magnesium Hydroxide (Milk Of Mag) 30 ml QHS PO Last administered on 09/11/17 21:52; Admin Dose 30 ML; Start 09/02/17 at 21:00 Methadone HCl (Methadone) 10 mg Q8H PO Last administered on 09/12/17 06:26; Admin Dose 10 MG; Start 09/02/17 at 06:00 Senna (Senokot) 2 tab BID PO Last administered on 09/12/17 09:15; Admin Dose 2 TAB; Start 09/01/17 at 22:00 Zinc Sulfate 220 mg 220 mg DAILY PO Last administered on 09/12/17 09:15; Admin Dose 220 MG; Start 09/02/17 at 09:00 Cefepime HCl 50 ml @ 100 mls/hr Q24H IVPB Last administered on 09/11/17 20: 03; Admin Dose 100 MLS/HR; Start 09/02/17 at 20:00 Vancomycin HCl (Vancocin) 100 ml @ 100 mls/hr Q8H IVPB Last administered on 09:15; Admin Dose 100 MLS/HR; Start 09/03/17 at 17:00 Enoxaparin Sodium (Lovenox) 50 mg Q12 SC Last administered on 09/12/17 09:20 ; Admin Dose 50 MG; Start 09/03/17 at 21:00 Diagnostic Test (Pha) (Accu-Chek) 1 ea 02 XX Last administered on 09/10/17 01 :08; Admin Dose 1 EA; Start 09/05/17 at 02:00 Miscellaneous Information 1 ea NOTE XX ; Start 09/04/17 at 11:00 Glucose (Glutose) 15 gm Q15M PRN PO DECREASED GLUCOSE; Start 09/04/17 at 11:00 Glucose (Glutose) 22.5 gm Q15M PRN PO DECREASED GLUCOSE; Start 09/04/17 at 11: 00 Dextrose (D50w Syringe) 25 ml Q15M PRN IV DECREASED GLUCOSE; Start 09/04/17 at 11:00 Dextrose (D50w Syringe) 50 ml Q15M PRN IV DECREASED GLUCOSE; Start 09/04/17 at 11:00 Glucagon (Glucagen) 1 mg Q15M PRN IM DECREASED GLUCOSE; Start 09/04/17 at 11: 00 Glucose (Glutose) 15 gm Q15M PRN BUCCAL DECREASED GLUCOSE; Start 09/04/17 at 11:00 Polyethylene Glycol (Miralax) 17 gm BID PO Last administered on 09/09/17 21: 27; Admin Dose 17 GM; Start 09/05/17 at 09:30 Bisacodyl (Dulcolax) 10 mg DAILY PRN PO CONSTIPATION; Start 09/05/17 at 09:30 Mupirocin (Bactroban) 1 applic BID TOP Last administered on 09/12/17 08:59; Admin Dose 1 APPLIC; Start 09/06/17 at 10:00 Ascorbic Acid (Vitamin C) 500 mg BID PO Last administered on 09/12/17 09:15; Admin Dose 500 MG; Start 09/06/17 at 09:30 Miscellaneous Information (Pending Santyl Order For Wound Care) This patient reece... PRN PRN XX WOUND CARE; Start 09/06/17 at 11:30 Non-Formulary Medication 1 dose 14 PO Last administered on 09/11/17 15:14; Admin Dose 1 DOSE; Start 09/06/17 at 22:30; Stop 09/26/17 at 14:01 Letrozole (Femara) 2.5 mg 14 PO Last administered on 09/11/17 15:14; Admin Dose 2.5 MG; Start 09/07/17 at 14:00 Collagenase (Santyl) 1 applic DAILY TOP Last administered on 09/10/17 09:35; Admin Dose 1 APPLIC; Start 09/09/17 at 14:30 Methylprednisolone Sodium Succinate (Solu-Medrol) 40 mg Q12 IV Last administered on 09/12/17 09:21; Admin Dose 40 MG; Start 09/10/17 at 21:00 Miscellaneous Information (*Rx Drug Level Order Reminder*) VANCO TROUGH @ 0, 000 ON ... ONCE ONCE XX ; Start 09/13/17 at 00:00; Stop 09/13/17 at 00:01 Assessment/Plan Chief Complaint/Hosp Course Assessment. 1. hypoxemic resp failure. possible BOOP, PNA. Confirmed PE continues high flow O2 2. Metastatic breast cancer. Plan. 1. Continue abx, steroids 2. Decrease 02 as tolerated. 3. Repeat chest x-ray 4. Continue Lasix if tolerated. Kumar eval. Overall prognosis guarded. Problems: MOSES CUNNINGHAM MD, [facility] Sep 12, 2017 11:22
[2017-09-12] MEDS: LETROZOLE 2.5 MG TAB PO SCH (14:16)
[2017-09-12] MEDS: IBRANCE PO SCH (14:16)
--- NOTE | 2017-09-12 16:27 | PN ---
Date/Time of Note Date/Time of Note DATE: 09/12/17 TIME: 16:23 Assessment/Plan VTE Prophylaxis VTE Prophylaxis Intervention: SCD's Lines/Catheters IV [facility]from [facility] Urinary Cath still in place: Yes Assessment/Plan Chief Complaint/Hosp Course Assessment and plan 1. Right lower lobe segmental pulmonary embolism. On therapeutic anticoagulation. 2. Acute hypoxic respiratory failure. Suspect secondary to #1. 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 Continue bronchodilators. Still noted to be hypoxic. Titrate off high flow O2. Continue with nurse private duty recommendations. 3. Bilateral pneumonia. On antibiotics. 4. Metastatic breast cancer. Continuing to therapy. Oncologist following. 5. Pancytopenia secondary to #4. Monitor H&H. 6. UTI. Continue on antibiotic. 7. Hypothyroidism. Continue on Synthroid 8. Multiple pathologic rib fractures. Likely secondary to metastatic cancer. Continue with analgesics. 9. Diabetes. Continue insulin regimen. 10. Hypocalcemia. Resolved. Protein calorie malnutrition. Continue on high protein diet. 11. MRSA of the nares. Continue Bactroban Disposition plan: Continue with O2 supplement. Titrate down as tolerated. Plan for Kumar evaluation. Discussed plan of care with Dr. Alonso Problems: Subjective 24 Hr Interval Summary Free Text/Dictation still with plenty shortness of breath. remains on hi-uriel Exam/Review of Systems Vital Signs Vitals Vital Signs Date Time Temp Pulse Resp B/P Pulse Ox O2 Delivery O2 Flow Rate FiO2 09/12/17 15:57 98.7 77 18 113/66 97 09/12/17 15:40 High Flow 09/12/17 11:40 50 Intake and Output 09/11/17 09/11/17 09/12/17 15:00 23:00 07:00 Intake Total 572 ml 220 ml Output Total 1000 ml 400 ml Balance -428 ml -180 ml Exam Constitutional: alert, oriented Psych: nl mood/affect Head: normocephalic Eyes: nl conjunctiva Respiratory: diminished breath sounds Cardiovascular: other (regular rate) Gastrointestinal: non-tender, soft Musculoskeletal: No nl gait and stance, No swelling 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: 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 intact, nl mental status, nl speech Skin: nl turgor Results Result Diagram: 09/12/17 0816 09/12/17 0816 Results 24 hrs Laboratory Tests Test 09/11/17 17:13 09/11/17 19:56 09/12/17 07:59 09/12/17 08:16 Bedside Glucose 181 133 134 White Blood Count 8.5 Red Blood Count 3.51 #L Hemoglobin 11.2 #L Hematocrit 32.7 #L Mean Corpuscular Volume 93.2 Mean Corpuscular Hemoglobin 31.9 Mean Corpuscular Hemoglobin Concent 34.3 Red Cell Distribution Width 21.1 H Platelet Count 309 Mean Platelet Volume 10.9 H Neutrophils % 91.1 H Lymphocytes % 4.0 L Monocytes % 3.0 Eosinophils % 0.0 Basophils % 0.1 Nucleated Red Blood Cells % 0.4 H Neutrophils # 7.7 H Lymphocytes # 0.3 L Monocytes # 0.3 Eosinophils # 0.0 Basophils # 0.0 Nucleated Red Blood Cells # 0.0 Sodium Level 136 Potassium Level 3.3 L Chloride Level 92 L Carbon Dioxide Level 39 H Anion Gap 8 Blood Urea Nitrogen 27 H Creatinine 0.53 Glucose Level 145 Calcium Level 6.2 L Test 09/12/17 12:15 Bedside Glucose 154 Medications Medications Current Medications Ondansetron HCl (Zofran Inj) 4 mg Q6H PRN IV NAUSEA AND/OR VOMITING; Start 09/01/17 at 22:00 Nitroglycerin (Nitroglycerin (Sl Tab) 0.4 Mg) 1 tab Q5M PRN SL CHEST PAIN; Start 09/01/17 at 22:00 Acetaminophen (Tylenol Tab) 650 mg Q6H PRN PO PAIN LEVEL 1-3 OR FEVER Last administered on 09/03/17 16:00; Admin Dose 650 MG; Start 09/01/17 at 22:00 Morphine Sulfate (morphine) 2 mg Q4H PRN IV PAIN LEVEL 7-10; Start 09/01/17 at 22:00 Magnesium Hydroxide (Milk Of Mag) 30 ml DAILY PRN PO CONSTIPATION; Start at 22:00 Pantoprazole (Protonix Tab) 40 mg DAILY@06 PO Last administered on 09/12/17 06:25; Admin Dose 40 MG; Start 09/02/17 at 06:00 Alprazolam (Xanax) 0.25 mg Q8 PO Last administered on 09/12/17 14:07; Admin Dose 0.25 MG; Start 09/01/17 at 22:00 Amlodipine Besylate (Norvasc) 10 mg DAILY PO Last administered on 09/12/17 09 :15; Admin Dose 10 MG; Start 09/02/17 at 09:00 Cyclobenzaprine HCl (Flexeril) 5 mg BID PRN PO MUSCLE SPASM; Start 09/01/17 at 22:00 Docusate Sodium (Colace) 100 mg BID PO Last administered on 09/11/17 20:47; Admin Dose 100 MG; Start 09/02/17 at 09:00 Hydromorphone HCl (Dilaudid) 4 mg Q4H PRN PO pain; Start 09/01/17 at 22:00 Magnesium Hydroxide (Milk Of Mag) 30 ml QHS PO Last administered on 09/11/17 21:52; Admin Dose 30 ML; Start 09/02/17 at 21:00 Methadone HCl (Methadone) 10 mg Q8H PO Last administered on 09/12/17 14:06; Admin Dose 10 MG; Start 09/02/17 at 06:00 Senna (Senokot) 2 tab BID PO Last administered on 09/12/17 09:15; Admin Dose 2 TAB; Start 09/01/17 at 22:00 Zinc Sulfate 220 mg 220 mg DAILY PO Last administered on 09/12/17 09:15; Admin Dose 220 MG; Start 09/02/17 at 09:00 Cefepime HCl 50 ml @ 100 mls/hr Q24H IVPB Last administered on 09/11/17 20: 03; Admin Dose 100 MLS/HR; Start 09/02/17 at 20:00 Vancomycin HCl (Vancocin) 100 ml @ 100 mls/hr Q8H IVPB Last administered on 09:15; Admin Dose 100 MLS/HR; Start 09/03/17 at 17:00 Enoxaparin Sodium (Lovenox) 50 mg Q12 SC Last administered on 09/12/17 09:20 ; Admin Dose 50 MG; Start 09/03/17 at 21:00 Diagnostic Test (Pha) (Accu-Chek) 1 ea 02 XX Last administered on 09/10/17 01 :08; Admin Dose 1 EA; Start 09/05/17 at 02:00 Miscellaneous Information 1 ea NOTE XX ; Start 09/04/17 at 11:00 Glucose (Glutose) 15 gm Q15M PRN PO DECREASED GLUCOSE; Start 09/04/17 at 11:00 Glucose (Glutose) 22.5 gm Q15M PRN PO DECREASED GLUCOSE; Start 09/04/17 at 11: 00 Dextrose (D50w Syringe) 25 ml Q15M PRN IV DECREASED GLUCOSE; Start 09/04/17 at 11:00 Dextrose (D50w Syringe) 50 ml Q15M PRN IV DECREASED GLUCOSE; Start 09/04/17 at 11:00 Glucagon (Glucagen) 1 mg Q15M PRN IM DECREASED GLUCOSE; Start 09/04/17 at 11: 00 Glucose (Glutose) 15 gm Q15M PRN BUCCAL DECREASED GLUCOSE; Start 09/04/17 at 11:00 Polyethylene Glycol (Miralax) 17 gm BID PO Last administered on 09/09/17 21: 27; Admin Dose 17 GM; Start 09/05/17 at 09:30 Bisacodyl (Dulcolax) 10 mg DAILY PRN PO CONSTIPATION; Start 09/05/17 at 09:30 Mupirocin (Bactroban) 1 applic BID TOP Last administered on 09/12/17 08:59; Admin Dose 1 APPLIC; Start 09/06/17 at 10:00 Ascorbic Acid (Vitamin C) 500 mg BID PO Last administered on 09/12/17 09:15; Admin Dose 500 MG; Start 09/06/17 at 09:30 Miscellaneous Information (Pending Santyl Order For Wound Care) This patient reece... PRN PRN XX WOUND CARE; Start 09/06/17 at 11:30 Non-Formulary Medication 1 dose 14 PO Last administered on 09/12/17 14:16; Admin Dose 1 DOSE; Start 09/06/17 at 22:30; Stop 09/26/17 at 14:01 Letrozole (Femara) 2.5 mg 14 PO Last administered on 09/12/17 14:16; Admin Dose 2.5 MG; Start 09/07/17 at 14:00 Collagenase (Santyl) 1 applic DAILY TOP Last administered on 09/10/17 09:35; Admin Dose 1 APPLIC; Start 09/09/17 at 14:30 Methylprednisolone Sodium Succinate (Solu-Medrol) 40 mg Q12 IV Last administered on 09/12/17 09:21; Admin Dose 40 MG; Start 09/10/17 at 21:00 Miscellaneous Information (*Rx Drug Level Order Reminder*) VANCO TROUGH @ 0, 000 ON ... ONCE ONCE XX ; Start 09/13/17 at 00:00; Stop 09/13/17 at 00:01 DONOVAN BOLAÑOS Sep 12, 2017 16:27
[2017-09-12] MEDS ORDERED: ENOX60DI11 SC (16:42)
[2017-09-12] MEDS ORDERED: Vancomycin Iv Per Pharmacy XX (16:42)
--- NOTE | 2017-09-12 19:55 | CONS ---
Date/Time of Note Date/Time of Note DATE: 09/12/17 TIME: 19:53 Assessment/Plan Assessment/Plan Chief Complaint/Hosp Course Metastatic Breast Ca ON TREATMENT CHEMO ON HOLD INCOMPLETE RECORD RECORD- P Pancytopenia POST CHEMO SL IMPROVED MONITOR CLOSELY TRANSFUSE IF NEEDED Hypoxemic Respiratory Failure: due to a multifocal pneumonia, more consistent with viral. PER PULM- In view of the morphological appearance on thoracic CT, must also consider non-infectious etiologies such as an organizing pneumonia (BOOP) secondary to her chemo (need records to know what she has been on) and/or XRT. RECORD- P HYPERCOAGULABLE STATE WITH subsegmental PE Anticoagulation with lovenox 1 mg/kg BID can be dc on LOVENOX WHEN READY - BETTER FOR PTS WITH ONCOLOGICAL PROBLEMS Problems: Consultation Date/Type/Reason Admit Date/Time Sep 01, 2017 at 20:22 Initial Consult Date 09/02/17 [facility] Referring Provider: DONOVAN BOLAÑOS 24 HR Interval Summary Free Text/Dictation ALL NOTED ON HIGH-FLOW O2 Exam/Review of Systems Vital Signs Vitals Vital Signs Date Time Temp Pulse Resp B/P Pulse Ox O2 Delivery O2 Flow Rate FiO2 09/12/17 16:59 95 50 09/12/17 16:58 79 20 09/12/17 15:57 98.7 113/66 09/12/17 15:40 High Flow Intake and Output 09/11/17 09/11/17 09/12/17 15:00 23:00 07:00 Intake Total 572 ml 220 ml Output Total 1000 ml 400 ml Balance -428 ml -180 ml Exam GENERAL: elderly lady comfortable at rest on high flow 02 VITAL SIGNS: per chart NECK: Supple. No JVD or lymphadenopathy. CARDIAC EXAM: S1, S2. No added sounds or murmurs. CHEST: Diminished air entry bilaterally R> L ABDOMEN: Soft, nontender. No guarding or rebound. EXTREMITIES: No cyanosis, clubbing or edema. NEUROLOGIC: Generalized weakness. No focal deficits. Results Result Diagram: 09/12/17 0816 09/12/17 0816 Results 24 hrs Laboratory Tests Test 09/11/17 19:56 09/12/17 07:59 09/12/17 08:16 09/12/17 12:15 Bedside Glucose 133 134 154 White Blood Count 8.5 Red Blood Count 3.51 #L Hemoglobin 11.2 #L Hematocrit 32.7 #L Mean Corpuscular Volume 93.2 Mean Corpuscular Hemoglobin 31.9 Mean Corpuscular Hemoglobin Concent 34.3 Red Cell Distribution Width 21.1 H Platelet Count 309 Mean Platelet Volume 10.9 H Neutrophils % 91.1 H Lymphocytes % 4.0 L Monocytes % 3.0 Eosinophils % 0.0 Basophils % 0.1 Nucleated Red Blood Cells % 0.4 H Neutrophils # 7.7 H Lymphocytes # 0.3 L Monocytes # 0.3 Eosinophils # 0.0 Basophils # 0.0 Nucleated Red Blood Cells # 0.0 Sodium Level 136 Potassium Level 3.3 L Chloride Level 92 L Carbon Dioxide Level 39 H Anion Gap 8 Blood Urea Nitrogen 27 H Creatinine 0.53 Glucose Level 145 Calcium Level 6.2 L Test 09/12/17 17:00 Bedside Glucose 187 Medications Medications Current Medications Ondansetron HCl (Zofran Inj) 4 mg Q6H PRN IV NAUSEA AND/OR VOMITING; Start 09/01/17 at 22:00 Nitroglycerin (Nitroglycerin (Sl Tab) 0.4 Mg) 1 tab Q5M PRN SL CHEST PAIN; Start 09/01/17 at 22:00 Acetaminophen (Tylenol Tab) 650 mg Q6H PRN PO PAIN LEVEL 1-3 OR FEVER Last administered on 09/03/17 16:00; Admin Dose 650 MG; Start 09/01/17 at 22:00 Morphine Sulfate (morphine) 2 mg Q4H PRN IV PAIN LEVEL 7-10; Start 09/01/17 at 22:00 Magnesium Hydroxide (Milk Of Mag) 30 ml DAILY PRN PO CONSTIPATION; Start at 22:00 Pantoprazole (Protonix Tab) 40 mg DAILY@06 PO Last administered on 09/12/17 06:25; Admin Dose 40 MG; Start 09/02/17 at 06:00 Alprazolam (Xanax) 0.25 mg Q8 PO Last administered on 09/12/17 14:07; Admin Dose 0.25 MG; Start 09/01/17 at 22:00 Amlodipine Besylate (Norvasc) 10 mg DAILY PO Last administered on 09/12/17 09 :15; Admin Dose 10 MG; Start 09/02/17 at 09:00 Cyclobenzaprine HCl (Flexeril) 5 mg BID PRN PO MUSCLE SPASM; Start 09/01/17 at 22:00 Docusate Sodium (Colace) 100 mg BID PO Last administered on 09/11/17 20:47; Admin Dose 100 MG; Start 09/02/17 at 09:00 Hydromorphone HCl (Dilaudid) 4 mg Q4H PRN PO pain; Start 09/01/17 at 22:00 Magnesium Hydroxide (Milk Of Mag) 30 ml QHS PO Last administered on 09/11/17 21:52; Admin Dose 30 ML; Start 09/02/17 at 21:00 Methadone HCl (Methadone) 10 mg Q8H PO Last administered on 09/12/17 14:06; Admin Dose 10 MG; Start 09/02/17 at 06:00 Senna (Senokot) 2 tab BID PO Last administered on 09/12/17 09:15; Admin Dose 2 TAB; Start 09/01/17 at 22:00 Zinc Sulfate 220 mg 220 mg DAILY PO Last administered on 09/12/17 09:15; Admin Dose 220 MG; Start 09/02/17 at 09:00 Cefepime HCl 50 ml @ 100 mls/hr Q24H IVPB Last administered on 09/11/17 20: 03; Admin Dose 100 MLS/HR; Start 09/02/17 at 20:00 Vancomycin HCl (Vancocin) 100 ml @ 100 mls/hr Q8H IVPB Last administered on 17:02; Admin Dose 100 MLS/HR; Start 09/03/17 at 17:00 Enoxaparin Sodium (Lovenox) 50 mg Q12 SC Last administered on 09/12/17 09:20 ; Admin Dose 50 MG; Start 09/03/17 at 21:00 Diagnostic Test (Pha) (Accu-Chek) 1 ea 02 XX Last administered on 09/10/17 01 :08; Admin Dose 1 EA; Start 09/05/17 at 02:00 Miscellaneous Information 1 ea NOTE XX ; Start 09/04/17 at 11:00 Glucose (Glutose) 15 gm Q15M PRN PO DECREASED GLUCOSE; Start 09/04/17 at 11:00 Glucose (Glutose) 22.5 gm Q15M PRN PO DECREASED GLUCOSE; Start 09/04/17 at 11: 00 Dextrose (D50w Syringe) 25 ml Q15M PRN IV DECREASED GLUCOSE; Start 09/04/17 at 11:00 Dextrose (D50w Syringe) 50 ml Q15M PRN IV DECREASED GLUCOSE; Start 09/04/17 at 11:00 Glucagon (Glucagen) 1 mg Q15M PRN IM DECREASED GLUCOSE; Start 09/04/17 at 11: 00 Glucose (Glutose) 15 gm Q15M PRN BUCCAL DECREASED GLUCOSE; Start 09/04/17 at 11:00 Polyethylene Glycol (Miralax) 17 gm BID PO Last administered on 09/09/17 21: 27; Admin Dose 17 GM; Start 09/05/17 at 09:30 Bisacodyl (Dulcolax) 10 mg DAILY PRN PO CONSTIPATION; Start 09/05/17 at 09:30 Mupirocin (Bactroban) 1 applic BID TOP Last administered on 09/12/17 08:59; Admin Dose 1 APPLIC; Start 09/06/17 at 10:00 Ascorbic Acid (Vitamin C) 500 mg BID PO Last administered on 09/12/17 09:15; Admin Dose 500 MG; Start 09/06/17 at 09:30 Miscellaneous Information (Pending Santyl Order For Wound Care) This patient reece... PRN PRN XX WOUND CARE; Start 09/06/17 at 11:30 Non-Formulary Medication 1 dose 14 PO Last administered on 09/12/17 14:16; Admin Dose 1 DOSE; Start 09/06/17 at 22:30; Stop 09/26/17 at 14:01 Letrozole (Femara) 2.5 mg 14 PO Last administered on 09/12/17 14:16; Admin Dose 2.5 MG; Start 09/07/17 at 14:00 Collagenase (Santyl) 1 applic DAILY TOP Last administered on 09/10/17 09:35; Admin Dose 1 APPLIC; Start 09/09/17 at 14:30 Methylprednisolone Sodium Succinate (Solu-Medrol) 40 mg Q12 IV Last administered on 09/12/17 09:21; Admin Dose 40 MG; Start 09/10/17 at 21:00 Miscellaneous Information (*Rx Drug Level Order Reminder*) VANCO TROUGH @ 0, 000 ON ... ONCE ONCE XX ; Start 09/13/17 at 00:00; Stop 09/13/17 at 00:01 JOSEPH EDOUARD MD Sep 12, 2017 19:55
[2017-09-12] MEDS: CEFEPIME 1GM/50 ML (PMX) 50 ML IVPB SCH (20:22)
[2017-09-12] MEDS: MAGNESIUM HYDROXIDE 30ML CUP PO SCH (20:27)
[2017-09-13] VITALS (12 sets, daily range): BP systolic 99–116; BP diastolic 60–70; PULSE 70–85; RESP 18–22
[2017-09-13] MEDS: ALBUTEROL/IPRATROPIUM (NEB) 3 ML AMP HHN SCH ×6 (00:10→20:17)
[2017-09-13] MEDS: ACCU-CHEK XX SCH (02:00)
[2017-09-13] MEDS: VANCOMYCIN 500MG/NS (PMX) 100 ML IVPB SCH ×3 (02:27→18:27)
[2017-09-13] MEDS: METHADONE 10 MG TAB PO SCH ×2 (06:04→14:23)
[2017-09-13] MEDS: LEVOTHYROXINE 100 MCG TAB PO SCH (06:04)
[2017-09-13] MEDS: ALPRAZOLAM 0.25 MG TAB PO SCH ×2 (06:04→14:23)
[2017-09-13] MEDS: PANTOPRAZOLE (EC) 40 MG TAB PO SCH (06:04)
[2017-09-13] MEDS: FUROSEMIDE 20 MG INJ IV SCH ×2 (06:05→17:19)
[2017-09-13] MEDS: INSULIN ASPART [NOVOLOG] 3 ML PEN SC SCH ×3 (08:44→17:32)
[2017-09-13 08:56] LABS: ABNORMAL IP MESSAGE 1; HEMATOCRIT 29.8 % (37.0-47.0); HEMOGLOBIN 10.2 g/dl (12.0-16.0); LYMPHOCYTES # 0.4 10^3/ul (0.8-2.9); LYMPHOCYTES % 5.1 % (15.0-51.0); MEAN CORPUSCULAR HEMOGLOBIN 31.7 pg (29.0-33.0); MEAN CORPUSCULAR HGB CONC 34.2 g/dl (32.0-37.0); MEAN CORPUSCULAR VOLUME 92.5 fl (82.0-101.0); MONOCYTE # 0.1 10^3/ul (0.3-0.9); MONOCYTES % 1.9 % (0.0-11.0); NEUTROPHIL # 6.6 10^3/ul (1.6-7.5); NEUTROPHILS % 91.3 % (39.0-77.0); PLATELET COUNT 294 10^3/UL (140-415); RED BLOOD COUNT 3.22 10^6/ul (4.20-5.40); RED CELL DISTRIBUTION WIDTH 20.7 % (11.5-14.5); WHITE BLOOD COUNT 7.2 10^3/ul (4.8-10.8)
--- NOTE | 2017-09-13 08:57 | RADRPT ---
PROCEDURE: XR Chest 1 View. CLINICAL INDICATION: Shortness of breath. TECHNIQUE: Single view of the chest was obtained. COMPARISON: DR CHEST 09/09/[address] September 01, 2017 FINDINGS: The heart size is within normal limits. Calcified atherosclerosis is noted in the aorta. Diffuse mi ld interstitial prominence in both lungs is unchanged. Scattered atelectasis is noted in both lungs. Atelectasis versus focal infiltrates in the left apex are stable. Surgical clips are identified in the lower neck. Multiple right-sided rib fractures are stable. Diffuse osteopenia is seen. IMPRESSION: Calcified atherosclerosis in the aorta. Stable atelectasis versus infiltrates at the left apex. Stable diffuse mild interstitial prominence in both lungs. Interstitial prominence could be chronic. Scattered atelectasis in both lungs. Stable right-sided rib fractures. RPTAT: AA .Marcelino Andino MD, MD Date Time Electronically viewed and signed by .Marcelino Andino MD, MD on 09/13/2017 08:57 .P/
[2017-09-13] MEDS: AMLODIPINE 10 MG TAB PO SCH (09:00)
[2017-09-13] MEDS: POLYETHYLENE GLYCOL 17 GM PACKET PO SCH (09:00)
[2017-09-13] MEDS: DOCUSATE SODIUM 100 MG CAP PO SCH (09:00)
[2017-09-13 09:29] LABS: CREATININE 0.52 mg/dl (0.44-1.00); POTASSIUM 3.4 mmol/L (3.5-5.1)
[2017-09-13 09:35] LABS: CALCIUM 5.7 mg/dl (8.4-10.2)
[2017-09-13] MEDS: METHYLPREDNISOLONE 40 MG INJ IV SCH (09:45)
[2017-09-13] MEDS: SENNA TAB PO SCH (09:45)
[2017-09-13] MEDS: ZINC SULFATE 220 MG CAP PO SCH (09:46)
[2017-09-13] MEDS: CALCIUM/VITAMIN D (500/200) TAB PO SCH ×3 (09:46→17:12)
[2017-09-13] MEDS: ASCORBIC ACID 500 MG TAB PO SCH (09:46)
[2017-09-13] MEDS: MUPIROCIN 2% 22 GM OINT TOP SCH (10:39)
[2017-09-13] MEDS: ENOXAPARIN 60 MG/0.6 ML SYG SC SCH (10:40)
[2017-09-13] MEDS: COLLAGENASE 30 GM TUBE TOP SCH (10:40)
[2017-09-13 11:17] LABS: AADO2 Arterial 168.1 mmHg (7.0-24.0); Allen Test ACCEPTAB; Arterial Base Excess 11.7 mmol/L (-3.0-3); Arterial COHb 0.3 % (0.0-3.0); Arterial Fraction of Oxyhgb 95.1 % (93.0-99.0); Arterial MetHb 0.1 % (0.0-1.5); MODE HFNC
--- NOTE | 2017-09-13 11:36 | CONS ---
Date/Time of Note Date/Time of Note DATE: 09/13/17 TIME: 11:35 Consult Date/Type/Reason Admit Date/Time Sep 01, 2017 at 20:22 Initial Consult Date 09/02/17 Type of Consultation: Pulmonary Ordering Provider: DONOVAN BOLAÑOS Subjective No significant changes. Remains stable. Objective Vital Signs Date Time Temp Pulse Resp B/P Pulse Ox O2 Delivery O2 Flow Rate FiO2 09/13/17 11:04 98.3 78 18 101/70 96 09/13/17 08:44 40 09/12/17 21:00 Vapotherm Intake and Output 09/12/17 09/12/17 09/13/17 15:00 23:00 07:00 Intake Total 100 ml 362 ml 220 ml Output Total 700 ml 500 ml Balance 100 ml -338 ml -280 ml Exam GENERAL: elderly lady comfortable at rest on high flow 02 VITAL SIGNS: per chart NECK: Supple. No JVD or lymphadenopathy. CARDIAC EXAM: S1, S2. No added sounds or murmurs. CHEST: Diminished air entry bilaterally R> L ABDOMEN: Soft, nontender. No guarding or rebound. EXTREMITIES: No cyanosis, clubbing or edema. NEUROLOGIC: Generalized weakness. No focal deficits. Results/Medications Result Diagram: 09/13/17 0810 09/13/17 0810 Results 24 hrs Laboratory Tests Test 09/12/17 12:15 09/12/17 17:00 09/12/17 20:21 09/13/17 00:38 Bedside Glucose 154 187 211 Vancomycin Level Trough 12.6 Test 09/13/17 07:00 09/13/17 08:10 09/13/17 08:30 Blood Gas Specimen Source Blood arterial Arterial Blood Date Drawn 09/13/2017 10:30:51 AM Arterial Blood pH (Temp corrected) 7.555 *H Arterial Blood pCO2 (Temp correct) 40.5 Arterial Blood pO2 (Temp corrected) 70.5 L Arterial Blood HCO3 35.0 H Arterial Blood Base Excess 11.7 H Arterial Blood Oxygen Saturation 95.5 Dariel Test ACCEPTAB Arterial Blood Gas Puncture Site Right Radial Arterial Blood Carboxyhemoglobin 0.3 Arterial Blood Methemoglobin 0.1 Blood Gas A-a O2 Differential 168.1 H Oxyhemoglobin Percent 95.1 Total Hemoglobin 11.0 L Blood Gas Temperature 37.0 Blood Gas Modality HFNC FiO2 40.0 Blood Gas Critical Value Read Back S. REYNOSO, RN Blood Gas Notified Whom Yenny Blood Gas Notified Time 09/13/2017 11:15:37 AM White Blood Count 7.2 Red Blood Count 3.22 L Hemoglobin 10.2 L Hematocrit 29.8 L Mean Corpuscular Volume 92.5 Mean Corpuscular Hemoglobin 31.7 Mean Corpuscular Hemoglobin Concent 34.2 Red Cell Distribution Width 20.7 H Platelet Count 294 Mean Platelet Volume 11.0 H Neutrophils % 91.3 H Lymphocytes % 5.1 L Monocytes % 1.9 Eosinophils % 0.0 Basophils % 0.0 Nucleated Red Blood Cells % 0.0 Neutrophils # 6.6 Lymphocytes # 0.4 L Monocytes # 0.1 L Eosinophils # 0.0 Basophils # 0.0 Nucleated Red Blood Cells # 0.0 Sodium Level 136 Potassium Level 3.4 L Chloride Level 93 L Carbon Dioxide Level 36 H Anion Gap 10 Blood Urea Nitrogen 30 H Creatinine 0.52 Glucose Level 129 Calcium Level 5.7 *L Bedside Glucose 157 Medications Current Medications Ondansetron HCl (Zofran Inj) 4 mg Q6H PRN IV NAUSEA AND/OR VOMITING; Start 09/01/17 at 22:00 Nitroglycerin (Nitroglycerin (Sl Tab) 0.4 Mg) 1 tab Q5M PRN SL CHEST PAIN; Start 09/01/17 at 22:00 Acetaminophen (Tylenol Tab) 650 mg Q6H PRN PO PAIN LEVEL 1-3 OR FEVER Last administered on 09/03/17 16:00; Admin Dose 650 MG; Start 09/01/17 at 22:00 Morphine Sulfate (morphine) 2 mg Q4H PRN IV PAIN LEVEL 7-10; Start 09/01/17 at 22:00 Magnesium Hydroxide (Milk Of Mag) 30 ml DAILY PRN PO CONSTIPATION; Start at 22:00 Pantoprazole (Protonix Tab) 40 mg DAILY@06 PO Last administered on 09/13/17 06:04; Admin Dose 40 MG; Start 09/02/17 at 06:00 Alprazolam (Xanax) 0.25 mg Q8 PO Last administered on 09/13/17 06:04; Admin Dose 0.25 MG; Start 09/01/17 at 22:00 Amlodipine Besylate (Norvasc) 10 mg DAILY PO Last administered on 09/12/17 09 :15; Admin Dose 10 MG; Start 09/02/17 at 09:00 Cyclobenzaprine HCl (Flexeril) 5 mg BID PRN PO MUSCLE SPASM; Start 09/01/17 at 22:00 Docusate Sodium (Colace) 100 mg BID PO Last administered on 09/12/17 20:27; Admin Dose 100 MG; Start 09/02/17 at 09:00 Hydromorphone HCl (Dilaudid) 4 mg Q4H PRN PO pain; Start 09/01/17 at 22:00 Magnesium Hydroxide (Milk Of Mag) 30 ml QHS PO Last administered on 09/12/17 20:27; Admin Dose 30 ML; Start 09/02/17 at 21:00 Methadone HCl (Methadone) 10 mg Q8H PO Last administered on 09/13/17 06:04; Admin Dose 10 MG; Start 09/02/17 at 06:00 Senna (Senokot) 2 tab BID PO Last administered on 09/13/17 09:45; Admin Dose 2 TAB; Start 09/01/17 at 22:00 Zinc Sulfate 220 mg 220 mg DAILY PO Last administered on 09/13/17 09:46; Admin Dose 220 MG; Start 09/02/17 at 09:00 Cefepime HCl 50 ml @ 100 mls/hr Q24H IVPB Last administered on 09/12/17 20: 22; Admin Dose 100 MLS/HR; Start 09/02/17 at 20:00 Vancomycin HCl (Vancocin) 100 ml @ 100 mls/hr Q8H IVPB Last administered on 02:27; Admin Dose 100 MLS/HR; Start 09/03/17 at 17:00 Enoxaparin Sodium (Lovenox) 50 mg Q12 SC Last administered on 09/12/17 20:32 ; Admin Dose 50 MG; Start 09/03/17 at 21:00 Diagnostic Test (Pha) (Accu-Chek) 1 ea 02 XX Last administered on 09/10/17 01 :08; Admin Dose 1 EA; Start 09/05/17 at 02:00 Miscellaneous Information 1 ea NOTE XX ; Start 09/04/17 at 11:00 Glucose (Glutose) 15 gm Q15M PRN PO DECREASED GLUCOSE; Start 09/04/17 at 11:00 Glucose (Glutose) 22.5 gm Q15M PRN PO DECREASED GLUCOSE; Start 09/04/17 at 11: 00 Dextrose (D50w Syringe) 25 ml Q15M PRN IV DECREASED GLUCOSE; Start 09/04/17 at 11:00 Dextrose (D50w Syringe) 50 ml Q15M PRN IV DECREASED GLUCOSE; Start 09/04/17 at 11:00 Glucagon (Glucagen) 1 mg Q15M PRN IM DECREASED GLUCOSE; Start 09/04/17 at 11: 00 Glucose (Glutose) 15 gm Q15M PRN BUCCAL DECREASED GLUCOSE; Start 09/04/17 at 11:00 Polyethylene Glycol (Miralax) 17 gm BID PO Last administered on 09/12/17 20: 49; Admin Dose 17 GM; Start 09/05/17 at 09:30 Bisacodyl (Dulcolax) 10 mg DAILY PRN PO CONSTIPATION; Start 09/05/17 at 09:30 Mupirocin (Bactroban) 1 applic BID TOP Last administered on 09/13/17 10:39; Admin Dose 1 APPLIC; Start 09/06/17 at 10:00 Ascorbic Acid (Vitamin C) 500 mg BID PO Last administered on 09/13/17 09:46; Admin Dose 500 MG; Start 09/06/17 at 09:30 Miscellaneous Information (Pending Santyl Order For Wound Care) This patient reece... PRN PRN XX WOUND CARE; Start 09/06/17 at 11:30 Non-Formulary Medication 1 dose 14 PO Last administered on 09/12/17 14:16; Admin Dose 1 DOSE; Start 09/06/17 at 22:30; Stop 09/26/17 at 14:01 Letrozole (Femara) 2.5 mg 14 PO Last administered on 09/12/17 14:16; Admin Dose 2.5 MG; Start 09/07/17 at 14:00 Collagenase (Santyl) 1 applic DAILY TOP Last administered on 09/13/17 10:40; Admin Dose 1 APPLIC; Start 09/09/17 at 14:30 Methylprednisolone Sodium Succinate (Solu-Medrol) 40 mg Q12 IV Last administered on 09/13/17 09:45; Admin Dose 40 MG; Start 09/10/17 at 21:00 Assessment/Plan Chief Complaint/Hosp Course Assessment. 1. hypoxemic resp failure. possible BOOP, PNA. Confirmed PE continues high flow O2 2. Metastatic breast cancer. Plan. 1. Continue abx, steroids 2. Decrease 02 as tolerated. 3. Repeat chest x-ray noted. 4. Continue Lasix if tolerated. Kumar transfer. Overall prognosis guarded. Problems: MOSES CUNNINGHAM MD, [facility] Sep 13, 2017 11:36
--- NOTE | 2017-09-13 14:09 | PDOCDIS ---
Discharge Instructions DIAGNOSIS Discharge Diagnosis 1. Right lower lobe segmental pulmonary embolism. 2. Acute hypoxic respiratory failure. Suspect secondary to #1. 3. Bilateral pneumonia. 4. Metastatic breast cancer. 5. Pancytopenia secondary to #4. 6. UTI. 7. Hypothyroidism. 8. Multiple pathologic rib fractures. 9. Diabetes. 10. Hypocalcemia. 11. MRSA of the [facility] HOME CARE INSTRUCTIONS: Special Diet: regular diet OTHER ORDERS: Other Orders: Further care and management per [facility] DONOVAN BOLAÑOS Sep 13, 2017 14:09
[2017-09-13] MEDS: IBRANCE PO SCH (14:19)
[2017-09-13] MEDS: LETROZOLE 2.5 MG TAB PO SCH (14:20)
[2017-09-13] MEDS ORDERED: POTASSIUM CHLORIDE 20 MEQ POWDER FOR ORAL SOLN PO ONE (14:30)
[2017-09-13] MEDS ORDERED: CALCIUM GLUCONATE 10% 1 GM in DEXTROSE 5% 100 ML IVPB ONE (14:30)
--- NOTE | 2017-09-13 16:02 | CONS ---
Date/Time of Note Date/Time of Note DATE: 09/13/17 TIME: 16:02 Assessment/Plan Assessment/Plan Chief Complaint/Hosp Course Metastatic Breast Ca ON TREATMENT CHEMO ON HOLD INCOMPLETE RECORD WILL OBTAIN AND REVIEW RECORD HYPERCOAGULABLE STATE WITH subsegmental PE Anticoagulation with lovenox 1 mg/kg BID Pancytopenia POST CHEMO SL IMPROVED MONITOR CLOSELY TRANSFUSE IF NEEDED Hypoxemic Respiratory Failure: due to a multifocal pneumonia, more consistent with viral. PER PULM- In view of the morphological appearance on thoracic CT, must also consider non-infectious etiologies such as an organizing pneumonia (BOOP) secondary to her chemo (need records to know what she has been on) and/or XRT. RECORD- P Problems: Consultation Date/Type/Reason Admit Date/Time Sep 01, 2017 at 20:22 Initial Consult Date 09/02/17 Type of Consultation: [facility] Referring Provider: DONOVAN BOLAÑOS Exam/Review of Systems Vital Signs Vitals Vital Signs Date Time Temp Pulse Resp B/P Pulse Ox O2 Delivery O2 Flow Rate FiO2 09/13/17 15:31 97.9 88 22 116/66 94 09/13/17 12:57 40 09/13/17 09:30 Vapotherm Intake and Output 09/12/17 09/12/17 09/13/17 15:00 23:00 07:00 Intake Total 100 ml 362 ml 220 ml Output Total 700 ml 500 ml Balance 100 ml -338 ml -280 ml Results Result Diagram: 09/13/17 0810 09/13/17 0810 Results 24 hrs Laboratory Tests Test 09/12/17 17:00 09/12/17 20:21 09/13/17 00:38 09/13/17 07:00 Bedside Glucose 187 211 Vancomycin Level Trough 12.6 Blood Gas Specimen Source Blood arterial Arterial Blood Date Drawn 09/13/2017 10:30:51 AM Arterial Blood pH (Temp corrected) 7.555 *H Arterial Blood pCO2 (Temp correct) 40.5 Arterial Blood pO2 (Temp corrected) 70.5 L Arterial Blood HCO3 35.0 H Arterial Blood Base Excess 11.7 H Arterial Blood Oxygen Saturation 95.5 Dariel Test ACCEPTAB Arterial Blood Gas Puncture Site Right Radial Arterial Blood Carboxyhemoglobin 0.3 Arterial Blood Methemoglobin 0.1 Blood Gas A-a O2 Differential 168.1 H Oxyhemoglobin Percent 95.1 Total Hemoglobin 11.0 L Blood Gas Temperature 37.0 Blood Gas Modality HFNC FiO2 40.0 Blood Gas Critical Value Read Back Jewell REYNOSO RN Blood Gas Notified Whom Yenny Blood Gas Notified Time 09/13/2017 11:15:37 AM Test 09/13/17 08:10 09/13/17 08:30 09/13/17 11:49 White Blood Count 7.2 Red Blood Count 3.22 L Hemoglobin 10.2 L Hematocrit 29.8 L Mean Corpuscular Volume 92.5 Mean Corpuscular Hemoglobin 31.7 Mean Corpuscular Hemoglobin Concent 34.2 Red Cell Distribution Width 20.7 H Platelet Count 294 Mean Platelet Volume 11.0 H Neutrophils % 91.3 H Lymphocytes % 5.1 L Monocytes % 1.9 Eosinophils % 0.0 Basophils % 0.0 Nucleated Red Blood Cells % 0.0 Neutrophils # 6.6 Lymphocytes # 0.4 L Monocytes # 0.1 L Eosinophils # 0.0 Basophils # 0.0 Nucleated Red Blood Cells # 0.0 Sodium Level 136 Potassium Level 3.4 L Chloride Level 93 L Carbon Dioxide Level 36 H Anion Gap 10 Blood Urea Nitrogen 30 H Creatinine 0.52 Glucose Level 129 Calcium Level 5.7 *L Bedside Glucose 157 122 Medications Medications Current Medications Ondansetron HCl (Zofran Inj) 4 mg Q6H PRN IV NAUSEA AND/OR VOMITING; Start 09/01/17 at 22:00 Nitroglycerin (Nitroglycerin (Sl Tab) 0.4 Mg) 1 tab Q5M PRN SL CHEST PAIN; Start 09/01/17 at 22:00 Acetaminophen (Tylenol Tab) 650 mg Q6H PRN PO PAIN LEVEL 1-3 OR FEVER Last administered on 09/03/17 16:00; Admin Dose 650 MG; Start 09/01/17 at 22:00 Morphine Sulfate (morphine) 2 mg Q4H PRN IV PAIN LEVEL 7-10; Start 09/01/17 at 22:00 Magnesium Hydroxide (Milk Of Mag) 30 ml DAILY PRN PO CONSTIPATION; Start at 22:00 Pantoprazole (Protonix Tab) 40 mg DAILY@06 PO Last administered on 09/13/17 06:04; Admin Dose 40 MG; Start 09/02/17 at 06:00 Alprazolam (Xanax) 0.25 mg Q8 PO Last administered on 09/13/17 14:23; Admin Dose 0.25 MG; Start 09/01/17 at 22:00 Amlodipine Besylate (Norvasc) 10 mg DAILY PO Last administered on 09/12/17 09 :15; Admin Dose 10 MG; Start 09/02/17 at 09:00 Cyclobenzaprine HCl (Flexeril) 5 mg BID PRN PO MUSCLE SPASM; Start 09/01/17 at 22:00 Docusate Sodium (Colace) 100 mg BID PO Last administered on 09/12/17 20:27; Admin Dose 100 MG; Start 09/02/17 at 09:00 Hydromorphone HCl (Dilaudid) 4 mg Q4H PRN PO pain; Start 09/01/17 at 22:00 Magnesium Hydroxide (Milk Of Mag) 30 ml QHS PO Last administered on 09/12/17 20:27; Admin Dose 30 ML; Start 09/02/17 at 21:00 Methadone HCl (Methadone) 10 mg Q8H PO Last administered on 09/13/17 14:23; Admin Dose 10 MG; Start 09/02/17 at 06:00 Senna (Senokot) 2 tab BID PO Last administered on 09/13/17 09:45; Admin Dose 2 TAB; Start 09/01/17 at 22:00 Zinc Sulfate 220 mg 220 mg DAILY PO Last administered on 09/13/17 09:46; Admin Dose 220 MG; Start 09/02/17 at 09:00 Cefepime HCl 50 ml @ 100 mls/hr Q24H IVPB Last administered on 09/12/17 20: 22; Admin Dose 100 MLS/HR; Start 09/02/17 at 20:00 Vancomycin HCl (Vancocin) 100 ml @ 100 mls/hr Q8H IVPB Last administered on 10:45; Admin Dose 100 MLS/HR; Start 09/03/17 at 17:00 Enoxaparin Sodium (Lovenox) 50 mg Q12 SC Last administered on 09/12/17 20:32 ; Admin Dose 50 MG; Start 09/03/17 at 21:00 Diagnostic Test (Pha) (Accu-Chek) 1 ea 02 XX Last administered on 09/10/17 01 :08; Admin Dose 1 EA; Start 09/05/17 at 02:00 Miscellaneous Information 1 ea NOTE XX ; Start 09/04/17 at 11:00 Glucose (Glutose) 15 gm Q15M PRN PO DECREASED GLUCOSE; Start 09/04/17 at 11:00 Glucose (Glutose) 22.5 gm Q15M PRN PO DECREASED GLUCOSE; Start 09/04/17 at 11: 00 Dextrose (D50w Syringe) 25 ml Q15M PRN IV DECREASED GLUCOSE; Start 09/04/17 at 11:00 Dextrose (D50w Syringe) 50 ml Q15M PRN IV DECREASED GLUCOSE; Start 09/04/17 at 11:00 Glucagon (Glucagen) 1 mg Q15M PRN IM DECREASED GLUCOSE; Start 09/04/17 at 11: 00 Glucose (Glutose) 15 gm Q15M PRN BUCCAL DECREASED GLUCOSE; Start 09/04/17 at 11:00 Polyethylene Glycol (Miralax) 17 gm BID PO Last administered on 09/12/17 20: 49; Admin Dose 17 GM; Start 09/05/17 at 09:30 Bisacodyl (Dulcolax) 10 mg DAILY PRN PO CONSTIPATION; Start 09/05/17 at 09:30 Mupirocin (Bactroban) 1 applic BID TOP Last administered on 09/13/17 10:39; Admin Dose 1 APPLIC; Start 09/06/17 at 10:00 Ascorbic Acid (Vitamin C) 500 mg BID PO Last administered on 09/13/17 09:46; Admin Dose 500 MG; Start 09/06/17 at 09:30 Miscellaneous Information (Pending Santyl Order For Wound Care) This patient reece... PRN PRN XX WOUND CARE; Start 09/06/17 at 11:30 Non-Formulary Medication 1 dose 14 PO Last administered on 09/13/17 14:19; Admin Dose 1 DOSE; Start 09/06/17 at 22:30; Stop 09/26/17 at 14:01 Letrozole (Femara) 2.5 mg 14 PO Last administered on 09/13/17 14:20; Admin Dose 2.5 MG; Start 09/07/17 at 14:00 Collagenase (Santyl) 1 applic DAILY TOP Last administered on 09/13/17 10:40; Admin Dose 1 APPLIC; Start 09/09/17 at 14:30 Methylprednisolone Sodium Succinate (Solu-Medrol) 40 mg Q12 IV Last administered on 09/13/17t 09:45; Admin Dose 40 MG; Start 09/10/17 at 21:00 JOSEPH EDOUARD MD Sep 13, 2017 16:02
[2017-09-13 20:28] LABS: PTH CALCIUM 6.2 mg/dL (8.6-10.4)
== END 2017-09-13 20:59 | DRG 175 ==
LOC: E/R 17:23 → TEL 20:22 → UNDOADMIN 20:22 → ICU 09-03 18:26 → TEL 09-06 13:13
PROVIDERS: ADMIT Internal Medicine; ATTEND Internal Medicine
PROC: 5A09457 Assistance with Respiratory Ventilation, 24-96 Consecutive Hours, Continuous Positive Airway Pressure (ICD-10-PCS; principal; 2017-09-01)
DX: I26.99 Other pulmonary embolism without acute cor pulmonale (principal); J96.01 Acute respiratory failure with hypoxia; J18.9 Pneumonia, unspecified organism; D61.818 Other pancytopenia; L89.153 Pressure ulcer of sacral region, stage 3; D61.810 Antineoplastic chemotherapy induced pancytopenia; E44.0 Moderate protein-calorie malnutrition; C79.51 Secondary malignant neoplasm of bone; M84.58XA Pathological fracture in neoplastic disease, other specified site, initial encounter for fracture; N39.0 Urinary tract infection, site not specified; Z68.1 Body mass index [BMI] 19.9 or less, adult; D68.59 Other primary thrombophilia; E46 Unspecified protein-calorie malnutrition; C50.919 Malignant neoplasm of unspecified site of unspecified female breast; I10 Essential (primary) hypertension; E03.9 Hypothyroidism, unspecified; R73.03 Prediabetes; E83.51 Hypocalcemia; Z22.322 Carrier or suspected carrier of Methicillin resistant Staphylococcus aureus
CPT/HCPCS: 36600; 71010; 71275; 80048; 80053; 80202; 81001; 82040; 82803; 82962; 83036; 83605; 83735; 83880; 83970; 84100; 84484; 85025; 85610; 87040; 87081; 87086; 93005; 93306; 94640; 94660; 94664; 96372; 96374; 96375; 97110; 97163; 97530; J1940; J0610; J0692; J1650; J1815; J2920; J2930; J3370; J7030; J7050; Q9967

== ENCOUNTER → 2017-09-26 | Day surgery (SDC) | END | disposition home or self-care (01) ==

== ENCOUNTER 2017-09-27 18:05 | Day surgery (SDC) | END 2017-09-27 18:06 | disposition short-term general hospital (02) ==